=== PATIENT | female | born 1995 | race Caucasian/White ===

== ENCOUNTER → 2016-06-14 | Outpatient (REF) | payer OTHER, MEDICAID ==
[~2016-06-14] MED LIST: ABIL5TAB; ACET50TA PO; ANUS2.5C2 TOP; BUPR15TA PO; COLA100C PO; DIBU1OI TOP; IBUP-1114 PO; MAG-TAB2 PO; METO5TAB2; PRENTAB55 PO; PREV30TA; VALT500T PO; VITA100037 PO
[2016-06-14 18:39] LABS: ALBUMIN/GLOBULIN RATIO 1.18 (1.00-1.93); ALKALINE PHOSPHATASE 116 U/L (45-117); ALT/SGPT 86 U/L (12-78); ANION GAP 7 MEQ/L (8-16); AST/SGOT 46 U/L (15-37); BILIRUBIN,TOTAL 0.3 MG/DL (0.2-1.0); BLOOD UREA NITROGEN 8 MG/DL (7-18); CALCIUM LEVEL 9.1 MG/DL (8.5-10.1); CARBON DIOXIDE LEVEL 31 MEQ/L (21-32); CHLORIDE LEVEL 105 MEQ/L (98-107); CREATININE FOR GFR 0.93 MG/DL (0.55-1.02); GLUCOSE, FASTING 73 MG/DL (70-105); POTASSIUM SERUM 4.2 MEQ/L (3.5-5.1); SODIUM LEVEL 143 MEQ/L (136-145); TOTAL PROTEIN 7.4 GM/DL (6.4-8.2)
[2016-06-14 19:32] LABS: MEAN CORPUSCULAR HEMOGLOBIN 29.6 pg (27.0-33.0); MEAN CORPUSCULAR HGB CONC 33.6 g/dl (32.0-36.5); MEAN CORPUSCULAR VOLUME 88.2 fl (80.0-96.0); PLATELET COUNT, AUTOMATED 243 k/mm3 (150-450); RED CELL DISTRIBUTION WIDTH 12.6 % (11.5-14.5)
[2016-06-14 21:16] LABS: BANDS 1 % (< 11); EOSINOPHILS 2 % (0-5)
== END ==
LOC: M SFHCLERA 14:51
PROVIDERS: ATTEND Family Medicine
DX: T88.7XXD Unspecified adverse effect of drug or medicament, subsequent encounter (principal)

== ENCOUNTER → 2016-11-07 | Outpatient (REF) | payer OTHER, MEDICAID ==
[~2016-11-07] MED LIST changes: -COLA100C PO; +COLA100C3 PO
[2016-11-07 15:22] LABS: BASO # 0.1 K/mm3 (0.0-0.2); BASO % 0.8 % (0.0-1.0); EOS # 0.2 K/mm3 (0.0-0.50); EOS % 2.4 % (0.0-3.0); LARGE UNSTAINED CELL # 0.1 K/mm3 (0.0-0.4); LARGE UNSTAINED CELL % 1.3 % (0.0-4.0); LYMPH # 2.1 K/mm3 (1.5-6.5); LYMPH % 20.3 % (24.0-44.0); MEAN CORPUSCULAR HEMOGLOBIN 30.3 pg (27.0-33.0); MONO # 0.7 K/mm3 (0.0-0.8); MONO % 6.6 % (0.0-5.0); NEUTROPHILS % 68.7 % (36.0-66.0); PLATELET COUNT, AUTOMATED 299 k/mm3 (150-450); WHITE BLOOD COUNT 10.1 K/mm3 (4.0-10.0)
== END ==
LOC: M SFHCLERA 10:31
PROVIDERS: ATTEND Nurse Practitioner Family
DX: J02.9 Acute pharyngitis, unspecified (principal)

== ENCOUNTER → 2016-12-20 | Outpatient (CLI) | payer MEDICAID ==
[~2016-12-20] MED LIST changes: -COLA100C3 PO; +COLA100C5 PO; +DIBU10OI TOP; -DIBU1OI TOP; -VITA100037 PO; +VITA100067 PO
--- NOTE | 2016-12-20 19:58 | REP ---
Left hip, complete: 12/20/2016 Clinical history: Left hip pain. Comparison: CT pelvis 12/11/2007. AP and frog-leg views show no evidence of hip joint space narrowing. There is no fracture, avulsion or subluxation. The acetabulum, pubic rami, symphysis pubis, iliac wing and SI joints intact. Sacral ala and foramina unremarkable. There is an IUD centrally in the pelvis. Impression: 1. Negative left hip series. No fracture or other acute finding. Signed by Khadar Hernandez MD 12/20/2016 10:32 P
== END ==
LOC: M LRY 18:24
PROVIDERS: ATTEND Nurse Practitioner Family
DX: M25.552 Pain in left hip (principal)

== ENCOUNTER → 2017-04-03 | Outpatient (REF) | payer OTHER | LOC: M SFHCLERA 18:55 | PROVIDERS: ATTEND Physician Assistant | DX: N89.8 Other specified noninflammatory disorders of vagina (principal) ==

== ENCOUNTER → 2017-04-03 | Outpatient (CLI) | payer OTHER ==
[2017-04-03 20:58] LABS: BASO % 0.4 % (0.0-1.0); EOS # 0.2 10^3/uL (0.0-0.50); EOS % 2.3 % (0.0-3.0); IMMATURE GRANULOCYTE % 0.2 % (0-0); LYMPH # 3.2 10^3/uL (1.5-6.5); LYMPH % 38.3 % (24.0-44.0); MEAN CORPUSCULAR HEMOGLOBIN 29.1 pg (27.0-33.0); MEAN CORPUSCULAR HGB CONC 33.3 g/dl (32.0-36.5); MEAN CORPUSCULAR VOLUME 87.6 fl (80.0-96.0); MONO # 0.7 10^3/uL (0.0-0.8); MONO % 8.8 % (0.0-5.0); NEUTROPHILS # 4.2 10^3/uL (1.8-7.7); PLATELET COUNT, AUTOMATED 330 10^3/uL (150-450); RED CELL DISTRIBUTION WIDTH 12.5 % (11.5-14.5); WHITE BLOOD COUNT 8.4 10^3/uL (4.0-10.0)
[2017-04-03 21:10] LABS: ALBUMIN 4.1 GM/DL (3.2-5.2); ALBUMIN/GLOBULIN RATIO 1.32 (1.00-1.93); ALKALINE PHOSPHATASE 111 U/L (45-117); ALT/SGPT 21 U/L (12-78); ANION GAP 5 MEQ/L (8-16); AST/SGOT 16 U/L (7-37); BILIRUBIN,TOTAL 0.2 MG/DL (0.2-1.0); BLOOD UREA NITROGEN 13 MG/DL (7-18); CARBON DIOXIDE LEVEL 33 MEQ/L (21-32); CHLORIDE LEVEL 104 MEQ/L (98-107); CHOLESTEROL LEVEL 166 MG/DL (<200); CREATININE FOR GFR 0.74 MG/DL (0.55-1.02); GLUCOSE, FASTING 83 MG/DL (70-105); POTASSIUM SERUM 4.2 MEQ/L (3.5-5.1); SODIUM LEVEL 142 MEQ/L (136-145); TOTAL PROTEIN 7.2 GM/DL (6.4-8.2); TRIGLYCERIDES LEVEL 96 MG/DL (<150)
[2017-04-03 21:39] LABS: VITAMIN B12 LEVEL 836 PG/ML (247-911)
== END ==
LOC: M LRY 17:54
PROVIDERS: ATTEND Registered Nurse Psychiatric/Mental Health
DX: F94.1 Reactive attachment disorder of childhood (principal)

== ENCOUNTER 2017-04-29 13:16 | Emergency (ER) | payer OTHER ==
[~2017-04-29] VITALS: Ht 160 cm; Wt 57.3 kg
[2017-04-29] MEDS ORDERED: LEVOTAB10 PO (13:30)
[2017-04-29] MEDS ORDERED: LAMO100T PO (13:30)
[2017-04-29 15:02] LABS: MEAN CORPUSCULAR HGB CONC 33.6 g/dl (32.0-36.5); MEAN CORPUSCULAR VOLUME 86.3 fl (80.0-96.0); PLATELET COUNT, AUTOMATED 145 10^3/uL (150-450); RED CELL DISTRIBUTION WIDTH 13.2 % (11.5-14.5); WHITE BLOOD COUNT 10.5 10^3/uL (4.0-10.0)
[2017-04-29 15:03] LABS: ADD MANUAL DIFFER YES; DIFF SLIDE NUMBER 258; POSITIVE MORPH POS FLAG
[2017-04-29 15:20] LABS: CONTROL LINE HCG INT CTR LINE PRESENT
[2017-04-29 15:35] LABS: ALBUMIN 4.1 GM/DL (3.2-5.2); ALBUMIN/GLOBULIN RATIO 1.17 (1.00-1.93); ALKALINE PHOSPHATASE 121 U/L (45-117); ALT/SGPT 43 U/L (12-78); ANION GAP 8 MEQ/L (8-16); AST/SGOT 38 U/L (7-37); BILIRUBIN,DIRECT 0.2 MG/DL (0.0-0.2); BILIRUBIN,TOTAL 0.7 MG/DL (0.2-1.0); BLOOD UREA NITROGEN 10 MG/DL (7-18); CALCIUM LEVEL 8.7 MG/DL (8.5-10.1); CARBON DIOXIDE LEVEL 27 MEQ/L (21-32); CHLORIDE LEVEL 103 MEQ/L (98-107); CREATININE FOR GFR 0.73 MG/DL (0.55-1.02); GLUCOSE, FASTING 97 MG/DL (70-105); POTASSIUM SERUM 4.2 MEQ/L (3.5-5.1); SODIUM LEVEL 138 MEQ/L (136-145); TOTAL PROTEIN 7.6 GM/DL (6.4-8.2)
[2017-04-29] MEDS ORDERED: IBUPROFEN 800 MG TAB PO ONE (15:45)
[2017-04-29] MEDS ORDERED: MORPHINE 4 MG/ML 1ML SYRINGE IV PRN (15:45)
[2017-04-29] MEDS ORDERED: NS 1,000 ML IV ONE (15:45)
[2017-04-29] MEDS ORDERED: ONDANSETRON 4MG/2ML VIAL (J2405) IV ONE (15:45)
[2017-04-29] MEDS ORDERED: ISOVUE-370 76% 100ML VIAL (Q9967) As Ordered ONE (15:57)
--- NOTE | 2017-04-29 17:14 | REP ---
CT of the abdomen and pelvis with IV contrast, without bowel contrast for right lower quadrant abdominal pain. Comparison is 12/11 2007. The visualized lung michaels are unremarkable. The hepatic parenchyma, gallbladder, pancreas are unremarkable. The the is spleen is upper normal size measuring 13 cm craniocaudad length. The adrenals and kidneys are unremarkable. There is no hydronephrosis. The abdominal aorta is unremarkable. There is no bowel distension or obstruction. Mesentery is unremarkable. Pelvis: The appendix has a normal appearance. There is no ascites. There is no adenopathy. There is an IUD centrally placed within the uterus. The uterus and adnexa are unremarkable. The bladder is a unremarkable. Impression: Essentially negative CT scan of the abdomen pelvis. The appendix has a normal appearance. There is an IUD centrally placed in the uterus. There is no adenopathy or ascites. There is no bowel distension or obstruction. The gallbladder and adnexa are unremarkable. Signed by Flip Hopson MD 04/29/2017 05:05 P
[2017-04-29 17:20] LABS: CONTROL LINE MONO INT CTR LINE PRESENT
[2017-04-29] MEDS ORDERED: ZOFR4TAB3 PO (17:53)
[2017-04-29 18:19] VITALS: BP 107/65
== END 2017-04-29 18:21 | disposition home or self-care (01) ==
LOC: M ED 13:16
DX: K52.9 Noninfective gastroenteritis and colitis, unspecified (principal); E86.0 Dehydration; Z97.5 Presence of (intrauterine) contraceptive device; J45.909 Unspecified asthma, uncomplicated; F41.9 Anxiety disorder, unspecified; F32.9 Major depressive disorder, single episode, unspecified; Z79.899 Other long term (current) drug therapy
CPT/HCPCS: 74177; 80048; 80076; 81001; 83605; 83690; 84703; 85025; 86308; 96361; 96374; 96375; 99284; J2405; Q9967

== ENCOUNTER → 2017-05-13 | Outpatient (CLI) | payer OTHER ==
[~2017-05-13] MED LIST changes: +LAMO100T PO; +LEVOTAB10 PO; +ZOFR4TAB3 PO
[2017-05-13 12:24] LABS: ALBUMIN 3.4 GM/DL (3.2-5.2); ALKALINE PHOSPHATASE 88 U/L (45-117); ALT/SGPT 42 U/L (12-78); ANION GAP 5 MEQ/L (8-16); AST/SGOT 28 U/L (7-37); BILIRUBIN,TOTAL 0.5 MG/DL (0.2-1.0); BLOOD UREA NITROGEN 9 MG/DL (7-18); CALCIUM LEVEL 8.1 MG/DL (8.5-10.1); CARBON DIOXIDE LEVEL 30 MEQ/L (21-32); CHLORIDE LEVEL 107 MEQ/L (98-107); CREATININE FOR GFR 0.65 MG/DL (0.55-1.02); GLUCOSE, FASTING 85 MG/DL (70-105); POTASSIUM SERUM 4.2 MEQ/L (3.5-5.1); SODIUM LEVEL 142 MEQ/L (136-145); TOTAL PROTEIN 6.8 GM/DL (6.4-8.2)
== END ==
LOC: M LRY 10:20
PROVIDERS: ATTEND Registered Nurse Psychiatric/Mental Health
DX: F31.81 Bipolar II disorder (principal)

== ENCOUNTER → 2017-05-29 | Outpatient (CLI) | payer OTHER ==
[2017-05-29 21:08] LABS: VALPROIC ACID (DEPAKOTE) 18.7 UG/ML (50.0-100.0)
== END ==
LOC: M LRY 10:06
DX: F31.81 Bipolar II disorder (principal)
CPT/HCPCS: 80164

== ENCOUNTER → 2017-07-08 | Outpatient (REF) | payer OTHER ==
[2017-07-08 14:27] LABS: CHLAMYDIA DNA AMPLIFICATION NEGATIVE (NEGATIVE); GC DNA AMPLIFICATION NEGATIVE (NEGATIVE)
[2017-07-09 11:00] LABS: HIV 1&2 SCREEN CENTAUR NEGATIVE (NEGATIVE)
== END ==
LOC: M SFHCLERA 09:32
DX: R30.0 Dysuria (principal); Z72.51 High risk heterosexual behavior

== ENCOUNTER → 2017-12-08 | Outpatient (REF) | payer OTHER ==
[2017-12-08 14:28] LABS: ESTIMATED AVERAGE GLUCOSE 108 MG/DL (60-110); HEMOGLOBIN A1c 5.4 %
== END ==
LOC: M SFHCLERA 09:41
DX: Z79.899 Other long term (current) drug therapy (principal)

== ENCOUNTER → 2018-03-12 | Outpatient (REF) | payer OTHER ==
[2018-03-12 16:14] LABS: CHLAMYDIA DNA AMPLIFICATION POSITIVE (NEGATIVE); GC DNA AMPLIFICATION NEGATIVE (NEGATIVE)
[2018-03-13 11:05] LABS: HIV 1&2 SCREEN CENTAUR NEGATIVE (NEGATIVE)
== END ==
LOC: M SFHCLERA 12:05
DX: Z30.42 Encounter for surveillance of injectable contraceptive (principal)
CPT/HCPCS: 86780

== ENCOUNTER → 2018-05-02 | Outpatient (CLI) | payer OTHER ==
[~2018-05-02] MED LIST changes: -ACET50TA PO; +HYDR-3363; +JUNE1.5T PO; +MAPA500T17 PO; +TRIL150T PO; +VITA500046 PO; +ZOFR4TAB14 PO; -ZOFR4TAB3 PO
[2018-05-02 10:41] LABS: BASO % 0.3 % (0.0-1.0); EOS # 0.1 10^3/uL (0.0-0.50); HEMATOCRIT 44.8 % (36.0-47.0); HEMOGLOBIN 15.4 g/dl (12.0-15.5); LYMPH # 3.2 10^3/uL (1.5-6.5); LYMPH % 45.2 % (24.0-44.0); MEAN CORPUSCULAR HEMOGLOBIN 29.1 pg (27.0-33.0); MEAN CORPUSCULAR HGB CONC 34.4 g/dl (32.0-36.5); MEAN CORPUSCULAR VOLUME 84.5 fl (80.0-96.0); MONO # 0.5 10^3/uL (0.0-0.8); MONO % 6.5 % (0.0-5.0); NEUTROPHILS # 3.3 10^3/uL (1.8-7.7); NEUTROPHILS % 46.9 % (36.0-66.0); PLATELET COUNT, AUTOMATED 216 10^3/uL (150-450); WHITE BLOOD COUNT 7.1 10^3/uL (4.0-10.0)
[2018-05-02 10:58] LABS: HEMOGLOBIN A1c 5.4 %
[2018-05-02 11:07] LABS: ALT/SGPT 20 U/L (12-78); BILIRUBIN,DIRECT 0.1 MG/DL (0.0-0.2); BILIRUBIN,TOTAL 0.5 MG/DL (0.2-1.0); BLOOD UREA NITROGEN 13 MG/DL (7-18); CALCIUM LEVEL 8.6 MG/DL (8.5-10.1); CARBON DIOXIDE LEVEL 25 MEQ/L (21-32); CHLORIDE LEVEL 107 MEQ/L (98-107); CHOLESTEROL LEVEL 130 MG/DL (<200); CHOLESTEROL RISK RATIO 3.714 (<5); CREATININE FOR GFR 0.91 MG/DL (0.55-1.30); GLOMERULAR FILTRATION RATE > 60.0 (>60); GLUCOSE, FASTING 80 MG/DL (70-100); HDL CHOLESTEROL 35 MG/DL (>40); LDL CHOLESTEROL 76 MG/DL (<100); NON-HDL-C 95 MG/DL; POTASSIUM SERUM 4.1 MEQ/L (3.5-5.1); SODIUM LEVEL 141 MEQ/L (136-145); TOTAL PROTEIN 7.2 GM/DL (6.4-8.2); TRIGLYCERIDES LEVEL 97 MG/DL (<150)
[2018-05-02 11:08] LABS: TOTAL 25(OH) VITAMIN D 80.6 NG/ML (30.0-100.0)
--- NOTE | 2018-05-03 22:05 | ECGEPIP ---
Stationary ECG Study [facility] Test Date: 2018-05-02 Pat Name: KARLOS WARE Department: Room: - Gender: F Supervisor Taping: SHEILA : 1995 Requested By: Cyndi DE PAZ Order Number: [id number] Reading MD: Santi Jerez Measurements Intervals [place] Rate: 88 P: 54 PA: 150 QRS: 84 QRSD: 106 T: 46 QT: 344 QTc: 418 Interpretive Statements SINUS RHYTHM INCOMPLETE RIGHT BUNDLE BRANCH BLOCK NO PRIOR TRACING Electronically Signed On 05-03-2018 22:05:50 EST by Santi Jerez
== END ==
LOC: M LAB 10:05
PROVIDERS: ATTEND Registered Nurse
DX: F31.81 Bipolar II disorder (principal); Z51.81 Encounter for therapeutic drug level monitoring; Z13.9 Encounter for screening, unspecified; I45.19 Other right bundle-branch block

== ENCOUNTER → 2018-10-23 | Outpatient (REF) | payer OTHER ==
[~2018-10-23] MED LIST changes: -MAPA500T17 PO; +MAPA500T2 PO
[2018-10-23 21:08] LABS: CHLAMYDIA DNA AMPLIFICATION NEGATIVE (NEGATIVE); GC DNA AMPLIFICATION NEGATIVE (NEGATIVE)
== END ==
LOC: M SFHCWAGY 14:21
PROVIDERS: ATTEND Nurse Practitioner Women's Health
DX: Z12.4 Encounter for screening for malignant neoplasm of cervix (principal)

== ENCOUNTER → 2018-10-27 | Outpatient (REF) | payer OTHER ==
[2018-10-27 20:21] LABS: BASO % 0.3 % (0.0-1.0); EOS # 0.2 10^3/uL (0.0-0.50); EOS % 2.8 % (0.0-3.0); HEMATOCRIT 39.5 % (36.0-47.0); HEMOGLOBIN 12.9 g/dl (12.0-15.5); LYMPH % 38.4 % (24.0-44.0); MEAN CORPUSCULAR HEMOGLOBIN 28.9 pg (27.0-33.0); MEAN CORPUSCULAR HGB CONC 32.7 g/dl (32.0-36.5); MEAN CORPUSCULAR VOLUME 88.6 fl (80.0-96.0); MONO # 0.5 10^3/uL (0.0-0.8); MONO % 6.6 % (0.0-5.0); NEUTROPHILS % 51.6 % (36.0-66.0); PLATELET COUNT, AUTOMATED 228 10^3/uL (150-450); RED BLOOD COUNT 4.46 10^6/uL (4.00-5.40); WHITE BLOOD COUNT 7.8 10^3/uL (4.0-10.0)
== END ==
LOC: M SFHCLERA 07:31
PROVIDERS: ATTEND Family Medicine
DX: T63.441A Toxic effect of venom of bees, accidental (unintentional), initial encounter (principal); Y93.9 Activity, unspecified; Y92.9 Unspecified place or not applicable

== ENCOUNTER → 2018-12-19 | Outpatient (REF) | payer OTHER ==
[2018-12-23 14:22] LABS: Lyme Disease IgG Ab 18 kDa Ban Absent (.); Lyme Disease IgG Ab 23 kDa Ban Absent (.); Lyme Disease IgG Ab 28 kDa Ban Absent (.); Lyme Disease IgG Ab 30 kDa Ban Absent (.); Lyme Disease IgG Ab 39 kDa Ban Absent (.); Lyme Disease IgG Ab 41 kDa Ban Absent (.); Lyme Disease IgG Ab 45 kDa Ban Absent (.); Lyme Disease IgG Ab 58 kDa Ban Absent (.); Lyme Disease IgG Ab 66 kDa Ban Absent (.); Lyme Disease IgG Ab 93 kDa Ban Absent (.); Lyme Disease IgG West Blot Int Negative (.); Lyme Disease IgG/IgM Antibodie <0.91 ISR (0.00-0.90); Lyme Disease IgM Ab 23 kDa Ban Absent (.); Lyme Disease IgM Ab 39 kDa Ban Present (.); Lyme Disease IgM Ab 41 kDa Ban Absent (.); Lyme Disease IgM Ab Quantitati 0.96 index (0.00-0.79); Lyme Disease IgM West Blot Int Negative (.)
== END ==
LOC: M SFHCLUC 09:05
PROVIDERS: ATTEND Physician Assistant
DX: Z11.8 Encounter for screening for other infectious and parasitic diseases (principal)

== ENCOUNTER → 2018-12-29 | Outpatient (REF) | payer OTHER | LOC: M SFHCLERA 12:54 | PROVIDERS: ATTEND Family Medicine | DX: R23.8 Other skin changes (principal); B35.4 Tinea corporis ==

== ENCOUNTER → 2019-02-08 | Outpatient (REF) | payer OTHER ==
[2019-02-08 22:55] LABS: CHLAMYDIA DNA AMPLIFICATION NEGATIVE (NEGATIVE); GC DNA AMPLIFICATION NEGATIVE (NEGATIVE)
== END ==
LOC: M SFHCLERA 16:14
PROVIDERS: ATTEND Physician Assistant Medical
DX: N89.8 Other specified noninflammatory disorders of vagina (principal)

== ENCOUNTER → 2019-03-11 | Outpatient (REF) | payer OTHER ==
[2019-03-11 19:12] LABS: CHLAMYDIA DNA AMPLIFICATION NEGATIVE (NEGATIVE); GC DNA AMPLIFICATION NEGATIVE (NEGATIVE)
== END ==
LOC: M SFHCWAGY 16:58
PROVIDERS: ATTEND Nurse Practitioner Women's Health
DX: Z11.3 Encounter for screening for infections with a predominantly sexual mode of transmission (principal)

== ENCOUNTER → 2019-03-17 | Outpatient (CLI) | payer OTHER ==
--- NOTE | 2019-03-17 13:53 | REP ---
PELVIC ULTRASOUND: Real-time sonographic evaluation of the pelvis performed utilizing transabdominal and endovaginal technique. Bladder measures 13.1 x 8.7 x 10.0 cm. Uterus measures 8.4 x 3.5 x 4.4 cm. Endometrial thickness is 3.0 mm. Ovaries are normal in size and echotexture, right ovary measuring 2.6 x 1.7 x 2.3 cm and left ovary 2.4 x 1.7 x 1.7 cm. There is no adnexal mass or free fluid. IMPRESSION: Negative pelvic ultrasound. Electronically Signed by Flip Gresham MD 03/17/2019 03:27 P
== END ==
LOC: M RAD 12:35
PROVIDERS: ATTEND Nurse Practitioner Women's Health
DX: N92.6 Irregular menstruation, unspecified (principal)

== ENCOUNTER → 2020-05-04 | Outpatient (REF) | payer OTHER ==
[~2020-05-04] MED LIST changes: -LAMO100T PO; +LAMO100T3 PO
[2020-05-04 13:58] LABS: GLUCOSE CHALLENGE TEST 1 HOUR 154 MG/DL (LESS THAN 140)
[2020-05-04 14:11] LABS: HEMATOCRIT 40.1 % (36.0-47.0); MEAN CORPUSCULAR HEMOGLOBIN 29.1 pg (27.0-33.0); MEAN CORPUSCULAR HGB CONC 32.4 g/dl (32.0-36.5); MEAN CORPUSCULAR VOLUME 89.9 fl (80.0-96.0); PLATELET COUNT, AUTOMATED 206 10^3/uL (150-450); RED BLOOD COUNT 4.46 10^6/uL (4.00-5.40); WHITE BLOOD COUNT 12.1 10^3/uL (4.0-10.0)
[2020-05-04 14:55] LABS: HEPATITIS C VIRUS ABY INDEX 0.1 INDEX (<0.8); HIV 1&2 SCREEN CENTAUR NEGATIVE (NEGATIVE)
== END ==
LOC: M PLALAB 10:20
PROVIDERS: ATTEND Advanced Practice Midwife
DX: Z34.82 Encounter for supervision of other normal pregnancy, second trimester (principal); Z3A.00 Weeks of gestation of pregnancy not specified

== ENCOUNTER → 2020-05-10 | Outpatient (CLI) | payer MEDICAID | LOC: M LAB 07:00 | PROVIDERS: ATTEND Advanced Practice Midwife | DX: O99.810 Abnormal glucose complicating pregnancy (principal); Z3A.00 Weeks of gestation of pregnancy not specified ==

== ENCOUNTER → 2020-05-10 | Outpatient (REF) | payer MEDICAID ==
[2020-05-10 17:21] LABS: APPEARANCE, URINE CLEAR (CLEAR); BACTERIA, URINE AUTO NEGATIVE (NEGATIVE); BILIRUBIN, URINE AUTO NEGATIVE (NEGATIVE); BLOOD, URINE BLOOD NEGATIVE (NEGATIVE); COLOR, URINE YELLOW (YELLOW); GLUCOSE, URINE (UA) AUTO 2+ mg/dL (NEGATIVE); KETONE, URINE AUTO TRACE mg/dL (NEGATIVE); LEUKOCYTE ESTERASE, URINE AUTO TRACE (NEGATIVE); NITRITE, URINE AUTO NEGATIVE (NEGATIVE); PROTEIN, URINE AUTO NEGATIVE (NEGATIVE); RBC, URINE AUTO 0 /HPF (0-3); SPECIFIC GRAVITY URINE AUTO 1.021 (1.002-1.035); SQUAMOUS EPITHELIAL CELL UR AU 4 /HPF (0-6); WBC, URINE AUTO 2 /HPF (0-3)
== END ==
LOC: M LAB REF 16:43
PROVIDERS: ATTEND Physician Assistant
DX: N39.0 Urinary tract infection, site not specified (principal)

== ENCOUNTER → 2020-05-26 | Outpatient (CLI) | payer OTHER ==
--- NOTE | 2020-05-26 11:05 | REP ---
INDICATION: ANATOMY COMPARISON: None. TECHNIQUE: Transabdominal obstetrical ultrasound with color Doppler evaluation. FINDINGS: Examination demonstrates a single live intrauterine in cephalic presentation. motion is identified by technologist. Placenta is noted posterior and grade 1 without evidence for placenta previa or abruption. Amniotic fluid volume is normal. Cervix measures 4.3 cm in length and appears closed.. Gestational age by LMP 30 weeks 6 days with JUDITH 07/29/2020. Gestational age by current measurements 30 weeks 6 days with JUDITH 07/29/2020. FHR equals 150 beats per minute. BPD: 7.7 cm 30 weeks 6 days HC: 27.8 cm 30 weeks 3 days AC: 27.1 cm 31 weeks 1 day FL: 5.7 cm 30 weeks 1 day HL: 5.4 cm 31 weeks 4 days HC/AC: 1.03 Estimated weight 1632 grams (33rdpercentile). Anatomical assessment demonstrates normal structures including cranium, cavum, cerebellum/posterior fossa, facial features, lungs, four-chamber heart/ventricular outflow tracts, diaphragm, stomach, cord insertion/three-vessel cord, kidneys/bladder, spine, and extremities. IMPRESSION: Single live intrauterine in cephalic presentation. Anatomical assessment and specifically intracranial evaluation is limited due to advanced age. Remainder of the anatomical assessment appears normal. <Electronically signed by Cole Pineda > 05/26/20 [id number]
== END ==
LOC: M WHC 09:53
PROVIDERS: ATTEND Advanced Practice Midwife
DX: Z34.82 Encounter for supervision of other normal pregnancy, second trimester (principal)

== ENCOUNTER → 2020-06-19 | Outpatient (CLI) | payer OTHER | LOC: M WHC 08:55 | PROVIDERS: ATTEND Obstetrics & Gynecology | DX: O24.419 Gestational diabetes mellitus in pregnancy, unspecified control (principal) ==

== ENCOUNTER → 2020-06-23 | Outpatient (CLI) | payer OTHER ==
--- NOTE | 2020-06-24 04:14 | REP ---
INDICATION: GESTATIONAL DIABETES/GROWTH COMPARISON: 05/26/2020 TECHNIQUE: Transabdominal obstetrical ultrasound with color Doppler evaluation. FINDINGS: Examination demonstrates a single live intrauterine in cephalic presentation. motion is identified by technologist. Placenta is noted posterior and grade 2 without evidence for placenta previa or abruption. Amniotic fluid volume is normal. Cervix measures 3.8 cm in length and appears closed.. Gestational age by LMP 34 weeks 6 days with JUDITH 07/29/2020. Gestational age by current measurements 34 weeks 5 days with JUDITH 07/30/2020. FHR equals 167 beats per minute. RUSTY: 15.2 cm (7.9-24.9) Estimated weight 2581 grams (51stpercentile). IMPRESSION: Single live advanced gestation in cephalic presentation demonstrating appropriate estimated weight and growth. Amniotic fluid volume normal. <Electronically signed by Cole Pineda > 06/24/20 [id number]
== END ==
LOC: M WHC 12:30
PROVIDERS: ATTEND Obstetrics & Gynecology
DX: O24.419 Gestational diabetes mellitus in pregnancy, unspecified control (principal); Z3A.34 34 weeks gestation of pregnancy

== ENCOUNTER → 2020-06-26 | Outpatient (REF) | payer OTHER | LOC: M PLALAB 08:07 | PROVIDERS: ATTEND Obstetrics & Gynecology | DX: O24.419 Gestational diabetes mellitus in pregnancy, unspecified control (principal) ==

== ENCOUNTER 2020-07-06 20:40 | Outpatient (CLI) | payer OTHER ==
[~2020-07-06] VITALS: Ht 160 cm; Wt 79.6 kg
[2020-07-06 20:55] VITALS: BP 131/83
[2020-07-06 21:28] VITALS: BP 133/85
--- NOTE | 2020-07-06 21:54 | IPNPDOC ---
Obstetrical Progress Note Date of Service Jul 06, 2020 Subjective 24 o at 36 3/7 weeks presents with no movement today. She has abdominal cramping whih is mild. Objective Vital Signs Date Time Temp Pulse Resp B/P (MAP) Pulse Ox O2 Delivery O2 Flow Rate FiO2 07/06/20 21:28 84 18 133/85 (101) 07/06/20 21:27 97.4 Assessment Variability: Decreased Accelerations: Positive Decelerations: None Heart Rate Tracing: Category I Tocometer Contractions: Yes Frequency: irregular Strength: palpated as mild Assessment and Plan Status: Reassuring Additional Comments 24 yo at 36+ weeks with reassuring testing, not in labor D/C home rest, fluids fu office next week as scheduled. LILLIE BARTLETT MD Jul 06, 2020 21:54
== END 2020-07-06 22:33 | disposition home or self-care (01) ==
LOC: M LDO 20:40
PROVIDERS: ATTEND Specialist
DX: O36.8130 Decreased fetal movements, third trimester, not applicable or unspecified (principal); Z3A.36 36 weeks gestation of pregnancy

== ENCOUNTER 2020-07-17 13:15 | Inpatient (IN) | payer OTHER ==
[2020-07-17] VITALS (30 sets, daily range): BP systolic 118–164; BP diastolic 69–98
[~2020-07-17] VITALS: Ht 160 cm; Wt 81.6 kg
[2020-07-17] MEDS ORDERED: OMEP10CASR PO (13:49)
[2020-07-17] MEDS ORDERED: METF500T13 PO (13:49)
[2020-07-17] MEDS ORDERED: PNV-TAB2 PO (13:49)
[2020-07-17] MEDS ORDERED: PENICILLIN G POTASSIUM IV 5 MU in D5W MINI-BAG PLUS 100 ML IV STA (14:36)
[2020-07-17] MEDS ORDERED: LACTATED RINGER'S 1000 ML IV STA (14:36)
[2020-07-17] MEDS ORDERED: OXYTOCIN DRIP 30 UNITS in IV 1 EA IV SCH (14:40)
--- NOTE | 2020-07-17 14:40 | HPEPDOC ---
Obstetrical History & Physical General Date of Admission Jul 17, 2020 at 13:15 Primary Care Physician: CLAUDIA DAVIS CNM History of Present Illness Calista is a 25-year-old female who is a at 38.2 weeks gestation with an JUDITH of 07/29/20 based off of her LMP. She initiated care in her second trimester with [facility]. Her has been complicated by A2GDM (controlled with metformin 500 mg BID), a history of a shoulder dystocia, late to care and HSV-II (taking suppressive therapy). She presents to L&D for an IOL related to her A2GDM. She reports active movement and occasional contractions. She denies leaking of fluid or vaginal bleeding. Chief Complaint: Induction of labor Information Provided By: Patient Age: 25 : 2 Term: 1 Pre-term: 0 Abortions: 0 Livin Care Care: Other (late to care at 27 weeks gestation) Dating Final EDC: Jul 29, 2020 Final EDC by: LMP EGA at Admission: 38.2 Antepartum Course Diagnos(e)s A2GDM GBS positive History of shoulder dystocia HSV II late to care Height (inches): 63 Admission Weight (lbs.): 179 Past Medical History Past Obstetrical History : Past Obstetrical History: Primgravida Date of Delivery: Apr 22, 2016 Gestation: 39 Type of Delivery: Spontaneous Vaginal Del. Sex of : Female (8 lbs 6 oz) Complications: Yes (shoulder dystocia) SLATE ROOFER History: Herpes simplex virus(HSV) Past Medical History Medical History allergies Surgical History: Denies/None Family History Significant Family History: Diabetes Social History Marital Status: Single Psychosocial History: Anxiety, Depression, Other (reactive attachment disorder) * Smoker: non-smoker Alcohol: Denies Drugs: denies Allergies Coded Allergies: No Known Allergies (Unverified , 07/17/20) Medications Scheduled Metformin HCl (Metformin HCl) 500 Mg Tablet, 500 MG PO BID Omeprazole (Omeprazole) 10 Mg Capsule.dr, 1 CAP PO DAILY ,Calc.40/Iron/Folate 1 (Pnv-Select Tablet) 1 Each Tablet, 1 TAB PO DAILY Valacyclovir HCl (Valtrex) 500 Mg Tab, 500 MG PO 3XW Physical Examination Physical Examination GENERAL: Alert and oriented times three. ABDOMEN: Gravid and non-tender to touch. FETUS: Is vertex (VTX) by sterile vaginal examination (SVE), fetus is vertex (VTX) by [place]. HEART RATE: Regular rate and rhythm. No murmurs. LUNGS: Clear to auscultation (CTA). EXTREMITIES: No edema. No clonus. Deep tendon reflexes (DTRs) + 2. Vital Signs/I&O Vital Signs Date Time Temp Pulse Resp B/P (MAP) Pulse Ox O2 Delivery O2 Flow Rate FiO2 07/17/20 14:28 98.7 89 18 127/88 (101) Laboratory Data 24H LABS Laboratory Tests 2 07/17/20 13:18: Serology Scanned Report Hepatitis B Testing 07/17/20 14:34: Bedside Glucose (Misc Panel) 71 Urine Culture: No Growth Pertinent Laboratoy Data Blood Type: O+ RBC Antibody Screen: Negative HIV: Negative Hepatitis B: Negative Hepatitis C: Negative Rapid Plasma Reagin: Nonreactive Rubella: Nonreactive Chlamydia/Gonorrhea: Negative Group B Streptococcus: Positive Glucose Tolerance Test: 154 Anatomy Ultrasound Ultrasound Date: Jun 23, 2020 Placenta Location: Posterior Normal Anatomy: Yes (growth 51%) Placenta Previa: No Vaginal Examination Dilation: 2cm Effacement: 50% Station: -3 Cervical Consistency: Soft Cervical Position: Anterior Position: Vertex (occiput) Assessment Heart Rate (FHR): 135 Variability: Moderate Accelerations: Positive Decelerations: None Tocometer Contractions: Yes Frequency: irregular Multi-drug resistant Organism: No history of MDRO Assessment/Plan Assessment IUP at 38.2 weeks gestation A2GDM GBS positive Category I FHR tracing Plan Admit to L&D. OOB ad joanna. Diet: clears. Group B Streptococcus (GBS) positive. PCN G ordered. Labs and intravenous (IV) per unit protocol. Counseled on maloney bulb and IV Pitocin for induction of labor. Maloney bulb placed with 60/40 LR. Patient tolerated well. Start IV Pitocin per order. Anesthesia consult per patient's request. Lactated Ringers (LR): Bolus 800 mL, then at 125 mL/hr. Anticipate cervical ripening and cervical change. . C-S as appropriate. CLAUDIA DAVIS CNM Jul 17, 2020 14:40
[2020-07-17] MEDS: LR 1,000 ML IV SCH ×2 (15:00→20:08)
[2020-07-17 15:13] LABS: HEMATOCRIT 39.9 % (36.0-47.0); HEMOGLOBIN 13.1 g/dl (12.0-15.5); MEAN CORPUSCULAR HEMOGLOBIN 28.7 pg (27.0-33.0); MEAN CORPUSCULAR HGB CONC 32.8 g/dl (32.0-36.5); MEAN CORPUSCULAR VOLUME 87.3 fl (80.0-96.0); PLATELET COUNT, AUTOMATED 217 10^3/uL (150-450); RED BLOOD COUNT 4.57 10^6/uL (4.00-5.40); WHITE BLOOD COUNT 10.9 10^3/uL (4.0-10.0)
[2020-07-17] MEDS: PENICILLIN G POTASSIUM IV 2.5 MU in IV 1 EA IV SCH ×2 (18:23→23:01)
[2020-07-17] MEDS ORDERED: FENTANYL 2MCG/ML ROPIVACAINE 0.2% IN 0.9% NACL 100ML IVBAG As Ordered ONE (18:51)
[2020-07-17] MEDS ORDERED: FENTANYL/ROPIVACAINE/NACL BAG 100 ML EPIDURAL SCH (19:05)
[2020-07-17] MEDS ORDERED: diphenhydrAMINE 50MG/ML VIAL (J1200) IV PRN (19:05)
[2020-07-17] MEDS ORDERED: EPIDURAL/PCA KEYS XX PRN (19:05)
[2020-07-17] MEDS ORDERED: EPIDURAL COMMENT XX SCH (19:05)
[2020-07-17] MEDS ORDERED: NALOXONE INJ 0.4MG/1ML VIAL (J2310 PER 1MG) IV PRN (19:05)
[2020-07-17] MEDS ORDERED: LACTATED RINGER'S 1000 ML IV PRN (19:05)
[2020-07-17] MEDS ORDERED: ePHEDrine SULFATE 25 MG/5 ML(5MG/ML) SYRINGE IV PRN (19:05)
[2020-07-17] MEDS ORDERED: REFRIGERATOR IV KEYS XX PRN (19:05)
[2020-07-17] MEDS ORDERED: ONDANSETRON 4MG/2ML VIAL IV PRN (19:05)
[2020-07-17] MEDS ORDERED: metFORMIN (GLUCOPHAGE) 500MG TAB PO ONE (21:20)
[2020-07-18] VITALS (11 sets, daily range): BP systolic 126–153; BP diastolic 60–94
[2020-07-18] MEDS ORDERED: OXYTOCIN DRIP 30 UNITS in IV 1 EA IV SCH (00:58)
[2020-07-18] MEDS ORDERED: ACETAMINOPHEN TAB 650MG DOSE (2X325MG) PO PRN (01:00)
[2020-07-18] MEDS ORDERED: ANUSOL HC CREAM 30GM TOP PRN (01:00)
[2020-07-18] MEDS ORDERED: IBUPROFEN 800 MG TAB PO PRN (01:00)
[2020-07-18] MEDS ORDERED: DOCUSATE SODIUM 100MG CAPSULE PO PRN (01:00)
[2020-07-18] MEDS ORDERED: MEASLES,MUMPS,RUBELLA VACCINE INJ (MMR-II) (90707) SC SCH (01:00)
[2020-07-18] MEDS ORDERED: METHYLERGONOVINE MALEATE 0.2 MG TAB PO PRN (01:00)
[2020-07-18] MEDS ORDERED: DIBUCAINE 1% OINTMENT 30GM TOP PRN (01:00)
[2020-07-18] MEDS ORDERED: RHOGAM 300 MCG (1500 IU) INJ (J2790) IM SCH (01:00)
--- NOTE | 2020-07-18 01:14 | DNPDOC ---
[facility] Delivery Note Delivery Note DATE OF DELIVERY: 07/18/20 at 0031 PREDELIVERY DIAGNOSIS: 38-3/7 weeks' gestation and induction of labor. POST DELIVERY DIAGNOSIS: Delivered. PROCEDURE: Spontaneous vaginal delivery. CIRCUIT BOARD DRAFTER: Claudia Morales CNM, HUNTER ANESTHESIA: epidural. ESTIMATED BLOOD LOSS: 200 mL. FINDINGS: 6 pounds 14 ounces; 3120 grams; male , Score 8/9, cord around left arm, A2GDM. DELIVERY SUMMARY: Calista is a 87-hapa-itm-female who is now a who presented for induction of labor due to A2GDM. Her was also complicated by HSV-2, which she was taking prophylactic medication for and had no visible lesions present. She received a maloney bulb and IV Pitocin for her induction. Calista requested an epidural for pain management. She progressed to fully dilated at 0028 and pushed to a living male in the ANDREY position with restitution to LOT. The anterior shoulder delivered with ease and the corpus immediately followed at 0031. A cord was noted to be wrapped around the 's left arm. The baby was placed [id number] active and crying with stimulation. The cord was clamped x2 and cut by the grandmother. A 3-vessel cord was noted. The placenta delivered spontaneously and intact at 0036. Uterine hemostasis was achieve via rapid infusion of IV Pitocin and fundal massage. The vagina, perineum, and cervix was inspected and found to have a small first degree laceration that was repaired with a 3.[address]-1. The mom plans to breastfeed her . They plan on naming him Andrews. All counts of instruments and sponges are correct. Both mom and are in stable condition. CLAUDIA MORALES CNM Jul 18, 2020 01:14
[2020-07-18] MEDS: ACETAMINOPHEN 500 MG TAB PO PRN ×2 (03:19→15:07)
[2020-07-18] MEDS: IBUPROFEN 600MG TAB PO PRN ×2 (07:36→19:56)
[2020-07-18] MEDS: PRENATAL VITAMINS CHEWABLE TABLET PO SCH (09:04)
[2020-07-19 06:20] VITALS: BP_SYST 130; BP_SYST 159; BP_DIAS 81; BP_DIAS 91
[2020-07-19] MEDS: PRENATAL VITAMINS CHEWABLE TABLET PO SCH (08:26)
[2020-07-19] MEDS ORDERED: ACET-683 PO (09:39)
[2020-07-19] MEDS ORDERED: IBUP80TA PO (09:39)
--- NOTE | 2020-07-19 09:40 | DS.PDOC ---
Discharge Summary General Date of Admission Jul 17, 2020 at 13:15 Date of Discharge 07/19/20 Primary Care Physician: CLAUDIA DAVIS CNM Discharge Summary PROCEDURES PERFORMED DURING STAY: None. ADMITTING DIAGNOSES: 1. IUP at 38.3 weeks gestation. 2. A2GDM DISCHARGE DIAGNOSES: 1. Vaginal delivery. COMPLICATIONS/CHIEF COMPLAINT: Induction. HISTORY OF PRESENT ILLNESS: Calista is a 25-year-old female who presented to L&D for an induction of labor related to A2GDM. She received a maloney bulb and IV Pitocin for induction of labor. Requested epidural for pain management. She had a male via weighting 6 lbs 14 oz. She reports her pain is controlled. States her bleeding is minimal. Breast and formula feeding without difficulty. Ambulating and voiding without difficulty. DISCHARGE MEDICATIONS: Please see below. ALLERGIES: Please see below. PHYSICAL EXAMINATION ON DISCHARGE: VITAL SIGNS: Please see below. GENERAL: No apparent distress. Sitting up in chair feeding . RESPIRATORY EXAMINATION: regular rate with no use of accessory muscles ABDOMINAL EXAMINATION: Uterus at 1 below umbilicus and firm. EXTREMITIES: Generalized edema bilateral feet and legs. SKIN: warm, dry, intact, with no rashes or lesions. NEUROLOGICAL EXAMINATION: A+Ox3 PSYCHIATRIC EXAMINATION: Mood is cheerful and affect is normal. LABORATORY DATA: Please see below. ACTIVITY: As tolerated. DIET: regular DISCHARGE INSTRUCTIONS: 1. DISCHARGE CONDITION: Stable. Vital Signs/I&Os Vital Signs Date Time Temp Pulse Resp B/P (MAP) Pulse Ox O2 Delivery O2 Flow Rate FiO2 07/19/20 06:20 97.8 82 17 130/81 (97) Discharge Medications Scheduled ,Calc.40/Iron/Folate 1 (Pnv-Select Tablet) 1 Each Tablet, 1 TAB PO DAILY, (Reported) Scheduled PRN Acetaminophen (Acetaminophen) 500 Mg Tablet, 1,000 MG PO Q6HP PRN for PAIN Ibuprofen (Ibuprofen) 800 Mg Tablet, 800 MG PO Q8HP PRN for PAIN Allergies Coded Allergies: No Known Allergies (Unverified , 07/17/20) CLAUDIA DAVIS CNM Jul 19, 2020 09:40
[2020-07-19] MEDS ORDERED: medroxyPROGESTERone ACET IM SUSP 150 MG/ML VIAL (J1050) IM ONE (10:00)
== END 2020-07-19 10:55 | disposition home or self-care (01) | DRG 560 ==
LOC: M LDI 13:15 → M OBS 07-18 02:47
PROVIDERS: ADMIT Advanced Practice Midwife; ATTEND Advanced Practice Midwife
PROC: 3E033VJ Introduction of Other Hormone into Peripheral Vein, Percutaneous Approach (ICD-10-PCS; 2020-07-17)
PROC: 10E0XZZ Delivery of Products of Conception, External Approach (ICD-10-PCS; principal; 2020-07-18)
PROC: 0HQ9XZZ Repair Perineum Skin, External Approach (ICD-10-PCS; 2020-07-18)
DX: O24.420 Gestational diabetes mellitus in childbirth, diet controlled (principal); O99.824 Streptococcus B carrier state complicating childbirth; Z3A.38 38 weeks gestation of pregnancy; O69.82X0 Labor and delivery complicated by other cord entanglement, without compression, not applicable or unspecified; O70.0 First degree perineal laceration during delivery; Z37.0 Single live birth; O98.32 Other infections with a predominantly sexual mode of transmission complicating childbirth; A60.09 Herpesviral infection of other urogenital tract

== ENCOUNTER 2020-07-30 13:41 | Emergency (ER) | payer OTHER ==
[~2020-07-30] VITALS: Ht 160 cm; Wt 74.3 kg
[~2020-07-30 13:41] MED LIST changes: +ACET-683 PO; +IBUP80TA PO; +METF500T13 PO; +OMEP10CASR PO; +PNV-TAB2 PO
--- NOTE | 2020-07-30 15:01 | REP ---
INDICATION: ? retained products COMPARISON: None. TECHNIQUE: Transabdominal pelvic ultrasound with color Doppler evaluation of the ovaries. FINDINGS: Bladder is unremarkable and measures 5.9 x 4.2 x 9.0 cm. Heterogeneous anteverted uterus measures 11.4 x 5.9 x 8.3 cm. The endometrial complex is avascular and measures 4.2 mm thickness excluding small amount of complex hemorrhagic endometrial fluid. There is no definite evidence for retained products of conception. Right ovary is normal and measures 2.3 x 2.0 x 2.3 cm (RI 0.37). The left ovary is not visualized. IMPRESSION: Enlarged uterus with hemorrhagic debris in the endocervical canal. <Electronically signed by Cole Pineda > 07/30/20 [id number]
[2020-07-30 15:22] LABS: BASO % 0.3 % (0.0-1.0); EOS # 0.1 10^3/uL (0.0-0.5); EOS % 0.9 % (0.0-3.0); HEMATOCRIT 47.2 % (36.0-47.0); HEMOGLOBIN 15.2 g/dl (12.0-15.5); LYMPH # 2.8 10^3/uL (1.5-5.0); LYMPH % 20.6 % (24.0-44.0); MEAN CORPUSCULAR HEMOGLOBIN 28.6 pg (27.0-33.0); MEAN CORPUSCULAR HGB CONC 32.2 g/dl (32.0-36.5); MEAN CORPUSCULAR VOLUME 88.7 fl (80.0-96.0); MONO # 0.6 10^3/uL (0.0-0.8); MONO % 4.1 % (2.0-8.0); NEUTROPHILS # 10.2 10^3/uL (1.5-8.5); NEUTROPHILS % 73.7 % (36.0-66.0); PLATELET COUNT, AUTOMATED 289 10^3/uL (150-450); RED BLOOD COUNT 5.32 10^6/uL (4.00-5.40); WHITE BLOOD COUNT 13.8 10^3/uL (4.0-10.0)
[2020-07-30 15:48] LABS: BLOOD UREA NITROGEN 12 MG/DL (7-18); CALCIUM LEVEL 8.9 MG/DL (8.5-10.1); CARBON DIOXIDE LEVEL 27 MEQ/L (21-32); CHLORIDE LEVEL 108 MEQ/L (98-107); CREATININE FOR GFR 0.66 MG/DL (0.55-1.30); GLOMERULAR FILTRATION RATE > 60.0 (>60); GLUCOSE, FASTING 85 MG/DL (70-100); HCG, SERUM QUANTITATIVE 4 MIU/ML; POTASSIUM SERUM 4.4 MEQ/L (3.5-5.1); SODIUM LEVEL 141 MEQ/L (136-145)
--- NOTE | 2020-07-30 16:19 | REP ---
INDICATION: abdominal pain/ no gas COMPARISON: None. TECHNIQUE: Supine view of the abdomen and pelvis. FINDINGS: Bowel gas pattern is nonspecific and without obstruction or perforation. No organomegaly. No abnormal calcifications. Skeletal structures intact. IMPRESSION: Normal abdominal radiograph. <Electronically signed by Cole Pineda > 07/30/20 [id number]
[2020-07-30] MEDS ORDERED: KETOROLAC TROMETHAMINE 10 MG TAB PO ONE (16:40)
[2020-07-30] MEDS ORDERED: METH0.2T53 PO (17:00)
[2020-07-30 17:13] VITALS: BP 147/77
--- NOTE | 2020-07-31 12:43 | ED PDOC ---
Post-Departure Follow-Up dr victor faxed formal report of pelvic us for fu Rosalba Syed MD Jul 31, 2020 12:43
== END 2020-07-30 17:15 | disposition home or self-care (01) ==
LOC: M ED 13:41
DX: N93.9 Abnormal uterine and vaginal bleeding, unspecified (principal)

== ENCOUNTER → 2020-08-25 | Outpatient (REF) | payer OTHER ==
[~2020-08-25] MED LIST changes: +METH0.2T53 PO
[2020-08-25 18:16] LABS: BASO % 0.5 % (0.0-1.0); EOS # 0.1 10^3/uL (0.0-0.5); EOS % 1.9 % (0.0-3.0); HEMATOCRIT 44.6 % (36.0-47.0); HEMOGLOBIN 14.4 g/dl (12.0-15.5); LYMPH # 2.2 10^3/uL (1.5-5.0); LYMPH % 36.6 % (24.0-44.0); MEAN CORPUSCULAR HEMOGLOBIN 28.9 pg (27.0-33.0); MEAN CORPUSCULAR HGB CONC 32.3 g/dl (32.0-36.5); MEAN CORPUSCULAR VOLUME 89.4 fl (80.0-96.0); MONO # 0.4 10^3/uL (0.0-0.8); MONO % 7.1 % (2.0-8.0); NEUTROPHILS # 3.2 10^3/uL (1.5-8.5); NEUTROPHILS % 53.7 % (36.0-66.0); PLATELET COUNT, AUTOMATED 219 10^3/uL (150-450); RED BLOOD COUNT 4.99 10^6/uL (4.00-5.40); WHITE BLOOD COUNT 5.9 10^3/uL (4.0-10.0)
[2020-08-25 18:57] LABS: ALT/SGPT 63 U/L (12-78); BILIRUBIN,TOTAL 0.4 MG/DL (0.2-1.0); BLOOD UREA NITROGEN 12 MG/DL (7-18); CALCIUM LEVEL 9.2 MG/DL (8.5-10.1); CARBON DIOXIDE LEVEL 30 MEQ/L (21-32); CHLORIDE LEVEL 107 MEQ/L (98-107); CHOLESTEROL LEVEL 141 MG/DL (<200); CHOLESTEROL RISK RATIO 4.548 (<5); CREATININE FOR GFR 0.71 MG/DL (0.55-1.30); GLOMERULAR FILTRATION RATE > 60.0 (>60); GLUCOSE, FASTING 90 MG/DL (70-100); HDL CHOLESTEROL 31 MG/DL (>40); LDL CHOLESTEROL 82 MG/DL (<100); NON-HDL-C 110 MG/DL; POTASSIUM SERUM 5.1 MEQ/L (3.5-5.1); SODIUM LEVEL 139 MEQ/L (136-145); TOTAL 25(OH) VITAMIN D 28.6 NG/ML (30.0-100.0); TOTAL PROTEIN 7.1 GM/DL (6.4-8.2); TRIGLYCERIDES LEVEL 138 MG/DL (<150)
[2020-08-25 19:28] LABS: HEMOGLOBIN A1c 5.4 %
[2020-08-25 19:35] LABS: HEPATITIS C VIRUS ABY INDEX < 0.0 INDEX (<0.8); HIV 1&2 SCREEN CENTAUR NEGATIVE (NEGATIVE)
[2020-08-25 19:35] LABS: CHLAMYDIA DNA AMPLIFICATION NEGATIVE (NEGATIVE); GC DNA AMPLIFICATION NEGATIVE (NEGATIVE)
== END ==
LOC: M LAB REF 17:18
PROVIDERS: ATTEND Pediatrics
DX: Z11.3 Encounter for screening for infections with a predominantly sexual mode of transmission (principal)

== ENCOUNTER 2020-10-01 19:48 | Emergency (ER) | payer OTHER ==
[~2020-10-01] VITALS: Ht 160 cm; Wt 74.7 kg
[2020-10-01 19:48] VITALS: BP 136/84
[~2020-10-01 19:48] MED LIST changes: -DIBU10OI TOP; +DIBU28OI2 TOP
== END 2020-10-01 20:45 | disposition left against medical advice (07) ==
LOC: M ED 19:48
DX: Z53.21 Procedure and treatment not carried out due to patient leaving prior to being seen by health care provider (principal)

== ENCOUNTER → 2020-10-13 | Outpatient (REF) | payer OTHER | LOC: M SFHCWAGY 17:05 | PROVIDERS: ATTEND Advanced Practice Midwife | DX: Z12.4 Encounter for screening for malignant neoplasm of cervix (principal); Z77.9 Other contact with and (suspected) exposures hazardous to health ==

== ENCOUNTER → 2020-12-29 | Outpatient (REF) | payer OTHER ==
[2020-12-29 19:34] LABS: GC DNA AMPLIFICATION NEGATIVE (NEGATIVE)
== END ==
LOC: M SFHCWAGY 17:06
PROVIDERS: ATTEND Advanced Practice Midwife
DX: Z20.2 Contact with and (suspected) exposure to infections with a predominantly sexual mode of transmission (principal)

== ENCOUNTER → 2020-12-29 | Outpatient (CLI) | payer OTHER ==
[2020-12-29 18:45] LABS: HEPATITIS C VIRUS ABY INDEX 0.1 INDEX (<0.8); HIV 1&2 SCREEN CENTAUR NEGATIVE (NEGATIVE)
== END ==
LOC: M PLALAB 15:39
PROVIDERS: ATTEND Advanced Practice Midwife
DX: Z20.2 Contact with and (suspected) exposure to infections with a predominantly sexual mode of transmission (principal)

== ENCOUNTER → 2021-03-07 | Outpatient (CLI) | payer OTHER ==
[~2021-03-07] MED LIST changes: +CETI-24 PO; +FERR325T81 PO; +FLUTISP NARES; +L-LY500T6 PO; +OMEP-218 PO; +VITA200016 PO; +ZOLO100T PO
--- NOTE | 2021-03-07 09:53 | REP ---
INDICATION: EPIGASTRIC PAIN COMPARISON: None. TECHNIQUE: Real time moss scale ultrasound examination using curved array transducer. FINDINGS: Liver is normal in contour, size, and echogenicity without focal hepatic lesions identified. Very subtle hepatosteatosis cannot be excluded. Pancreas is incompletely evaluated due to interposed bowel gas. The gallbladder is normal and without gallstones, wall thickening, or pericholecystic fluid. No biliary ductal dilatation is appreciated and the common bile duct measures 4.2 mm diameter. Right kidney is normal in reniform shape without hydronephrosis and measures 10.8 x 4.7 x 3.5 cm. No ascites in the visualized right upper quadrant. IMPRESSION: Cannot exclude very subtle hepatosteatosis. Otherwise normal right upper quadrant ultrasound. <Electronically signed by Cole Pineda > 03/07/21 0964
== END ==
LOC: M RAD 09:09
PROVIDERS: ATTEND Pediatrics
DX: R10.13 Epigastric pain (principal)

== ENCOUNTER → 2021-03-08 | Outpatient (CLI) | payer OTHER | LOC: M LABSMTC 10:44 | PROVIDERS: ATTEND Anesthesiology | DX: Z01.818 Encounter for other preprocedural examination (principal); Z11.52 Encounter for screening for COVID-19 ==

== ENCOUNTER 2021-03-13 08:19 | Day surgery (SDC) | payer OTHER ==
[~2021-03-13] VITALS: Ht 160 cm; Wt 78.9 kg
[~2021-03-13 08:19] MED LIST changes: +LIDOCAINE 1% MDV 20ML VIAL SQ PRN; +LIDOCAINE 2% 100MG/5ML SDV (FOR ANES.) As Ordered ONE; +LR 1,000 ML IV ONE; +MIDAZOLAM INJ 2MG/2ML VIAL (J2250 PER 1MG) As Ordered ONE; +ONDANSETRON 4MG/2ML VIAL As Ordered ONE; +ROCURONIUM BROMIDE 50 MG/5 ML VIAL As Ordered ONE; +SUGAMMADEX SODIUM 500 MG/5 ML VIAL (BRIDION) As Ordered ONE; +dexameTHASONE 4 MG/ML 1ML VIAL (J1100 PER 1MG) As Ordered ONE; +fentaNYL 100 MCG/2 ML INJECTION (J3010) As Ordered ONE; +propofoL 200 MG/20 ML VIAL As Ordered ONE
--- OUTSIDE RECORDS SUMMARY | 2021-03-13 08:24 | CCD | Continuity of Care Document ---
Author Calista Paz Organization Unknown Address [address] [place] [address] Phone [phone] Care Team Providers Care Meat Boner And Slicer Name Role Phone Elly Hernandez M.D. AUTM [phone] Problems Active Problems Provider Date Numbness of hand Vangie Molina M.D. Onset: 01/08/2021 Carpal tunnel syndrome Vangie Molina M.D. Onset: 01/08/2021 Ulnar neuropathy Vangie Molina M.D. Onset: 01/08/2021 Cervical radiculopathy Vangie Molina M.D. Onset: 01/08/2021 Social History Type Date Description Comments Sex Unknown Tobacco Use Start: Unknown Light tobacco smoker (10 or fewe r cigarettes/day) Allergies and adverse reactions Description No Known Drug Allergies Medications Description No Information Available Immunizations Description No Information Available Vital Signs Date Vital Result Comment 01/08/2021 8:23am BP Systolic 120 mmHg BP Diastolic 80 mmHg Heart Rate 72 /min Height 63 inches 5'3" Weight 160.00 lb BMI (Body Mass Index) 28.3 kg/m2 [place] Body Weight 115 lb Results Description No Information Available Procedures Date Code Description Status 03/08/2021 77651 MRI Brain W/O Contrast Completed 02/05/2021 27416 EEG Recording Awake & Asleep Com pleted 02/05/2021 50652 EEG Recording Awake & Asleep Com pleted 01/08/2021 78565 Nerve Conduction 9-10 Studies Co mpleted 01/08/2021 60587 Needle Electromyogra phy Non Extremity Done With Nerve Conduction Completed 01/08/2021 29425 Needle Electromyography Complete , Five Or More Muscles Studied Completed 01/01/2021 18697 Office/Outpatient New Moderate M DM 45-59 Minutes Completed Medical Devices Description No Information Available Encounters Type Date Location Provider Dx Diagnosis Office Visit 01/01/2021 2:00p Main office - [place] Heather Molina M.D. G47.51 Confusional arousals S15.8xxA Injury of oth blood vessels at neck level, init encntr G47.00 Insomnia, unspecified R41.3 Other amnesia R20.2 Paresthesia of skin Assessments Date Code Description Provider 03/08/2021 R55 Syncope and collapse MRI 02/05/2021 R55 Syncope and collapse Heather white M.D. 02/05/2021 R55 Syncope and collapse EEG 01/08/2021 G56.01 Carpal tunnel syndrome, right up per limb Vangie Tracy, YoniDUriel 01/08/2021 G56.00 Carpal tunnel syndrome, unspecif ied upper limb Vangie Tracy, M.DUriel 01/08/2021 M54.12 Radiculopathy, cervical region A bdhadley Molina M.D. 01/08/2021 M25.549 Pain in joints of unspecified [place] Vangie Tracy, M.DUriel 01/08/2021 R20.2 Paresthesia of skin Vangie Tracy, Lucy 01/01/2021 G47.51 Confusional arousals Heather white M.D. 01/01/2021 S15.8xxA Injury of other spec ified blood vessels at neck level, initial encounter Heather Molina M.D. 01/01/2021 G47.00 Insomnia, unspecified Heather Cielo valdes M.D. 01/01/2021 R41.3 Other amnesia Yoni Ni 01/01/2021 R20.2 Paresthesia of skin Heather Molina M.D. Plan of Treatment Future Appointment(s):* 03/20/2021 10:15 am - Heather Molina M.D. at Main office - [place] Functional Status Description No Information Available Mental Status Description No Information Available Referrals Refer to Dr Reason for Referral Status Appt Date Volodymyr Esteban M.D. CARPAL TUNNEL SYNDROME - FAXING TO PCP FOR [facility] AUTH Created [facility] [id number] [address] [phone]
--- OUTSIDE RECORDS SUMMARY | 2021-03-13 08:24 | CCD | Continuity of Care Document ---
Author Calista Galindo M.D. Organization Unknown Address [address] [place] [id number] Phone [phone] Care Team Providers Care Tree Inspector Name Role Phone Elly Hernandez M.D. AUTM [phone] Problems Active Problems Provider Date Numbness of hand Vangie Molina M.D. Onset: 01/08/2021 Carpal tunnel syndrome Vangie Molina M.D. Onset: 01/08/2021 Ulnar neuropathy Vangie Molina M.D. Onset: 01/08/2021 Cervical radiculopathy Vangie Molina M.D. Onset: 01/08/2021 Social History Type Date Description Comments Sex Unknown Tobacco Use Start: Unknown Light tobacco smoker (10 or fewe r cigarettes/day) Allergies, Adverse Reactions, Alerts Description No Known Drug Allergies Medications Description No Information Available Immunizations Description No Information Available Vital Signs Date Vital Result Comment 01/08/2021 8:23am BP Systolic 120 mmHg BP Diastolic 80 mmHg Heart Rate 72 /min Height 63 inches 5'3" Weight 160.00 lb BMI (Body Mass Index) 28.3 kg/m2 [place] Body Weight 115 lb Results Description No Information Available Procedures Date Code Description Status 01/08/2021 92812 Nerve Conduction 9-10 Studies Co mpleted 01/08/2021 37254 Needle Electromyogra phy Non Extremity Done With Nerve Conduction Completed 01/08/2021 50694 Needle Electromyography Complete , Five Or More Muscles Studied Completed 01/01/2021 08185 Office/Outpatient New Moderate M DM 45-59 Minutes Completed Medical Devices Description No Information Available Encounters Type Date Location Provider Dx Diagnosis Office Visit 01/01/2021 2:00p Main office - [place] Molina M.D. G47.51 Confusional arousals S15.8xxA Injury of oth blood vessels at neck level, init encntr G47.00 Insomnia, unspecified R41.3 Other amnesia R20.2 Paresthesia of skin Assessments Date Code Description Provider 01/08/2021 G56.01 Carpal tunnel syndrome, right up per limb Vangie Tracy, M.DUriel 01/08/2021 G56.00 Carpal tunnel syndrome, unspecif ied upper limb Vangie Tracy, M.DUriel 01/08/2021 M54.12 Radiculopathy, cervical region A bdul Tracy, M.DUriel 01/08/2021 M25.549 Pain in joints of unspecified [place] Vangie Tracy, M.DUriel 01/08/2021 R20.2 Paresthesia of skin Vangie Tracy, M.DUriel 01/01/2021 G47.51 Confusional arousals Heather white M.D. 01/01/2021 S15.8xxA Injury of other spec ified blood vessels at neck level, initial encounter Heather Molina M.D. 01/01/2021 G47.00 Insomnia, unspecified Heather Lat Yoni valdesDUriel 01/01/2021 R41.3 Other amnesia Yoni Ni 01/01/2021 R20.2 Paresthesia of skin Heather Molina M.D. Plan of Treatment Future Appointment(s):* 03/20/2021 10:15 am - Heather Molina M.D. at [facility] * 02/05/2021 1:00 pm - EEG at [facility] Functional Status Description No Information Available Mental Status Description No Information Available Referrals Description No Information Available
--- OUTSIDE RECORDS SUMMARY | 2021-03-13 08:24 | CCD ---
Author Author [facility] Organization [facility] Address Unknown Phone Unavailable Care Team Providers Care Vtc Technician Name Role Phone Tonya Morales Unavailable PROBLEMS Type Condition ICD9-CM Code NIB60-UT Code Onset Dates Condition S tatus W/U Status Risk SNOMED Code Notes Problem Depressive disorder, not elsewhere classified 311 Active confirmed 05205042 Problem Allergic rhinitis, cause unspecified 477.9 Act kiersten confirmed 11145528 Problem Rib pain on left side 786.50 Active confirmed 396604135 Problem Costochondritis 733.6 Active confirmed 6410 9004 Problem Anxiety and depression F41.9 Active confirmed 943936503 Problem Major depressive disorder, single episode, unspecified F32.9 Active confirmed 86263120 Problem 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 Active confirmed 517928455 Problem Genital herpes A60.00 Active confirmed 47393 006 Problem Dyspareunia in female N94.10 Active confirmed 35482616 Problem Hx of herpes simplex type 2 infection Z86.19 Ac tive confirmed 142299813 Problem History of chlamydia Z86.19 Active confirmed 787579472 Problem GERD (gastroesophageal reflux disease) K21.9 A ctive confirmed 675662939 Problem Primary insomnia F51.01 Active confirmed 397 2004 Problem History of gestational diabetes Z86.32 Active confi rmed 641498680 Problem Urinary dribbling N39.43 Active confirmed 58 192581 Problem Exercise-induced asthma J45.990 Active confirmed 38803625 Problem Labial pain N94.89 Active confirmed 1069596 Problem Irregular menses N92.6 Active confirmed 801 73560 Problem Supervision of other normal Z34.80 Ac tive confirm 121904454 ALLERGIES Allergen (clinical drug ingredient) Drug/Non Drug Allergy do cumented on EMR Reaction Allergy Type Onset Date Status Seasonal nasal congestion Non Drug Allergy Ac tive ragweed, dust mites, mold nasal congestion Non Drug Allerg y Active ENCOUNTERS from 1996 to 2021-01-09 Encounter Location Date Provider Diagnosis [facility] [address] [facility] [phone] [place] [address] Nov, Tonya Morales Exposure to sexually transmitted disease (STD) Z20.2 IMMUNIZATIONS Vaccine Route Administration Date Status Hepatitis B Ped & Adol 0.5mL Engerix-B Unknown Jan 20, 1997 Administered TDAP 0.5mL (Boostrix) Unknown August 05, 2007 Administer ed TDAP 0.5mL (Boostrix) Unknown Apr 11, 2017 Administer ed Influenza 6mo & up Fluzone Unknown Feb 16, 2016 Admin istered Imm: IPV 0.5mL Polio Unknown October 18, 1997 Administere d Imm: IPV 0.5mL Polio Unknown Apr 20, 2001 Administere d Hepatitis B Ped & Adol 0.5mL Engerix-B Unknown September 21 997 Administered Hepatitis B Ped & Adol 0.5mL Engerix-B Unknown 1996 Administered DTAP 0.5mL Infanrix Unknown 1996 Administered Gardasil Unknown August 05, 2007 Administered Gardasil Unknown September 30, 2007 Administered HIB 0.5mL Unknown October 18, 1997 Administered HIB 0.5mL Unknown Jan 20, 1997 Administered HIB 0.5mL Unknown 1996 Administered HIB 0.5mL Unknown 1996 Administered DTAP 0.5mL Infanrix Unknown Apr 20, 2001 Administered DTAP 0.5mL Infanrix Unknown October 18, 1997 Administered DTAP 0.5mL Infanrix Unknown Jan 20, 1997 Administered DTAP 0.5mL Infanrix Unknown 1996 Administered Gardasil Unknown Feb 08, 2008 Administered MMR 0.5mL Unknown August 02, 1997 Administered Varicella 0.5mL VariVax Unknown August 05, 2007 Administ ered MMR 0.5mL Unknown Apr 20, 2001 Administered Depo-Provera 150mg/1mL Medroxy-Progestrone Acetate IM Intram uscular December 08, 2017 Administered Meningococcal Unknown August 05, 2007 Administered Influenza 18 yrs & older Flublok IM Intramuscular Mar 10, 2019 Administered Hepatitis A Ped & Adol 0.5mL Havrix Unknown August 04 08 Administered Depo-Provera 150mg/1mL Medroxy-Progestrone Acetate IM Intram uscular October 13, 2020 Administered Influenza 6mo & up Fluzone IM Intramuscular Mar 05, 2017 Admi nistered Influenza 6mo & up Fluzone IM Intramuscular Mar 01, 2014 Admi nistered Influenza 6mo & up Fluzone IM Intramuscular Feb 25, 2018 Admi nistered Influenza 6mo & up Fluzone IM Intramuscular Mar 10, 2015 Admi nistered TDAP 0.5mL (Boostrix) IM Intramuscular May 22, 2020 Administe red Influenza 6mo & up Fluzone Unknown Feb 25, 2018 Admin istered Varicella 0.5mL VariVax Unknown August 02, 1997 Administ ered Hepatitis A Ped & Adol 0.5mL Havrix Unknown Feb 07 8 Administered Depo-Provera 150mg/1mL Medroxy-Progestrone Acetate IM Intram uscular Dec 29, 2020 Administered Imm: IPV 0.5mL Polio Unknown 1996 Administere d Imm: IPV 0.5mL Polio Unknown 1996 Administere d SOCIAL HISTORY Tobacco Use: Social History Observation Description Date Details (start date - stop date) Current Smoker Sex Assigned At : Social History Observation Description Sex Assigned At Unknown Language: Question Answer Notes Languages spoken: Turkmen Tobacco Use: Question Answer Notes Are you a: current smoker REASON FOR REFERRAL No Information VITAL SIGNS No information MEDICATIONS Medication SIG (Take, Route, Frequency, Duration) Notes Start Da te End Date Status Potassium 99 MG 1 tablet Orally Once a day Active Abilify 15 MG 1 tablet Orally Once a day Not-Taking Clotrimazole 1 % 1 application to affected ar ea of hand and arm Externally Twice a day Dec, Not-Taking Valtrex 1 GM at first sign lesion, start 1 tab once a day for 5 days Orally as directed for 5 day(s) discontinue the 500mg dose Dec, Not-Taking Fluconazole 150 MG 1 tablet Orally weekly Dec, Not-Taking Iron 18 MG 1 tablet Orally Once a day for 30 day(s) Not-Taking 1 _ 1 capsule Orally Daily Active Vitamin D 5000 1 capsule Orally daily Not-Taking Diflucan 150 MG 1 tablet Orally take now; re peat in 72 hours if your symptoms persist for 4 days Jan, Not-Taking Omeprazole 20 MG 1 capsule 30 minutes before morning meal Orally Once a day for 60 day(s) May, Active Wellbutrin XL 300 MG 1 tablet in the morning Orally Once a day Not-Taking Alcohol Wipes 70 % as directed O24.419 topically four times alan y for 30 Days Apr, Not-Taking valACYclovir HCl 1 GM 1 tablet Orally tid for 7 day(s) For 1 0 days then back to 500 MG on 01/07/19 Dec, Not-Taking Lancets - as directed 4 times daily for [address] ease give patient whatever lancets her insurance will cover. thank you. May, Not-Taking Ketoconazole 2 % apply thin layer to lesion o n left forearm Externally Once a day for 14 days Nov, Not-Taking Levocetirizine Dihydrochloride 5 MG 1 tablet in the ev ening Orally Once a day for allergies for 30 Not-Taking Bacitracin 500 UNIT/GM 1 application to affected ar ea of hand Externally bid for 30 days NEVER PICKED UP Dec, Not-Taking ZyrTEC Allergy 10 MG 1 tablet Orally Once a day Active Hydrocortisone 2.5 % 1 application to affected area Rectal As needed Not-Taking ProAir HFA 108 (90 Base) MCG/ACT 2 puffs as needed Inh alation every 6 hrs for 30 days Jan, Not-Taking Zoloft 50 MG 1 tablet Orally Once a day Active Bactroban 2 % 1 application to affected ar ea Externally Three times a day to affected areas for 10 day(s) Dec, Not -Taking Valtrex 500 MG 1 tablet Orally Twice a day for 30 day(s) 2 3 Jun, 2020 Active metFORMIN HCl 500 MG 1 tablet with dinner Orally BID for 60 day( s) May, Not-Taking Test Strips - as directed O24.419 four times daily for 30 Days Apr, Not-Taking Glucose Monitor - as directed O24.419 four times daily for 30 Da ys Apr, Not-Taking Lancets - as directed O24.419 four times daily for 30 Days Whatever type of lancets insurance covers Apr, Not-Taking Valtrex 500 MG 1 tablet Orally Twice a day for 30 day(s) 2 5 May, 2020 Not-Taking PROCEDURES No Information RESULTS Component Value Reference Range HEPATITIS C ANTIBODY INDEX Reviewed date:01/04/2021 13:14:43 Interpretation: Performing Lab:[facility] [address] [facility] [address] , ,[place] [address] HEPATITIS C VIRUS JULITA INDEX 0.1 <0.8 HIV 1&2 ANTIBODY SCREEN Reviewed date:01/04/2021 13:14:38 Interpretation: Performing Lab:[facility] [address] [facility] [address] , ,[place] [address] SYPHILIS ANTIBODY (RPR SCREEN) Reviewed date:01/04/2021 13:14:29 Interpretation: Performing Lab:[facility] [address] [facility] [facility] [address] , ,[place] [address] SYPHILIS NONREACTIVE NONREACTIVE CHLAMYDIA, GC & TRICH AMP Reviewed date:01/04/2021 13:15:18 Interpretation: Performing Lab:[facility] [address] [facility] [facility] [address] , ,[place] [address] Trichomonas vaginalis (AMP) NOT DETECTED NEGATIVE REASON FOR VISIT STD exposure and wants tubal MEDICAL (GENERAL) HISTORY Type Description Date Medical History Seasonal allergies Medical History Depression; 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[facility]) Medical History Anxiety Medical History Mood disorders Medical History gestational diabetes Surgical History No Surgical history information Hospitalization History Vomiting/diarrhea 2009 Hospitalization History [facility] - child 04/2016 Goals Section No Information Health Concerns No Information MEDICAL EQUIPMENT No Information MENTAL STATUS No Information FUNCTIONAL STATUS No Information ASSESSMENTS Encounter Date Diagnosis Assessment Notes Treatment Notes Treatm ent Clinical Notes Nov, Exposure to sexually transmitted disease (STD) ( ICD-10 - Z20.2) PLAN OF TREATMENT Next Appt Details Provider Name:Eliseo Mejnivar, 02:00:00 PM, [address] [facility], , [place], [address], Insurance Providers Payer Name Payer Address Payer Phone Insured Name Patient Relati onship to Insured Coverage Start Date Coverage End Date [facility] [address] [facility] [address] [phone] KARLOS RAHMAN self
--- OUTSIDE RECORDS SUMMARY | 2021-03-13 08:24 | CCD ---
Author Organization Unknown Address [address] [place] [address] Phone [phone] Care Team Providers Care Instructor Decorating Name Role Phone [facility] 110 [phone] [facility] 129 [phone] Allergies Code Code System Name Reaction Severity Status Onset NKDA Notes: SEASONAL Medications Name Status Start Date Stop Date amoxicillin 875 mg-potassium clavulanate 125 mg tablet TAKE 1 TABLET BY MOUTH TWICE DAILY FOR 10 DAYS Completed 01/01/2021 BD Alcohol Swabs USE DIRECTED 4 TIMES DAILY Completed cetirizine 10 mg tablet TAKE 1 TABLET BY MOUTH ONCE DAILY Active Not a vailable cholecalciferol (vitamin D3) 50 mcg (2,0 00 unit) capsule TAKE 1 CAPSULE BY MOUTH ONCE DAILY Active Not available cholecalciferol (vitamin D3) 50 mcg (2,0 00 unit) tablet Take 1 tablet every day by oral route. Active Not available d3 50 mcg (1999 ut) caps Active Not av ailable Depo-Provera 150 mg/mL intramuscular yakelin pension Inject 1 mL every 3 months by intramuscular route. Active Not available fluticasone propionate 50 mcg/actuation nasal spray,suspension USE 2 SPRAY(S) IN EACH NOSTRIL ONCE DAILY Active Not available Fluzone Quad (PF) 60 mcg (15 m cg x 4)/0.5 mL IM syringe INJECT DIRECTED Completed 01/01/2021 FreeStyle Lancets 28 gauge USE DIRECTED 4 TIMES DAILY Completed FreeStyle Lite Meter kit USE DIRECTED 4 TIMES DAILY Completed immunization admin fee USE DIRECTED Active Not available lysine 500 mg tablet Take 1 tablet every day by oral route. Active Not available metformin 500 mg tablet Completed 08/26/19 methylergonovine 0.2 mg tablet TAKE 1 TABLET BY MOUTH EVERY 6 HOURS Completed omeprazole 20 mg capsule,delayed release TAKE 1 CAPSULE BY MOUTH ONCE DAILY 30 MINUTES BEFORE MORNING MEAL Active Not available OneTouch Delica Plus Lancet 33 gauge Completed 08/25/2020 OneTouch Verio test strips Completed 08/25 potassium Completed 11/24/2020 Active Not available sertraline 25 mg tablet TAKE 1 TABLET BY MOUTH ONCE DAILY Completed 10/05 sertraline 50 mg tablet TAKE 1 TABLET BY MOUTH ONCE DAILY Active Not a vailable valacyclovir 500 mg tablet TAKE 1 CAPLET BY MOUTH TWICE DAILY Completed 01/2021 Problems Name Status Onset Date Source Depressive Disorder Active 03/16/[address] Concept Unknown 03/16/[address] Concept Unknown 08/31/2012 History Education Unknown 08/31/2012 History Allergic Rhinitis Active 01/11/2013 Influenza Vaccine Needed Unknown 03/01/2013 History Contusion of Head Unknown 03/15/2013 History Genital Herpes Simplex Active 06/30/2020 Gestational Diabetes Mellitus Active 06/30/2020 Dissociative Disorder Active 08/25/2020 History of Asthma Active 08/25/2020 Anxiety Disorder Active 09/07/2020 Vitamin D Deficiency Active 11/22/2020 Group B Streptococcus Carrier Active 11/22/2020 Nicotine Dependence with Current Use Active 11/22/2020 Procedures Date Name Performed by Extraction of Raymond Tooth Notes: 4 Information not available Results Lab Results Date Name Specimen Result Interpretation Description Value Range Status Address 08/25/2020 CBC W/ Auto Diff Blood venous Normal White Blood C ount 5.9 10 4.0-10.0 10 [facility]: 83 0 [facility] Blood venous Normal Red Blood Count 4.99 10 4.00- 5.40 10 [facility]: [address] [facility] Blood venous Normal Hemoglobin 14.4 g/dL 12.0-15. 5 g/dL Final [facility]: [address] [facility] Blood venous Normal Hematocrit 44.6 % 36.0-47.0 % Final [facility]: [address] [facility] Blood venous Normal Mean Corpuscular Volume 89.4 fL 80.0-96.0 fL [facility]: [address] [facility] Blood venous Normal Mean Corpuscular Hemoglob in 28.9 pg 27.0-33.0 pg [facility]: [address] [place] [address] Blood venous Normal Mean Corpuscular HGB Conc 32.3 g/dL 32.0-36.5 g/dL [facility]: [address] [place] [address] Blood venous Normal Red Cell Distribution Wid th 12.8 % 11.5-14.5 % [facility]: [address] [place] [address] Blood venous Normal Platelet Count, Automated 219 10 150-450 10 [facility]: [address] [place] [address] Blood venous Normal Neutrophils % 53.7 % 36.0-66. 0 % [facility]: [address] [place] [address] Blood venous Normal Lymph % 36.6 % 24.0-44.0 % [facility]: [address] [place] [address] Blood venous Normal Kane % 7.1 % 2.0-8.0 % [facility]: [address] [place] [address] Blood venous Normal Eos % 1.9 % 0.0-3.0 % [facility]: [address] [place] [address] Blood venous Normal Baso % 0.5 % 0.0-1.0 % [facility]: [address] [place] [address] Blood venous Normal Immature Granulocyte % 0.2 % 0-3.0 % [facility]: [address] [place] [address] Blood venous Normal Nucleated Red Blood Cell % 0. 0 % 0-0 % [facility]: [address] [place] [address] Blood venous Normal Neutrophils # 3.2 10 1.5-8.5 10 [facility]: [address] [place] [address] Blood venous Normal Lymph # 2.2 10 1.5-5.0 10 [facility] tahir [facility]: [address] [place] [address] Blood venous Normal Kane # 0.4 10 0.0-0.8 10 Cassandra muhammad [facility]: [address] [place] [address] Blood venous Normal Eos # 0.1 10 0.0-0.5 10 [facility]: [address] [place] [address] Blood venous Normal Baso # 0.0 10 0.0-0.[address] [facility]: [address] [place] [address] 08/25/2020 HbA1C (Hemoglobin a1C), Blood Blood venous Normal Hemoglobin a1C 5.4 % [facility]: [address] [place] [address] Blood venous Normal Estimated Average Glucose 108 mg/dL 60-110 mg/dL [facility]: [address] [place] [address] 08/25/2020 CMP, Serum or Plasma Blood venous Normal Glu cose, Fasting 90 mg/dL 70-100 mg/dL [facility] nter: [address] [place] [address] Blood venous Normal Blood Urea Nitrogen 12 mg/dL 7-18 mg/dL [facility]: [address] [place] [address] Blood venous Normal Creatinine for GFR 0.71 mg/dL 0.55-1.30 mg/dL [facility]: [address] [place] [address] Blood venous Normal Glomerular Filtration Rate > 60.0 >60 [facility]: [address] [place] [address] Blood venous Normal Sodium Level 139 mEq/L 136-14 5 mEq/L [facility]: [address] [place] [address] Blood venous Normal Potassium Serum 5.1 mEq/L 3.5 -5.1 mEq/L [facility]: [address] [place] [address] Blood venous Normal Chloride Level 107 mEq/L 98-1 07 mEq/L [facility]: [address] [place] [address] Blood venous Normal Carbon Dioxide Level 30 mEq/L 21-32 mEq/L [facility]: [address] [place] [address] Blood venous Low Anion Gap 2 mEq/L 8-16 mEq/L [facility]: [address] [place] [address] Blood venous Normal Calcium Level 9.2 mg/dL 8.5-1 0.1 mg/dL [facility]: [address] [place] [address] Blood venous Normal AST/SGOT 27 U/L 7-37 U/L [facility]: [address] [place] [address] Blood venous Normal ALT/SGPT 63 U/L 12-78 U/L [facility]: [address] [facility] Blood venous Normal Alkaline Phosphatase 101 U/L 45-117 U/L [facility]: [address] [facility] Blood venous Normal Bilirubin,total 0.4 mg/dL 0.2 -1.0 mg/dL [facility]: [address] [facility] Blood venous Normal Total Protein 7.1 gm/dL 6.4-8 .2 gm/dL [facility]: [address] [facility] Blood venous Normal Albumin 4.0 gm/dL 3.2-5.2 gm/ dL [facility]: [address] [place] [address] Blood venous Normal Albumin/globulin Ratio 1.3 1.2-2.2 [facility]: 0 [facility] 08/25/2020 Hepatitis C Ab, Serum Normal Hepati tis C Virus Jacklyn Index < 0.0 index <0.8 index [facility] nter: [address] [facility] 08/25/2020 Lipid Panel, Blood Normal Triglycerides Lev el 138 mg/dL <150 mg/dL [facility]: [address] 0 [facility] Normal Cholesterol Level 141 mg/dL <200 mg/ dL [facility]: 0 [facility] Low HDL Cholesterol 31 mg/dL >40 mg/dL [facility]: [address] [facility] Normal LDL Cholesterol 82 mg/dL <100 mg/dL [facility]: [address] [facility] Normal Non-hdl-c 110 mg/dL [facility]: [address] [facility] Normal Cholesterol Risk Ratio 4.548 <5 [facility]: 0 [facility] 08/25/2020 TSH, Serum or Plasma Blood capillary Normal Thyroid Stimulating Hormone 1.520 uIU/mL 0.358-3.740 uIU/mL [facility]: [address] [facility] 08/25/2020 Vitamin D, 25-Hydroxy, Total, Serum Blood venous Low Total 25(Oh) Vitamin D 28.6 NG/mL 30.0-100.0 NG/mL Final [facility]: [address] [facility] 08/25/2020 Syphilis Normal Syphilis nonreactive nonreacti ve Final [facility]: 0 [facility] 08/25/2020 HIV 1+2 AB + HIV 1 P24 Ag, Qualitative Immunoassay, Serum Normal HIV 1&2 Screen Centaur negative negative Final [facility]: [address] [facility] 08/25/2020 CT + NG DNA, Qual, PCR, Unspecified Specimen No rmal Chlamydia DNA Amplification negative negative Final [facility] ical Center: [address] [facility] Normal GC DNA Amplification negative negati ve Final [facility]: [address] [place] [address] 07/30/2020 Wet [place] CERVICAL No observation recorded. [facility]: [address] [facility] Past Encounters 01/25/2021 Depressive Disorder; Anxiety Disorder Jovanna Mendiola LCSW-R: [address] [facility] [address] [address], Ph. 01/11/2021 Depressive Disorder; Anxiety Disorder Jovanna Mendiola LCSW-R: [address] [facility] [address] [address], Ph. 01/01/2021 Paresthesia of Upper Limb; HIV Screening Elly Hernandez MD: [address] [place] [address], Ph. 12/20/2020 Depressive Disorder; Anxiety Disorder Jovanna Mendiola LCSW-R: [address] [facility] [address] [address], Ph. 11/24/2020 Vitamin D Deficiency; Nicotine Dependence with Current Use; Anxiety Disorder; Aphthous Ulcer of Mouth; Daytime Somnolence; Memory Impairment Elly Hernandez MD: [address] [place] [address], Ph. 11/22/2020 Depressive Disorder; Anxiety Disorder Jovanna Mendiola LCSW-R: [address] [facility], [facility] [address], [place] [address], Ph. 10/26/2020 Depressive Disorder; Anxiety Disorder NILSON WoodsW-R: [address] [facility], [facility] [address], [place] [address], Ph. 10/05/2020 Depressive Disorder; Anxiety Disorder NILSON WoodsW-R: [address] [facility], [facility] [address], [place] [address], Ph. 09/21/2020 Depressive Disorder; Anxiety Disorder NILSON WoodsW-R: [address] [facility], [facility] [address], [place] [address], Ph. 09/07/2020 Depressive Disorder; Anxiety Disorder NILSON WoodsW-R: [address] [facility], [facility] [address], [place] [address], Ph. 08/25/2020 Body Mass Index 25-29 - Overweight; Nicotine Dependence; Adult Health Examination; Gestational Diabetes Mellitus; Dissociative Disorder; Venereal Disease Screening Elly Hernandez MD: [address] [place] [address], Ph. 08/17/2020 Anxiety Disorder; Depressive Disorder NILSON WoodsW-R: [address] [facility], [facility] [address], [place] [address], Ph. 06/30/2020 Generalized Anxiety Disorder Neda Carpenter [facility]: [address] [place] [address], Ph. 06/30/2020 Depressive Disorder; Gestational Diabetes Mellitus Elly Hernandez MD: [address] [place] [address], Ph. Social History Tobacco Smoking Status Never Smoker Vaccine List Vaccine Type COVID-19, mRNA, LNP-S, PF, 100 mcg/0.5 m L dose 09/14/2020 10/12/2020 influenza, seasonal, injectable, preserv ative free 03/01/2013 Plan of Care Reminders Provider Appointments None recorded. Lab None recorded. Referral None recorded. Procedures None recorded. Surgeries None recorded. Imaging None recorded. Vitals 01/01/2021 09:20AM ESTABLISHED [id number] Height Weight BMI Blood Pressure 63 in 160 lbs 28.3 kg/m2 126/78 mm[Hg] 11/24/2020 10:00AM ESTABLISHED [id number] Height Weight BMI Blood Pressure 63 in 160 lbs 9.6 oz 28.4 kg/m2 132/92 mm[Hg ] 08/25/2020 09:40AM NEW PATIENT (12yrs - OLDER) Height Weight BMI Blood Pressure 63 in 159 lbs 3.2 oz 28.2 kg/m2 120/88 mm[Hg ] 06/30/2020 02:20PM NEW ACUTE 20 Height Weight BMI Blood Pressure 63 in 174 lbs 9.6 oz 30.9 kg/m2 123/84 mm[Hg ]
--- OUTSIDE RECORDS SUMMARY | 2021-03-13 08:24 | CCD ---
Author Organization Unknown Address [address] [place] [address] Phone [phone] Care Team Providers Care Infrastructure Director Name Role Phone [facility] 110 [phone] [facility] 129 [phone] ESA HANSEN MD 3 [phone] Allergies Code Code System Name Reaction Severity [...] TAKE 1 CAPSULE BY MOUTH ONCE DAILY Completed 12/2020 cholecalciferol (vitamin D3) 50 mcg (2,0 00 unit) tablet Take 1 tablet every day by oral route. Active Not available d3 50 mcg (1999 ut) caps Completed 2020 Depo-Provera 150 mg/mL intramuscular yakelin pension Inject [...] DAILY Completed immunization admin fee USE DIRECTED Completed 02/23/2021 lysine 500 mg tablet Take 1 tablet every day by oral route. Active Not available metformin 500 mg tablet Completed 08/26/19 methylergonovine 0.2 mg tablet TAKE 1 TABLET BY MOUTH EVERY 6 HOURS Completed omeprazole 20 mg capsule,delayed release Active Not available OneTouch Delica Plus Lancet 33 gauge Completed 08/25/2020 OneTouch Verio test strips Completed 08/25 potassium Completed 11/24/2020 Completed 02/23/2021 sertraline 100 mg tablet Active Not jeffery ilable sertraline 25 mg tablet TAKE 1 TABLET BY MOUTH ONCE DAILY Completed 10/05 sertraline 50 mg tablet Completed 02/24/20 valacyclovir 500 mg tablet TAKE 1 CAPLET BY MOUTH TWICE DAILY Completed 01/2021 Problems Name Status Onset Date Source Depressive Disorder Active 03/16/[address] Concept Unknown 03/16/[address] Concept Unknown 08/31/2012 History Education Unknown 08/31/2012 History Allergic Rhinitis Active 01/11/2013 Influenza Vaccine Needed Unknown 03/01/2013 History Contusion of Head Unknown 03/15/2013 History Genital Herpes Simplex Active 06/30/2020 Gestational Diabetes Mellitus Unknown 06/30/2020 Dissociative Disorder Active 08/25/2020 History of Asthma Active 08/25/2020 Anxiety Disorder Active 09/07/2020 Vitamin D Deficiency Active 11/22/2020 Group B Streptococcus Carrier Active 11/22/2020 Nicotine Dependence with Current Use Active 11/22/2020 Cognitive Disorder Active 02/21/2021 Procedures Date Name Performed by Extraction of Anita Tooth Notes: 4 Information not available 02/23/2021 US, Abdominal Wall [facility] nter Radiology [address] [place], [place] [id number] (Work Place) Results Lab Results Date Name Specimen Result Interpretation Description Value Range Status Address 08/25/2020 CBC W/ Auto Diff Blood venous Normal White Blood C ount 5.9 10 4.0-10.0 10 Final [facility]: 83 0 [facility] Blood venous Normal Red Blood Count 4.99 10 4.00- 5.40 10 Final [facility]: 830 [facility] Blood venous Normal Hemoglobin 14.4 g/dL 12.0-15. 5 g/dL Final [facility]: 830 [facility] Blood venous Normal Hematocrit 44.6 % 36.0-47.0 % Final [facility]: [address] [place] [address] Blood venous Normal Mean Corpuscular Volume 89.4 fL 80.0-96.0 fL [facility]: [address] [place] [address] Blood venous Normal Mean Corpuscular Hemoglob in 28.9 pg 27.0-33.0 pg [facility]: [address] [place] [address] Blood venous Normal Mean Corpuscular HGB Conc 32.3 g/dL 32.0-36.5 g/dL [facility]: [address] [place] [address] Blood venous Normal Red Cell Distribution Wid th 12.8 % 11.5-14.5 % [facility]: [address] [place] [address] Blood venous Normal Platelet Count, Automated 219 10 150-450 10 [facility]: [address] [place] [address] venous Normal Neutrophils % 53.7 % 36.0-66. 0 % [facility]: [address] [place] [address] Blood venous Normal Lymph % 36.6 % 24.0-44.0 % [facility]: [address] [place] [address] Blood venous Normal Bureau % 7.1 % 2.0-8.0 % [facility]: [address] [place] [address] Blood venous Normal Eos % 1.9 % 0.0-3.0 % [facility]: [address] [place] [address] venous Normal Baso % 0.5 % 0.0-1.0 % [facility]: [address] [place] [address] Blood venous Normal Immature Granulocyte % 0.2 % 0-3.0 % [facility]: [address] [place] [address] Blood venous Normal Nucleated Red Blood Cell % 0. 0 % 0-0 % [facility]: [address] [place] [address] Blood venous Normal Neutrophils # 3.2 10 1.5-8.5 10 [facility]: [address] [place] [address] Blood venous Normal Lymph # 2.2 10 1.5-5.[address] [facility]: [address] [place] [address] Blood venous Normal Bureau # 0.4 10 0.0-0.8 10 [facility]: [address] [place] [address] Blood venous Normal Eos # 0.1 10 0.0-0.5 10 [facility]: [address] [place] [address] Blood venous Normal Baso # 0.0 10 0.0-0.2 10 [facility]: [address] [place] [address] 08/25/2020 HbA1C (Hemoglobin a1C), Blood Blood venous Normal Hemoglobin a1C 5.4 % [facility]: [address] [place] [address] Blood venous Normal Estimated Average Glucose 108 mg/dL 60-110 mg/dL [facility]: [address] [place] [address] 08/25/2020 CMP, Serum or Plasma Blood venous Normal Glu cose, Fasting 90 mg/dL 70-100 mg/dL [facility] nter: [address] [place] [address] Blood venous Normal Blood Urea Nitrogen 12 mg/dL 7-18 mg/dL [facility]: [address] [place] [address] Blood venous Normal Creatinine for GFR 0.71 mg/dL 0.55-1.30 mg/dL [facility]: [address] [place] [address] Blood venous Normal Glomerular Filtration Rate > 60.0 >60 [facility]: [address] [place] [address] Blood venous Normal Sodium Level 139 mEq/L 136-14 5 mEq/L [facility]: [address] [place] [address] Blood venous Normal Potassium Serum 5.1 mEq/L 3.5 -5.1 mEq/L [facility]: [address] [place] [address] Blood venous Normal Chloride Level 107 mEq/L 98-1 07 mEq/L [facility]: [address] [place] [address] Blood venous Normal Carbon Dioxide Level 30 mEq/L 21-32 mEq/L [facility]: [address] [place] [address] Blood venous Low Anion Gap 2 mEq/L 8-16 mEq/L [facility]: [address] [place] [address] Blood venous Normal Calcium Level 9.2 mg/dL 8.5-1 0.1 mg/dL [facility]: [address]30 [facility] Blood venous Normal AST/SGOT 27 U/L 7-37 U/L Cassandra l [facility]: 830 [facility] Blood venous Normal ALT/SGPT 63 U/L 12-78 U/L [facility]: [address] [facility] Blood venous Normal Alkaline Phosphatase 101 U/L 45-117 U/L [facility]: [address] [facility] Blood venous Normal Bilirubin,total 0.4 mg/dL 0.2 -1.0 mg/dL [facility]: 830 [facility] Blood venous Normal Total Protein 7.1 gm/dL 6.4-8 .2 gm/dL [facility]: [address] [facility] Blood venous Normal Albumin 4.0 gm/dL 3.2-5.2 gm/ dL [facility]: [address] [facility] Blood venous Normal Albumin/globulin Ratio 1.3 1.2-2.2 [facility]: [address] [facility] 08/25/2020 Hepatitis C Ab, Serum Normal Hepati tis C Virus Jacklyn Index < 0.0 index <0.8 index [facility] nter: [address] [facility] 08/25/2020 Lipid Panel, Blood Normal Triglycerides Lev el 138 mg/dL <150 mg/dL [facility]: 83 0 [facility] Normal Cholesterol Level 141 mg/dL <200 mg/ dL [facility]: [address] [facility] Low HDL Cholesterol 31 mg/dL >40 mg/dL F inal [facility]: [address] [facility] Normal LDL Cholesterol 82 mg/dL <100 mg/dL [facility]: [address] [facility] Normal Non-hdl-c 110 mg/dL [facility]: [address] [facility] Normal Cholesterol Risk Ratio 4.548 <5 [facility]: [address] [facility] 08/25/2020 TSH, Serum or Plasma Blood capillary Normal Thyroid Stimulating Hormone 1.520 uIU/mL 0.358-3.740 uIU/mL Final [facility]: 0 [facility] 08/25/2020 Vitamin D, 25-Hydroxy, Total, Serum Blood venous Low Total 25(Oh) Vitamin D 28.6 NG/mL 30.0-100.0 NG/mL [facility]: 0 [facility] 08/25/2020 Syphilis Normal Syphilis nonreactive nonreacti ve Final [facility]: 0 [facility] 08/25/2020 HIV 1+2 AB + HIV 1 P24 Ag, Qualitative Immunoassay, Serum Normal HIV 1&2 Screen Centaur negative negative Final [facility]: 0 [facility] 08/25/2020 CT + NG DNA, Qual, PCR, Unspecified Specimen No rmal Chlamydia DNA Amplification negative negative Final [facility]: [address] [facility] Normal GC DNA Amplification negative negati ve [facility]: [address] [facility] 07/30/2020 [place] CERVICAL No observation recorded. [facility]: 0 [facility] TSH + Free T4, Serum Normal Tsh 2.93 mIU/L Final [facility]: [address] [facility] Normal T4, Free 0.9 NG/dL 0.8-1.8 NG/dL [facility]: [address] [facility] CMP, Serum or Plasma Normal Glucose 82 mg/dL 65-99 mg/dL Final [facility]: [address] [facility] Normal Urea Nitrogen (BUN) 12 mg/dL 7-25 mg /dL [facility]: [address] [facility] Normal Creatinine 0.72 mg/dL 0.50-1.10 mg/d L [facility]: [address] [facility] Normal eGFR Non-afr. Ugandan 117 mL/ min/1.73m2 > or = 60 mL/min/1.73m2 [facility]: [address] [facility] Normal eGFR 136 mL/m in/1.73m2 > or = 60 mL/min/1.73m2 Final [facility]: [address] [facility] BUN/creatinine Ratio not applicable (calc) 6-22 (calc) [facility]: [address] [facility] Normal Sodium 138 mmol/L 135-146 mmol/L Fin [facility]: [address] [facility] Normal Potassium 4.2 mmol/L 3.5-5.3 mmol/L [facility]: [address] [facility] Normal Chloride 103 mmol/L 98-110 mmol/L Fi nal [facility]: [address] [facility] Normal Carbon Dioxide 26 mmol/L 20-32 mmol/ L [facility]: [address] [facility] Normal Calcium 9.5 mg/dL 8.6-10.2 mg/dL Fin [facility]: [address] [facility] Normal Protein, Total 7.0 g/dL 6.1-8.1 g/dL [facility]: [address] [facility] Normal Albumin 4.4 g/dL 3.6-5.1 g/dL [facility]: [address] [facility] Normal Globulin 2.6 g/dL (calc) 1.9-3.7 g/d L (calc) [facility]: [address] [facility] Normal Albumin/globulin Ratio 1.7 (calc) 1. 0-2.5 (calc) [facility]: [address] [facility] Normal Bilirubin, Total 0.4 mg/dL 0.2-1.2 m g/dL [facility]: [address] [facility] Normal Alkaline Phosphatase 72 U/L 31-125 U /L [facility]: [address] [facility] Normal Ast 15 U/L 10-30 U/L Final [facility] [address] [facility] Normal Alt 16 U/L 6-29 U/L Final [facility] [address] [facility] C-peptide, Serum Normal C-peptide 2.73 NG/mL 0.80- 3.85 NG/mL [facility]: [address] [facility] HbA1C (Hemoglobin a1C), Blood Blood venous Normal Hemoglobin a1C 5.1 % of total HGB <5.7 % of total HGB Final [facility] [address] [facility] Past Encounters 03/01/2021 Depressive Disorder; Anxiety Disorder Jovanna KAREY Mendiola-R: [address] [facility] [address], [place] [address], Ph. 02/28/2021 Esa Hansen MD: [address] [place] [address], Ph. 02/23/2021 Depressive Disorder; Nicotine Dependence with Current Use; Vitamin D Deficiency; Body Mass Index 30+ - Obesity; History of Gestational Diabetes Mellitus; Epigastric Pain Esa Hansen MD: [address] [place] [address], Ph. 02/08/2021 Depressive Disorder; Anxiety Disorder Jovanna Mendiola LCSW-R: [address] [facility], [facility] [address], [place] [address], Ph. 01/25/2021 Depressive Disorder; Anxiety Disorder Jovanna Mendiola LCSW-R: [address] [facility], [facility] [address], [place] [address], Ph. 01/11/2021 Depressive Disorder; Anxiety Disorder Jovanna Mendiola LCSW-R: [address] [facility], [facility] [address], [place] [address], Ph. 01/01/2021 Paresthesia of Upper Limb; HIV Screening Esa Hansen MD: [address] [place] [address], Ph. 12/20/2020 Depressive Disorder; Anxiety Disorder Jovanna Mendiola LCSW-R: [address] [facility], [facility] [address], [place] [address], Ph. 11/24/2020 Vitamin D Deficiency; Nicotine Dependence with Current Use; Anxiety Disorder; Aphthous Ulcer of Mouth; Daytime Somnolence; Memory Impairment Esa Hansen MD: [address] [place] [address], Ph. 11/22/2020 Depressive Disorder; Anxiety Disorder NILSON WoodsW-R: [address], [facility] [address], [place] [address], Ph. 10/26/2020 Depressive Disorder; Anxiety Disorder Jovanna Mendiola SPANISH MOSS PICKER-R: [address], [facility] [address], [place] [address], Ph. 10/05/2020 Depressive Disorder; Anxiety Disorder NILSON WoodsW-R: [address], [facility] [address], [place] [address], Ph. 09/21/2020 Depressive Disorder; Anxiety Disorder Jovanna Mendiola SPANISH MOSS PICKER-R: [address] [facility], [facility] [address], [place] [address], Ph. 09/07/2020 Depressive Disorder; Anxiety Disorder Jovanna Mendiola SPANISH MOSS PICKER-R: [address], [facility] [address], [place] [address], Ph. 08/25/2020 Body Mass Index 25-29 - Overweight; Nicotine Dependence; Adult Health Examination; Gestational Diabetes Mellitus; Dissociative Disorder; Venereal Disease Screening Esa Hansen MD: [address] [place] [address], Ph. 08/17/2020 Anxiety Disorder; Depressive Disorder Jovanna MendiolaNILSONW-R: [address], [facility] [address], [place] [address], Ph. 06/30/2020 Generalized Anxiety Disorder Neda Carpenter [facility]: [address] [place] [address], Ph. 06/30/2020 Depressive Disorder; Gestational Diabetes Mellitus Esa Hansen MD: [address] [place] [address], Ph. Social History Tobacco Smoking Status Never Smoker Vaccine List Vaccine Type COVID-19, mRNA, LNP-S, PF, 100 mcg/0.5 m L dose 09/14/2020 10/12/2020 influenza, injectable, quadrivalent 02/17/2021 influenza, seasonal, injectable, preserv ative free 03/01/2013 Tdap 05/22/2020 Plan of Care Reminders Provider Appointments None recorded. Lab None recorded. Referral None recorded. Procedures None recorded. Surgeries None recorded. Imaging None recorded. Vitals 02/28/2021 01:00PM NURSE LAB COLLECTION Height 63 in 02/23/2021 01:00PM PROVIDER DIRECTED FOLLOW-UP 40 Height Weight BMI Blood Pressure 63 in 175 lbs 4 oz 31 kg/m2 123/82 mm[Hg] 01/01/2021 09:20AM ESTABLISHED [id number] Height Weight BMI Blood Pressure 63 in 160 lbs 28.3 kg/m2 126/78 mm[Hg] 11/24/2020 10:00AM ESTABLISHED [id number] Height Weight BMI Blood Pressure 63 in [...]
--- OUTSIDE RECORDS SUMMARY | 2021-03-13 08:24 | CCD | Continuity of Care Document ---
Author Author Calista DAVILA Organization Unknown Address [address] [address] Phone [phone] Care Team Providers Care Investment Trader Name Role Phone Elly Hernandez M.D. AUTM [phone] Problems Active Problems Provider Date Numbness of [...] lb BMI (Body Mass Index) 28.3 kg/m2 [place] Body Weight 115 lb Results Description No Information Available Procedures Date Code Description Status 03/08/2021 25317 MRI Brain W/O Contrast Completed 03/08/2021 14744 MRI Brain W/O Contrast Completed 02/05/2021 40348 EEG Recording Awake & Asleep Com pleted 02/05/2021 07123 EEG Recording Awake & Asleep Com pleted 01/08/2021 20137 Nerve Conduction 9-10 Studies Co mpleted 01/08/2021 90703 Needle Electromyogra phy Non Extremity Done With Nerve Conduction Completed 01/08/2021 38772 Needle Electromyography Complete , Five Or More Muscles Studied Completed 01/01/2021 02834 Office/Outpatient New Moderate M DM 45-59 Minutes Completed Medical Devices Description No Information Available Encounters Type Date Location Provider Dx Diagnosis Office Visit 01/01/2021 2:00p Main office - [place] Heather Molina M.D. G47.51 Confusional arousals S15.8xxA Injury of oth blood vessels at neck level, init encntr G47.00 Insomnia, unspecified R41.3 Other amnesia R20.2 Paresthesia of skin Assessments Date Code Description Provider 03/08/2021 R55 Syncope and collapse Vangie Molina M.D. 03/08/2021 R55 Syncope and collapse MRI 02/05/2021 R55 Syncope and collapse Heather white M.D. 02/05/2021 R55 Syncope and collapse EEG 01/08/2021 G56.01 Carpal tunnel syndrome, right up per limb Vangiehadley Molina M.D. 01/08/2021 G56.00 Carpal tunnel syndrome, unspecif ied upper limb Vangie Tracy, Lucy 01/08/2021 M54.12 Radiculopathy, cervical region A bdhadley Molina M.D. 01/08/2021 M25.549 Pain in joints of unspecified [place] Vangie Tracy, Lucy 01/08/2021 R20.2 Paresthesia of skin Vangie TracyLucy valdes 01/01/2021 G47.51 Confusional arousals Heather white M.D. 01/01/2021 S15.8xxA Injury of other spec ified blood vessels at neck level, initial encounter Heather Molina M.D. 01/01/2021 G47.00 Insomnia, unspecified Heather valdes M.D. 01/01/2021 R41.3 Other amnesia Yoni Ni 01/01/2021 R20.2 Paresthesia of skin Heather Molina M.D. Plan of Treatment Future Appointment(s):* 03/20/2021 10:15 am - Heather Molina M.D. at Main office - [place] Functional Status Description No Information Available Mental Status Description No Information Available Referrals Refer to Reason for Referral Status Appt Date Volodymyr Esteban M.D. CARPAL TUNNEL SYNDROME - FAXING TO PCP FOR [facility] AUTH Created [facility] [address] [place] [address] [phone] Created
--- OUTSIDE RECORDS SUMMARY | 2021-03-13 08:24 | CCD | Continuity of Care Document ---
Author Author Calista MOLINA M.D. Organization Unknown Address [address] [place] [address] Phone [phone] Care Team Providers Care Electronics Maintenance Technician Name Role Phone Elly Hernandez M.D. AUTM [phone] Problems Description No Information Available Social History Type Date Description Comments Sex Unknown Allergies, Adverse Reactions, Alerts Description No Information Available Medications Description No Information Available Immunizations Description No Information Available Vital Signs Description No Information Available Results Description No Information Available Procedures Date Code Description Status 01/01/2021 79039 Office/Outpatient New Moderate M DM 45-59 Minutes Completed Medical Devices Description No Information Available Encounters Type Date Location Provider Dx Diagnosis Office Visit 01/01/2021 2:00p Main office - [place] Heather Molina M.D. G47.51 Confusional arousals S15.8xxA Injury of oth blood vessels at neck level, init encntr G47.00 Insomnia, unspecified R41.3 Other amnesia R20.2 Paresthesia of skin Assessments Date Code Description Provider 01/01/2021 G47.51 Confusional arousals Heather white M.D. 01/01/2021 S15.8xxA Injury of other spec ified blood vessels at neck level, initial encounter Heather Molina M.D. 01/01/2021 G47.00 Insomnia, unspecified Heather valdes M.D. 01/01/2021 R41.3 Other amnesia Yoni Ni 01/01/2021 R20.2 Paresthesia of skin Heather Molina M.D. Plan of Treatment Future Appointment(s):* 03/20/2021 8:00 am - Heather Molina M.D. at [facility] * 02/05/2021 1:00 pm - EEG at [facility] * 01/08/2021 8:30 am - Vangie Molina M.D. at [facility] Functional Status Description No Information Available Mental Status Description No Information Available Referrals Description No Information Available
--- OUTSIDE RECORDS SUMMARY | 2021-03-13 08:24 | CCD | Continuity of Care Document ---
Author Calista Paz Organization Unknown Address [address] [place] [address] Phone [phone] Care Team Providers Care Checker/Stocker Name Role Phone Elly Hernandez M.D. AUTM [phone] Problems Active Problems Provider Date Numbness of [...] lb BMI (Body Mass Index) 28.3 kg/m2 [place] Body Weight 115 lb Results Description No Information Available Procedures Date Code Description Status 03/08/2021 70507 MRI Brain W/O Contrast Completed 02/05/2021 98396 EEG Recording Awake & Asleep Com pleted 02/05/2021 47653 EEG Recording Awake & Asleep Com pleted 01/08/2021 41947 Nerve Conduction 9-10 Studies Co mpleted 01/08/2021 78236 Needle Electromyogra phy Non Extremity Done With Nerve Conduction Completed 01/08/2021 11220 Needle Electromyography Complete , Five Or More Muscles Studied Completed 01/01/2021 05876 Office/Outpatient New Moderate M DM 45-59 Minutes Completed Medical Devices Description No Information Available Encounters Type Date Location Provider Dx Diagnosis Office Visit 01/01/2021 2:00p Main office - [place] Heather Molina M.D. G47.51 Confusional arousals S15.8xxA [...] Heather Molina M.D. at Main office - [place] Functional Status Description No Information Available Mental Status Description No Information Available Referrals Refer to Dr Reason for Referral Status Appt Date Volodymyr Esteban M.D. CARPAL TUNNEL SYNDROME - FAXING TO PCP FOR [facility] AUTH Created [facility] [address] [address] [phone]
--- OUTSIDE RECORDS SUMMARY | 2021-03-13 08:24 | CCD | Continuity of Care Document ---
Author Author Calista DANIELS M.D. Organization Unknown Address [address] [place] [address] Phone [phone] Care Team Providers Care Protection Mgr Name Role Phone Elly Hernandez M.D. [facility] [phone] Problems Description No Information Available Social History Type Date Description Comments Sex Unknown Allergies, Adverse Reactions, Alerts Description No Information Available Medications Description No Information Available Immunizations Description No Information Available Vital Signs Description No Information Available Results Description No Information Available Procedures Description No Information Available Medical Devices Description No Information Available Encounters Description No Information Available Assessments Description No Information Available Plan of Treatment No Information Available Functional Status Description No Information Available Mental Status Description No Information Available Referrals Description No Information Available
--- OUTSIDE RECORDS SUMMARY | 2021-03-13 08:24 | CCD ---
Author Organization Unknown Address [address] [place] [address] Phone [phone] Care Team Providers Care Surgical Pathologist Name Role Phone [facility] 110 [phone] [facility] 129 [phone] Allergies Code Code System Name Reaction Severity [...] DAILY Completed 10/05 sertraline 50 mg tablet Active Not avai lable valacyclovir 500 mg tablet TAKE 1 CAPLET [...] Procedures Date Name Performed by Extraction of [place] To[facility] Notes: 4 Information not available Results Lab Results Date Name Specimen Result Interpretation Description Value Range Status Address 08/25/2020 CBC W/ Auto Diff Blood venous Normal White Blood C ount 5.9 10 4.0-10.0 10 [facility]: 83 0 [facility] Blood venous Normal Red Blood Count 4.99 10 4.00- 5.40 10 [facility]: 830 [facility] Blood venous Normal Hemoglobin 14.4 g/dL 12.0-15. 5 g/dL [facility]: 830 [facility] Blood venous Normal Hematocrit 44.6 % 36.0-47.0 % [facility]: 830 [facility] Blood venous Normal Mean Corpuscular Volume 89.4 fL 80.0-96.0 fL [facility]: 830 [facility] Blood venous Normal Mean Corpuscular Hemoglob in 28.9 pg 27.0-33.0 pg [facility]: [address] [place] [address] Blood venous Normal Mean Corpuscular HGB Conc 32.3 g/dL 32.0-36.5 g/dL [facility]: [address] [place] [address] Blood venous Normal Red Cell Distribution Wid th 12.8 % 11.5-14.5 % [facility]: [address] [place] [address] Blood venous Normal Platelet Count, Automated 219 10 150-450 10 [facility]: [address] [place] [address] Blood venous Normal Neutrophils % 53.7 % 36.0-66. 0 % [facility]: [address] [place] [address] Blood venous Normal Lymph % 36.6 % 24.0-44.0 % [facility]: [address] [place] [address] Blood venous Normal [place] % 7.1 % 2.0-8.0 % [facility]: [address] [place] [address] Blood venous Normal Eos % 1.9 % 0.0-3.0 % [facility]: [address] [place] [address] Blood venous Normal Baso % 0.5 % 0.0-1.0 % [facility]: [address] [place] [address] Blood venous Normal Immature Granulocyte % 0.2 % 0-3.0 % [facility]: [address] [place] [address] Blood venous Normal Nucleated Red Blood Cell % 0. 0 % 0-0 % [facility]: [address] [place] [address] Blood venous Normal Neutrophils # 3.2 10 1.5-8.5 10 [facility]: [address] [place] [address] Blood venous Normal Lymph # 2.2 10 1.5-5.0 10 [facility] tahir [facility]: [address] [place] [address] Blood venous Normal [place] # 0.4 10 0.0-0.8 10 Cassandra l [facility]: [address] [place] [address] Blood venous Normal Eos # 0.1 10 0.0-0.5 10 [facility]: [address] [place] [address] Blood venous Normal Baso # 0.0 10 0.0-0.2 10 [facility]: [address] [place] [address] 08/25/2020 HbA1C (Hemoglobin a1C), Blood Blood venous Normal Hemoglobin a1C 5.4 % [facility]: [address] [place] [address] Blood venous Normal Estimated Average Glucose 108 mg/dL 60-110 mg/dL [facility]: [address] [place] [address] 08/25/2020 CMP, Serum or Plasma Blood venous Normal Glu cose, Fasting 90 mg/dL 70-100 mg/dL [facility]ter: [address] [place] [address] Blood venous Normal Blood Urea Nitrogen 12 mg/dL 7-18 mg/dL [facility]: [address] [place] [address] Blood venous Normal Creatinine for GFR 0.71 mg/dL 0.55-1.30 mg/dL [facility]: [address] [place] [address] Blood venous Normal Glomerular Filtration Rate > 60.0 >60 [facility]: [address] [place] [address] Blood venous Normal Sodium Level 139 mEq/L 136-14 5 mEq/L [facility]: [address] [place] [address] Blood venous Normal Potassium Serum 5.1 mEq/L 3.5 -5.1 mEq/L [facility]: [address] [place] [address] Blood venous Normal Chloride Level 107 mEq/L 98-1 07 mEq/L [facility]: [address] [place] [address] Blood venous Normal Carbon Dioxide Level 30 mEq/L 21-32 mEq/L [facility]: [address] [place] [address] Blood venous Low Anion Gap 2 mEq/L 8-16 mEq/L [facility]: [address] [place] [address] Blood venous Normal Calcium Level 9.2 mg/dL 8.5-1 0.1 mg/dL [facility]: [address] [place] [address] Blood venous Normal AST/SGOT 27 U/L 7-37 U/L [facility]: [address] [place] [address] Blood venous Normal ALT/SGPT 63 U/L 12-78 U/L [facility]: 830 [facility] Blood venous Normal Alkaline Phosphatase 101 U/L 45-117 U/L [facility]: 830 [facility] Blood venous Normal Bilirubin,total 0.4 mg/dL 0.2 -1.0 mg/dL [facility]: 830 [facility] Blood venous Normal Total Protein 7.1 gm/dL 6.4-8 .2 gm/dL [facility]: 830 [facility] Blood venous Normal Albumin 4.0 gm/dL 3.2-5.2 gm/ dL [facility]: [address] [facility] Blood venous Normal Albumin/globulin Ratio 1.3 1.2-2.2 [facility]: 830 [facility] 08/25/2020 Hepatitis C Ab, Serum Normal Hepati tis C Virus Jacklyn Index < 0.0 index <0.8 index [facility]ter: 830 [facility] 08/25/2020 Lipid Panel, Blood Normal Triglycerides Lev el 138 mg/dL <150 mg/dL [facility]: 83 0 [facility] Normal Cholesterol Level 141 mg/dL <200 mg/ dL [facility]: [address] [facility] Low HDL Cholesterol 31 mg/dL >40 mg/dL [facility]: [address] [facility] Normal LDL Cholesterol 82 mg/dL <100 mg/dL [facility]: [address] [facility] Normal Non-hdl-c 110 mg/dL [facility]: [address] [facility] Normal Cholesterol Risk Ratio 4.548 <5 [facility]: [address] [facility] 08/25/2020 TSH, Serum or Plasma Blood capillary Normal Thyroid Stimulating Hormone 1.520 uIU/mL 0.358-3.740 uIU/mL [facility]: [address] [facility] 08/25/2020 Vitamin D, 25-Hydroxy, Total, Serum Blood venous Low Total 25(Oh) Vitamin D 28.6 NG/mL 30.0-100.0 NG/mL Final [facility] Center: [address] [facility] 08/25/2020 Syphilis Normal Syphilis nonreactive nonreacti ve Final [facility]: [address] [facility] 08/25/2020 HIV 1+2 AB + HIV 1 P24 Ag, Qualitative Immunoassay, Serum Normal HIV 1&2 Screen Centaur negative negative Final [facility]: [address] [facility] 08/25/2020 CT + NG DNA, Qual, PCR, Unspecified Specimen No rmal Chlamydia DNA Amplification negative negative Final [facility] ical Center: [address] [facility] Normal GC DNA Amplification negative negati ve Final [facility]: 0 [facility] 07/30/2020 [place] CERVICAL No observation recorded. [facility]: [address] [facility] Past Encounters 02/08/2021 Depressive Disorder; Anxiety Disorder Jovanna NILSON MendiolaW-R: [address] [facility] [address] [address], Ph. 01/25/2021 Depressive Disorder; Anxiety Disorder Jovanna EllisonNILSON championW-R: [address] [facility] [address], [place] [address], Ph. 01/11/2021 Depressive Disorder; Anxiety Disorder Jovanna EllisonNILSON championW-R: [address] [facility] [address], [place] [address], Ph. 01/01/2021 Paresthesia of Upper Limb; HIV Screening Elly Hernandez MD: [address] [place] [address], Ph. 12/20/2020 Depressive Disorder; Anxiety Disorder Jovanna KAREY Mendiola-R: [address] [facility] [address], [place] [address], Ph. 11/24/2020 Vitamin D Deficiency; Nicotine Dependence with Current Use; Anxiety Disorder; Aphthous Ulcer of Mouth; Daytime Somnolence; Memory Impairment Elly Hernandez MD: [address] [place] [address], Ph. 11/22/2020 Depressive Disorder; Anxiety Disorder NILSON WoodsW-R: [address] [facility] [address], [place] [address], Ph. 10/26/2020 Depressive Disorder; Anxiety Disorder NILSON WoodsW-R: [address], [place] [address], Ph. 10/05/2020 Depressive Disorder; Anxiety Disorder NILSON WoodsW-R: [address] [facility] [address], [place] [address], Ph. 09/21/2020 Depressive Disorder; Anxiety Disorder NILSON WoodsW-R: [address] [facility] [address], [place] [address], Ph. 09/07/2020 Depressive Disorder; Anxiety Disorder NILSON WoodsW-R: [address] [facility] [address], [place] [address], Ph. 08/25/2020 Body Mass Index 25-29 - Overweight; Nicotine Dependence; Adult Health Examination; Gestational Diabetes Mellitus; Dissociative Disorder; Venereal Disease Screening Elly Hernandez MD: [address] [place] [address], Ph. 08/17/2020 Anxiety Disorder; Depressive Disorder Jovanna MendiolaNILSONW-R: [address] [facility] [address], [place] [address], Ph. 06/30/2020 Generalized Anxiety Disorder Neda Carpenter [facility]: [address] [place] [address], Ph. 06/30/2020 Depressive Disorder; Gestational Diabetes Mellitus Elly Hernandez MD: [address] [place] [address], Ph. Social History Tobacco Smoking Status Never Smoker Vaccine List Vaccine Type COVID-19, mRNA, LNP-S, PF, 100 mcg/0.5 m L dose 09/14/2020 10/12/2020 influenza, seasonal, injectable, preserv ative free 03/01/2013 Plan of Care Reminders Provider Appointments None recorded. Lab None recorded. Referral None recorded. Procedures None recorded. Surgeries None recorded. Imaging None recorded. Vitals 01/01/2021 09:20AM ESTABLISHED [id number] Height Weight BMI Blood Pressure 63 in 160 lbs 28.3 kg/m2 126/78 mm[Hg] 11/24/2020 10:00AM ESTABLISHED [id number] Height Weight BMI Blood Pressure 63 in [...]
--- OUTSIDE RECORDS SUMMARY | 2021-03-13 08:24 | CCD ---
Author Author [facility] Organization [facility] Address Unknown Phone Unavailable Care Team Providers Care Correspondence Analyst Name Role Phone Eliseo Menjivar Unavailable PROBLEMS Type Condition ICD9-CM Code [id number] Code Onset Dates Condition S tatus W/U Status Risk SNOMED Code Notes Problem Depressive disorder, not elsewhere classified 311 Active confirmed 75088451 Problem Allergic rhinitis, cause unspecified 477.9 Act kiersten confirmed 83938541 Problem Rib pain on left side 786.50 Active confirmed 158933410 Problem Costochondritis 733.6 Active confirmed 6410 9004 Problem Anxiety and depression F41.9 Active confirmed 088331877 Problem Major depressive disorder, single episode, unspecified F32.9 Active confirmed 56694803 Problem 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 Active confirmed 819893481 Problem Genital herpes A60.00 Active confirmed 06100 006 Problem Dyspareunia in female N94.10 Active confirmed 69565500 Problem Hx of herpes simplex type 2 infection Z86.19 Ac tive confirmed 062396941 Problem History of chlamydia Z86.19 Active confirmed 366930440 Problem GERD (gastroesophageal reflux disease) K21.9 A ctive confirmed 512963613 Problem Primary insomnia F51.01 Active confirmed 397 2004 Problem History of gestational diabetes Z86.32 Active confi rmed 144343678 Problem Urinary dribbling N39.43 Active confirmed 58 494695 Problem Exercise-induced asthma J45.990 Active confirmed 62421651 Problem Labial pain N94.89 Active confirmed 8454229 Problem Irregular menses N92.6 Active confirmed 801 23164 Problem Supervision of other normal Z34.80 Ac tive confirm 255477473 ALLERGIES Allergen (clinical drug ingredient) Drug/Non Drug Allergy do cumented on EMR Reaction Allergy Type Onset Date Status Seasonal nasal congestion Non Drug Allergy Ac tive ragweed, dust mites, mold nasal congestion Non Drug Allerg y Active ENCOUNTERS from 1996 to 2021-02-27 Encounter Location Date Provider Diagnosis [facility] [address] [facility] [phone] [place] [address] Feb, Eliseo Menjivar IMMUNIZATIONS Vaccine Route Administration Date Status Hepatitis [...] Unknown Language: Question Answer Notes Languages spoken: Guamanian Tobacco Use: Question Answer Notes Are you a: current smoker REASON FOR REFERRAL No Information VITAL SIGNS No information MEDICATIONS Medication SIG (Take, Route, Frequency, Duration) Notes Start Da te End Date Status Bacitracin 500 UNIT/GM 1 application to affected ar ea of hand Externally bid for 30 days NEVER PICKED UP Dec, Not-Taking metFORMIN HCl 500 MG 1 tablet with dinner Orally BID for 60 day( s) May, Not-Taking Abilify 15 MG 1 tablet Orally Once a day Not-Taking Lancets - as directed O24.419 four times daily for 30 Days Whatever type of lancets insurance covers Apr, Not-Taking Bactroban 2 % 1 application to affected ar ea Externally Three times a day to affected areas for 10 day(s) Dec, Not -Taking Diflucan 150 MG 1 tablet Orally take now; re peat in 72 hours if your symptoms persist for 4 days Jan, Not-Taking ZyrTEC Allergy 10 MG 1 tablet Orally Once a day Active Vitamin D 5000 1 capsule Orally daily Not-Taking Lancets - as directed 4 times daily for [address] ease give patient whatever lancets her insurance will cover. thank you. May, Not-Taking Valtrex 500 MG 1 tablet Orally As needed for 30 day(s) Jun, Active Test Strips - as directed O24.419 four times daily for 30 Days Apr, Not-Taking Zoloft 50 MG 1 tablet Orally Once a day Active valACYclovir HCl 1 GM 1 tablet Orally tid for 7 day(s) For 1 0 days then back to 500 MG on 01/07/19 Dec, Not-Taking ProAir HFA 108 (90 Base) MCG/ACT 2 puffs as needed Inh alation every 6 hrs for 30 days Jan, Not-Taking Depo-Provera 150 MG/ML 1 ml Intramuscular Active Potassium 99 MG 1 tablet Orally Once a day Not-Taking Valtrex 1 GM at first sign lesion, start 1 tab once a day for 5 days Orally as directed for 5 day(s) discontinue the 500mg dose Dec, Not-Taking Alcohol Wipes 70 % as directed O24.419 topically four times alan y for 30 Days Apr, Not-Taking 1 _ 1 capsule Orally Daily Not-Taking Vitamin D 50 MCG (2000 UT) 1 tablet Orally Once a day Active Glucose Monitor - as directed O24.419 four times daily for 30 Da ys Apr, Not-Taking Valtrex 500 MG 1 tablet Orally Twice a day for 30 day(s) 2 5 May, 2020 Not-Taking Omeprazole 20 MG 1 capsule 30 minutes before morning meal Orally Once a day for 60 day(s) May, Active Clotrimazole 1 % 1 application to affected ar ea of hand and arm Externally Twice a day Dec, Not-Taking Ketoconazole 2 % apply thin layer to lesion o n left forearm Externally Once a day for 14 days Nov, Not-Taking Fluconazole 150 MG 1 tablet Orally weekly Dec, Not-Taking Wellbutrin XL 300 MG 1 tablet in the morning Orally Once a day Not-Taking Levocetirizine Dihydrochloride 5 MG 1 tablet in the ev ening Orally Once a day for allergies for 30 Not-Taking Iron 18 MG 1 tablet Orally Once a day for 30 day(s) Not-Taking Hydrocortisone 2.5 % 1 application to affected area Rectal As needed Not-Taking Multi Vitamin - 1 tablet Orally Once a day Active PROCEDURES No Information RESULTS No Results REASON FOR VISIT 03/13/21 SURG AUTH MEDICAL (GENERAL) HISTORY Type Description Date Medical History Seasonal allergies Medical History Depression; 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[facility]) Medical History Anxiety Medical History Mood disorders Medical History gestational diabetes Surgical History No know Surgical history Hospitalization History Vomiting/diarrhea 2009 Hospitalization History [facility] - child 04/2016 Goals Section No Information Health Concerns No Information MEDICAL EQUIPMENT No Information MENTAL STATUS No Information FUNCTIONAL STATUS No Information ASSESSMENTS No Information PLAN OF TREATMENT Next Appt Details Provider Name:Eliseo Menjivar, 10:00:00 AM, [address] [place] [phone], [place], [address], Provider Name:Eliseo Menjivra, 10:00:00 AM, [address] [place] [address]-785-4155, [place], [address], Insurance Providers Payer Name Payer Address Payer Phone Insured Name Patient Relati onship to Insured Coverage Start Date Coverage End Date [facility] [employer] [facility] [address] [facility] [address] [phone] KARLOS RAHMAN
--- OUTSIDE RECORDS SUMMARY | 2021-03-13 08:24 | CCD | Continuity of Care Document ---
Author Calista Galindo M.D. Organization Unknown Address [address] [place] [address] Phone [phone] Care Team Providers Care Section Crews Activities Clerk Name Role Phone Elly Hernandez M.D. AUTM [phone] Problems Active Problems Provider Date Numbness of [...] lb BMI (Body Mass Index) 28.3 kg/m2 [place] Body Weight 115 lb Results Description No Information Available Procedures Date Code Description Status 01/01/2021 50064 Office/Outpatient New Moderate M DM 45-59 Minutes Completed Medical Devices Description No Information Available Encounters Type Date Location Provider Dx Diagnosis Office Visit 01/01/2021 2:00p Main office - Sandyjackie Molina M.D. G47.51 Confusional arousals S15.8xxA Injury [...] 8:00 am - Heather Molina M.D. at [facility] * 02/05/2021 1:00 pm - EEG at [facility] Functional Status Description No Information Available Mental Status Description No Information Available Referrals Description No Information Available
--- OUTSIDE RECORDS SUMMARY | 2021-03-13 08:24 | CCD ---
Author Organization Unknown Address [address] [place] [address] Phone [phone] Care Team Providers Care Director Of Assessment Name Role Phone [facility] 110 [phone] [facility] 129 [phone] ESA HANSEN MD 3 [phone] Allergies Code Code System Name Reaction Severity [...] 11/24/2020 Completed 02/23/2021 sertraline 100 mg tablet Take 1 tablet every day by oral route. Active Not available sertraline 25 mg tablet [...] Procedures Date Name Performed by Extraction of [place] Tooth Notes: 4 Information not available 02/23/2021 US, Abdominal Wall Information not avai lable Results Lab Results Date Name Specimen Result Interpretation Description Value Range Status Address 08/25/2020 CBC W/ Auto Diff Blood venous Normal White Blood C ount 5.9 10 4.0-10.[address] [facility]: 83 0 [facility] Blood venous Normal Red Blood Count 4.99 10 4.00- 5.[address] [facility]: 830 [facility] Blood venous Normal Hemoglobin 14.4 g/dL 12.0-15. 5 g/dL [facility]: 830 [facility] Blood venous Normal Hematocrit 44.6 % 36.0-47.0 % [facility]: [address] [place] [address] Blood venous Normal Mean Corpuscular Volume 89.4 fL 80.0-96.[address] [facility]: [address] [place] [address] Blood venous Normal Mean Corpuscular Hemoglob in 28.9 pg 27.0-33.[address] [facility]: [address] [place] [address] Blood venous Normal Mean Corpuscular HGB Conc 32.3 g/dL 32.0-36.5 g/dL [facility]: [address] [place] [address] Blood venous Normal Red Cell Distribution Wid th 12.8 % 11.5-14.5 % [facility]: [address] [place] [address] Blood venous Normal Platelet Count, Automated 219 10 150-[address] [facility]: [address] [place] [address] Blood venous Normal Neutrophils % 53.7 % 36.0-66. 0 % [facility]: [address] [place] [address] Blood venous Normal Lymph % 36.6 % 24.0-44.0 % [facility]: [address] [place] [address] Blood venous Normal [place] % 7.1 % 2.0-8.0 % [facility]: [address] [place] [address] Blood venous Normal Eos % 1.9 % 0.0-3.0 % [facility]: [address] [place] [address] venous Normal Baso % 0.5 % 0.0-1.0 % [facility]: [address] [place] [address] Blood venous Normal Immature Granulocyte % 0.2 % 0-3.0 % [facility]: [address] [place] [address] Blood venous Normal Nucleated Red Blood Cell % 0. 0 % 0-0 % [facility]: [address] [place] [address] Blood venous Normal Neutrophils # 3.2 10 1.5-8.[address] [facility]: [address] [place] [address] Blood venous Normal Lymph # 2.2 10 1.5-5.0 10 Fin [facility]: [address] [place] [address] Blood venous Normal [place] # 0.4 10 0.0-0.8 10 [facility]: [address] [place] [address] Blood venous Normal Eos # 0.1 10 0.0-0.[address] [facility]: [address] [place] [address] Blood venous Normal Baso # 0.0 10 0.0-0.2 10 [facility]: [address] [place] [address] 08/25/2020 HbA1C (Hemoglobin a1C), Blood Blood venous Normal Hemoglobin a1C 5.4 % [facility]: [address] [place] [address] Blood venous Normal Estimated Average Glucose 108 mg/dL 60-110 mg/dL [facility]: [address] [place] [address] 08/25/2020 CMP, Serum or Plasma Blood venous Normal Glu cose, Fasting 90 mg/dL 70-100 mg/dL [facility] nter: [address] [place] [address] Blood venous Normal Blood Urea Nitrogen 12 mg/dL 7-18 mg/dL [facility]: [address] [place] [address] Blood venous Normal Creatinine for GFR 0.71 mg/dL 0.55-1.30 mg/dL [facility]: [address] [place] [address] Blood venous Normal Glomerular Filtration Rate > 60.[address] >60 [facility]: [address] [place] [address] Blood venous Normal Sodium Level 139 mEq/L 136-14 5 mEq/L [facility]: [address] [place] [address] Blood venous Normal Potassium Serum 5.1 mEq/L 3.5 -5.1 mEq/L [facility]: [address] [place] [address] Blood venous Normal Chloride Level 107 mEq/L 98-1 07 mEq/L [facility]: [address] [place] [address] Blood venous Normal Carbon Dioxide Level 30 mEq/L 21-32 mEq/L [facility]: [address] [place] [address] Blood venous Low Anion Gap 2 mEq/L 8-16 mEq/L [facility]: [address] [place] [address] Blood venous Normal Calcium Level 9.2 mg/dL 8.5-1 0.1 mg/dL [facility]: 830 [facility] Blood venous Normal AST/SGOT 27 U/L 7-37 U/L Cassandra l [facility]: 830 [facility] Blood venous Normal ALT/SGPT 63 U/L 12-78 U/L [facility]: 830 [facility] Blood venous Normal Alkaline Phosphatase 101 U/L 45-117 U/L [facility]: 830 [facility] Blood venous Normal Bilirubin,total 0.4 mg/dL 0.2 -1.0 mg/dL [facility]: 830 [facility] Blood venous Normal Total Protein 7.1 gm/dL 6.4-8 .2 gm/dL [facility]: 830 [facility] Blood venous Normal Albumin 4.0 gm/dL 3.2-5.2 gm/ dL [facility]: 830 [facility] Blood venous Normal Albumin/globulin Ratio 1.3 1.2-2.2 [facility]: 830 [facility] 08/25/2020 Hepatitis C Ab, Serum Normal Hepati tis C Virus Jacklyn Index < 0.0 index <0.8 index [facility] nter: 830 [facility] 08/25/2020 Lipid Panel, Blood Normal Triglycerides Lev el 138 mg/dL <150 mg/dL [facility]: 83 0 [facility] Normal Cholesterol Level 141 mg/dL <200 mg/ dL [facility]: 0 [facility] Low HDL Cholesterol 31 mg/dL >40 mg/dL F wyndmerel [facility]: 830 [facility] Normal LDL Cholesterol 82 mg/dL <100 mg/dL [facility]: 830 [facility] Normal Non-hdl-c 110 mg/dL [facility]: 830 [facility] Normal Cholesterol Risk Ratio 4.548 <5 [facility]: 830 [facility] 08/25/2020 TSH, Serum or Plasma Blood capillary Normal Thyroid Stimulating Hormone 1.520 uIU/mL 0.358-3.740 uIU/mL Final [facility]: [address] [place] [address] 08/25/2020 Vitamin D, 25-Hydroxy, Total, Serum Blood venous Low Total 25(Oh) Vitamin D 28.6 NG/mL 30.0-100.0 NG/mL [facility]: [address] [place] [address] 08/25/2020 Syphilis Normal Syphilis nonreactive nonreacti ve Final [facility]: [address] [place] [address] 08/25/2020 HIV 1+2 AB + HIV 1 P24 Ag, Qualitative Immunoassay, Serum Normal HIV 1&2 Screen Centaur negative negative Final [facility]: [address] [place] [address] 08/25/2020 CT + NG DNA, Qual, PCR, Unspecified Specimen No rmal Chlamydia DNA Amplification negative negative [facility]: [address] [place] [address] Normal GC DNA Amplification negative negati ve [facility]: [address] [place] [address] 07/30/2020 [place] CERVICAL No observation recorded. [facility]: [address] [place] [address] Past Encounters 02/23/2021 Depressive Disorder; Nicotine Dependence with Current Use; Vitamin D Deficiency; Body Mass Index 30+ - Obesity; History of Gestational Diabetes Mellitus; Epigastric Pain Esa Hansen MD: [address] [place] [address], Ph. 02/08/2021 Depressive Disorder; Anxiety Disorder Jovanna Mendiola LCSW-R: [address] [facility] [address] [address], Ph. 01/25/2021 Depressive Disorder; Anxiety Disorder Jovanna Mendiola LCSW-R: [address] [facility] [address] [address], Ph. 01/11/2021 Depressive Disorder; Anxiety Disorder Jovanna Mendiola LCSW-R: [address] [facility] [address] [address], Ph. 01/01/2021 Paresthesia of Upper Limb; HIV Screening Esa Hansen MD: [address] [place] [address], Ph. 12/20/2020 Depressive Disorder; Anxiety Disorder Jovanna MendiolaNILSONW-R: [address] [facility], [facility] [address], [place] [address], Ph. 11/24/2020 Vitamin D Deficiency; Nicotine Dependence with Current Use; Anxiety Disorder; Aphthous Ulcer of Mouth; Daytime Somnolence; Memory Impairment Esa Hansen MD: [address] [place] [address], Ph. 11/22/2020 Depressive Disorder; Anxiety Disorder Jovanna MendiolaNILSONW-R: [address] [facility], [facility] [address], [place] [address], Ph. 10/26/2020 Depressive Disorder; Anxiety Disorder Jovanna MendiolaNILSONW-R: [address], [facility] [address], [place] [address], Ph. 10/05/2020 Depressive Disorder; Anxiety Disorder Jovanna MendiolaNILSONW-R: [address] [facility], [facility] [address], [place] [address], Ph. 09/21/2020 Depressive Disorder; Anxiety Disorder Jovanna EllisonNILSON championW-R: [address] [facility], [facility] [address], [place] [address], Ph. 09/07/2020 Depressive Disorder; Anxiety Disorder Jovanna EllisonNILSON championW-R: [address], [facility] [address], [place] [address], Ph. 08/25/2020 Body Mass Index 25-29 - Overweight; Nicotine Dependence; Adult Health Examination; Gestational Diabetes Mellitus; Dissociative Disorder; Venereal Disease Screening Eas Hansen MD: [address] [place] [address], Ph. 08/17/2020 Anxiety Disorder; Depressive Disorder Jovanna Mendiola, PATROL SUPERVISOR-R: [address] [facility], [address], [place] [address], Ph. 06/30/2020 Generalized Anxiety Disorder Neda Carpenter, [facility]: [address] [place] [address], Ph. 06/30/2020 Depressive Disorder; Gestational Diabetes Mellitus Esa Hansen MD: [address] [place] [address], Ph. Social History Tobacco Smoking Status Never Smoker Vaccine List Vaccine Type COVID-19, mRNA, LNP-S, PF, 100 mcg/0.5 m L dose 09/14/2020 10/12/2020 influenza, injectable, quadrivalent 02/17/2021 influenza, seasonal, injectable, preserv ative free 03/01/2013 Tdap 05/22/2020 Plan of Care Reminders Provider Appointments None recorded. Lab None recorded. Referral None recorded. Procedures None recorded. Surgeries None recorded. Imaging None recorded. Vitals 02/23/2021 01:00PM PROVIDER DIRECTED FOLLOW-UP 40 Height Weight BMI Blood Pressure 63 in 175 lbs 4 oz 31 kg/m2 123/82 mm[Hg] 01/01/2021 09:20AM ESTABLISHED [id number] Height Weight BMI Blood Pressure 63 in 160 lbs 28.3 kg/m2 126/78 mm[Hg] 11/24/2020 10:00AM ESTABLISHED [id number] Height Weight BMI Blood Pressure 63 in [...]
--- OUTSIDE RECORDS SUMMARY | 2021-03-13 08:24 | CCD | Continuity of Care Document ---
Author Author Calista GORDON Organization Unknown Address [address] [place] [address] Phone [phone] Care Team Providers Care Production Grader Name Role Phone Elly Hernandez M.D. AUTM [phone] Problems Active Problems Provider Date Numbness of [...] lb BMI (Body Mass Index) 28.3 kg/m2 [place] Body Weight 115 lb Results Description No Information Available Procedures Date Code Description Status 01/08/2021 14653 Nerve Conduction 9-10 Studies Co mpleted 01/08/2021 08745 Needle Electromyogra phy Non Extremity Done With Nerve Conduction Completed 01/08/2021 70753 Needle Electromyography Complete , Five Or More Muscles Studied Completed 01/01/2021 46619 Office/Outpatient New Moderate M DM 45-59 Minutes Completed Medical Devices Description No Information Available Encounters Type Date Location Provider Dx Diagnosis Office Visit 01/01/2021 2:00p [place] M.[place]. G47.51 Confusional arousals S15.8xxA Injury [...] M.D. 01/01/2021 G47.00 Insomnia, unspecified Heather Lat lucio, Sagar.DUriel 01/01/2021 R41.3 Other amnesia Yoni Ni 01/01/2021 R20.2 Paresthesia of skin Heather Molina M.D. Plan of Treatment Future Appointment(s):* 03/20/2021 10:15 am - Heather Molina M.D. at Main office - [place] Functional Status Description No Information Available Mental Status Description No Information Available Referrals Description No Information Available
--- OUTSIDE RECORDS SUMMARY | 2021-03-13 08:24 | CCD | Continuity of Care Document ---
Author Calista Paz Organization Unknown Address [address] [place] [address] Phone [phone] Care Team Providers Care Metal Finisher Name Role Phone Elly Hernandez M.D. AUTM [phone] Problems Active Problems Provider Date Numbness of [...] lb BMI (Body Mass Index) 28.3 kg/m2 [place] Body Weight 115 lb Results Description No Information Available Procedures Date Code Description Status 03/08/2021 24299 MRI Brain W/O Contrast Completed 02/05/2021 24303 EEG Recording Awake & Asleep Com pleted 02/05/2021 10141 EEG Recording Awake & Asleep Com pleted 01/08/2021 70585 Nerve Conduction 9-10 Studies Co mpleted 01/08/2021 75481 Needle Electromyogra phy Non Extremity Done With Nerve Conduction Completed 01/08/2021 22501 Needle Electromyography Complete , Five Or More Muscles Studied Completed 01/01/2021 48281 Office/Outpatient New Moderate M DM 45-59 Minutes Completed Medical Devices Description No Information Available Encounters Type Date Location Provider Dx Diagnosis Office Visit 01/01/2021 2:00p Main office - [place] Heather Molina M.D. G47.51 Confusional arousals S15.8xxA [...] Heather Molina M.D. at Main office - [place] Functional Status Description No Information Available Mental Status Description No Information Available Referrals Refer to Dr Reason for Referral Status Appt Date Volodymyr Esteban M.D. CARPAL TUNNEL SYNDROME - FAXING TO PCP FOR [facility] AUTH Created [facility] Orthopedic Surgery [address] [address] [phone]
--- OUTSIDE RECORDS SUMMARY | 2021-03-13 08:24 | CCD ---
Author Author [facility] Organization [facility] Address Unknown Phone Unavailable Care Team Providers Care Repair Cameraman Name Role Phone Eliseo Menjivar Unavailable PROBLEMS Type Condition ICD9-CM Code [id number] Code Onset Dates Condition S tatus W/U Status Risk SNOMED Code Notes Problem Depressive disorder, not elsewhere classified 311 Active confirmed 89084266 Problem Allergic rhinitis, cause unspecified 477.9 Act kiersten confirmed 49031534 Problem Rib pain on left side 786.50 Active confirmed 749044819 Problem Costochondritis 733.6 Active confirmed 6410 9004 Problem Anxiety and depression F41.9 Active confirmed 156562892 Problem Major depressive disorder, single episode, unspecified F32.9 Active confirmed 88872726 Problem 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 Active confirmed 719184992 Problem Genital herpes A60.00 Active confirmed 66937 006 Problem Dyspareunia in female N94.10 Active confirmed 16726557 Problem Hx of herpes simplex type 2 infection Z86.19 Ac tive confirmed 235714774 Problem History of chlamydia Z86.19 Active confirmed 910732769 Problem GERD (gastroesophageal reflux disease) K21.9 A ctive confirmed 277187410 Problem Primary insomnia F51.01 Active confirmed 397 2004 Problem History of gestational diabetes Z86.32 Active confi rmed 341695145 Problem Urinary dribbling N39.43 Active confirmed 58 863373 Problem Exercise-induced asthma J45.990 Active confirmed 97686138 Problem Labial pain N94.89 Active confirmed 0149442 Problem Irregular menses N92.6 Active confirmed 801 67503 Problem Supervision of other normal Z34.80 Ac tive confirm 327700726 ALLERGIES Allergen (clinical drug ingredient) Drug/Non Drug Allergy do cumented on EMR Reaction Allergy Type Onset Date Status Seasonal nasal congestion Non Drug Allergy Ac tive ragweed, dust mites, mold nasal congestion Non Drug Allerg y Active ENCOUNTERS from 1996 to 2021-02-15 Encounter Location Date Provider Diagnosis [facility] [address] [facility] [phone] [place] [address] Jan, Eliseo Menjivar Consultation for fem bobby sterilization Z30.09 IMMUNIZATIONS Vaccine Route Administration Date Status Hepatitis B Ped & Adol 0.5mL Engerix-B Unknown 1996 Administered Hepatitis B Ped & Adol 0.5mL Engerix-B Unknown Jan 20, 1997 Administered TDAP 0.5mL (Boostrix) Unknown August 05, 2007 Administer ed Influenza 6mo & up Fluzone IM Intramuscular Mar 05, 2017 Admi nistered Imm: IPV 0.5mL Polio Unknown 1996 Administere d Imm: IPV 0.5mL Polio Unknown October 18, 1997 Administere d Imm: IPV 0.5mL Polio Unknown Apr 20, 2001 Administere d Hepatitis B Ped & Adol 0.5mL Engerix-B Unknown September 21 99 Administered DTAP 0.5mL Infanrix Unknown 1996 Administered Influenza 6mo & up Fluzone IM Intramuscular Feb 25, 2018 Admi nistered Gardasil Unknown August 05, 2007 Administered HIB 0.5mL Unknown October 18, 1997 Administered HIB 0.5mL Unknown Jan 20, 1997 Administered HIB 0.5mL Unknown 1996 Administered HIB 0.5mL Unknown 1996 Administered DTAP 0.5mL Infanrix Unknown Apr 20, 2001 Administered DTAP 0.5mL Infanrix Unknown October 18, 1997 Administered DTAP 0.5mL Infanrix Unknown Jan 20, 1997 Administered DTAP 0.5mL Infanrix Unknown 1996 Administered Gardasil Unknown September 30, 2007 Administered Influenza 6mo & up Fluzone Unknown Feb 25, 2018 Admin istered Depo-Provera 150mg/1mL Medroxy-Progestrone Acetate IM Intram uscular December 08, 2017 Administered MMR 0.5mL Unknown August 02, 1997 Administered Influenza 18 yrs & older Flublok IM Intramuscular Mar 10, 2019 Administered MMR 0.5mL Unknown Apr 20, 2001 Administered TDAP 0.5mL (Boostrix) IM Intramuscular May 22, 2020 Administe red Meningococcal Unknown August 05, 2007 Administered Depo-Provera 150mg/1mL Medroxy-Progestrone Acetate IM Intram uscular October 13, 2020 Administered Gardasil Unknown Feb 08, 2008 Administered Influenza 6mo & up Fluzone Unknown Feb 16, 2016 Admin istered Varicella 0.5mL VariVax Unknown August 02, 1997 Administ ered Influenza 6mo & up Fluzone IM Intramuscular Mar 01, 2014 Admi nistered Varicella 0.5mL VariVax Unknown August 05, 2007 Administ ered Influenza 6mo & up Fluzone IM Intramuscular Mar 10, 2015 Admi nistered TDAP 0.5mL (Boostrix) Unknown Apr 11, 2017 Administer ed Hepatitis A Ped & Adol 0.5mL Havrix Unknown August 04 08 Administered Depo-Provera 150mg/1mL Medroxy-Progestrone Acetate IM Intram uscular Dec 29, 2020 Administered Hepatitis A Ped & Adol 0.5mL Havrix Unknown Feb 07 8 Administered Imm: IPV 0.5mL Polio Unknown 1996 Administere d SOCIAL HISTORY Tobacco Use: Social History Observation Description Date Details (start date - stop date) Current Smoker Sex Assigned At : Social History Observation Description Sex Assigned At Unknown Language: Question Answer Notes Languages spoken: Irish Tobacco Use: Question Answer Notes Are you a: current smoker REASON FOR REFERRAL No Information VITAL SIGNS Weight 172 lbs Jan, Weight-kg 78.02 kg Jan, Height 63 in Jan, BMI 30.47 kg/m2 Jan, Blood pressure systolic 108 mm Hg Jan, Blood pressure diastolic 70 mm Hg Jan, MEDICATIONS Medication SIG (Take, Route, Frequency, Duration) [...] Information RESULTS No Results REASON FOR VISIT surgical discussion MEDICAL (GENERAL) HISTORY Type Description Date Medical History Seasonal allergies Medical History Depression; 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[facility]) Medical History Anxiety Medical History Mood disorders Medical History gestational diabetes Surgical History No know Surgical history Hospitalization History Vomiting/diarrhea 2009 Hospitalization History [facility] - child 04/2016 Goals Section No Information Health Concerns No Information MEDICAL EQUIPMENT No Information MENTAL STATUS No Information FUNCTIONAL STATUS No Information ASSESSMENTS Encounter Date Diagnosis Assessment Notes Treatment Notes Treatm ent Clinical Notes Jan, Consultation for female sterilization (ICD-10 - Z30.09) She was counseled on the risks, benefits, alternatives, and indications of permanent sterilization via laparoscopic bilateral salpingectomy. She understands the risk of regret and remains insistent on proceeding with permanent sterilization. She was offered long acting reversible contraceptives and has declined. She understands the risk of permanent sterilization failure (less than 1%) and her elevated risk of ectopic should she become after this procedure. The patient understands the surgical risks to include: damage to surrounding organs (necessitating additional surgical pr ocedures), hemorrhage (possibly requiring a blood transfusion), infection (necessitating antibiotics and possible additional hospitalization), and poor surgical wound healing and need for additional surgical procedures. She also understands that surgery and anesthesia carry the risk of heart attack, stroke, and/or . PLAN OF TREATMENT Treatment Notes Assessment Notes Clinical Notes Consultation for female sterilization Alphonse gabriel was counseled on the risks, benefits, alternatives, and indications of permanent sterilization via laparoscopic bilateral salpingectomy. She understands the risk of regret and remains insistent on proceeding with permanent sterilization. She was offered long acting reversible contraceptives and has declined. She understands the risk of permanent sterilization failure (less than 1%) and her elevated risk of ectopic should she become after this procedure. The patient understands the surgical risks to include: damage to surrounding organs (necessitating additional surgical procedures), hemorrhage (possibly requiring a blood transfusion), infection (necessitating antibiotics and possible additional hospitalization), and poor surgical wound healing and need for additional juan manuel gical procedures. She also understands that surgery and anesthesia carry the risk of heart attack, stroke, and/or . Next Appt Details TBD Reason: Insurance Providers Payer Name Payer Address Payer Phone Insured Name Patient Relati onship to Insured Coverage Start Date Coverage End Date [facility] [address] [facility] [phone] KARLOS RAHMAN self
--- OUTSIDE RECORDS SUMMARY | 2021-03-13 08:24 | CCD | Continuity of Care Document ---
Author Calista Meza Organization Unknown Address [address] [place] [address] Phone [phone] Care Team Providers Care Trip Follower Name Role Phone Elly Hernandez M.D. AUTM [phone] Problems Active Problems Provider Date Numbness of [...] lb BMI (Body Mass Index) 28.3 kg/m2 [place] Body Weight 115 lb Results Description No Information Available Procedures Date Code Description Status 02/05/2021 12320 EEG Recording Awake & Asleep Com pleted 02/05/2021 27470 EEG Recording Awake & Asleep Com pleted 01/08/2021 85328 Nerve Conduction 9-10 Studies Co mpleted 01/08/2021 20805 Needle Electromyogra phy Non Extremity Done With Nerve Conduction Completed 01/08/2021 10437 Needle Electromyography Complete , Five Or More Muscles Studied Completed 01/01/2021 96667 Office/Outpatient New Moderate M DM 45-59 Minutes Completed Medical Devices Description No Information Available Encounters Type Date Location Provider Dx Diagnosis Office Visit 01/01/2021 2:00p Main office - [place] Heather Molina M.D. G47.51 Confusional arousals S15.8xxA Injury of oth blood vessels at neck level, init encntr G47.00 Insomnia, unspecified R41.3 Other amnesia R20.2 Paresthesia of skin Assessments Date Code Description Provider 02/05/2021 R55 Syncope and collapse Heather white M.D. 02/05/2021 R55 Syncope and collapse EEG 01/08/2021 G56.01 Carpal tunnel syndrome, right up per limb Vangie Tracy, M.DUriel 01/08/2021 G56.00 Carpal tunnel syndrome, unspecif ied upper limb Vangie Tracy, MUrielDUriel 01/08/2021 M54.12 Radiculopathy, cervical region A bdSagar Moore.DUriel 01/08/2021 M25.549 Pain in joints of unspecified [place] Vangie Tracy, M.Chapincito 01/08/2021 R20.2 Paresthesia of skin Vangie Tracy, YoniDUriel 01/01/2021 G47.51 Confusional arousals Heather white M.D. 01/01/2021 S15.8xxA Injury of other spec ified blood vessels at neck level, initial encounter Heather Molina M.D. 01/01/2021 G47.00 Insomnia, unspecified Heather valdes M.D. 01/01/2021 R41.3 Other amnesia Yoni Ni 01/01/2021 R20.2 Paresthesia of skin Heather Molina M.D. Plan of Treatment Future Appointment(s):* 03/20/2021 10:15 am - Heather Molina M.D. at Main office - [place] Functional Status Description No Information Available Mental Status Description No Information Available Referrals Description No Information Available
--- OUTSIDE RECORDS SUMMARY | 2021-03-13 08:24 | CCD ---
Author Organization Unknown Address [address] [place] [address] Phone [phone] Care Team Providers Care Marketing Project Specialist Name Role Phone [facility] 110 [phone] [facility] 129 [phone] ESA HANSEN MD 3 [phone] Allergies Code Code System Name Reaction Severity [...] 02/23/2021 sertraline 100 mg tablet Active Not jeffrey ilable sertraline 25 mg tablet TAKE 1 [...] Procedures Date Name Performed by Extraction of Moore Tooth Notes: 4 Information not available 02/23/2021 US, Abdominal Wall [facility] nter Radiology [address] [place], [place] [id number] (Work Place) Results Lab Results Date Name Specimen Result Interpretation Description Value Range Status Address 08/25/2020 CBC W/ Auto Diff Blood venous Normal White Blood C ount 5.9 10 4.0-10.0 10 Final [facility]: 83 0 [facility] Blood venous Normal Red Blood Count 4.99 10 4.00- 5.40 10 Final [facility]: [address] [facility] Blood venous Normal Hemoglobin 14.4 g/dL 12.0-15. 5 g/dL Final [facility]: [address] [facility] Blood venous Normal Hematocrit 44.6 % 36.0-47.0 % Final [facility]: [address] [place] [address] Blood venous Normal Mean Corpuscular Volume 89.4 fL 80.0-96.0 fL [facility]: [address] [place] [address] Blood venous Normal Mean Corpuscular Hemoglob in 28.9 pg 27.0-33.0 pg [facility]: [address] [place] [address] Blood venous Normal Mean Corpuscular HGB Conc 32.3 g/dL 32.0-36.5 g/dL [facility]: [address] [place] [address] Blood venous Normal Red Cell Distribution Wid th 12.8 % 11.5-14.5 % [facility]: [address] [place] [address] Blood venous Normal Platelet Count, Automated 219 10 150-450 10 [facility]: [address] [place] [address] venous Normal Neutrophils % 53.7 % 36.0-66. 0 % [facility]: [address] [place] [address] Blood venous Normal Lymph % 36.6 % 24.0-44.0 % [facility]: [address] [place] [address] Blood venous Normal Monona % 7.1 % 2.0-8.0 % [facility]: [address] [place] [address] Blood venous Normal Eos % 1.9 % 0.0-3.0 % [facility]: [address] [place] [address] venous Normal Baso % 0.5 % 0.0-1.0 % [facility]: [address] [place] [address] Blood venous Normal Immature Granulocyte % 0.2 % 0-3.0 % [facility]: [address] [place] [address] Blood venous Normal Nucleated Red Blood Cell % 0. 0 % 0-0 % [facility]: [address] [place] [address] Blood venous Normal Neutrophils # 3.2 10 1.5-8.5 10 [facility]: [address] [place] [address] Blood venous Normal Lymph # 2.2 10 1.5-5.0 10 [facility]: [address] [place] [address] Blood venous Normal Monona # 0.4 10 0.0-0.8 10 [facility]: [address] [place] [address] Blood venous Normal Eos # 0.1 10 0.0-0.5 10 [facility]: [address] [place] [address] Blood venous Normal Baso # 0.0 10 0.0-0.2 10 [facility]: [address] [place] [address] 08/25/2020 HbA1C (Hemoglobin a1C), Blood Blood venous Normal Hemoglobin a1C 5.4 % [facility]: [address] [place] [address] Blood venous Normal Estimated Average Glucose 108 mg/dL 60-110 mg/dL [facility]: [address] [place] [address] 08/25/2020 CMP, Serum or Plasma Blood venous Normal Glu cose, Fasting 90 mg/dL 70-100 mg/dL [facility] nter: [address] [place] [address] Blood venous Normal Blood Urea Nitrogen 12 mg/dL 7-18 mg/dL [facility]: [address] [place] [address] Blood venous Normal Creatinine for GFR 0.71 mg/dL 0.55-1.30 mg/dL [facility]: [address] [place] [address] Blood venous Normal Glomerular Filtration Rate > 60.0 >60 [facility]: [address] [place] [address] Blood venous Normal Sodium Level 139 mEq/L 136-14 5 mEq/L [facility]: [address] [place] [address] Blood venous Normal Potassium Serum 5.1 mEq/L 3.5 -5.1 mEq/L [facility]: [address] [place] [address] Blood venous Normal Chloride Level 107 mEq/L 98-1 07 mEq/L [facility]: [address] [place] [address] Blood venous Normal Carbon Dioxide Level 30 mEq/L 21-32 mEq/L [facility]: [address] [place] [address] Blood venous Low Anion Gap 2 mEq/L 8-16 mEq/L [facility]: [address] [place] [address] Blood venous Normal Calcium Level 9.2 mg/dL 8.5-1 0.1 mg/dL [facility]: [address] [facility] Blood venous Normal AST/SGOT 27 U/L 7-37 U/L Cassandra l [facility]: [address] [facility] Blood venous Normal ALT/SGPT 63 U/L 12-78 U/L [facility]: [address] [facility] Blood venous Normal Alkaline Phosphatase 101 U/L 45-117 U/L [facility]: [address] [facility] Blood venous Normal Bilirubin,total 0.4 mg/dL 0.2 -1.0 mg/dL [facility]: [address] [facility] Blood venous Normal Total Protein 7.1 gm/dL 6.4-8 .2 gm/dL [facility]: [address] [facility] Blood venous Normal Albumin 4.0 gm/dL 3.2-5.2 gm/ dL [facility]: [address] [facility] Blood venous Normal Albumin/globulin Ratio 1.3 1.2-2.2 [facility]: [address] [facility] 08/25/2020 Hepatitis C Ab, Serum Normal Hepati tis C Virus Jacklyn Index < 0.0 index <0.8 index [facility] nter: [address] [facility] 08/25/2020 Lipid Panel, Blood Normal Triglycerides Lev el 138 mg/dL <150 mg/dL [facility]: 83 0 [facility] Normal Cholesterol Level 141 mg/dL <200 mg/ dL [facility]: [address] [facility] Low HDL Cholesterol 31 mg/dL >40 mg/dL F inal [facility]: [address] [facility] Normal LDL Cholesterol 82 mg/dL <100 mg/dL [facility]: [address] [facility] Normal Non-hdl-c 110 mg/dL [facility]: [address] [facility] Normal Cholesterol Risk Ratio 4.548 <5 [facility]: [address] [facility] 08/25/2020 TSH, Serum or Plasma Blood capillary Normal Thyroid Stimulating Hormone 1.520 uIU/mL 0.358-3.740 uIU/mL Final [facility] Center: [address] [place] [address] 08/25/2020 Vitamin D, 25-Hydroxy, Total, Serum Blood venous Low Total 25(Oh) Vitamin D 28.6 NG/mL 30.0-100.0 NG/mL Final [facility] Center: [address] [place] [address] 08/25/2020 Syphilis Normal Syphilis nonreactive nonreacti ve Final [facility]: [address] [place] [address] 08/25/2020 HIV 1+2 AB + HIV 1 P24 Ag, Qualitative Immunoassay, Serum Normal HIV 1&2 Screen Centaur negative negative Final [facility]: [address] [place] [address] 08/25/2020 CT + NG DNA, Qual, PCR, Unspecified Specimen No rmal Chlamydia DNA Amplification negative negative Final [facility] Center: [address] [place] [address] Normal GC DNA Amplification negative negati ve [facility]: [address] [place] [address] 07/30/2020 [place] CERVICAL No observation recorded. [facility]: [address] [place] [address] Past Encounters 03/01/2021 Depressive Disorder; Anxiety Disorder Jovanna Mendiola [facility]: [address] [place] [address] [address], [place] [address], Ph. 02/28/2021 Esa Hansen MD: [address] [place] [address], Ph. 02/23/2021 Depressive Disorder; Nicotine Dependence with Current Use; Vitamin D Deficiency; Body Mass Index 30+ - Obesity; History of Gestational Diabetes Mellitus; Epigastric Pain Esa Hansen MD: [address] [place] [address], Ph. 02/08/2021 Depressive Disorder; Anxiety Disorder [facility]: [address] [facility] [address], [place] [address], Ph. 01/25/2021 Depressive Disorder; Anxiety Disorder Jovanna Mendiola [facility]: [address], [facility] [address], [place] [address], Ph. 01/11/2021 Depressive Disorder; Anxiety Disorder Jovanna MendiolaNILSONW-R: [address] [facility] [address], [place] [address], Ph. 01/01/2021 Paresthesia of Upper Limb; HIV Screening Esa Hansen MD: [address] [place] [address], Ph. 12/20/2020 Depressive Disorder; Anxiety Disorder Jovanna MendiolaNILSONW-R: [address] [facility], [facility] [address], [place] [address], Ph. 11/24/2020 Vitamin D Deficiency; Nicotine Dependence with Current Use; Anxiety Disorder; Aphthous Ulcer of Mouth; Daytime Somnolence; Memory Impairment Esa Hansen MD: [address] [place] [address], Ph. 11/22/2020 Depressive Disorder; Anxiety Disorder Jovanna MendiolaNILSONW-R: [address] , [facility] [address], [place] [address], Ph. 10/26/2020 Depressive Disorder; Anxiety Disorder Jovanna MendiolaNILSONW-R: [address] , [facility] [address], [place] [address], Ph. 10/05/2020 Depressive Disorder; Anxiety Disorder Jovanna MendiolaNILSONW-R: [address] , [facility] [address], [place] [address], Ph. 09/21/2020 Depressive Disorder; Anxiety Disorder Jovanna MendiolaNILSONW-R: [address] , [facility] [address], [place] [address], Ph. 09/07/2020 Depressive Disorder; Anxiety Disorder Jovanna EllisonNILSON championW-R: [address] [facility], [facility] [address], [place] [address], Ph. 08/25/2020 Body Mass Index 25-29 - Overweight; Nicotine Dependence; Adult Health Examination; Gestational Diabetes Mellitus; Dissociative Disorder; Venereal Disease Screening Esa Hansen MD: [address] [place] [address], Ph. 08/17/2020 Anxiety Disorder; Depressive Disorder Jovanna EllisonNILSON championW-R: [address] [facility], [facility] [address], [place] [address], Ph. 06/30/2020 Generalized Anxiety Disorder Neda Carpenter, [facility]: [address] [place] [address], Ph. 06/30/2020 Depressive Disorder; Gestational Diabetes Mellitus Esa Hansen MD: [address] [place] [address], Ph. Social History Tobacco Smoking Status Never [...] 31 kg/m2 123/82 mm[Hg] 01/01/2021 09:20AM ESTABLISHED [id number] Height Weight BMI Blood Pressure 63 in 160 lbs 28.3 kg/m2 126/78 mm[Hg] 11/24/2020 10:00AM ESTABLISHED [id number] Height Weight BMI Blood Pressure 63 in [...]
--- OUTSIDE RECORDS SUMMARY | 2021-03-13 08:25 | CCD ---
Author Author [facility] Organization [facility] Address Unknown Phone Unavailable Care Team Providers Care Oil Spot Washer Name Role Phone Yovana Mckeon Unavailable PROBLEMS Type Condition ICD9-CM Code [id number] Code Onset Dates Condition S tatus W/U Status Risk SNOMED Code Notes Problem Depressive disorder, not elsewhere classified 311 Active confirmed 49695342 Problem Allergic rhinitis, cause unspecified 477.9 Act kiersten confirmed 06393838 Problem Rib pain on left side 786.50 Active confirmed 405982063 Problem Costochondritis 733.6 Active confirmed 6410 9004 Problem Anxiety and depression F41.9 Active confirmed 740463399 Problem Major depressive disorder, single episode, unspecified F32.9 Active confirmed 46320891 Problem 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 Active confirmed 286876219 Problem Genital herpes A60.00 Active confirmed 78426 006 Problem Dyspareunia in female N94.10 Active confirmed 13312461 Problem Hx of herpes simplex type 2 infection Z86.19 Ac tive confirmed 709056998 Problem History of chlamydia Z86.19 Active confirmed 324489753 Problem GERD (gastroesophageal reflux disease) K21.9 A ctive confirmed 374851718 Problem Primary insomnia F51.01 Active confirmed 397 2004 Problem History of gestational diabetes Z86.32 Active confi rmed 897938420 Problem Urinary dribbling N39.43 Active confirmed 58 391488 Problem Exercise-induced asthma J45.990 Active confirmed 50457994 Problem Labial pain N94.89 Active confirmed 8314330 Problem Irregular menses N92.6 Active confirmed 801 25379 Problem Supervision of other normal Z34.80 Ac tive confirm 839870666 ALLERGIES Allergen (clinical drug ingredient) Drug/Non Drug Allergy do cumented on EMR Reaction Allergy Type Onset Date Status Seasonal nasal congestion Non Drug Allergy Ac tive ragweed, dust mites, mold nasal congestion Non Drug Allerg y Active ENCOUNTERS from 1996 to 2020-12-29 Encounter Location Date Provider Diagnosis [facility] [address] [facility] [phone] [place] [address] Dec, [facility] Encounter for Dep o-Provera contraception Z30.42 IMMUNIZATIONS Vaccine Route Administration Date Status Imm: IPV 0.5mL Polio Unknown Apr 20, 2001 Administere d Hepatitis B Ped & Adol 0.5mL Engerix-B Unknown September 21 997 Administered Hepatitis B Ped & Adol 0.5mL Engerix-B Unknown 1996 Administered Hepatitis B Ped & Adol 0.5mL Engerix-B Unknown Jan 20, 1997 Administered Hepatitis A Ped & Adol 0.5mL Havrix Unknown Feb 07 8 Administered Imm: IPV 0.5mL Polio Unknown 1996 Administere d Imm: IPV 0.5mL Polio Unknown 1996 Administere d Imm: IPV 0.5mL Polio Unknown October 18, 1997 Administere d DTAP 0.5mL Infanrix Unknown 1996 Administered TDAP 0.5mL (Boostrix) Unknown August 05, 2007 Administer ed TDAP 0.5mL (Boostrix) Unknown Apr 11, 2017 Administer ed HIB 0.5mL Unknown October 18, 1997 Administered HIB 0.5mL Unknown Jan 20, 1997 Administered HIB 0.5mL Unknown 1996 Administered HIB 0.5mL Unknown 1996 Administered DTAP 0.5mL Infanrix Unknown Apr 20, 2001 Administered DTAP 0.5mL Infanrix Unknown October 18, 1997 Administered DTAP 0.5mL Infanrix Unknown Jan 20, 1997 Administered DTAP 0.5mL Infanrix Unknown 1996 Administered Gardasil Unknown August 05, 2007 Administered Meningococcal Unknown August 05, 2007 Administered Depo-Provera 150mg/1mL Medroxy-Progestrone Acetate IM Intram uscular December 08, 2017 Administered Influenza 6mo & up Fluzone Unknown Feb 16, 2016 Admin istered Influenza 18 yrs & older Flublok IM Intramuscular Mar 10, 2019 Administered Influenza 6mo & up Fluzone IM Intramuscular Mar 01, 2014 Admi nistered TDAP 0.5mL (Boostrix) IM Intramuscular May 22, 2020 Administe red Influenza 6mo & up Fluzone IM Intramuscular Mar 10, 2015 Admi nistered Depo-Provera 150mg/1mL Medroxy-Progestrone Acetate IM Intram uscular October 13, 2020 Administered Gardasil Unknown September 30, 2007 Administered Influenza 6mo & up Fluzone Unknown Feb 25, 2018 Admin istered Gardasil Unknown Feb 08, 2008 Administered MMR 0.5mL Unknown August 02, 1997 Administered Varicella 0.5mL VariVax Unknown August 02, 1997 Administ ered MMR 0.5mL Unknown Apr 20, 2001 Administered Varicella 0.5mL VariVax Unknown August 05, 2007 Administ ered Influenza 6mo & up Fluzone IM Intramuscular Mar 05, 2017 Admi nistered Depo-Provera 150mg/1mL Medroxy-Progestrone Acetate IM Intram uscular Dec 29, 2020 Administered Influenza 6mo & up Fluzone IM Intramuscular Feb 25, 2018 Admi nistered Hepatitis A Ped & Adol 0.5mL Havrix Unknown August 04 08 Administered SOCIAL HISTORY Tobacco Use: Social History Observation Description Date Details (start date - stop date) Current Smoker Sex Assigned At : Social History Observation Description Sex Assigned At Unknown Language: Question Answer Notes Languages spoken: [place] Tobacco Use: Question Answer Notes Are you [...] day(s) 2 5 May, 2020 Not-Taking PROCEDURES from 1996 to 2020-12-29 Procedure Date Ordered Result Body Site Medication: Depo-Provera 150mg/1mL IM (Medroxyprogesterone A cetate) 2020-12-29 N/A RESULTS No Results REASON FOR VISIT depo MEDICAL (GENERAL) HISTORY Type Description Date Medical History Seasonal allergies Medical History Depression; 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[facility]) Medical History Anxiety Medical History Mood disorders Medical History gestational diabetes Surgical History No Surgical history information Hospitalization History Vomiting/diarrhea 2009 Hospitalization History [facility] - child 04/2016 Goals Section No Information Health Concerns No Information MEDICAL EQUIPMENT No Information MENTAL STATUS No Information FUNCTIONAL STATUS No Information ASSESSMENTS Encounter Date Diagnosis Assessment Notes Treatment Notes Treatm ent Clinical Notes Dec, Encounter for Depo-Provera contraception (ICD-10 - Z30.42) PLAN OF TREATMENT Next Appt Details Provider Name:Eliseo Menjivar, 02:00:00 PM, [address] [facility], , [place], [address], Insurance Providers Payer Name Payer Address Payer Phone Insured Name Patient Relati onship to Insured Coverage Start Date Coverage End Date [facility] [employer] [address] [facility] [id number] KARLOS RAHMAN
--- OUTSIDE RECORDS SUMMARY | 2021-03-13 08:25 | CCD ---
Author Organization Unknown Address [address] [place] [address] Phone [phone] Care Team Providers Care Laundromat Worker Name Role Phone [facility] 110 [phone] Allergies Code Code System Name Reaction Severity Status Onset NKDA Notes: SEASONAL Medications Name Status Start Date Stop Date amoxicillin 875 mg-potassium clavulanate 125 mg tablet TAKE 1 TABLET BY MOUTH TWICE DAILY FOR 10 DAYS Completed 01/01/2021 BD Alcohol Swabs USE DIRECTED 4 TIMES DAILY Completed cetirizine 10 mg tablet Active Not avai lable cholecalciferol (vitamin D3) 50 mcg (2,0 00 unit) capsule TAKE 1 CAPSULE BY MOUTH ONCE DAILY Active Not available cholecalciferol (vitamin D3) 50 mcg (2,0 00 unit) tablet Take 1 tablet every day by oral route. Active Not available d3 50 mcg (2000 ut) caps Active Not av ailable Depo-Provera [...] Onset Date Source Depressive Disorder Active 03/16/[address] Concept Unknown 03/16/[address] Concept Unknown 08/31/2012 History Education Unknown 08/31/2012 History Allergic Rhinitis Active 01/11/2013 History Influenza Vaccine Needed Unknown 03/01/2013 History Contusion of Head Unknown 03/15/2013 History Genital Herpes Simplex Active 06/30/2020 Gestational Diabetes Mellitus Active 06/30/2020 Dissociative Disorder Active 08/25/2020 History of Asthma Active 08/25/2020 Anxiety Disorder Active 09/07/2020 Vitamin D Deficiency Active 11/22/2020 Group B Streptococcus Carrier Active 11/22/2020 Nicotine Dependence with Current Use Active 11/22/2020 Procedures Date Name Performed by Extraction of [place] Tooth Notes: 4 Information not available Results Lab Results Date Name Specimen Result Interpretation Description Value Range Status Address 08/25/2020 CBC W/ Auto Diff Blood venous Normal White Blood C ount 5.9 10 4.0-10.0 10 [facility]: [address] [facility] Blood venous Normal Red Blood Count 4.99 10 4.00- 5.40 10 [facility]: 830 [facility] Blood venous Normal Hemoglobin 14.4 g/dL 12.0-15. 5 g/dL [facility]: [address] [facility] Blood venous Normal Hematocrit 44.6 % 36.0-47.0 % [facility]: [address] [facility] Blood venous Normal Mean Corpuscular Volume 89.4 fL 80.0-96.0 fL [facility]: [address] [facility] Blood venous Normal Mean Corpuscular Hemoglob in 28.9 pg 27.0-33.0 pg [facility]: [address] [facility] Blood venous Normal Mean Corpuscular HGB Conc 32.3 g/dL 32.0-36.5 g/dL [facility]: [address] [place] [address] Blood venous Normal Red Cell Distribution Wid th 12.8 % 11.5-14.5 % [facility]: [address] [place] [address] Blood venous Normal Platelet Count, Automated 219 10 150-450 10 [facility]: [address] [place] [address] Blood venous Normal Neutrophils % 53.7 % 36.0-66. 0 % [facility]: [address] [place] [address] Blood venous Normal Lymph % 36.6 % 24.0-44.0 % [facility]: [address] [place] [address] Blood venous Normal Tensas % 7.1 % 2.0-8.0 % [facility]: [address] [place] [address] venous Normal Eos % 1.9 % 0.0-3.0 % [facility]: [address] [place] [address] venous Normal Baso % 0.5 % 0.0-1.0 % [facility]: [address] [place] [address] Blood venous Normal Immature Granulocyte % 0.2 % 0-3.0 % [facility]: [address] [place] [address] Blood venous Normal Nucleated Red Blood Cell % 0. 0 % 0-0 % [facility]: [address] [place] [address] Blood venous Normal Neutrophils # 3.2 10 1.5-8.5 10 [facility]: [address] [place] [address] Blood venous Normal Lymph # 2.2 10 1.5-5.0 10 [facility]: [address] [place] [address] Blood venous Normal Tensas # 0.4 10 0.0-0.8 10 [facility]: [address] [place] [address] Blood venous Normal Eos # 0.1 10 0.0-0.5 10 [facility]: [address] [place] [address] Blood venous Normal Baso # 0.0 10 0.0-0.2 10 [facility]: [address] [place] [address] 08/25/2020 HbA1C (Hemoglobin a1C), Blood Blood venous Normal Hemoglobin a1C 5.4 % [facility]: [address] [place] [address] Blood venous Normal Estimated Average Glucose 108 mg/dL 60-110 mg/dL [facility]: [address] [place] [address] 08/25/2020 CMP, Serum or Plasma Blood venous Normal Glu cose, Fasting 90 mg/dL 70-100 mg/dL [facility] nter: [address] [place] [address] Blood venous Normal Blood Urea Nitrogen 12 mg/dL 7-18 mg/dL [facility]: [address] [place] [address] Blood venous Normal Creatinine for GFR 0.71 mg/dL 0.55-1.30 mg/dL [facility]: [address] [place] [address] Blood venous Normal Glomerular Filtration Rate > 60.0 >60 [facility]: [address] [place] [address] Blood venous Normal Sodium Level 139 mEq/L 136-14 5 mEq/L [facility]: [address] [place] [address] Blood venous Normal Potassium Serum 5.1 mEq/L 3.5 -5.1 mEq/L [facility]: [address] [place] [address] Blood venous Normal Chloride Level 107 mEq/L 98-1 07 mEq/L [facility]: [address] [place] [address] Blood venous Normal Carbon Dioxide Level 30 mEq/L 21-32 mEq/L [facility]: [address] [place] [address] Blood venous Low Anion Gap 2 mEq/L 8-16 mEq/L [facility]: [address] [place] [address] Blood venous Normal Calcium Level 9.2 mg/dL 8.5-1 0.1 mg/dL [facility]: [address] [place] [address] Blood venous Normal AST/SGOT 27 U/L 7-37 U/L [facility]: [address] [place] [address] Blood venous Normal ALT/SGPT 63 U/L 12-78 U/L [facility]: [address] [place] [address] Blood venous Normal Alkaline Phosphatase 101 U/L 45-117 U/L Final [facility]: [address] [facility] Blood venous Normal Bilirubin,total 0.4 mg/dL 0.2 -1.0 mg/dL Final [facility]: [address] [facility] Blood venous Normal Total Protein 7.1 gm/dL 6.4-8 .2 gm/dL [facility]: [address] [facility] Blood venous Normal Albumin 4.0 gm/dL 3.2-5.2 gm/ dL Final [facility]: [address] [facility] Blood venous Normal Albumin/globulin Ratio 1.3 1.2-2.2 [facility]: [address] [facility] 08/25/2020 Hepatitis C Ab, Serum Normal Hepati tis C Virus Jacklyn Index < 0.0 index <0.8 index [facility] nter: [address] [facility] 08/25/2020 Lipid Panel, Blood Normal Triglycerides Lev el 138 mg/dL <150 mg/dL [facility]: [address] [facility] Normal Cholesterol Level 141 mg/dL <200 mg/ dL [facility]: [address] [facility] Low HDL Cholesterol 31 mg/dL >40 mg/dL F [facility]: [address] [facility] Normal LDL Cholesterol 82 mg/dL <100 mg/dL [facility]: [address] [facility] Normal Non-hdl-c 110 mg/dL Final [facility]: [address] [facility] Normal Cholesterol Risk Ratio 4.548 <5 [facility]: [address] [facility] 08/25/2020 TSH, Serum or Plasma Blood capillary Normal Thyroid Stimulating Hormone 1.520 uIU/mL 0.358-3.740 uIU/mL [facility]: [address] [facility] 08/25/2020 Vitamin D, 25-Hydroxy, Total, Serum Blood venous Low Total 25(Oh) Vitamin D 28.6 NG/mL 30.0-100.0 NG/mL [facility]: [address] [facility] 08/25/2020 Syphilis Normal Syphilis nonreactive nonreacti ve Final [facility]: 0 [facility] 08/25/2020 HIV 1+2 AB + HIV 1 P24 Ag, Qualitative Immunoassay, Serum Normal HIV 1&2 Screen Centaur negative negative Final [facility]: [address] [facility] 08/25/2020 CT + NG DNA, Qual, PCR, Unspecified Specimen No rmal Chlamydia DNA Amplification negative negative Final [facility] ical Center: [address] [facility] Normal GC DNA Amplification negative negati ve Final [facility]: [address] [place] [address] 07/30/2020 [place] CERVICAL No observation recorded. [facility]: 0 [facility] Past Encounters 01/01/2021 Paresthesia of Upper Limb; HIV Screening Elly Hernandez MD: [address] [place] [address], Ph. 12/20/2020 Depressive Disorder; Anxiety Disorder Jovanna Mendiola LCSW-R: [address] [facility] [address] [address], Ph. 11/24/2020 Vitamin D Deficiency; Nicotine Dependence with Current Use; Anxiety Disorder; Aphthous Ulcer of Mouth; Daytime Somnolence; Memory Impairment Elly Hernandez MD: [address] [place] [address], Ph. 11/22/2020 Depressive Disorder; Anxiety Disorder Jovanna Mendiola LCSW-R: [address] [facility], [facility] [address], [place] [address], Ph. 10/26/2020 Depressive Disorder; Anxiety Disorder Jovanna Mendiola LCSW-R: [address] [facility], [facility] [address], [place] [address], Ph. 10/05/2020 Depressive Disorder; Anxiety Disorder Jovanna Mendiola LCSW-R: [address] [facility] [address], [place] [address], Ph. 09/21/2020 Depressive Disorder; Anxiety Disorder Jovanna MendiolaNILSONW-R: [address] [facility] [address], [place] [address], Ph. 09/07/2020 Depressive Disorder; Anxiety Disorder Jovanna MendiolaNILSONW-R: [address] [facility] [address], [place] [address], Ph. 08/25/2020 Body Mass Index 25-29 - Overweight; Nicotine Dependence; Adult Health Examination; Gestational Diabetes Mellitus; Dissociative Disorder; Venereal Disease Screening Elly Hernandez MD: [address] [place] [address], Ph. 08/17/2020 Anxiety Disorder; Depressive Disorder Jovanna MendiolaNILSONW-R: [address] [facility] [address], [place] [address], Ph. 06/30/2020 Generalized Anxiety Disorder Neda Carpenter, [facility]: [address] [place] [address], Ph. 06/30/2020 Depressive Disorder; Gestational Diabetes Mellitus Elly Hernandez MD: [address] [place] [address], Ph. Social History Tobacco Smoking Status Never Smoker Vaccine List Vaccine Type COVID-19, mRNA, LNP-S, PF, 100 mcg/0.5 m L dose 09/14/2020 10/12/2020 influenza, seasonal, injectable, preserv ative free 03/01/2013 Plan of Care Reminders Provider Appointments None recorded. Lab None recorded. Referral None recorded. Procedures None recorded. Surgeries None recorded. Imaging None recorded. Vitals 01/01/2021 09:20AM ESTABLISHED [id number] Height Weight BMI Blood Pressure 63 in 160 lbs 28.3 kg/m2 126/78 mm[Hg] 11/24/2020 10:00AM ESTABLISHED [id number] Height Weight BMI Blood Pressure 63 in 160 lbs 9.6 oz 28.4 kg/m2 132/92 mm[Hg ] 08/25/2020 09:40AM NEW PATIENT (13yrs - OLDER) Height Weight BMI Blood Pressure 63 in 159 lbs 3.2 oz 28.2 kg/m2 120/88 mm[Hg ] 06/30/2020 02:20PM NEW ACUTE 20 Height Weight BMI Blood Pressure 63 in 174 lbs 9.6 oz 30.9 kg/m2 123/84 mm[Hg ]
--- OUTSIDE RECORDS SUMMARY | 2021-03-13 08:25 | CCD ---
Author Organization Unknown Address [address] [place] [address] Phone [phone] Care Team Providers Care Lime Boiler Name Role Phone [facility] 110 [phone] Allergies Code Code System Name Reaction Severity Status Onset NKDA Notes: SEASONAL Medications Name Status Start Date Stop Date amoxicillin 875 mg-potassium clavulanate 125 mg tablet TAKE 1 TABLET BY MOUTH TWICE DAILY FOR 10 DAYS Active Not available BD Alcohol Swabs USE DIRECTED 4 TIMES [...] x 4)/0.5 mL IM syringe INJECT DIRECTED Active Not available FreeStyle Lancets 28 gauge USE DIRECTED 4 TIMES DAILY Completed FreeStyle Lite Meter kit USE DIRECTED 4 TIMES DAILY Completed immunization admin fee USE DIRECTED Active Not available lysine 500 mg tablet Take 1 tablet every day by oral route. Active Not available metformin 500 mg tablet Completed 08/26/19 21 methylergonovine 0.2 mg tablet TAKE 1 TABLET [...] Procedures Date Name Performed by Extraction of [place] Tooth Notes: 4 Information not available Results Lab Results Date Name Specimen Result Interpretation Description Value Range Status Address 08/25/2020 CBC W/ Auto Diff Blood venous Normal White Blood C ount 5.9 10 4.0-10.0 10 [facility]: 83 0 [facility] Blood venous Normal Red Blood Count 4.99 10 4.00- 5.40 10 [facility]: [address] [facility] Blood venous Normal Hemoglobin 14.4 g/dL 12.0-15. 5 g/dL [facility]: [address] [facility] Blood venous Normal Hematocrit 44.6 % 36.0-47.0 % [facility]: [address] [facility] Blood venous Normal Mean Corpuscular Volume 89.4 fL 80.0-96.0 fL [facility]: [address] [facility] Blood venous Normal Mean Corpuscular Hemoglob in 28.9 pg 27.0-33.0 pg [facility]: [address] [facility] Blood venous Normal Mean Corpuscular HGB Conc 32.3 g/dL 32.0-36.5 g/dL [facility]: [address] [place] [address] Blood venous Normal Red Cell Distribution Wid th 12.8 % 11.5-14.5 % [facility]: [address] [place] [address] Blood venous Normal Platelet Count, Automated 219 10 150-450 10 [facility]: [address] [place] [address] Blood venous Normal Neutrophils % 53.7 % 36.0-66. 0 % [facility]: [address] [place] [address] Blood venous Normal Lymph % 36.6 % 24.0-44.0 % [facility]: [address] [place] [address] Blood venous Normal Divide % 7.1 % 2.0-8.0 % [facility]: [address] [place] [address] venous Normal Eos % 1.9 % 0.0-3.0 % [facility]: [address] [place] [address] Blood venous Normal Baso % 0.5 % 0.0-1.0 % [facility]: [address] [place] [address] Blood venous Normal Immature Granulocyte % 0.2 % 0-3.0 % [facility]: [address] [place] [address] Blood venous Normal Nucleated Red Blood Cell % 0. 0 % 0-0 % [facility]: [address] [place] [address] Blood venous Normal Neutrophils # 3.2 10 1.5-8.5 10 [facility]: [address] [place] [address] Blood venous Normal Lymph # 2.2 10 1.5-5.0 10 [facility]: [address] [place] [address] Blood venous Normal Divide # 0.4 10 0.0-0.[address] [place] [address]: [address] [place] [address] Blood venous Normal Eos # 0.1 10 0.0-0.5 10 [facility]: [address] [place] [address] Blood venous Normal Baso # 0.0 10 0.0-0.[address] [facility]: [address] [place] [address] 08/25/2020 HbA1C (Hemoglobin a1C), Blood Blood venous Normal Hemoglobin a1C 5.4 % [facility] Center: [address] [place] [address] Blood venous Normal Estimated Average Glucose 108 mg/dL 60-110 mg/dL [facility]: [address] [place] [address] 08/25/2020 CMP, Serum or Plasma Blood venous Normal Glu cose, Fasting 90 mg/dL 70-100 mg/dL [facility] nter: [address] [place] [address] Blood venous Normal Blood Urea Nitrogen 12 mg/dL 7-18 mg/dL [facility]: [address] [place] [address] Blood venous Normal Creatinine for GFR 0.71 mg/dL 0.55-1.30 mg/dL [facility]: [address] [place] [address] Blood venous Normal Glomerular Filtration Rate > 60.0 >60 [facility]: [address] [place] [address] Blood venous Normal Sodium Level 139 mEq/L 136-14 5 mEq/L [facility]: [address] [place] [address] Blood venous Normal Potassium Serum 5.1 mEq/L 3.5 -5.1 mEq/L [facility]: [address] [place] [address] Blood venous Normal Chloride Level 107 mEq/L 98-1 07 mEq/L [facility]: [address] [place] [address] Blood venous Normal Carbon Dioxide Level 30 mEq/L 21-32 mEq/L [facility]: [address] [place] [address] Blood venous Low Anion Gap 2 mEq/L 8-16 mEq/L [facility]: [address] [place] [address] Blood venous Normal Calcium Level 9.2 mg/dL 8.5-1 0.1 mg/dL [facility]: [address] [place] [address] Blood venous Normal AST/SGOT 27 U/L 7-37 U/L [facility]: [address] [place] [address] Blood venous Normal ALT/SGPT 63 U/L 12-78 U/L [facility]: [address] [place] [address] Blood venous Normal Alkaline Phosphatase 101 U/L 45-117 U/L [facility]: [address] [facility] Blood venous Normal Bilirubin,total 0.4 mg/dL 0.2 -1.0 mg/dL [facility]: [address] [facility] Blood venous Normal Total Protein 7.1 gm/dL 6.4-8 .2 gm/dL [facility]: [address] [facility] Blood venous Normal Albumin 4.0 gm/dL 3.2-5.2 gm/ dL [facility]: [address] [facility] Blood venous Normal Albumin/globulin Ratio 1.3 1.2-2.2 [facility]: [address] [place] [address] 08/25/2020 Hepatitis C Ab, Serum Normal Hepati tis C Virus Jacklyn Index < 0.0 index <0.8 index [facility] nter: [address] [facility] 08/25/2020 Lipid Panel, Blood Normal Triglycerides Lev el 138 mg/dL <150 mg/dL [facility]: 83 0 [facility] Normal Cholesterol Level 141 mg/dL <200 mg/ dL [facility]: 0 [facility] Low HDL Cholesterol 31 mg/dL >40 mg/dL [facility]: [address] [facility] Normal LDL Cholesterol 82 mg/dL <100 mg/dL [facility]: 0 [facility] Normal Non-hdl-c 110 mg/dL [facility]: [address] [facility] Normal Cholesterol Risk Ratio 4.548 <5 [facility]: [address] [facility] 08/25/2020 TSH, Serum or Plasma Blood capillary Normal Thyroid Stimulating Hormone 1.520 uIU/mL 0.358-3.740 uIU/mL [facility]: 0 [facility] 08/25/2020 Vitamin D, 25-Hydroxy, Total, Serum Blood venous Low Total 25(Oh) Vitamin D 28.6 NG/mL 30.0-100.0 NG/mL [facility] Center: [address] [place], [place] [address] 08/25/2020 Syphilis Normal Syphilis nonreactive nonreacti ve Final [facility]: [address] [facility] 08/25/2020 HIV 1+2 AB + HIV 1 P24 Ag, Qualitative Immunoassay, Serum Normal HIV 1&2 Screen Centaur negative negative Final [facility]: [address] [facility] 08/25/2020 CT + NG DNA, Qual, PCR, Unspecified Specimen No rmal Chlamydia DNA Amplification negative negative Final [facility] ical Center: [address] [facility] Normal GC DNA Amplification negative negati ve Final [facility]: [address] [facility] 07/30/2020 [place] CERVICAL No observation recorded. [facility]: [address] [facility] Past Encounters 12/20/2020 Depressive Disorder; Anxiety Disorder Jovanna Mendiola [facility]: [address] [facility] [address] [address], Ph. 11/24/2020 Vitamin D Deficiency; Nicotine Dependence with Current Use; Anxiety Disorder; Aphthous Ulcer of Mouth; Daytime Somnolence; Memory Impairment Elly Hernandez MD: [address] [place] [address], Ph. 11/22/2020 Depressive Disorder; Anxiety Disorder Jovanna Mendiola [facility]: [address] [facility] [address], [place] [address], Ph. 10/26/2020 Depressive Disorder; Anxiety Disorder NILSON WoodsW[facility]R: [address] [facility], [facility] [address], [place] [address], Ph. 10/05/2020 Depressive Disorder; Anxiety Disorder N[facility]: [address] [facility], [facility] [address], [place] [address], Ph. 09/21/2020 Depressive Disorder; Anxiety Disorder [facility]: [address] [facility] [address], [place] [address], Ph. 09/07/2020 Depressive Disorder; Anxiety Disorder Jovanna Mendiola LCSW-R: [address] [facility] [address], [place] [address], Ph. 08/25/2020 Body Mass Index 25-29 - Overweight; Nicotine Dependence; Adult Health Examination; Gestational Diabetes Mellitus; Dissociative Disorder; Venereal Disease Screening Elly Hernandez MD: [address] [place] [address], Ph. 08/17/2020 Anxiety Disorder; Depressive Disorder Jovanna Mendiola LCSW-R: [address] [facility] [address], [place] [address], Ph. 06/30/2020 Generalized Anxiety Disorder Neda Carpenter, [facility]: [address] [place] [address], Ph. 06/30/2020 Depressive Disorder; Gestational Diabetes Mellitus Elly Hernandez MD: [address] [place] [address], Ph. Social History Tobacco Smoking Status Never Smoker Vaccine List Vaccine Type COVID-19, mRNA, LNP-S, PF, 100 mcg/0.5 m L dose 09/14/2020 10/12/2020 influenza, seasonal, injectable, preserv ative free 03/01/2013 Plan of Care Reminders Provider Appointments None recorded. Lab None recorded. Referral None recorded. Procedures None recorded. Surgeries None recorded. Imaging None recorded. Vitals 11/24/2020 10:00AM ESTABLISHED [id number] Height Weight BMI Blood Pressure 63 in [...]
--- OUTSIDE RECORDS SUMMARY | 2021-03-13 08:27 | CCD ---
Author Author [facility] Organization [facility] Address Unknown Phone Unavailable Care Team Providers Care Entry Rep Name Role Phone Mallory GARAY MD Unavailable Unavailable Mallory GARAY MD Unavailable Unavailable aMllory GARAY MD Unavailable Unavailable Mallory GARAY MD Unavailable Unavailable Mallory GARAY MD Unavailable Unavailable Mallory GARAY MD Unavailable Unavailable Mallory GARAY MD Unavailable Unavailable Mallory GARAY MD Unavailable Unavailable Mallory GARAY MD Unavailable Unavailable Mallory GARAY MD Unavailable Unavailable Mallory GARAY MD Unavailable Unavailable Mallory GARAY MD Unavailable Unavailable Mallory GARAY MD Unavailable Unavailable Mallory GARAY MD Unavailable Unavailable Mallory GARAY MD Unavailable Unavailable Mallory GARAY MD Unavailable Unavailable Mallory GARAY MD Unavailable Unavailable Mallory GARAY MD Unavailable Unavailable Mallory GARAY MD Unavailable Unavailable Mallory GARAY MD Unavailable Unavailable Mallory GARAY MD Unavailable Unavailable Mallory GARAY MD Unavailable Unavailable Mallory GARAY MD Unavailable Unavailable Mallory GARAY MD Unavailable Unavailable Neda Carpenter Unavailable Neda Carpenter Unavailable Mary, Teresa Unavailable Unavailable Mary, Teresa Unavailable Unavailable Mary, Teresa Unavailable Unavailable Mary, Teresa Unavailable Unavailable Mary, Teresa Unavailable Unavailable Mary, Teresa Unavailable Unavailable Mary, Teresa Unavailable Unavailable Mary, Teresa Unavailable Unavailable Mary, Teresa Unavailable Unavailable Mary, Teresa Unavailable Unavailable Mary, Teresa Unavailable Unavailable Mary, Teresa Unavailable Unavailable Mary, Teresa Unavailable Unavailable Mary, Teresa Unavailable Unavailable Mary, Teresa Unavailable Unavailable Mary, Teresa Unavailable Unavailable Mary, Teresa Unavailable Unavailable Mary, Teresa Unavailable Unavailable Mary, Teresa Unavailable Unavailable Mary, Teresa Unavailable Unavailable Mary, Teresa Unavailable Unavailable Mary, Teresa Unavailable Unavailable Mary, Teresa Unavailable Unavailable Mary, Teresa Unavailable Unavailable Mary, Teresa Unavailable Unavailable Mary, Teresa Unavailable Unavailable Feola, T Jovanna PA Unavailable Unavailable Feola, T Jovanna PA Unavailable Unavailable Feola, T Jovanna PA Unavailable Unavailable Feola, T Jovanna PA Unavailable Unavailable Feola, T Jovanna PA Unavailable Unavailable Feola, T Jovanna PA Unavailable Unavailable Feola, T Jovanna PA Unavailable Unavailable Feola, T Jovanna PA Unavailable Unavailable Feola, T Jovanna PA Unavailable Unavailable Feola, T Jovanna PA Unavailable Unavailable Feola, T Jovanna PA Unavailable Unavailable Feola, T Jovanna PA Unavailable Unavailable Feola, T Jovanna PA Unavailable Unavailable Feola, T Jovanna PA Unavailable Unavailable Feola, T Jovanna PA Unavailable Unavailable Feola, T Jovanna PA Unavailable Unavailable Feola, T Jovanna PA Unavailable Unavailable Feola, T Jovanna PA Unavailable Unavailable Feola, T Jovanna PA Unavailable Unavailable Feola, T Jovanna PA Unavailable Unavailable Feola, T Jovanna PA Unavailable Unavailable Feola, T Jovanna PA Unavailable Unavailable Feola, T Jovanna PA Unavailable Unavailable Feola, T Jovanna PA Unavailable Unavailable Feola, T Jovanna PA Unavailable Unavailable Feola, T Jovanna PA Unavailable Unavailable Feola, T Jovanna PA Unavailable Unavailable Feola, T Jovanna PA Unavailable Unavailable Feola, T Jovanna PA Unavailable Unavailable Feola, T Jovanna PA Unavailable Unavailable Feola, T Jovanna PA Unavailable Unavailable Feola, T Jovanna PA Unavailable Unavailable Feola, T Jovanna PA Unavailable Unavailable Feola, T Jovanna PA Unavailable Unavailable Feola, T Jovanna PA Unavailable Unavailable Feola, T Jovanna PA Unavailable Unavailable Feola, T Jovanna PA Unavailable Unavailable Feola, T Jovanna PA Unavailable Unavailable Feola, T Jovanna PA Unavailable Unavailable Feola, T Jovanna PA Unavailable Unavailable Feola, T Jovanna PA Unavailable Unavailable FRANCES, JASEN MD Unavailable Unavailable FRANCES, JASEN MD Unavailable Unavailable FRANCES, JASEN MD Unavailable Unavailable FRANCES, JASEN MD Unavailable Unavailable FRANCES, JASEN MD Unavailable Unavailable FRANCES, JASEN MD Unavailable Unavailable FRANCES, JASEN MD Unavailable Unavailable FRANCES, JASEN MD Unavailable Unavailable FRANCES, JASEN MD Unavailable Unavailable FRANCES, JASEN MD Unavailable Unavailable FRANCES, JASEN MD Unavailable Unavailable FRANCES, JASEN MD Unavailable Unavailable FRANCES, JASEN MD Unavailable Unavailable FRANCES, JASEN MD Unavailable Unavailable FRANCES, JASEN MD Unavailable Unavailable FRANCES, JASEN MD Unavailable Unavailable FRANCES, JASEN MD Unavailable Unavailable FRANCES, JASEN MD Unavailable Unavailable FRANCES, JASEN MD Unavailable Unavailable FRANCES, JSAEN MD Unavailable Unavailable FRANCES, JASEN MD Unavailable Unavailable FRANCES, JASEN MD Unavailable Unavailable FRANCES, JASEN MD Unavailable Unavailable FRANCES, JASEN MD Unavailable Unavailable FRANCES, JASEN MD Unavailable Unavailable FRANCES, JASEN MD Unavailable Unavailable FRANCES, JASEN MD Unavailable Unavailable FRANCES, JASEN MD Unavailable Unavailable FRANCES, JASEN MD Unavailable Unavailable FRANCES, JASEN MD Unavailable Unavailable FRANCES, JASEN MD Unavailable Unavailable FRANCES, JASEN MD Unavailable Unavailable FRANCES, JASEN Unavailable Unavailable FRANCES, JASEN MD Unavailable Unavailable FRANCES, JASEN Unavailable Unavailable FRANCES, JASEN MD Unavailable Unavailable FRANCES, JASEN MD Unavailable Unavailable FRANCES, JASEN MD Unavailable Unavailable FRANCES, JASEN MD Unavailable Unavailable FRANCES, JASEN MD Unavailable Unavailable FRANCES, JASEN MD Unavailable Unavailable FRANCES, JASEN MD Unavailable Unavailable FRANCES, JASEN MD Unavailable Unavailable Fostveit, Jovanna Unavailable Unavailable Fostveit, Jovanna Unavailable Unavailable RING, K DAVID PA Unavailable Unavailable RING, K DAVID PA Unavailable Unavailable RING, K DAVID PA Unavailable Unavailable RING, K DAVID PA Unavailable Unavailable RING, K DAVID PA Unavailable Unavailable RING, K DAVID PA Unavailable Unavailable RING, K DAVID PA Unavailable Unavailable RING, K DAVID PA Unavailable Unavailable RING, K DAVID PA Unavailable Unavailable RING, K DAVID PA Unavailable Unavailable RING, K DAVID PA Unavailable Unavailable RING, K DAVID PA Unavailable Unavailable RING, K DAVID PA Unavailable Unavailable RING, K DAVID PA Unavailable Unavailable RING, K DAVID PA Unavailable Unavailable RING, K DAVID PA Unavailable Unavailable RING, K DAVID PA Unavailable Unavailable RING, K DAVID PA Unavailable Unavailable RING, K DAVID PA Unavailable Unavailable RING, K DAVID PA Unavailable Unavailable RING, K DAVID PA Unavailable Unavailable Mazariegos, M Christopher PA-C Unavailable Unavailable Mazariegos, M Christopher PA-C Unavailable Unavailable Mazariegos, M Christopher PA-C Unavailable Unavailable Mazariegos, M Christopher PA-C Unavailable Unavailable Mazairegos, M Christopher PA-C Unavailable Unavailable Mazariegos, M Christopher PA-C Unavailable Unavailable Mazariegos, M Christopher PA-C Unavailable Unavailable Mazariegos, M Christopher PA-C Unavailable Unavailable Mazariegos, M Christopher PA-C Unavailable Unavailable Mazariegos, M Christopher PA-C Unavailable Unavailable Mazariegos, M Christopher PA-C Unavailable Unavailable Mazariegos, M Christopher PA-C Unavailable Unavailable Mazariegos, M Christopher PA-C Unavailable Unavailable Mazariegos, M Christopher PA-C Unavailable Unavailable Mazariegos, M Christopher PA-C Unavailable Unavailable Mazariegos, M Christopher PA-C Unavailable Unavailable Mazariegos, M Christopher PA-C Unavailable Unavailable Mazariegos, M Christopher PA-C Unavailable Unavailable Mazariegos, M Christopher PA-C Unavailable Unavailable Mazariegos, M Christopher PA-C Unavailable Unavailable Mazariegos, M Christopher PA-C Unavailable Unavailable Mazariegos, M Christopher PA-C Unavailable Unavailable Mazariegos, M Christopher PA-C Unavailable Unavailable Mazariegos, M Christopher PA-C Unavailable Unavailable Mazariegos, M Christopher PA-C Unavailable Unavailable Mazariegos, M Christopher PA-C Unavailable Unavailable Re-disclosure Warning The records that you are about to access may contain information from federally-assisted alcohol or drug abuse programs. If such information is present, then the following federally mandated warning applies: This information has been disclosed to you from records protected by federal confidentiality rules (42 CFR part 2). The federal rules prohibit you from making any further disclosure of this information unless further disclosure is expressly permitted by the written consent of the person to whom it pertains or as otherwise permitted by 42 CFR part 2. A general authorization for the release of medical or other information is NOT sufficient for this purpose. The Federal rules restrict any use of the information to criminally investigate or prosecute any alcohol or drug abuse patient.The records that you are about to access may contain highly sensitive health information, the redisclosure of which is protected by Article 27-F of the [facility] Public Health law. If you continue you may have access to information: Regarding HIV / AIDS; Provided by facilities licensed or operated by the [facility] Office of Mental Health; or Provided by the [facility] Office for People With Developmental Disabilities. If such information is present, then the following [facility] mandated warning applies: This information has been disclosed to you from confidential records which are protected by state law. State law prohibits you from making any further disclosure of this information without the specific written consent of the person to whom it pertains, or as otherwise permitted by law. Any unauthorized further disclosure in violation of state law may result in a fine or alf sentence or both. A general authorization for the release of medical or other information is NOT sufficient authorization for further disc losure. Allergies and Adverse Reactions Type Description Substance Reaction Status Data Source(s ) Allergy to substance Allergy to substance Allergy to substance [facility] ([facility]) Allergy to substance Allergy to substance Allergy to substance [facility] ([facility]) Family History Family Member Name Family Member Gender Family Member Status Date o f Status Description Data Source(s) Unknown Unknown Problem [facility] ([facility]) Unknown Unknown Problem MEDENT ([facility]) Encounters Encounter Providers Location Date Indications Data Source(s ) Jovanna EllisonNILSON championW-R: [address], [place] [address], Ph. Attender: Jovanna Pitt [facility] Medical 03/01/2021 12:00:00 AM EDT [place] ([facility]) Jovanna NILSON MendiolaW-R: [address], [address], [place] [address], Ph. Attender: Jovanna Pitt [facility] 03/01/2021 12:00:00 AM EDT [place] ([facility]) Elly Hernandez MD: [address], [place] [address], Ph. Attender: Elly Hernandez [facility] 02/28/2021 12:00:00 AM EDT [place] ([facility]) Elly Hernandez MD: [address], [place] [address], Ph. Attender: Elly Hernandez [facility] Medical 02/28/2021 12:00:00 AM EDT [place] ([facility]) Unknown [address] [facility] [address] 02/27/2021 12:00:00 AM EDT eCW1 ([facility]) Elly Hernandez MD: [address], [place] [address], Ph. Attender: Elly Hernandez [facility] Medical 02/23/2021 12:00:00 AM EDT [place] ([facility]) Elly Hernandez MD: [address] [facility] [place] [address], Ph. Attender: Elly Hernandez [facility] Medical 02/23/2021 12:00:00 AM EDT [place] ([facility]) Elly Hernandez MD: [address], [facility] [place] [address], Ph. Attender: Elly Hernandez [facility] Medical 02/23/2021 12:00:00 AM EDT [place] ([facility]) Outpatient [address] [facility], [facility] [address] 02/13/2021 12:00:00 AM EDT eC1 ([facility]) NILSON WoodsW-R: [address], [place] [address], Ph. Attender: Jovanna Pitt [facility] Medical 02/08/2021 12:00:00 AM EDT [place] ([facility]) Jovanna Mendiola LCSW-R: [address], [place] [address], Ph. Attender: Jovanna Pitt [facility] Medical 02/08/2021 12:00:00 AM EDT [place] ([facility]) NILSON WoodsW-R: [address], [place] [address], Ph. Attender: Jovanna Pitt [facility] Medical 02/08/2021 12:00:00 AM EDT [place] ([facility]) Jovanna Mendiola LCSW-R: [address], [address], [place] [address], Ph. Attender: Jovanna Pitt [facility] Medical 02/08/2021 12:00:00 AM EDT [place] ([facility]) JovannaNILSON LarsonW-R: [address], [address], [place] [address], Ph. Attender: Jovanna Pitt [facility] Medical 01/25/2021 12:00:00 AM EDT [place] ([facility]) NILSON WoodsW-R: [address], [address], [place] [address], Ph. Attender: Jovanna Pitt [facility] Medical 01/25/2021 12:00:00 AM EDT [facility] NILSON WoodsW-R: [address], [place] [address], Ph. Attender: Jovanna Pitt [facility] Medical 01/25/2021 12:00:00 AM EDT [place] ([facility]) NILSON WoodsW-R: [address], [place] [address], Ph. Attender: Jovanna Pitt [facility] Medical 01/25/2021 12:00:00 AM EDT [place] ([facility]) NILSON WoodsW-R: [address], [place] [address], Ph. Attender: Jovanna Pitt [facility] Medical 01/25/2021 12:00:00 AM EDT [place] ([facility]) Outpatient 01/20/2021 07:48:58 PM EDT - 021 08:10:31 PM EDT Docu[facility]ap ([facility]) Outpatient 01/20/2021 07:32:50 PM EDT DocuTap ([facility]) Jovanna EllisonNILSON championW-R: [address], [address], [place] [address], Ph. Attender: Jovanna Clemensclaramooncolby [facility] Medical 01/11/2021 12:00:00 AM EDT [place] ([facility]) NILSON WoodsW-R: [address], [place] [address], Ph. Attender: Jovannagonzalez Vossmooncolby [facility] Medical 01/11/2021 12:00:00 AM EDT [place] ([facility]) NILSON WoodsW-R: [address], [address], [place] [address], Ph. Attender: Jovanna Jayleenclaramooncolby [facility] Medical 01/11/2021 12:00:00 AM EDT [place] ([facility]) NILSON WoodsW-R: [address], [address], [place] [address], Ph. Attender: Jovannagonzalez Pitt [facility] Medical 01/11/2021 12:00:00 AM EDT [place] ([facility]) NILSON WoodsW-R: [address], [place] [address], Ph. Attender: Jovanna Jayleennikolay [facility] Medical 01/11/2021 12:00:00 AM EDT [place] ([facility]) Outpatient Attender: JASEN DANIELS MD [facility] 01/01/2021 02:00:00 PM EDT MEDENT ([facility]) Elly Hernandez MD: [address], [place] [address], Ph. Attender: Elly Hernandez [facility] Medical 01/01/2021 12:00:00 AM EDT [place] ([facility]) Elly Hernandez MD: [address], [place] [address], Ph. Attender: Elly Hernandez [facility] Medical 01/01/2021 12:00:00 AM EDT [place] ([facility]) Elly Hernandez MD: [address], [place] [address], Ph. Attender: Elly Hernandez [facility] Medical 01/01/2021 12:00:00 AM EDT [place] ([facility]) Elly Hernandez MD: [address], [place] [address], Ph. Attender: Elly Hernandez [facility] Medical 01/01/2021 12:00:00 AM EDT [place] ([facility]) Elly Hernandez MD: [address], [place] [address], Ph. Attender: Elly Hernandez [facility] Medical 01/01/2021 12:00:00 AM EDT [place] ([facility]) Elly Hernandez MD: [address], [place] [address], Ph. Attender: Elly Hernandez [facility] Medical 01/01/2021 12:00:00 AM EDT [place] ([facility]) ( [place]) [facility] [address] [place] [address] 12/29/2020 12:00:00 AM EDT eCW1 ([facility]) Outpatient Attender: JESICA GARAY MD 12/22 09:10:40 AM EDT - 12/22/2020 09:29:22 AM EDT DocuTap ([facility] ) NILSON WoodsW-R: [address], [address], [place] [address], Ph. Attender: Jovanna Pitt [facility] Medical 12/20/2020 12:00:00 AM EDT [place] ([facility]) NILSON WoodsW-R: [address], [address], [place] [address], Ph. Attender: Jovanna Pitt [facility] Medical 12/20/2020 12:00:00 AM EDT [place] ([facility]) NILSON WoodsW-R: [address], [address], [place] [address], Ph. Attender: Jovanna Pitt [facility] Medical 12/20/2020 12:00:00 AM EDT [facility] NILSON WoodsW-R: [address], [address], [place] [address], Ph. Attender: Jovanna Pitt [facility] Medical 12/20/2020 12:00:00 AM EDT [place] ([facility]) NILSON WoodsW-R: [address], [address], [place] [address], Ph. Attender: Jovanna Pitt [facility] Medical 12/20/2020 12:00:00 AM EDT [place] ([facility]) Jovanna MendiolaNILSONW-R: [address], [address], [place] [address], Ph. Attender: Jovanna Pitt [facility] Medical 12/20/2020 12:00:00 AM EDT [place] ([facility]) Jovanna MendiolaNILSONW-R: [address], [address], [place] [address], Ph. Attender: Jovanna Pitt [facility] Medical 12/20/2020 12:00:00 AM EDT [place] ([facility]) Unknown [address] [facility] [address] 12/08/2020 12:00:00 AM EDT eCW1 ([facility]) Elly Hernandez MD: [address], [place] [address], Ph. Attender: Elly Hernandez [facility] Medical 11/24/2020 12:00:00 AM EDT [place] ([facility]) Elly Hernandez MD: [address], [place] [address], Ph. Attender: Elly Hernandez [facility] Medical 11/24/2020 12:00:00 AM EDT [place] ([facility]) Elly Hernandez MD: [address], [place] [address], Ph. Attender: Elly Hernandez [facility] Medical 11/24/2020 12:00:00 AM EDT [place] ([facility]) Elly Hernandez MD: [address], [place] [address], Ph. Attender: Elly Hernandez [facility] Medical 11/24/2020 12:00:00 AM EDT [place] ([facility]) Elly Hernandez MD: [address], [place] [address], Ph. Attender: Elly Hernandez [facility] Medical 11/24/2020 12:00:00 AM EDT [place] ([facility]) Elly Hernandez MD: [address], [place] [address], Ph. Attender: Elly Hernandez [facility] Medical 11/24/2020 12:00:00 AM EDT [place] ([facility]) Elly Hernandez MD: [address], [place] [address], Ph. Attender: Elly Hernandez [facility] Medical 11/24/2020 12:00:00 AM EDT [place] ([facility]) Elly Hernandez MD: [address], [place] [address], Ph. Attender: Elly Hernandez [facility] Medical 11/24/2020 12:00:00 AM EDT [place] ([facility]) Jovanna Mendiola LCSW-R: [address], [address], [place] [address], Ph. Attender: Jovanna Pitt [facility] Medical 11/22/2020 12:00:00 AM EDT [place] ([facility]) Jovanna Mendiola LCSW-R: [address], [address], [place] [address], Ph. Attender: Jovanna Pitt [facility] Medical 11/22/2020 12:00:00 AM EDT [facility]) NILSON WoodsW-R: [address], [address], [place] [address], Ph. Attender: Jovanna Pitt [facility] Medical 11/22/2020 12:00:00 AM EDT [facility]) NILSON WoodsW-R: [address], [address], [place] [address], Ph. Attender: Jovanna Jayleenclaramooncolby [facility] Medical 11/22/2020 12:00:00 AM EDT [facility]) NILSON WoodsW-R: [address], [address], [place] [address], Ph. Attender: Jovanna Shaileshcolby [facility] Medical 11/22/2020 12:00:00 AM EDT [facility]) NILSON WoodsW-R: [address], [address], [place] [address], Ph. Attender: Jovanna Jayleennikolay [facility] Medical 11/22/2020 12:00:00 AM EDT [place] ([facility]) NILSON WoodsW-R: [address], [address], [place] [address], Ph. Attender: Jovanna Pitt [facility] Medical 11/22/2020 12:00:00 AM EDT [place] ([facility]) NILSON WoodsW-R: [address], [address], [place] [address], Ph. Attender: Jovanna Pitt [facility] Medical 11/22/2020 12:00:00 AM EDT [place] ([facility]) NILSON WoodsW-R: [address], [address], [place] [address], Ph. Attender: Jovanna Pitt [facility] Medical 11/22/2020 12:00:00 AM EDT [place] ([facility]) Outpatient Attender: Berny Mazariegos PA-C 11/13/2020 12:49:30 PM EDT - 11/13/2020 02:32:51 PM EDT [facility] ([facility]) NILSON WoodsW-R: [address], [address], [place] [address], Ph. Attender: Jovanna Jayleenclaramooncolby [facility] Medical 10/26/2020 12:00:00 AM EDT [place] ([facility]) NILSON WoodsW-R: [address], [address], [place] [address], Ph. Attender: Jovanna Jayleenclaramooncolby [facility] Medical 10/26/2020 12:00:00 AM EDT [place] ([facility]) NILSON WoodsW-R: [address], [address], [place] [address], Ph. Attender: Jovannagonzalez [place] [facility] Medical 10/26/2020 12:00:00 AM EDT [place] ([facility]) NILSON WoodsW-R: [address], [place] [address], Ph. Attender: Jovanna Pitt [facility] Medical 10/26/2020 12:00:00 AM EDT [place] ([facility]) NILSON WoodsW-R: [address], [place] [address], Ph. Attender: Jovanna Pitt [facility] Medical 10/26/2020 12:00:00 AM EDT [place] ([facility]) NILSON WoodsW-R: [address], [place] [address], Ph. Attender: Jovanna Pitt [facility] Medical 10/26/2020 12:00:00 AM EDT [facility]) NILSON WoodsW-R: [address], [address], [place] [address], Ph. Attender: Jovanna Pitt [facility] Medical 10/26/2020 12:00:00 AM EDT [place] ([facility]) NILSON WoodsW-R: [address], [address], [place] [address], Ph. Attender: Jovanna Pitt [facility] Medical 10/26/2020 12:00:00 AM EDT [place] ([facility]) NILSON WoodsW-R: [address], [place] [address], Ph. Attender: Jovanna Jayleenclaramooncolby [facility] Medical 10/26/2020 12:00:00 AM EDT [place] ([facility]) NILSON WoodsW-R: [address], [place] [address], Ph. Attender: Jovanna Pitt [facility] Medical 10/26/2020 12:00:00 AM EDT [place] ([facility]) Outpatient [address] [facility] [address] 10/13/2020 12:00:00 AM EDT eCW1 ([facility]) Jovanna Mendiola, TECHNICIAN [employer]MENT-R: [address], [place] [address], Ph. Attender: Jovanna Pitt [facility] Medical 10/05/2020 12:00:00 AM EDT [place] ([facility]) NILSON WoodsW-R: [address], [place] [address], Ph. Attender: Jovanna Pitt [facility] Medical 10/05/2020 12:00:00 AM EDT [place] ([facility]) NILSON WoodsW-R: [address], [place] [address], Ph. Attender: Jovanna Pitt [facility] Medical 10/05/2020 12:00:00 AM EDT [place] ([facility]) NILSON WoodsW-R: [address], [place] [address], Ph. Attender: Jovanna Pitt [facility] Medical 10/05/2020 12:00:00 AM EDT [place] ([facility]) NILSON WoodsW-R: [address], [place] [address], Ph. Attender: Jovanna Pitt [facility] Medical 10/05/2020 12:00:00 AM EDT [place] ([facility]) JovannaNILSON LarsonW-R: [address], [place] [address], Ph. Attender: Jovanna Pitt [facility] Medical 10/05/2020 12:00:00 AM EDT [place] ([facility]) NILSON WoodsW-R: [address], [place] [address], Ph. Attender: Jovanna Pitt [facility] Medical 10/05/2020 12:00:00 AM EDT [place] ([facility]) NILSON WoodsW-R: [address], [place] [address], Ph. Attender: Jovanna Pitt [facility] Medical 10/05/2020 12:00:00 AM EDT [place] ([facility]) NILSON WoodsW-R: [address], [place] [address], Ph. Attender: Jovanna Pitt [facility] Medical 10/05/2020 12:00:00 AM EDT [place] ([facility]) NILSON WoodsW-R: [address], [place] [address], Ph. Attender: Jovanna Shaileshcolby [facility] Medical 10/05/2020 12:00:00 AM EDT [place] ([facility]) NILSON WoodsW-R: [address], [place] [address], Ph. Attender: Jovanna Pitt [facility] Medical 10/05/2020 12:00:00 AM EDT [place] ([facility]) Outpatient Attender: Jovanna LARSEN 021 06:30:46 PM EDT - 10/01/2020 06:40:53 PM EDT DocuTap ([facility] ) NILSON WoodsW-R: [address], [address], [place] [address], Ph. Attender: Jovanna Pitt [facility] Medical 09/21/2020 12:00:00 AM EDT [place] ([facility]) NILSON WoodsW-R: [address], [place] [address], Ph. Attender: Jovanna Pitt [facility] Medical 09/21/2020 12:00:00 AM EDT [place] ([facility]) NILSON WoodsW-R: [address], [address], [place] [address], Ph. Attender: Jovanna Pitt [facility] Medical 09/21/2020 12:00:00 AM EDT [place] ([facility]) NILSON WoodsW-R: [address], [address], [place] [address], Ph. Attender: Jovanna Pitt [facility] Medical 09/21/2020 12:00:00 AM EDT [place] ([facility]) NILSON WoodsW-R: [address], [place] [address], Ph. Attender: Jovanna Pitt [facility] Medical 09/21/2020 12:00:00 AM EDT [place] ([facility]) JovannaNILSON LarsonW-R: [address], [address], [place] [address], Ph. Attender: Jovanna Pitt [facility] Medical 09/21/2020 12:00:00 AM EDT [place] ([facility]) NILSON WoodsW-R: [address], [address], [place] [address], Ph. Attender: Jovanna Pitt [facility] Medical 09/21/2020 12:00:00 AM EDT [place] ([facility]) NILSON WoodsW-R: [address], [place] [address], Ph. Attender: Jovanna Clemensclaramooncolby [facility] Medical 09/21/2020 12:00:00 AM EDT [place] ([facility]) NILSON WoodsW-R: [address], [place] [address], Ph. Attender: Jovanna Jayleenclaramooncolby [facility] Medical 09/21/2020 12:00:00 AM EDT [place] ([facility]) NILSON WoodsW-R: [address], [address], [place] [address], Ph. Attender: Jovanna Jayleenclaramooncolby [facility] Medical 09/21/2020 12:00:00 AM EDT [place] ([facility]) NILSON WoodsW-R: [address], [address], [place] [address], Ph. Attender: Jovanna Pitt [facility] Medical 09/21/2020 12:00:00 AM EDT [place] ([facility]) NILSON WoodsW-R: [address], [address], [place] [address], Ph. Attender: Jovanna Pitt [facility] Medical 09/21/2020 12:00:00 AM EDT [place] ([facility]) NILSON WoodsW-R: [address], [address], [place] [address], Ph. Attender: Jovanna Pitt [facility] Medical 09/07/2020 12:00:00 AM EDT [place] ([facility]) NILSON WoodsW-R: [address], [address], [place] [address], Ph. Attender: Jovanna Pitt [facility] Medical 09/07/2020 12:00:00 AM EDT [place] ([facility]) NILSON WoodsW-R: [address], [address], [place] [address], Ph. Attender: Jovanna Pitt [facility] Medical 09/07/2020 12:00:00 AM EDT [place] ([facility]) NILSON WoodsW-R: [address], [address], [place] [address], Ph. Attender: Jovannagonzalez [place] [facility] Medical 09/07/2020 12:00:00 AM EDT [place] ([facility]) NILSON WoodsW-R: [address], [address], [place] [address], Ph. Attender: Jovanna Pitt [facility] Medical 09/07/2020 12:00:00 AM EDT [place] ([facility]) Jovanna EllisonNILSON championW-R: [address], [address], [place] [address], Ph. Attender: Jovanna Pitt [facility] Medical 09/07/2020 12:00:00 AM EDT [place] ([facility]) JovannaNILSON LarsonW-R: [address], [address], [place] [address], Ph. Attender: Jovanna Pitt [facility] Medical 09/07/2020 12:00:00 AM EDT [place] ([facility]) NILSON WoodsW-R: [address], [place] [address], Ph. Attender: Jovanna Pitt [facility] Medical 09/07/2020 12:00:00 AM EDT [place] ([facility]) NILSON WoodsW-R: [address], [address], [place] [address], Ph. Attender: Jovanna Pitt [facility] Medical 09/07/2020 12:00:00 AM EDT [place] ([facility]) NILSON WoodsW-R: [address], [address], [place] [address], Ph. Attender: Jovanna Clemensclaramooncolby [facility] Medical 09/07/2020 12:00:00 AM EDT [place] ([facility]) Jovanna MendiolaNILSONW-R: [address], [address], [place] [address], Ph. Attender: Jovanna Pitt [facility] Medical 09/07/2020 12:00:00 AM EDT [place] ([facility]) Jovanna MendiolaNILSONW-R: [address], [address], [place] [address], Ph. Attender: Jovanna Pitt [facility] Medical 09/07/2020 12:00:00 AM EDT [place] ([facility]) Jovanna MendiolaNILSONW-R: [address], [address], [place] [address], Ph. Attender: Jovanna Pitt [facility] Medical 09/07/2020 12:00:00 AM EDT [place] ([facility]) Jovanna MendiolaNILSONW-R: [address], [address], [place] [address], Ph. Attender: Jovanna Pitt [facility] Medical 09/07/2020 12:00:00 AM EDT [place] ([facility]) (WC ESTOB) WCenter Est OB [address] [place] [address] 08/30/2020 12:00:00 AM EDT eCW1 ([facility]) Elly Hernandez MD: [address], [place] [address], Ph. Attender: [facility] Medical 08/25/2020 12:00:00 AM EDT [place] ([facility]) Elly Hernandez MD: [address], [place] [address], Ph. Attender: Elly Hernandez [facility] Medical 08/25/2020 12:00:00 AM EDT [place] ([facility]) Elly Hernandez MD: [address], [place] [address], Ph. Attender: Elly Hernandez [facility] Medical 08/25/2020 12:00:00 AM EDT [place] ([facility]) Elly Hernandez MD: [address], [place] [address], Ph. Attender: Elly Hernandez [facility] Medical 08/25/2020 12:00:00 AM EDT [place] ([facility]) Elly Hernandez MD: [address], [place] [address], Ph. Attender: Elly Hernandez [facility] Medical 08/25/2020 12:00:00 AM EDT [place] ([facility]) Elly Hernandez MD: [address], [place] [address], Ph. Attender: Elly Hernandez [facility] Medical 08/25/2020 12:00:00 AM EDT [place] ([facility]) Elly Hernandez MD: [address], [place] [address], Ph. Attender: Elly Hernandez [facility] Medical 08/25/2020 12:00:00 AM EDT [place] ([facility]) Elly Hernandez MD: [address], [place] [address], Ph. Attender: Elly Hernandez [facility] Medical 08/25/2020 12:00:00 AM EDT [place] ([facility]) Elly Hernandez MD: [address], [place] [address], Ph. Attender: Elly Hernandez [facility] Medical 08/25/2020 12:00:00 AM EDT [place] ([facility]) Elly Hernandez MD: [address], [place] [address], Ph. Attender: Elly Hernandez [facility] Medical 08/25/2020 12:00:00 AM EDT [place] ([facility]) Elly Hernandez MD: [address], [place] [address], Ph. Attender: Elly Hernandez [facility] Medical 08/25/2020 12:00:00 AM EDT [place] ([facility]) Elly Hernandez MD: [address], [place] [address], Ph. Attender: Elly Hernandez [facility] Medical 08/25/2020 12:00:00 AM EDT [place] ([facility]) Elly Hernandez MD: [address], [place] [address], Ph. Attender: Elly Hernandez [facility] Medical 08/25/2020 12:00:00 AM EDT [place] ([facility]) Elly Hernandez MD: [address], [place] [address], Ph. Attender: Elly Hernandez [facility] Medical 08/25/2020 12:00:00 AM EDT [place] ([facility]) Elly Hernandez MD: [address] [place] [address], Ph. Attender: Elly Hernandez [facility] Medical 08/25/2020 12:00:00 AM EDT [place] ([facility]) NILSON WoodsW-R: [address], [place] [address], Ph. Attender: Jovanna Pitt [facility] Medical 08/17/2020 12:00:00 AM EDT [place] ([facility]) NILSON WoodsW-R: [address], [place] [address], Ph. Attender: Jovanna Pitt [facility] Medical 08/17/2020 12:00:00 AM EDT [place] ([facility]) NILSON WoodsW-R: [address], [place] [address], Ph. Attender: Jovanna Pitt [facility] Medical 08/17/2020 12:00:00 AM EDT [place] ([facility]) NILSON WoodsW-R: [address], [place] [address], Ph. Attender: Jovanna Pitt [facility] Medical 08/17/2020 12:00:00 AM EDT [place] ([facility]) NILSON WoodsW-R: [address], [place] [address], Ph. Attender: Jovanna Pitt [facility] Medical 08/17/2020 12:00:00 AM EDT [place] ([facility]) JovannaNILSON LarsonW-R: [address], [place] [address], Ph. Attender: Jovanna Jayleenclaramooncolby [facility] Medical 08/17/2020 12:00:00 AM EDT [place] ([facility]) NILSON WoodsW-R: [address], [place] [address], Ph. Attender: Jovanna Shaileshcolby [facility] Medical 08/17/2020 12:00:00 AM EDT [place] ([facility]) NILSON WoodsW-R: [address], [place] [address], Ph. Attender: Jovanna Vossmooncolby [facility] Medical 08/17/2020 12:00:00 AM EDT [place] ([facility]) NILSON WoodsW-R: [address], [place] [address], Ph. Attender: Jovanna Pitt [facility] Medical 08/17/2020 12:00:00 AM EDT [place] ([facility]) NILSON WoodsW-R: [address], [place] [address], Ph. Attender: Jovanna Pitt [facility] Medical 08/17/2020 12:00:00 AM EDT [place] ([facility]) NILSON WoodsW-R: [address], [place] [address], Ph. Attender: Jovanna Pitt [facility] Medical 08/17/2020 12:00:00 AM EDT [place] ([facility]) Jovanna MendiolaNILSONW-R: [address], [place] [address], Ph. Attender: Jovanna Pitt [facility] Medical 08/17/2020 12:00:00 AM EDT [place] ([facility]) Jovanna MendiolaNILSONW-R: [address], [place] [address], Ph. Attender: Jovanna Pitt [facility] Medical 08/17/2020 12:00:00 AM EDT [place] ([facility]) Jovanna EllisonNILSON championW-R: [address], [place] [address], Ph. Attender: Jovanna Pitt [facility] Medical 08/17/2020 12:00:00 AM EDT [place] ([facility]) Jovanna MendiolaNILSONW-R: [address], [place] [address], Ph. Attender: Jovanna Pitt [facility] Medical 08/17/2020 12:00:00 AM EDT [place] ([facility]) Outpatient Attender: DAVID Sánchez Primary 07/30/2020 01:45:00 PM EDT MEDENT ([facility]) (WC ESTOB) enter Est OB [address] [place] [address] 07/11/2020 12:00:00 AM EST eCW1 ([facility]) (WC ESTOB) WCenter Est OB [address] [place] [address] 07/03/2020 12:00:00 AM EST eCW1 ([facility]) Elly Hernandez MD: [address], [place] [address], Ph. Attender: Elly Hernandez [facility] Medical 06/30/2020 12:00:00 AM EST [place] ([facility]) Neda Carpenter [facility]: [address], [place] [address], Ph. Attender: Neda Carpenter [facility] Medical 06/30/2020 12:00:00 AM EST [place] ([facility]) Elly Hernandez MD: [address], [place] [address], Ph. Attender: Elly Hernandez [facility] Medical 06/30/2020 12:00:00 AM EST [place] ([facility]) Neda Carpenter [facility]: [address] [place] [address], Ph. Attender: Neda Carpenter [facility] Medical 06/30/2020 12:00:00 AM EST [place] ([facility]) Elly Hernandez MD: [address] [place] [address], Ph. Attender: Elly Hernandez [facility] Medical 06/30/2020 12:00:00 AM EST [place] ([facility]) Neda Carpenter LMSW: [address] [place] [address], Ph. Attender: Neda Carpenter [facility] Medical 06/30/2020 12:00:00 AM EST [place] ([facility]) Elly Hernandez MD: [address], [place] [address], Ph. Attender: Elly Hernandez [facility] Medical 06/30/2020 12:00:00 AM EST [place] ([facility]) Neda Carpenter [facility]: [address], [place] [address], Ph. Attender: Neda Carpenter [facility] Medical 06/30/2020 12:00:00 AM EST [place] ([facility]) Elly Hernandez MD: [address], [place] [address], Ph. Attender: Elly Hernandez [facility] Medical 06/30/2020 12:00:00 AM EST [place] ([facility]) Neda Carpenter [facility]: [address], [place] [address], Ph. Attender: Neda Carpenter [facility] Medical 06/30/2020 12:00:00 AM EST [place] ([facility]) Elly Hernandez MD: [address], [facility] [place] [address], Ph. Attender: Elly Hernandez [facility] Medical 06/30/2020 12:00:00 AM EST [place] ([facility]) Neda Carpenter [facility]: [address], [place] [address], Ph. Attender: Neda Carpenter [facility] Medical 06/30/2020 12:00:00 AM EST [place] ([facility]) Elly Hernandez MD: [address], [place] [address], Ph. Attender: Teresa Mary [facility] Medical 06/30/2020 12:00:00 AM EST [place] ([facility]) Neda Carpenter [facility]: [address] [place] [address], Ph. Attender: Ndea Carpenter [facility] Medical 06/30/2020 12:00:00 AM EST [place] ([facility]) Elly Hernandez MD: [address], [place] [address], Ph. Attender: Elly Hernandez [facility] Medical 06/30/2020 12:00:00 AM EST [place] ([facility]) Neda Carpenter [facility]: [address] [place] [address], Ph. Attender: Neda Carpenter [facility] Medical 06/30/2020 12:00:00 AM EST [place] ([facility]) Elly Hernandez MD: [address], [place] [address], Ph. Attender: Elly Hernandez [facility] Medical 06/30/2020 12:00:00 AM EST [place] ([facility]) Neda Carpenter [facility]: [address] [place] [address], Ph. Attender: Neda Carpenter [facility] Medical 06/30/2020 12:00:00 AM EST [place] ([facility]) Elly Hernandez MD: [address], [place] [address], Ph. Attender: Elly Hernandez [facility] Medical 06/30/2020 12:00:00 AM EST [place] ([facility]) Neda Carpenter [facility]: [address] [place] [address], Ph. Attender: Neda Carpenter [facility] Medical 06/30/2020 12:00:00 AM EST [place] ([facility]) Elly Hernandez MD: [address], [place] [address], Ph. Attender: Elly Hernandez [facility] Medical 06/30/2020 12:00:00 AM EST [place] ([facility]) Neda Carpenter LMSW: [address], [place] [address], Ph. Attender: Neda Carpenter [facility] Medical 06/30/2020 12:00:00 AM EST [place] ([facility]) Elly Hernandez MD: [address], [place] [address], Ph. Attender: Elly Hernandez [facility] Medical 06/30/2020 12:00:00 AM EST [place] ([facility]) Neda Carpenter LMSW: [address] [place] [address], Ph. Attender: Neda Carpenter [facility] Medical 06/30/2020 12:00:00 AM EST [place] ([facility]) Elly Hernandez MD: [address], [place] [address], Ph. Attender: Elly Hernandez [facility] Medical 06/30/2020 12:00:00 AM EST [place] ([facility]) Neda Carpenter LMSW: [address] [place] [address], Ph. Attender: Neda Carpenter [facility] Medical 06/30/2020 12:00:00 AM EST [place] ([facility]) Elly Hernandez MD: [address], [facility] [place] [address], Ph. Attender: Elly Hernandez [facility] Medical 06/30/2020 12:00:00 AM EST [place] ([facility]) Neda Carpenter [facility]: [address] [place] [address], Ph. Attender: Neda Carpenter [facility] Medical 06/30/2020 12:00:00 AM EST [place] [facility] Elly Hernandez MD: [address], [facility] [place] [address], Ph. Attender: Elly Hernandez [facility] Medical 06/30/2020 12:00:00 AM EST [place] ([facility]) Neda Carpenter [facility]: [address] [place] [address], Ph. Attender: Neda Carpenter [facility] Medical 06/30/2020 12:00:00 AM EST [place] ([facility]) Elly Hernandez MD: [address] [place] [address], Ph. Attender: Elly Hernandez [facility] Medical 06/30/2020 12:00:00 AM EST [place] ([facility]) Neda Carpenter LMSW: [address] [place] [address], Ph. Attender: Neda Carpenter [facility] Medical 06/30/2020 12:00:00 AM EST [place] ([facility]) Elly Hernandez MD: [address] [place] [address], Ph. Attender: Elly Hernandez [place] - [facility] Medical 06/30/2020 12:00:00 AM EST [place] ([facility]) Neda Carpenter [facility]: [address] [place] [address], Ph. Attender: Neda Carpenter [place] - [facility] Medical 06/30/2020 12:00:00 AM EST [place] ([facility]) (WC ESTOB) WCenter Est OB [address] [place] [address] 06/26/2020 12:00:00 AM EST eCW1 ([facility]) (WC ESTOB) [facility] Est [facility] [address] [place] [address] 06/21/2020 12:00:00 AM EST eCW1 ([facility]) (WC ESTOB) [facility] [address] [place] [address] 06/19/2020 12:00:00 AM EST eCW1 ([facility]) (WC ESTOB) [facility] Est OB [address] [place] [address] 06/12/2020 12:00:00 AM EST eCW1 ([facility]) Unknown [address] [facility] [address] 06/06/2020 12:00:00 AM EST eCW1 ([facility]) (WC ESTOB) [facility] Est OB [address] [place] [address] 06/05/2020 12:00:00 AM EST eCW1 ([facility]) (WC ESTOB) [facility] Est OB [address] [place] [address] 05/30/2020 12:00:00 AM EST eCW1 ([facility]) ( ESTOB) [facility] Est OB [address] [place] [address] 05/22/2020 12:00:00 AM EST eCW1 ([facility]) Unknown [address] [facility] [address] 05/17/2020 12:00:00 AM EST eCW1 ([facility]) Unknown [address] [facility] [address] 05/10/2020 12:00:00 AM EST eCW1 ([facility]) Unknown [address] [facility] [address] 05/08/2020 12:00:00 AM EST eCW1 ([facility]) ( NEWOB) [facility] New OB Visit [address] [place] [address] 05/02/2020 12:00:00 AM EST eCW1 ([facility]) Immunizations Vaccine Date Status Description Data Source(s) New in 2012. IIV4 02/17/2021 12:00:00 AM EDT completed 02/18/20 [place] ([facility]) New in 2012. IIV4 02/17/2021 12:00:00 AM EDT completed 02/18/20 [place] ([facility]) New in 2012. IIV4 02/17/2021 12:00:00 AM EDT completed 02/18/20 [place] ([facility]) 12/29/2020 03:28:00 PM EDT completed e CW1 ([facility]) 12/29/2020 03:28:00 PM EDT completed e CW1 ([facility]) 12/29/2020 03:28:00 PM EDT completed e CW1 ([facility]) 12/29/2020 03:28:00 PM EDT completed e CW1 ([facility]) 10/13/2020 11:50:00 AM EDT completed e CW1 ([facility]) 10/13/2020 11:50:00 AM EDT completed e CW1 ([facility]) 10/13/2020 11:50:00 AM EDT completed e CW1 ([facility]) 10/13/2020 11:50:00 AM EDT completed e CW1 ([facility]) 10/13/2020 11:50:00 AM EDT completed e CW1 ([facility]) COVID-19, mRNA, LNP-S, PF, 100 mcg/0.5 mL dose 10/12/2020 12 :00:00 AM EDT completed 10/12/2020 [place] ([facility]) COVID-19, mRNA, LNP-S, PF, 100 mcg/0.5 mL dose 10/12/2020 12 :00:00 AM EDT completed 10/12/2020 [place] ([facility]) COVID-19, mRNA, LNP-S, PF, 100 mcg/0.5 mL dose 10/12/2020 12 :00:00 AM EDT completed 10/12/2020 [place] ([facility]) COVID-19, mRNA, LNP-S, PF, 100 mcg/0.5 mL dose 10/12/2020 12 :00:00 AM EDT completed 10/12/2020 [place] ([facility]) COVID-19, mRNA, LNP-S, PF, 100 mcg/0.5 mL dose 10/12/2020 12 :00:00 AM EDT completed 10/12/2020 [place] ([facility]) COVID-19, mRNA, LNP-S, PF, 100 mcg/0.5 mL dose 10/12/2020 12 :00:00 AM EDT completed 10/12/2020 [place] ([facility]) COVID-19, mRNA, LNP-S, PF, 100 mcg/0.5 mL dose 10/12/2020 12 :00:00 AM EDT completed 10/12/2020 [place] ([facility]) COVID-19 VACCINE Moderna 10/12/2020 12:00:00 AM EDT completed [facility] Vaccine Series Complete: YESThis Data wa s Submitted to [facility] Via [employer]. COVID-19, mRNA, LNP-S, PF, 100 mcg/0.5 mL dose 10/12/2020 12 :00:00 AM EDT completed 10/12/2020 [place] ([facility]) COVID-19, mRNA, LNP-S, PF, 100 mcg/0.5 mL dose 09/14/2020 12 :00:00 AM EDT completed 09/14/2020 [place] ([facility]) COVID-19, mRNA, LNP-S, PF, 100 mcg/0.5 mL dose 09/14/2020 12 :00:00 AM EDT completed 09/14/2020 [place] ([facility]) COVID-19, mRNA, LNP-S, PF, 100 mcg/0.5 mL dose 09/14/2020 12 :00:00 AM EDT completed 09/14/2020 [facility]) COVID-19, mRNA, LNP-S, PF, 100 mcg/0.5 mL dose 09/14/2020 12 :00:00 AM EDT completed 09/14/2020 [place] ([facility]) COVID-19, mRNA, LNP-S, PF, 100 mcg/0.5 mL dose 09/14/2020 12 :00:00 AM EDT completed 09/14/2020 [place] ([facility]) COVID-19, mRNA, LNP-S, PF, 100 mcg/0.5 mL dose 09/14/2020 12 :00:00 AM EDT completed 09/14/2020 [place] ([facility]) COVID-19, mRNA, LNP-S, PF, 100 mcg/0.5 mL dose 09/14/2020 12 :00:00 AM EDT completed 09/14/2020 [place] ([facility]) COVID-19 VACCINE Moderna 09/14/2020 12:00:00 AM EDT completed [facility] Vaccine Series Complete: NOThis Data was Submitted to [facility] Via [employer]. COVID-19, mRNA, LNP-S, PF, 100 mcg/0.5 mL dose 09/14/2020 12 :00:00 AM EDT completed 09/14/2020 [place] ([facility]) Tdap 05/22/2020 10:47:00 AM EST completed e CW1 ([facility]) Tdap 05/22/2020 10:47:00 AM EST completed e CW1 ([facility]) Tdap 05/22/2020 10:47:00 AM EST completed e CW1 ([facility]) Tdap 05/22/2020 10:47:00 AM EST completed e CW1 ([facility]) Tdap 05/22/2020 10:47:00 AM EST completed e CW1 ([facility]) Tdap 05/22/2020 10:47:00 AM EST completed e CW1 ([facility]) Tdap 05/22/2020 10:47:00 AM EST completed e CW1 ([facility]) Tdap 05/22/2020 10:47:00 AM EST completed e CW1 ([facility]) Tdap 05/22/2020 10:47:00 AM EST completed e CW1 ([facility]) Tdap 05/22/2020 10:47:00 AM EST completed e CW1 ([facility]) Tdap 05/22/2020 10:47:00 AM EST completed e CW1 ([facility]) Tdap 05/22/2020 10:47:00 AM EST completed e CW1 ([facility]) Tdap 05/22/2020 10:47:00 AM EST completed e CW1 ([facility]) Tdap 05/22/2020 10:47:00 AM EST completed e CW1 ([facility]) Tdap 05/22/2020 10:47:00 AM EST completed e CW1 ([facility]) Tdap 05/22/2020 10:47:00 AM EST completed e CW1 ([facility]) Tdap 05/22/2020 12:00:00 AM EST completed 05/22/2020 A [place] ([facility]) Tdap 05/22/2020 12:00:00 AM EST completed 05/22/2020 A [place] ([facility]) Tdap 05/22/2020 12:00:00 AM EST completed 05/22/2020 [place] ([facility]) INFLUENZA VIRUS VACCINE QUADRIVAL [id number](6 MOS AND UP)/PF 04/21/2020 12:00:00 AM EST completed [facility] Medications Medication Brand Name Start Date Product Form Dose Route Admi nistrative Instructions Pharmacy Instructions Status Indications Reaction Description Data Source(s) valacyclovir 500 MG Oral Tablet [Valtrex] Valtrex 500 MG Tiara trex 500 MG 07/11/2020 12:00:00 AM EST 1.0 {tablet} active Valtrex 500 MG eCW1 ([facility]) valacyclovir 500 MG Oral Tablet [Valtrex] Valtrex 500 MG Tiara trex 500 MG 07/11/2020 12:00:00 AM EST 1.0 {tablet} active Valtrex 500 MG eCW1 ([facility]) valacyclovir 500 MG Oral Tablet [Valtrex] Valtrex 500 MG Tiara trex 500 MG 07/11/2020 12:00:00 AM EST 1.0 {tablet} active Valtrex 500 MG eCW1 ([facility]) valacyclovir 500 MG Oral Tablet [Valtrex] Valtrex 500 MG Tiara trex 500 MG 07/11/2020 12:00:00 AM EST 1.0 {tablet} active Valtrex 500 MG eCW1 ([facility]) valacyclovir 500 MG Oral Tablet [Valtrex] Valtrex 500 MG Tiara trex 500 MG 07/11/2020 12:00:00 AM EST 1.0 {tablet} active Valtrex 500 MG eCW1 ([facility]) valacyclovir 500 MG Oral Tablet [Valtrex] Valtrex 500 MG Tiara trex 500 MG 07/11/2020 12:00:00 AM EST 1.0 {tablet} active Valtrex 500 MG eCW1 ([facility]) valacyclovir 500 MG Oral Tablet [Valtrex] Valtrex 500 MG Tiara trex 500 MG 07/11/2020 12:00:00 AM EST 1.0 {tablet} active Valtrex 500 MG eCW1 ([facility]) valacyclovir 500 MG Oral Tablet [Valtrex] Valtrex 500 MG Tiara trex 500 MG 06/12/2020 12:00:00 AM EST 1.0 {tablet} active Valtrex 500 MG eCW1 ([facility]) Metformin hydrochloride 500 MG Oral Tablet metFORMIN H Cl 500 MG metFORMIN HCl 500 MG 06/12/2020 12:00:00 AM EST suspended metFORMIN HCl 500 MG eCW1 ([facility]) Metformin hydrochloride 500 MG Oral Tablet Metformin H Cl 500 MG Metformin HCl 500 MG 06/12/2020 12:00:00 AM EST active Metformin HCl 500 MG eCW1 ([facility]) Metformin hydrochloride 500 MG Oral Tablet Metformin H Cl 500 MG Metformin HCl 500 MG 06/12/2020 12:00:00 AM EST active Metformin HCl 500 MG eCW1 ([facility]) valacyclovir 500 MG Oral Tablet [Valtrex] Valtrex 500 MG Tiara trex 500 MG 06/12/2020 12:00:00 AM EST 1.0 {tablet} suspended Valtrex 500 MG eCW1 ([facility]) Metformin hydrochloride 500 MG Oral Tablet metFORMIN H Cl 500 MG metFORMIN HCl 500 MG 06/12/2020 12:00:00 AM EST suspended metFORMIN HCl 500 MG eCW1 ([facility]) valacyclovir 500 MG Oral Tablet [Valtrex] Valtrex 500 MG Tiara trex 500 MG 06/12/2020 12:00:00 AM EST 1.0 {tablet} active Valtrex 500 MG eCW1 ([facility]) Metformin hydrochloride 500 MG Oral Tablet metFORMIN H Cl 500 MG metFORMIN HCl 500 MG 06/12/2020 12:00:00 AM EST suspended metFORMIN HCl 500 MG eCW1 ([facility]) Metformin hydrochloride 500 MG Oral Tablet Metformin H Cl 500 MG Metformin HCl 500 MG 06/12/2020 12:00:00 AM EST active Metformin HCl 500 MG eCW1 ([facility]) Metformin hydrochloride 500 MG Oral Tablet metFORMIN H Cl 500 MG metFORMIN HCl 500 MG 06/12/2020 12:00:00 AM EST suspended metFORMIN HCl 500 MG eCW1 ([facility]) valacyclovir 500 MG Oral Tablet [Valtrex] Valtrex 500 MG Tiara trex 500 MG 06/12/2020 12:00:00 AM EST 1.0 {tablet} active Valtrex 500 MG eCW1 ([facility]) Metformin hydrochloride 500 MG Oral Tablet metFORMIN H Cl 500 MG metFORMIN HCl 500 MG 06/12/2020 12:00:00 AM EST suspended metFORMIN HCl 500 MG eCW1 ([facility]) valacyclovir 500 MG Oral Tablet [Valtrex] Valtrex 500 MG Tiara trex 500 MG 06/12/2020 12:00:00 AM EST 1.0 {tablet} suspended Valtrex 500 MG eCW1 ([facility]) Metformin hydrochloride 500 MG Oral Tablet Metformin H Cl 500 MG Metformin HCl 500 MG 06/12/2020 12:00:00 AM EST active Metformin HCl 500 MG eCW1 ([facility]) valacyclovir 500 MG Oral Tablet [Valtrex] Valtrex 500 MG Tiara trex 500 MG 06/12/2020 12:00:00 AM EST 1.0 {tablet} active Valtrex 500 MG eCW1 ([facility]) Metformin hydrochloride 500 MG Oral Tablet Metformin H Cl 500 MG Metformin HCl 500 MG 06/12/2020 12:00:00 AM EST suspended Metformin HCl 500 MG eCW1 ([facility]) valacyclovir 500 MG Oral Tablet [Valtrex] Valtrex 500 MG Tiara trex 500 MG 06/12/2020 12:00:00 AM EST 1.0 {tablet} active Valtrex 500 MG eCW1 ([facility]) valacyclovir 500 MG Oral Tablet [Valtrex] Valtrex 500 MG Tiara trex 500 MG 06/12/2020 12:00:00 AM EST 1.0 {tablet} active Valtrex 500 MG eCW1 ([facility]) valacyclovir 500 MG Oral Tablet [Valtrex] Valtrex 500 MG Tiara trex 500 MG 06/12/2020 12:00:00 AM EST 1.0 {tablet} suspended Valtrex 500 MG eCW1 ([facility]) Metformin hydrochloride 500 MG Oral Tablet Metformin H Cl 500 MG Metformin HCl 500 MG 06/12/2020 12:00:00 AM EST active Metformin HCl 500 MG eCW1 ([facility]) valacyclovir 500 MG Oral Tablet [Valtrex] Valtrex 500 MG Tiara trex 500 MG 06/12/2020 12:00:00 AM EST 1.0 {tablet} suspended Valtrex 500 MG eCW1 ([facility]) valacyclovir 500 MG Oral Tablet [Valtrex] Valtrex 500 MG Tiara trex 500 MG 06/12/2020 12:00:00 AM EST 1.0 {tablet} suspended Valtrex 500 MG eCW1 ([facility]) valacyclovir 500 MG Oral Tablet [Valtrex] Valtrex 500 MG Tiara trex 500 MG 06/12/2020 12:00:00 AM EST 1.0 {tablet} suspended Valtrex 500 MG eCW1 ([facility]) Metformin hydrochloride 500 MG Oral Tablet Metformin H Cl 500 MG Metformin HCl 500 MG 06/12/2020 12:00:00 AM EST active Metformin HCl 500 MG eCW1 ([facility]) Omeprazole 20 MG Delayed Release Oral Capsule Omeprazole 20 MG 06/05/2020 12:00:00 AM EST active Omeprazo le 20 MG eCW1 ([facility]) Omeprazole 20 MG Delayed Release Oral Capsule Omeprazole 20 MG 06/05/2020 12:00:00 AM EST active Omeprazo le 20 MG eCW1 ([facility]) Omeprazole 20 MG Delayed Release Oral Capsule Omeprazole 20 MG 06/05/2020 12:00:00 AM EST active Omeprazo le 20 MG eCW1 ([facility]) Omeprazole 20 MG Delayed Release Oral Capsule Omeprazole 20 MG 06/05/2020 12:00:00 AM EST active Omeprazo le 20 MG eCW1 ([facility]) Omeprazole 20 MG Delayed Release Oral Capsule Omeprazole 20 MG 06/05/2020 12:00:00 AM EST active Omeprazo le 20 MG eCW1 ([facility]) Omeprazole 20 MG Delayed Release Oral Capsule Omeprazole 20 MG 06/05/2020 12:00:00 AM EST active Omeprazo le 20 MG eCW1 ([facility]) Omeprazole 20 MG Delayed Release Oral Capsule Omeprazole 20 MG 06/05/2020 12:00:00 AM EST active Omeprazo le 20 MG eCW1 ([facility]) Omeprazole 20 MG Delayed Release Oral Capsule Omeprazole 20 MG 06/05/2020 12:00:00 AM EST active Omeprazo le 20 MG eCW1 ([facility]) Omeprazole 20 MG Delayed Release Oral Capsule Omeprazole 20 MG 06/05/2020 12:00:00 AM EST active Omeprazo le 20 MG eCW1 ([facility]) Omeprazole 20 MG Delayed Release Oral Capsule Omeprazole 20 MG 06/05/2020 12:00:00 AM EST active Omeprazo le 20 MG eCW1 ([facility]) Omeprazole 20 MG Delayed Release Oral Capsule Omeprazole 20 MG 06/05/2020 12:00:00 AM EST active Omeprazo le 20 MG eCW1 ([facility]) Omeprazole 20 MG Delayed Release Oral Capsule Omeprazole 20 MG 06/05/2020 12:00:00 AM EST active Omeprazo le 20 MG eCW1 ([facility]) Omeprazole 20 MG Delayed Release Oral Capsule Omeprazole 20 MG 06/05/2020 12:00:00 AM EST active Omeprazo le 20 MG eCW1 ([facility]) Omeprazole 20 MG Delayed Release Oral Capsule Omeprazole 20 MG 06/05/2020 12:00:00 AM EST active Omeprazo le 20 MG eCW1 ([facility]) Omeprazole 20 MG Delayed Release Oral Capsule Omeprazole 20 MG 06/05/2020 12:00:00 AM EST active Omeprazo le 20 MG eCW1 ([facility]) Lancets - Lancets - 05/22/2020 12:00:00 AM EST act kiersten Lancets - eCW1 ([facility]) Lancets - Lancets - 05/22/2020 12:00:00 AM EST suspended Lancets - eCW1 ([facility]) Lancets - Lancets - 05/22/2020 12:00:00 AM EST suspended Lancets - eCW1 ([facility]) Lancets - Lancets - 05/22/2020 12:00:00 AM EST act kiersten Lancets - eCW1 ([facility]) Lancets - Lancets - 05/22/2020 12:00:00 AM EST act kiersten Lancets - eCW1 ([facility]) Lancets - Lancets - 05/22/2020 12:00:00 AM EST act kiersten Lancets - eCW1 ([facility]) Lancets - Lancets - 05/22/2020 12:00:00 AM EST suspended Lancets - eCW1 ([facility]) Lancets - Lancets - 05/22/2020 12:00:00 AM EST act kiersten Lancets - eCW1 ([facility]) Lancets - Lancets - 05/22/2020 12:00:00 AM EST act kiersten Lancets - eCW1 ([facility]) Lancets - Lancets - 05/22/2020 12:00:00 AM EST suspended Lancets - eCW1 ([facility]) Lancets - Lancets - 05/22/2020 12:00:00 AM EST suspended Lancets - eCW1 ([facility]) Lancets - Lancets - 05/22/2020 12:00:00 AM EST act kiersten Lancets - eCW1 ([facility]) Lancets - Lancets - 05/22/2020 12:00:00 AM EST act kiersten Lancets - eCW1 ([facility]) Lancets - Lancets - 05/22/2020 12:00:00 AM EST act kiersten Lancets - eCW1 ([facility]) Lancets - Lancets - 05/22/2020 12:00:00 AM EST act kiersten Lancets - eCW1 ([facility]) Lancets - Lancets - 05/22/2020 12:00:00 AM EST suspended Lancets - eCW1 ([facility]) Lancets - Lancets - 05/17/2020 12:00:00 AM EST act kiersten Lancets - eCW1 ([facility]) Alcohol Wipes 70 % Alcohol Wipes 70 % 05/17/2020 12:00:00 AM EST active Alcohol Wipes 70 % eCW1 ([facility]) Glucose Monitor - UNK 05/17/2020 12:00:00 AM EST active Glucose Monitor - eCW1 ([facility]) Glucose Monitor - UNK 05/17/2020 12:00:00 AM EST active Glucose Monitor - eCW1 ([facility]) Glucose Monitor - UNK 05/17/2020 12:00:00 AM EST suspended Glucose Monitor - eCW1 ([facility]) Glucose Monitor - UNK 05/17/2020 12:00:00 AM EST suspended Glucose Monitor - eCW1 ([facility]) Alcohol Wipes 70 % Alcohol Wipes 70 % 05/17/2020 12:00:00 AM EST active Alcohol Wipes 70 % eCW1 ([facility]) Lancets - Lancets - 05/17/2020 12:00:00 AM EST suspended Lancets - eCW1 ([facility]) Glucose Monitor - UNK 05/17/2020 12:00:00 AM EST active Glucose Monitor - eCW1 ([facility]) Glucose Monitor - UNK 05/17/2020 12:00:00 AM EST active Glucose Monitor - eCW1 ([facility]) Lancets - Lancets - 05/17/2020 12:00:00 AM EST suspended Lancets - eCW1 ([facility]) Lancets - Lancets - 05/17/2020 12:00:00 AM EST act kiersten Lancets - eCW1 ([facility]) Test Strips - UNK 05/17/2020 12:00:00 AM EST suspended Test Strips - eCW1 ([facility]) Test Strips - UNK 05/17/2020 12:00:00 AM EST suspended Test Strips - eCW1 ([facility]) Alcohol Wipes 70 % UNK 05/17/2020 12:00:00 AM EST suspended Alcohol Wipes 70 % eCW1 ([facility]) Alcohol Wipes 70 % Alcohol Wipes 70 % 05/17/2020 12:00:00 AM EST active Alcohol Wipes 70 % eCW1 ([facility]) Lancets - Lancets - 05/17/2020 12:00:00 AM EST suspended Lancets - eCW1 ([facility]) Glucose Monitor - UNK 05/17/2020 12:00:00 AM EST active Glucose Monitor - eCW1 ([facility]) Glucose Monitor - UNK 05/17/2020 12:00:00 AM EST active Glucose Monitor - eCW1 ([facility]) Test Strips - UNK 05/17/2020 12:00:00 AM EST suspended Test Strips - eCW1 ([facility]) Alcohol Wipes 70 % Alcohol Wipes 70 % 05/17/2020 12:00:00 AM EST active Alcohol Wipes 70 % eCW1 ([facility]) Glucose Monitor - UNK 05/17/2020 12:00:00 AM EST suspended Glucose Monitor - eCW1 ([facility]) Alcohol Wipes 70 % Alcohol Wipes 70 % 05/17/2020 12:00:00 AM EST active Alcohol Wipes 70 % eCW1 ([facility]) Alcohol Wipes 70 % Alcohol Wipes 70 % 05/17/2020 12:00:00 AM EST active Alcohol Wipes 70 % eCW1 ([facility]) Lancets - Lancets - 05/17/2020 12:00:00 AM EST suspended Lancets - eCW1 ([facility]) Lancets - Lancets - 05/17/2020 12:00:00 AM EST act kiersten Lancets - eCW1 ([facility]) Glucose Monitor - UNK 05/17/2020 12:00:00 AM EST active Glucose Monitor - eCW1 ([facility]) Glucose Monitor - UNK 05/17/2020 12:00:00 AM EST active Glucose Monitor - eCW1 ([facility]) Test Strips - UNK 05/17/2020 12:00:00 AM EST acti ve Test Strips - eCW1 ([facility]) Test Strips - UNK 05/17/2020 12:00:00 AM EST acti ve Test Strips - eCW1 ([facility]) Lancets - Lancets - 05/17/2020 12:00:00 AM EST act kiersten Lancets - eCW1 ([facility]) Lancets - Lancets - 05/17/2020 12:00:00 AM EST act kiersten Lancets - eCW1 ([facility]) Lancets - Lancets - 05/17/2020 12:00:00 AM EST suspended Lancets - eCW1 ([facility]) Test Strips - UNK 05/17/2020 12:00:00 AM EST acti ve Test Strips - eCW1 ([facility]) Test Strips - UNK 05/17/2020 12:00:00 AM EST suspended Test Strips - eCW1 ([facility]) Test Strips - UNK 05/17/2020 12:00:00 AM EST acti ve Test Strips - eCW1 ([facility]) Alcohol Wipes 70 % Alcohol Wipes 70 % 05/17/2020 12:00:00 AM EST active Alcohol Wipes 70 % eCW1 ([facility]) Test Strips - UNK 05/17/2020 12:00:00 AM EST acti ve Test Strips - eCW1 ([facility]) Lancets - Lancets - 05/17/2020 12:00:00 AM EST act kiersten Lancets - eCW1 ([facility]) Test Strips - UNK 05/17/2020 12:00:00 AM EST acti ve Test Strips - eCW1 ([facility]) Alcohol Wipes 70 % UNK 05/17/2020 12:00:00 AM EST suspended Alcohol Wipes 70 % eCW1 ([facility]) Lancets - Lancets - 05/17/2020 12:00:00 AM EST act kiersten Lancets - eCW1 ([facility]) Alcohol Wipes 70 % Alcohol Wipes 70 % 05/17/2020 12:00:00 AM EST active Alcohol Wipes 70 % eCW1 ([facility]) Test Strips - UNK 05/17/2020 12:00:00 AM EST acti ve Test Strips - eCW1 ([facility]) Alcohol Wipes 70 % Alcohol Wipes 70 % 05/17/2020 12:00:00 AM EST active Alcohol Wipes 70 % eCW1 ([facility]) Glucose Monitor - UNK 05/17/2020 12:00:00 AM EST active Glucose Monitor - eCW1 ([facility]) Lancets - Lancets - 05/17/2020 12:00:00 AM EST act kiersten Lancets - eCW1 ([facility]) Alcohol Wipes 70 % Alcohol Wipes 70 % 05/17/2020 12:00:00 AM EST suspended Alcohol Wipes 70 % eCW1 ([facility]) Test Strips - UNK 05/17/2020 12:00:00 AM EST suspended Test Strips - eCW1 ([facility]) Lancets - Lancets - 05/17/2020 12:00:00 AM EST act kiersten Lancets - eCW1 ([facility]) Alcohol Wipes 70 % Alcohol Wipes 70 % 05/17/2020 12:00:00 AM EST active Alcohol Wipes 70 % eCW1 ([facility]) Glucose Monitor - UNK 05/17/2020 12:00:00 AM EST suspended Glucose Monitor - eCW1 ([facility]) Glucose Monitor - UNK 05/17/2020 12:00:00 AM EST suspended Glucose Monitor - eCW1 ([facility]) Lancets - Lancets - 05/17/2020 12:00:00 AM EST act kiersten Lancets - eCW1 ([facility]) Test Strips - UNK 05/17/2020 12:00:00 AM EST acti ve Test Strips - eCW1 ([facility]) Test Strips - UNK 05/17/2020 12:00:00 AM EST acti ve Test Strips - eCW1 ([facility]) Glucose Monitor - UNK 05/17/2020 12:00:00 AM EST suspended Glucose Monitor - eCW1 ([facility]) Alcohol Wipes 70 % Alcohol Wipes 70 % 05/17/2020 12:00:00 AM EST suspended Alcohol Wipes 70 % eCW1 ([facility]) Test Strips - UNK 05/17/2020 12:00:00 AM EST acti ve Test Strips - eCW1 ([facility]) Alcohol Wipes 70 % UNK 05/17/2020 12:00:00 AM EST suspended Alcohol Wipes 70 % eCW1 ([facility]) Test Strips - UNK 05/17/2020 12:00:00 AM EST acti ve Test Strips - eCW1 ([facility]) Glucose Monitor - UNK 05/17/2020 12:00:00 AM EST active Glucose Monitor - eCW1 ([facility]) Lancets - Lancets - 05/17/2020 12:00:00 AM EST suspended Lancets - eCW1 ([facility]) Alcohol Wipes 70 % UNK 05/17/2020 12:00:00 AM EST suspended Alcohol Wipes 70 % eCW1 ([facility]) Glucose Monitor - UNK 05/17/2020 12:00:00 AM EST active Glucose Monitor - eCW1 ([facility]) Lancets - Lancets - 05/17/2020 12:00:00 AM EST act kiersten Lancets - eCW1 ([facility]) Alcohol Wipes 70 % Alcohol Wipes 70 % 05/17/2020 12:00:00 AM EST active Alcohol Wipes 70 % eCW1 ([facility]) Test Strips - UNK 05/17/2020 12:00:00 AM EST suspended Test Strips - eCW1 ([facility]) . UNIT 04/21/2020 12:00:00 AM EST Injectable 1 US E DIRECTED USE DIRECTED SOLD: 04/21/2020 [facility] Metformin hydrochloride 500 MG Oral Tablet metformin 5 00 mg tablet metformin 500 mg tablet completed metformin h ydrochloride 500 MG Oral Tablet CHELSEA ([facility]) Sertraline 25 MG Oral Tablet sertraline 25 mg tablet TAKE 1 TABLET BY MOUTH ONCE DAILY sertraline 25 mg tablet TAKE 1 TABLET BY MOUTH ONCE DAILY completed sertraline 25 MG Oral Tablet ATH [facility] Clin[facility]) FreeStyle Lite Meter kit USE DIRECTED 4 TIMES DAILY [id number] completed FreeStyle Lite Meter kit [place] ([facility]) Metformin hydrochloride 500 MG Oral Tablet metformin 5 00 mg tablet metformin 500 mg tablet completed metformin h ydrochloride 500 MG Oral Tablet [facility] ([facility]) Isopropyl Alcohol 0.7 ML/ML Medicated Pa d BD Alcohol Swabs USE DIRECTED 4 TIMES DAILY BD Alcohol Swabs USE DIRECTED 4 TIMES DAILY completed isopropyl alcohol 0.7 ML/ML Medi cated Pad [place] ([facility]) FreeStyle Lite Meter kit USE DIRECTED 4 TIMES DAILY [id number] completed FreeStyle Lite Meter kit [place] ([facility]) Sertraline 25 MG Oral Tablet sertraline 25 mg tablet TAKE 1 TABLET BY MOUTH ONCE DAILY sertraline 25 mg tablet TAKE 1 TABLET BY MOUTH ONCE DAILY completed sertraline 25 MG Oral Tablet ATH [facility] ([facility]) valacyclovir 500 MG Oral Tablet valacycl ovir 500 mg tablet TAKE 1 CAPLET BY MOUTH TWICE DAILY valacyclovir 500 mg tablet TAKE 1 CAPLET BY MOUTH TWIC E DAILY completed valacyclovir 5 00 MG Oral Tablet [place] ([facility]) FreeStyle Lite Meter kit USE DIRECTED 4 TIMES DAILY [id number] completed FreeStyle Lite Meter kit [place] ([facility]) FreeStyle Lite Meter kit USE DIRECTED 4 TIMES DAILY [id number] completed FreeStyle Lite Meter kit [place] ([facility]) FreeStyle Lancets 28 gauge USE DIRECTED 4 TIMES DAILY [id number] completed FreeStyle Lancets [address] [facility] A ([facility]) Metformin hydrochloride 500 MG Oral Tablet metformin 5 00 mg tablet metformin 500 mg tablet completed metformin h ydrochloride 500 MG Oral Tablet [place] ([facility]) Methylergonovine Maleate 0.2 MG Oral Tab let methylergonovine 0.2 mg tablet TAKE 1 TABLET BY MOUTH EVERY 6 HOURS methylergonovine 0.2 mg tablet TAKE 1 TA BLET BY MOUTH EVERY 6 HOURS completed methylergonovine maleate 0.2 MG Oral Tablet [place] ([facility]) Fluzone Quad (PF) 60 mcg (15 m cg x 4)/0.5 mL IM syringe INJECT DIRECTED [id number] completed 0.5 ML influenza A virus A/[facility]/[id number] (H1N1) antigen 0.03 MG/ML / influenza A virus A/[facility]/ (H3N2) antigen 0.03 MG/ML / influenza B virus B/[facility] antigen 0.03 MG/ML / influenza B virus B/ antigen 0.03 MG/ML Prefilled Syringe [Fluzone Quadrivalent ] [place] ([facility]) FreeStyle Lancets 28 gauge USE DIRECTED 4 TIMES DAILY [id number] completed FreeStyle Lancets 28 gauge ATH A ([facility]) FreeStyle Lite Meter kit USE DIRECTED 4 TIMES DAILY [id number] completed FreeStyle Lite Meter kit [place] ([facility]) OneTouch Delica Plus Lancet 33 gauge [id number] completed OneTouch Delica Plus Lancet 33 gauge [place] ([facility]) Sertraline 25 MG Oral Tablet sertraline 25 mg tablet TAKE 1 TABLET BY MOUTH ONCE DAILY sertraline 25 mg tablet TAKE 1 TABLET BY MOUTH ONCE DAILY completed sertraline 25 MG Oral Tablet ATH [facility] ([facility]) Sertraline 25 MG Oral Tablet sertraline 25 mg tablet TAKE 1 TABLET BY MOUTH ONCE DAILY sertraline 25 mg tablet TAKE 1 TABLET BY MOUTH ONCE DAILY completed sertraline 25 MG Oral Tablet ATH [facility] ([facility]) OneTouch Verio test strips [id number] comp leted OneTouch Verio test strips [place] ([facility]) Metformin hydrochloride 500 MG Oral Tablet metformin 5 00 mg tablet metformin 500 mg tablet completed metformin hy drochloride 500 MG Oral Tablet [place] ([facility]) d3 50 mcg (2000 ut) caps completed d3 50 mcg (2000 ut) caps [place] ([facility]) FreeStyle Lite Meter kit USE DIRECTED 4 TIMES DAILY [id number] completed FreeStyle Lite Meter kit [place] ([facility]) Cholecalciferol 2000 UNT Oral Capsule ch olecalciferol (vitamin D3) 50 mcg (2,000 unit) capsule TAKE 1 CAPSULE BY MOUTH ONCE DAILY cholecalciferol (vitamin D3) 50 mcg (2,000 unit) capsule TAKE 1 CAPSULE BY MOUTH ONCE DAILY completed cholecalciferol 0.05 MG Oral Cap elaine [place] ([facility]) OneTouch Delica Plus Lancet 33 gauge [id number] completed OneTouch Delica Plus Lancet 33 gauge [place] ([facility]) valacyclovir 500 MG Oral Tablet valacycl ovir 500 mg tablet TAKE 1 CAPLET BY MOUTH TWICE DAILY valacyclovir 500 mg tablet TAKE 1 CAPLET BY MOUTH TWIC E DAILY completed valacyclovir 5 00 MG Oral Tablet [place] ([facility]) Methylergonovine Maleate 0.2 MG Oral Tab let methylergonovine 0.2 mg tablet TAKE 1 TABLET BY MOUTH EVERY 6 HOURS methylergonovine 0.2 mg tablet TAKE 1 TA BLET BY MOUTH EVERY 6 HOURS completed methylergonovine maleate 0.2 MG Oral Tablet [place] ([facility]) Metformin hydrochloride 500 MG Oral Tablet metformin 5 00 mg tablet metformin 500 mg tablet completed metformin hy drochloride 500 MG Oral Tablet [place] ([facility]) Sertraline 25 MG Oral Tablet sertraline 25 mg tablet TAKE 1 TABLET BY MOUTH ONCE DAILY sertraline 25 mg tablet TAKE 1 TABLET BY MOUTH ONCE DAILY completed sertraline 25 MG Oral Tablet ATH [facility] ([facility]) OneTouch Verio test strips [id number] comp leted OneTouch Verio test strips [place] ([facility]) valacyclovir 500 MG Oral Tablet valacycl ovir 500 mg tablet TAKE 1 CAPLET BY MOUTH TWICE DAILY valacyclovir 500 mg tablet TAKE 1 CAPLET BY MOUTH TWIC E DAILY completed valacyclovir 5 00 MG Oral Tablet [place] ([facility]) OneTouch Delica Plus Lancet 33 gauge [id number] completed OneTouch Delica Plus Lancet 33 gauge [place] ([facility]) FreeStyle Lite Meter kit USE DIRECTED 4 TIMES DAILY [id number] completed FreeStyle Lite Meter kit [place] ([facility]) potassium completed potassium [place] ([facility]) valacyclovir 500 MG Oral Tablet valacycl ovir 500 mg tablet TAKE 1 CAPLET BY MOUTH TWICE DAILY valacyclovir 500 mg tablet TAKE 1 CAPLET BY MOUTH TWIC E DAILY completed valacyclovir 5 00 MG Oral Tablet [place] ([facility]) Isopropyl Alcohol 0.7 ML/ML Medicated Pa d BD Alcohol Swabs USE DIRECTED 4 TIMES DAILY BD Alcohol Swabs USE DIRECTED 4 TIMES DAILY completed isopropyl alcohol 0.7 ML/ML Medi cated Pad [place] ([facility]) Amoxicillin 875 MG / Clavulanate 125 MG Oral Tablet amoxicillin 875 mg-potassium clavulanate 125 mg tablet TAKE 1 TABLET BY MOUTH TWICE DAILY FOR 10 DAYS amoxicillin 875 mg-potassium clavulanate 125 mg tablet TAKE 1 TABLET BY MOUTH TWICE DAILY FOR 10 DAYS completed amoxicillin 875 MG / clavulanate 125 MG Oral Tablet [place] ([facility]) Methylergonovine Maleate 0.2 MG Oral Tab let methylergonovine 0.2 mg tablet TAKE 1 TABLET BY MOUTH EVERY 6 HOURS methylergonovine 0.2 mg tablet TAKE 1 TA BLET BY MOUTH EVERY 6 HOURS completed methylergonovine maleate 0.2 MG Oral Tablet [place] ([facility]) OneTouch Verio test strips [id number] comp leted OneTouch Verio test strips [place] ([facility]) Sertraline 25 MG Oral Tablet sertraline 25 mg tablet TAKE 1 TABLET BY MOUTH ONCE DAILY sertraline 25 mg tablet TAKE 1 TABLET BY MOUTH ONCE DAILY completed sertraline 25 MG Oral Tablet ATH [facility] ([facility]) Metformin hydrochloride 500 MG Oral Tablet metformin 5 00 mg tablet metformin 500 mg tablet completed metformin hy drochloride 500 MG Oral Tablet [place] ([facility]) Isopropyl Alcohol 0.7 ML/ML Medicated Pa d BD Alcohol Swabs USE DIRECTED 4 TIMES DAILY BD Alcohol Swabs USE DIRECTED 4 TIMES DAILY completed isopropyl alcohol 0.7 ML/ML Medi cated Pad [place] ([facility]) OneTouch Verio test strips [id number] comp leted OneTouch Verio test strips [place] ([facility]) FreeStyle Lite Meter kit USE DIRECTED 4 TIMES DAILY [id number] completed FreeStyle Lite Meter kit [place] ([facility]) Amoxicillin 875 MG / Clavulanate 125 MG Oral Tablet amoxicillin 875 mg-potassium clavulanate 125 mg tablet TAKE 1 TABLET BY MOUTH TWICE DAILY FOR 10 DAYS amoxicillin 875 mg-potassium clavulanate 125 mg tablet TAKE 1 TABLET BY MOUTH TWICE DAILY FOR 10 DAYS completed amoxicillin 875 MG / clavulanate 125 MG Oral Tablet [place] ([facility]) OneTouch Verio test strips [id number] comp leted OneTouch Verio test strips [place] ([facility]) Fluzone Quad [id number] (PF) 60 mcg (15 m cg x 4)/0.5 mL IM syringe INJECT DIRECTED [id number] completed 0.5 ML influenza A virus A/[facility]/[id number] (H1N1) antigen 0.03 MG/ML / influenza A virus A/[facility] (H3N2) antigen 0.03 MG/ML / influenza B virus B/[facility] antigen 0.03 MG/ML / influenza B virus B/ antigen 0.03 MG/ML Prefilled Syringe [Fluzone Quadrivalent ] [place] ([facility]) FreeStyle Lite Meter kit USE DIRECTED 4 TIMES DAILY [id number] completed FreeStyle Lite Meter kit [facility]) Sertraline 50 MG Oral Tablet sertraline 50 mg tablet sertraline 50 mg tablet completed sertraline 50 MG Oral Tablet [place] ([facility]) potassium completed potassium [place] ([facility]) Methylergonovine Maleate 0.2 MG Oral Tab let methylergonovine 0.2 mg tablet TAKE 1 TABLET BY MOUTH EVERY 6 HOURS methylergonovine 0.2 mg tablet TAKE 1 TA BLET BY MOUTH EVERY 6 HOURS completed methylergonovine maleate 0.2 MG Oral Tablet [place] ([facility]) Cholecalciferol 2000 UNT Oral Capsule ch olecalciferol (vitamin D3) 50 mcg (2,000 unit) capsule TAKE 1 CAPSULE BY MOUTH ONCE DAILY cholecalciferol (vitamin D3) 50 mcg (2,000 unit) capsule TAKE 1 CAPSULE BY MOUTH ONCE DAILY completed cholecalciferol 0.05 MG Oral Cap elaine [place] ([facility]) Isopropyl Alcohol 0.7 ML/ML Medicated Pa d BD Alcohol Swabs USE DIRECTED 4 TIMES DAILY BD Alcohol Swabs USE DIRECTED 4 TIMES DAILY completed isopropyl alcohol 0.7 ML/ML Medi cated Pad [place] ([facility]) Isopropyl Alcohol 0.7 ML/ML Medicated Pa d BD Alcohol Swabs USE DIRECTED 4 TIMES DAILY BD Alcohol Swabs USE DIRECTED 4 TIMES DAILY completed isopropyl alcohol 0.7 ML/ML Medi cated Pad [place] ([facility]) Isopropyl Alcohol 0.7 ML/ML Medicated Pa d BD Alcohol Swabs USE DIRECTED 4 TIMES DAILY BD Alcohol Swabs USE DIRECTED 4 TIMES DAILY completed isopropyl alcohol 0.7 ML/ML Medi cated Pad [place] ([facility]) Metformin hydrochloride 500 MG Oral Tablet metformin 5 00 mg tablet metformin 500 mg tablet completed metformin hy drochloride 500 MG Oral Tablet [place] ([facility]) Fluzone Quad (PF) 60 mcg (15 m cg x 4)/0.5 mL IM syringe INJECT DIRECTED [id number] completed 0.5 ML influenza A virus A/[facility]/[id number] (H1N1) antigen 0.03 MG/ML / influenza A virus A/[facility] (H3N2) antigen 0.03 MG/ML / influenza B virus B/[facility]30707/2012 antigen 0.03 MG/ML / influenza B virus B/ antigen 0.03 MG/ML Prefilled Syringe [Fluzone Quadrivalent ] [place] ([facility]) Metformin hydrochloride 500 MG Oral Tablet metformin 5 00 mg tablet metformin 500 mg tablet completed metformin hy drochloride 500 MG Oral Tablet [place] ([facility]) OneTouch Delica Plus Lancet 33 gauge [id number] completed OneTouch Delica Plus Lancet 33 gauge [place] ([facility]) Methylergonovine Maleate 0.2 MG Oral Tab let methylergonovine 0.2 mg tablet TAKE 1 TABLET BY MOUTH EVERY 6 HOURS methylergonovine 0.2 mg tablet TAKE 1 TA BLET BY MOUTH EVERY 6 HOURS completed methylergonovine maleate 0.2 MG Oral Tablet [place] ([facility]) valacyclovir 500 MG Oral Tablet valacycl ovir 500 mg tablet TAKE 1 CAPLET BY MOUTH TWICE DAILY valacyclovir 500 mg tablet TAKE 1 CAPLET BY MOUTH TWIC E DAILY completed valacyclovir 5 00 MG Oral Tablet [place] ([facility]) Isopropyl Alcohol 0.7 ML/ML Medicated Pa d BD Alcohol Swabs USE DIRECTED 4 TIMES DAILY BD Alcohol Swabs USE DIRECTED 4 TIMES DAILY completed isopropyl alcohol 0.7 ML/ML Medi cated Pad [place] ([facility]) OneTouch Delica Plus Lancet 33 gauge [id number] completed OneTouch Delica Plus Lancet 33 gauge [place] ([facility]) potassium completed potassium [place] ([facility]) OneTouch Verio test strips [id number] comp leted OneTouch Verio test strips [place] ([facility]) valacyclovir 500 MG Oral Tablet valacycl ovir 500 mg tablet TAKE 1 CAPLET BY MOUTH TWICE DAILY valacyclovir 500 mg tablet TAKE 1 CAPLET BY MOUTH TWIC E DAILY completed valacyclovir 5 00 MG Oral Tablet [place] ([facility]) Methylergonovine Maleate 0.2 MG Oral Tab let methylergonovine 0.2 mg tablet TAKE 1 TABLET BY MOUTH EVERY 6 HOURS methylergonovine 0.2 mg tablet TAKE 1 TA BLET BY MOUTH EVERY 6 HOURS completed methylergonovine maleate 0.2 MG Oral Tablet [place] ([facility]) Metformin hydrochloride 500 MG Oral Tablet metformin 5 00 mg tablet metformin 500 mg tablet completed metformin hy drochloride 500 MG Oral Tablet [place] ([facility]) Methylergonovine Maleate 0.2 MG Oral Tab let methylergonovine 0.2 mg tablet TAKE 1 TABLET BY MOUTH EVERY 6 HOURS methylergonovine 0.2 mg tablet TAKE 1 TA BLET BY MOUTH EVERY 6 HOURS completed methylergonovine maleate 0.2 MG Oral Tablet [place] ([facility]) OneTouch Verio test strips [id number] comp leted OneTouch Verio test strips [place] ([facility]) valacyclovir 500 MG Oral Tablet valacycl ovir 500 mg tablet TAKE 1 CAPLET BY MOUTH TWICE DAILY valacyclovir 500 mg tablet TAKE 1 CAPLET BY MOUTH TWIC E DAILY completed valacyclovir 5 00 MG Oral Tablet [place] ([facility]) valacyclovir 500 MG Oral Tablet valacycl ovir 500 mg tablet TAKE 1 CAPLET BY MOUTH TWICE DAILY valacyclovir 500 mg tablet TAKE 1 CAPLET BY MOUTH TWIC E DAILY completed valacyclovir 5 00 MG Oral Tablet [place] ([facility]) OneTouch Delica Plus Lancet 33 gauge [id number] completed OneTouch Delica Plus Lancet 33 gauge [place] ([facility]) FreeStyle Lancets 28 gauge USE DIRECTED 4 TIMES DAILY [id number] completed FreeStyle Lancets 28 gauge ATH A ([facility]) completed AT [facility] ([facility]) Isopropyl Alcohol 0.7 ML/ML Medicated Pa d BD Alcohol Swabs USE DIRECTED 4 TIMES DAILY BD Alcohol Swabs USE DIRECTED 4 TIMES DAILY completed isopropyl alcohol 0.7 ML/ML Medi cated Pad [place] ([facility]) Sertraline 25 MG Oral Tablet sertraline 25 mg tablet TAKE 1 TABLET BY MOUTH ONCE DAILY sertraline 25 mg tablet TAKE 1 TABLET BY MOUTH ONCE DAILY completed sertraline 25 MG Oral Tablet ATH [facility] ([facility]) OneTouch Delica Plus Lancet 33 gauge [id number] completed OneTouch Delica Plus Lancet 33 gauge [place] ([facility]) OneTouch Verio test strips [id number] comp leted OneTouch Verio test strips [place] ([facility]) d3 50 mcg (2000 ut) caps completed d3 50 mcg (1999 ut) caps [place] ([facility]) valacyclovir 500 MG Oral Tablet valacycl ovir 500 mg tablet TAKE 1 CAPLET BY MOUTH TWICE DAILY valacyclovir 500 mg tablet TAKE 1 CAPLET BY MOUTH TWIC E DAILY completed valacyclovir 5 00 MG Oral Tablet [place] ([facility]) Isopropyl Alcohol 0.7 ML/ML Medicated Pa d BD Alcohol Swabs USE DIRECTED 4 TIMES DAILY BD Alcohol Swabs USE DIRECTED 4 TIMES DAILY completed isopropyl alcohol 0.7 ML/ML Medi cated Pad [place] ([facility]) OneTouch Delica Plus Lancet 33 gauge [id number] completed OneTouch Delica Plus Lancet 33 gauge [place] ([facility]) valacyclovir 500 MG Oral Tablet valacycl ovir 500 mg tablet TAKE 1 CAPLET BY MOUTH TWICE DAILY valacyclovir 500 mg tablet TAKE 1 CAPLET BY MOUTH TWIC E DAILY completed valacyclovir 5 00 MG Oral Tablet [place] ([facility]) Metformin hydrochloride 500 MG Oral Tablet metformin 5 00 mg tablet metformin 500 mg tablet completed metformin hy drochloride 500 MG Oral Tablet [place] ([facility]) valacyclovir 500 MG Oral Tablet valacycl ovir 500 mg tablet TAKE 1 CAPLET BY MOUTH TWICE DAILY valacyclovir 500 mg tablet TAKE 1 CAPLET BY MOUTH TWIC E DAILY completed valacyclovir 5 00 MG Oral Tablet [place] ([facility]) OneTouch Verio test strips [id number] comp leted OneTouch Verio test strips [place] ([facility]) Sertraline 25 MG Oral Tablet sertraline 25 mg tablet TAKE 1 TABLET BY MOUTH ONCE DAILY sertraline 25 mg tablet TAKE 1 TABLET BY MOUTH ONCE DAILY completed sertraline 25 MG Oral Tablet ATH [facility] ([facility]) FreeStyle Lancets 28 gauge USE DIRECTED 4 TIMES DAILY [id number] completed FreeStyle Lancets 28 gauge [facility] A ([facility]) Metformin hydrochloride 500 MG Oral Tablet metformin 5 00 mg tablet metformin 500 mg tablet completed metformin hy drochloride 500 MG Oral Tablet [place] ([facility]) FreeStyle Lancets 28 gauge USE DIRECTED 4 TIMES DAILY [id number] completed FreeStyle Lancets 28 gauge [facility] A ([facility]) FreeStyle Lancets 28 gauge USE DIRECTED 4 TIMES DAILY 614505 completed FreeStyle Lancets 28 gauge ATH [facility] ([facility]) FreeStyle Lite Meter kit USE DIRECTED 4 TIMES DAILY 964946 completed FreeStyle Lite Meter kit [place] ([facility]) FreeStyle Lite Meter kit USE DIRECTED 4 TIMES DAILY 616927 completed FreeStyle Lite Meter kit [place] ([facility]) OneTouch Verio test strips [id number] comp leted OneTouch Verio test strips [place] ([facility]) Methylergonovine Maleate 0.2 MG Oral Tab let methylergonovine 0.2 mg tablet TAKE 1 TABLET BY MOUTH EVERY 6 HOURS methylergonovine 0.2 mg tablet TAKE 1 TA BLET BY MOUTH EVERY 6 HOURS completed methylergonovine maleate 0.2 MG Oral Tablet [place] ([facility]) potassium completed potassium [place] ([facility]) Amoxicillin 875 MG / Clavulanate 125 MG Oral Tablet amoxicillin 875 mg-potassium clavulanate 125 mg tablet TAKE 1 TABLET BY MOUTH TWICE DAILY FOR 10 DAYS amoxicillin 875 mg-potassium clavulanate 125 mg tablet TAKE 1 TABLET BY MOUTH TWICE DAILY FOR 10 DAYS completed amoxicillin 875 MG / clavulanate 125 MG Oral Tablet [place] ([facility]) OneTouch Verio test strips [id number] comp leted OneTouch Verio test strips [place] ([facility]) Isopropyl Alcohol 0.7 ML/ML Medicated Pa d BD Alcohol Swabs USE DIRECTED 4 TIMES DAILY BD Alcohol Swabs USE DIRECTED 4 TIMES DAILY completed isopropyl alcohol 0.7 ML/ML Medi cated Pad [place] ([facility]) OneTouch Delica Plus Lancet 33 gauge [id number] completed OneTouch Delica Plus Lancet 33 gauge [place] ([facility]) immunization admin fee USE DIRECTED completed immunization admin fee [place] ([facility]) FreeStyle Lite Meter kit USE DIRECTED 4 TIMES DAILY 055817 completed FreeStyle Lite Meter kit [place] ([facility]) valacyclovir 500 MG Oral Tablet valacycl ovir 500 mg tablet TAKE 1 CAPLET BY MOUTH TWICE DAILY valacyclovir 500 mg tablet TAKE 1 CAPLET BY MOUTH TWIC E DAILY completed valacyclovir 5 00 MG Oral Tablet [place] ([facility]) Isopropyl Alcohol 0.7 ML/ML Medicated Pa d BD Alcohol Swabs USE DIRECTED 4 TIMES DAILY BD Alcohol Swabs USE DIRECTED 4 TIMES DAILY completed isopropyl alcohol 0.7 ML/ML Medi cated Pad [place] ([facility]) Amoxicillin 875 MG / Clavulanate 125 MG Oral Tablet amoxicillin 875 mg-potassium clavulanate 125 mg tablet TAKE 1 TABLET BY MOUTH TWICE DAILY FOR 10 DAYS amoxicillin 875 mg-potassium clavulanate 125 mg tablet TAKE 1 TABLET BY MOUTH TWICE DAILY FOR 10 DAYS completed amoxicillin 875 MG / clavulanate 125 MG Oral Tablet [place] ([facility]) Isopropyl Alcohol 0.7 ML/ML Medicated Pa d BD Alcohol Swabs USE DIRECTED 4 TIMES DAILY BD Alcohol Swabs USE DIRECTED 4 TIMES DAILY completed isopropyl alcohol 0.7 ML/ML Medi cated Pad [place] ([facility]) completed AT [facility] ([facility]) OneTouch Delica Plus Lancet 33 gauge [id number] completed OneTouch Delica Plus Lancet 33 gauge [place] ([facility]) immunization admin fee USE DIRECTED completed immunization admin fee [place] ([facility]) completed AT [facility]) Methylergonovine Maleate 0.2 MG Oral Tab let methylergonovine 0.2 mg tablet TAKE 1 TABLET BY MOUTH EVERY 6 HOURS methylergonovine 0.2 mg tablet TAKE 1 TA BLET BY MOUTH EVERY 6 HOURS completed methylergonovine maleate 0.2 MG Oral Tablet [place] ([facility]) Cholecalciferol 2000 UNT Oral Capsule ch olecalciferol (vitamin D3) 50 mcg (2,000 unit) capsule TAKE 1 CAPSULE BY MOUTH ONCE DAILY cholecalciferol (vitamin D3) 50 mcg (2,000 unit) capsule TAKE 1 CAPSULE BY MOUTH ONCE DAILY completed cholecalciferol 0.05 MG Oral Cap elaine [place] ([facility]) Methylergonovine Maleate 0.2 MG Oral Tab let methylergonovine 0.2 mg tablet TAKE 1 TABLET BY MOUTH EVERY 6 HOURS methylergonovine 0.2 mg tablet TAKE 1 TA BLET BY MOUTH EVERY 6 HOURS completed methylergonovine maleate 0.2 MG Oral Tablet [place] ([facility]) Amoxicillin 875 MG / Clavulanate 125 MG Oral Tablet amoxicillin 875 mg-potassium clavulanate 125 mg tablet TAKE 1 TABLET BY MOUTH TWICE DAILY FOR 10 DAYS amoxicillin 875 mg-potassium clavulanate 125 mg tablet TAKE 1 TABLET BY MOUTH TWICE DAILY FOR 10 DAYS completed amoxicillin 875 MG / clavulanate 125 MG Oral Tablet [place] ([facility]) Methylergonovine Maleate 0.2 MG Oral Tab let methylergonovine 0.2 mg tablet TAKE 1 TABLET BY MOUTH EVERY 6 HOURS methylergonovine 0.2 mg tablet TAKE 1 TA BLET BY MOUTH EVERY 6 HOURS completed methylergonovine maleate 0.2 MG Oral Tablet [place] ([facility]) OneTouch Verio test strips [id number] comp leted OneTouch Verio test strips [place] ([facility]) d3 50 mcg (1999 ut) caps completed d3 50 mcg (1999 ut) caps [place] ([facility]) OneTouch Delica Plus Lancet 33 gauge [id number] completed OneTouch Delica Plus Lancet 33 gauge [place] ([facility]) valacyclovir 500 MG Oral Tablet valacycl ovir 500 mg tablet TAKE 1 CAPLET BY MOUTH TWICE DAILY valacyclovir 500 mg tablet TAKE 1 CAPLET BY MOUTH TWIC E DAILY completed valacyclovir 5 00 MG Oral Tablet [place] ([facility]) immunization admin fee USE DIRECTED completed immunization admin fee [place] ([facility]) OneTouch Verio test strips [id number] comp leted OneTouch Verio test strips [place] ([facility]) Methylergonovine Maleate 0.2 MG Oral Tab let methylergonovine 0.2 mg tablet TAKE 1 TABLET BY MOUTH EVERY 6 HOURS methylergonovine 0.2 mg tablet TAKE 1 TA BLET BY MOUTH EVERY 6 HOURS completed methylergonovine maleate 0.2 MG Oral Tablet [place] ([facility]) OneTouch Delica Plus Lancet 33 gauge [id number] completed OneTouch Delica Plus Lancet 33 gauge [place] ([facility]) Amoxicillin 875 MG / Clavulanate 125 MG Oral Tablet amoxicillin 875 mg-potassium clavulanate 125 mg tablet TAKE 1 TABLET BY MOUTH TWICE DAILY FOR 10 DAYS amoxicillin 875 mg-potassium clavulanate 125 mg tablet TAKE 1 TABLET BY MOUTH TWICE DAILY FOR 10 DAYS completed amoxicillin 875 MG / clavulanate 125 MG Oral Tablet [place] ([facility]) Sertraline 25 MG Oral Tablet sertraline 25 mg tablet TAKE 1 TABLET BY MOUTH ONCE DAILY sertraline 25 mg tablet TAKE 1 TABLET BY MOUTH ONCE DAILY completed sertraline 25 MG Oral Tablet ATH SEMAJ ([facility]) Methylergonovine Maleate 0.2 MG Oral Tab let methylergonovine 0.2 mg tablet TAKE 1 TABLET BY MOUTH EVERY 6 HOURS methylergonovine 0.2 mg tablet TAKE 1 TA BLET BY MOUTH EVERY 6 HOURS completed methylergonovine maleate 0.2 MG Oral Tablet [place] ([facility]) potassium completed potassium [place] ([facility]) potassium completed potassium [place] ([facility]) valacyclovir 500 MG Oral Tablet valacycl ovir 500 mg tablet TAKE 1 CAPLET BY MOUTH TWICE DAILY valacyclovir 500 mg tablet TAKE 1 CAPLET BY MOUTH TWIC E DAILY completed valacyclovir 5 00 MG Oral Tablet [place] ([facility]) Metformin hydrochloride 500 MG Oral Tablet metformin 5 00 mg tablet metformin 500 mg tablet completed metformin hy drochloride 500 MG Oral Tablet [place] ([facility]) FreeStyle Lancets 28 gauge USE DIRECTED 4 TIMES DAILY [id number] completed FreeStyle Lancets 28 gauge ATHEN A ([facility]) FreeStyle Lancets 28 gauge USE DIRECTED 4 TIMES DAILY [id number] completed FreeStyle Lancets 28 gauge ATH A ([facility]) OneTouch Verio test strips [id number] comp leted OneTouch Verio test strips [place] ([facility]) Fluzone Quad [id number] (PF) 60 mcg (15 m cg x 4)/0.5 mL IM syringe INJECT DIRECTED [id number] completed 0.5 ML influenza A virus A/[facility]/[id number] (H1N1) antigen 0.03 MG/ML / influenza A virus A/ (H3N2) antigen 0.03 MG/ML / influenza B virus B/[facility] antigen 0.03 MG/ML / influenza B virus B/ antigen 0.03 MG/ML Prefilled Syringe [Fluzone Quadrivalent ] [place] ([facility]) Sertraline 25 MG Oral Tablet sertraline 25 mg tablet TAKE 1 TABLET BY MOUTH ONCE DAILY sertraline 25 mg tablet TAKE 1 TABLET BY MOUTH ONCE DAILY completed sertraline 25 MG Oral Tablet ATH SEMAJ ([facility]) OneTouch Verio test strips [id number] comp leted OneTouch Verio test strips [place] ([facility]) FreeStyle Lite Meter kit USE DIRECTED 4 TIMES DAILY 797903 completed FreeStyle Lite Meter kit [place] ([facility]) Metformin hydrochloride 500 MG Oral Tablet metformin 5 00 mg tablet metformin 500 mg tablet completed metformin hy drochloride 500 MG Oral Tablet [place] ([facility]) Isopropyl Alcohol 0.7 ML/ML Medicated Pa d BD Alcohol Swabs USE DIRECTED 4 TIMES DAILY BD Alcohol Swabs USE DIRECTED 4 TIMES DAILY completed isopropyl alcohol 0.7 ML/ML Medi cated Pad [place] ([facility]) FreeStyle Lancets 28 gauge USE DIRECTED 4 TIMES DAILY 682784 completed FreeStyle Lancets [address] [facility] A ([facility]) FreeStyle Lancets 28 gauge USE DIRECTED 4 TIMES DAILY 274031 completed FreeStyle Lancets 28 gauge [facility] ([facility]) potassium completed potassium [place] ([facility]) FreeStyle Lite Meter kit USE DIRECTED 4 TIMES DAILY 322867 completed FreeStyle Lite Meter kit [place] ([facility]) Fluzone Quad (PF) 60 mcg (15 m cg x 4)/0.5 mL IM syringe INJECT DIRECTED [id number] completed 0.5 ML influenza A virus A/[facility]/[id number] (H1N1) antigen 0.03 MG/ML / influenza A virus A/ (H3N2) antigen 0.03 MG/ML / influenza B virus B/[facility] antigen 0.03 MG/ML / influenza B virus B/[facility] antigen 0.03 MG/ML Prefilled Syringe [Fluzone Quadrivalent ] [place] ([facility]) Metformin hydrochloride 500 MG Oral Tablet metformin 5 00 mg tablet metformin 500 mg tablet completed metformin hy drochloride 500 MG Oral Tablet [place] ([facility]) FreeStyle Lancets 28 gauge USE DIRECTED 4 TIMES DAILY 551572 completed FreeStyle Lancets 28 gauge ATHEN A ([facility]) potassium completed potassium [place] ([facility]) Isopropyl Alcohol 0.7 ML/ML Medicated Pa d BD Alcohol Swabs USE DIRECTED 4 TIMES DAILY BD Alcohol Swabs USE DIRECTED 4 TIMES DAILY completed isopropyl alcohol 0.7 ML/ML Medi cated Pad [place] ([facility]) FreeStyle Lancets 28 gauge USE DIRECTED 4 TIMES DAILY 254634 completed FreeStyle Lancets 28 gauge ATHEN A ([facility]) FreeStyle Lancets 28 gauge USE DIRECTED 4 TIMES DAILY 152335 completed FreeStyle Lancets 28 gauge ATHEN A ([facility]) valacyclovir 500 MG Oral Tablet valacycl ovir 500 mg tablet TAKE 1 CAPLET BY MOUTH TWICE DAILY valacyclovir 500 mg tablet TAKE 1 CAPLET BY MOUTH TWIC E DAILY completed valacyclovir 5 00 MG Oral Tablet [place] ([facility]) Sertraline 25 MG Oral Tablet sertraline 25 mg tablet TAKE 1 TABLET BY MOUTH ONCE DAILY sertraline 25 mg tablet TAKE 1 TABLET BY MOUTH ONCE DAILY completed sertraline 25 MG Oral Tablet ATH SEMAJ ([facility]) Sertraline 50 MG Oral Tablet sertraline 50 mg tablet sertraline 50 mg tablet completed sertraline 50 MG Oral Tablet [place] ([facility]) Isopropyl Alcohol 0.7 ML/ML Medicated Pa d BD Alcohol Swabs USE DIRECTED 4 TIMES DAILY BD Alcohol Swabs USE DIRECTED 4 TIMES DAILY completed isopropyl alcohol 0.7 ML/ML Medi cated Pad [place] ([facility]) Metformin hydrochloride 500 MG Oral Tablet metformin 5 00 mg tablet metformin 500 mg tablet completed metformin hy drochloride 500 MG Oral Tablet [place] ([facility]) FreeStyle Lancets 28 gauge USE DIRECTED 4 TIMES DAILY 192425 completed FreeStyle Lancets 28 gauge ATHEN A ([facility]) Fluzone Quad [id number] (PF) 60 mcg (15 m cg x 4)/0.5 mL IM syringe INJECT DIRECTED [id number] completed 0.5 ML influenza A virus A/[facility][id number] (H1N1) antigen 0.03 MG/ML / influenza A virus A/[facility] (H3N2) antigen 0.03 MG/ML / influenza B virus B/[facility] antigen 0.03 MG/ML / influenza B virus B/ antigen 0.03 MG/ML Prefilled Syringe [Fluzone Quadrivalent ] [place] ([facility]) Sertraline 50 MG Oral Tablet sertraline 50 mg tablet sertraline 50 mg tablet completed sertraline 50 MG Oral Tablet [place] ([facility]) Methylergonovine Maleate 0.2 MG Oral Tab let methylergonovine 0.2 mg tablet TAKE 1 TABLET BY MOUTH EVERY 6 HOURS methylergonovine 0.2 mg tablet TAKE 1 TA BLET BY MOUTH EVERY 6 HOURS completed methylergonovine maleate 0.2 MG Oral Tablet [place] ([facility]) OneTouch Delica Plus Lancet 33 gauge 753498 completed OneTouch Delica Plus Lancet 33 gauge [place] ([facility]) FreeStyle Lite Meter kit USE DIRECTED 4 TIMES DAILY 831138 completed FreeStyle Lite Meter kit [place] ([facility]) OneTouch Delica Plus Lancet 33 gauge 262668 completed OneTouch Delica Plus Lancet 33 gauge [place] ([facility]) FreeStyle Lancets 28 gauge USE DIRECTED 4 TIMES DAILY 407836 completed FreeStyle Lancets 28 gauge ATHEN A ([facility]) Methylergonovine Maleate 0.2 MG Oral Tab let methylergonovine 0.2 mg tablet TAKE 1 TABLET BY MOUTH EVERY 6 HOURS methylergonovine 0.2 mg tablet TAKE 1 TA BLET BY MOUTH EVERY 6 HOURS completed methylergonovine maleate 0.2 MG Oral Tablet [place] ([facility]) OneTouch Delica Plus Lancet 33 gauge 042642 completed OneTouch Delica Plus Lancet 33 gauge [place] ([facility]) Insurance Providers Payer name Policy type / Coverage type Policy ID Covered democrat ID Covered democrat's relationship to rodriguez Policy Rodriguez Plan Information [facility] Health Maintenance Organization (HMO) [id number] Self [id number] [employer] [place] [employer] [id number] Self [id number] [employer] [id number] Self [id number] [employer] [id number] Self [id number] [employer] [employer] [id number] Self [id number] formerly [facility] / [id number] Self [id number] EMEDNY [id number] SP [id number] ANSI-Medicaid [id number] ANSI-Medicaid [id number] ANSI-Medicaid [id number] ANSI-Medicaid [id number] ANSI-Medicaid [id number] ANSI-Medicaid [id number] ANSI-Medicaid [id number] ANSI-Medicaid [id number] ANSI-Medicaid [id number] ANSI-Medicaid [id number] ANSI-Medicaid [id number] ANSI-Medicaid [id number] ANSI-Medicaid [id number] ANSI-Medicaid [id number] ANSI-Medicaid [id number] ANSI-Medicaid [id number] ANSI-Medicaid [id number] ANSI-Medicaid [id number] ANSI-Medicaid [id number] ANSI-Medicaid [id number] ANSI-Medicaid [id number] ANSI-Medicaid [id number] ANSI-Medicaid [id number] ANSI-Medicaid [id number] ANSI-Medicaid [id number] ANSI-Medicaid [id number] ANSI-Medicaid [id number] ANSI-Medicaid [id number] ANSI-Medicaid [id number] ANSI-Medicaid [id number] ANSI-Medicaid [id number] ANSI-Medicaid [id number] ANSI-Medicaid [id number] ANSI-Medicaid [id number] MEDICAID M [id number] S [id number] MEDICAID [id number] SP [id number] [facility] [id number] [facility] [id number] [facility] [id number] Self [id number] Health Net Fed Standard Health Maintenance Organization (HMO) [id number] Family Dependent [id number] [place] Med[place] [id number] Self Health Net Fed Standard Health Maintenance Organization (HMO) [id number] Family Dependent [facility] O [id number] P [id number] [facility] O [id number] S [id number] D Managed Care [facility] O [id number] S [id number] Managed Care BCBS P [id number] S [id number] Medicaid Dental O [id number] S [id number] Medicaid S [id number] S [id number] D Excellus BCBS Dental O [id number] O [id number] Excellus BCYO O [id number] O [place] [id number] BLUE CROSS AGEE PLAN [id number] SP [id number] UNHC COMMUNITY PLAN MCDO [id number] SP [id number] HMO BLUE [id number] SP [id number] UNHC COMMUNITY PLAN MCDHMO [id number] SP [id number] [place] MEDICA[place] [id number] SP [id number] N UNHC COMMUNITY PLAN MCDHMO [id number] SP [id number] EMEDNY [id number] SP [id number] UNHC COMMUNITY PLAN MCDO [id number] SP [id number] Problems, Conditions, and Diagnoses Code Display Name Description Problem Type Effective Dates Data Source(s) 976100671 Cognitive disorder Cognitive Disorder Problem 10/2020 12:00:00 AM EDT [facility] ([facility]) 264392575 Cognitive disorder Cognitive Disorder Problem 10/2020 12:00:00 AM EDT [place] ([facility]) 279124153 Cognitive disorder Cognitive Disorder Problem 10/2020 12:00:00 AM EDT [place] ([facility]) 62510002 Cervical radiculopathy Cervical radiculopathy Problem 01/08/2021 12:00:00 AM EDT MEDENT ([facility]) 159480336 Ulnar neuropathy Ulnar neuropathy Problem 01/08/2021 12 :00:00 AM EDT MEDENT ([facility]) 66388332 Carpal tunnel syndrome Carpal tunnel syndrome Problem 01/08/2021 12:00:00 AM EDT MEDNABILA ([facility]) 474811663 Numbness of hand Numbness of hand Problem 01/08/2021 12 :00:00 AM EDT MEDNABILA ([facility]) 402909152 Nicotine dependence with current use Sanjeev otine Dependence with Current Use Problem 11/22/2020 12:00:00 AM EDT [place] ([facility]) [id number] 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 Problem 11/22/2020 12:00:00 AM EDT [place] ([facility]) 33141764 Vitamin D deficiency Vitamin D Deficiency Problem 11/22/2020 12:00:00 AM EDT [place] ([facility]) 686100833 Nicotine dependence with current use Sanjeev otine Dependence with Current Use Problem 11/22/2020 12:00:00 AM EDT [place] ([facility]) [id number] 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 Problem 11/22/2020 12:00:00 AM EDT [place] ([facility]) 64381216 Vitamin D deficiency Vitamin D Deficiency Problem 11/22/2020 12:00:00 AM EDT [place] ([facility]) [id number] 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 Problem 11/22/2020 12:00:00 AM EDT [place] ([facility]) 57508068 Vitamin D deficiency Vitamin D Deficiency Problem 11/22/2020 12:00:00 AM EDT [place] ([facility]) 426028758 Nicotine dependence with current use Sanjeev otine Dependence with Current Use Problem 11/22/2020 12:00:00 AM EDT [place] ([facility]) [id number] 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 Problem 11/22/2020 12:00:00 AM EDT [place] ([facility]) 27984226 Vitamin D deficiency Vitamin D Deficiency Problem 11/22/2020 12:00:00 AM EDT [place] ([facility]) 084635048 Nicotine dependence with current use Sanjeev otine Dependence with Current Use Problem 11/22/2020 12:00:00 AM EDT [place] ([facility]) [id number] 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 Problem 11/22/2020 12:00:00 AM EDT [place] ([facility]) 53530610 Vitamin D deficiency Vitamin D Deficiency Problem 11/22/2020 12:00:00 AM EDT [place] ([facility]) 152374952 Nicotine dependence with current use Sanjeev otine Dependence with Current Use Problem 11/22/2020 12:00:00 AM EDT [place] ([facility]) [id number] 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 Problem 11/22/2020 12:00:00 AM EDT [place] ([facility]) 36710370 Vitamin D deficiency Vitamin D Deficiency Problem 11/22/2020 12:00:00 AM EDT [place] ([facility]) 885856531 Nicotine dependence with current use Sanjeev otine Dependence with Current Use Problem 11/22/2020 12:00:00 AM EDT [place] ([facility]) [id number] 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 Problem 11/22/2020 12:00:00 AM EDT [place] ([facility]) 08500170 Vitamin D deficiency Vitamin D Deficiency Problem 11/22/2020 12:00:00 AM EDT [place] ([facility]) 215536422 Nicotine dependence with current use Sanjeev otine Dependence with Current Use Problem 11/22/2020 12:00:00 AM EDT [place] ([facility]) 169956429 Nicotine dependence with current use Sanjeev otine Dependence with Current Use Problem 11/22/2020 12:00:00 AM EDT [place] ([facility]) [id number] 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 Problem 11/22/2020 12:00:00 AM EDT [place] ([facility]) 91602527 Vitamin D deficiency Vitamin D Deficiency Problem 11/22/2020 12:00:00 AM EDT [place] ([facility]) 578899174 Nicotine dependence with current use Sanjeev otine Dependence with Current Use Problem 11/22/2020 12:00:00 AM EDT [place] ([facility]) [id number] 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 Problem 11/22/2020 12:00:00 AM EDT [place] ([facility]) 33426465 Vitamin D deficiency Vitamin D Deficiency Problem 11/22/2020 12:00:00 AM EDT [place] ([facility]) 204894230 Anxiety disorder Anxiety Disorder Problem 09/07/2020 12 :00:00 AM EDT [place] ([facility]) 877457799 Anxiety disorder Anxiety Disorder Problem 09/07/2020 12 :00:00 AM EDT [place] ([facility]) 137676187 Anxiety disorder Anxiety Disorder Problem 09/07/2020 12 :00:00 AM EDT [place] ([facility]) 360450256 Anxiety disorder Anxiety Disorder Problem 09/07/2020 12 :00:00 AM EDT [place] ([facility]) 991832462 Anxiety disorder Anxiety Disorder Problem 09/07/2020 12 :00:00 AM EDT [place] ([facility]) 541559150 Anxiety disorder Anxiety Disorder Problem 09/07/2020 12 :00:00 AM EDT [place] ([facility]) 799002099 Anxiety disorder Anxiety Disorder Problem 09/07/2020 12 :00:00 AM EDT [place] ([facility]) 315503223 Anxiety disorder Anxiety Disorder Problem 09/07/2020 12 :00:00 AM EDT [place] ([facility]) 376735076 Anxiety disorder Anxiety Disorder Problem 09/07/2020 12 :00:00 AM EDT [place] ([facility]) 946103062 Anxiety disorder Anxiety Disorder Problem 09/07/2020 12 :00:00 AM EDT [place] ([facility]) 931835948 Anxiety disorder Anxiety Disorder Problem 09/07/2020 12 :00:00 AM EDT [place] ([facility]) 746005036 Anxiety disorder Anxiety Disorder Problem 09/07/2020 12 :00:00 AM EDT [place] ([facility]) 405493587 Anxiety disorder Anxiety Disorder Problem 09/07/2020 12 :00:00 AM EDT [place] ([facility]) 454769143 Anxiety disorder Anxiety Disorder Problem 09/07/2020 12 :00:00 AM EDT [place] ([facility]) Z86.32 [id number] History of gestational diabetes Problem 08/29/2020 12:00:00 AM EDT eCW1 ([facility]) 890039346 History of asthma History of Asthma Problem 08/25 12:00:00 AM EDT [place] ([facility]) 34490479 Dissociative disorder Dissociative Disorder Problem 08/25/2020 12:00:00 AM EDT [place] ([facility]) 382695384 History of asthma History of Asthma Problem 08/25 12:00:00 AM EDT [place] ([facility]) 25225793 Dissociative disorder Dissociative Disorder Problem 08/25/2020 12:00:00 AM EDT [place] ([facility]) 012834781 History of asthma History of Asthma Problem 08/25 12:00:00 AM EDT [place] ([facility]) 59315089 Dissociative disorder Dissociative Disorder Problem 08/25/2020 12:00:00 AM EDT [place] ([facility]) 658794025 History of asthma History of Asthma Problem 08/25 12:00:00 AM EDT [place] ([facility]) 10591534 Dissociative disorder Dissociative Disorder Problem 08/25/2020 12:00:00 AM EDT [place] ([facility]) 375549329 History of asthma History of Asthma Problem 08/25 12:00:00 AM EDT [place] ([facility]) 48388703 Dissociative disorder Dissociative Disorder Problem 08/25/2020 12:00:00 AM EDT [place] ([facility]) 046127930 History of asthma History of Asthma Problem 08/25 12:00:00 AM EDT [place] ([facility]) 61322489 Dissociative disorder Dissociative Disorder Problem 08/25/2020 12:00:00 AM EDT [place] ([facility]) 266046163 History of asthma History of Asthma Problem 08/25 12:00:00 AM EDT [facility] ([facility]) 70321325 Dissociative disorder Dissociative Disorder Problem 08/25/2020 12:00:00 AM EDT [place] ([facility]) 058084940 History of asthma History of Asthma Problem 08/25 12:00:00 AM EDT [place] ([facility]) 06020369 Dissociative disorder Dissociative Disorder Problem 08/25/2020 12:00:00 AM EDT [place] ([facility]) 040592453 History of asthma History of Asthma Problem 08/25 12:00:00 AM EDT [place] ([facility]) 18124277 Dissociative disorder Dissociative Disorder Problem 08/25/2020 12:00:00 AM EDT [place] ([facility]) 080469144 History of asthma History of Asthma Problem 08/25 12:00:00 AM EDT [place] ([facility]) 98413791 Dissociative disorder Dissociative Disorder Problem 08/25/2020 12:00:00 AM EDT [place] ([facility]) 346121989 History of asthma History of Asthma Problem 08/25 12:00:00 AM EDT [place] ([facility]) 76861896 Dissociative disorder Dissociative Disorder Problem 08/25/2020 12:00:00 AM EDT [place] ([facility]) 555714857 History of asthma History of Asthma Problem 08/25 12:00:00 AM EDT [place] ([facility]) 07424034 Dissociative disorder Dissociative Disorder Problem 08/25/2020 12:00:00 AM EDT [place] ([facility]) 894120259 History of asthma History of Asthma Problem 08/25 12:00:00 AM EDT [place] ([facility]) 11599209 Dissociative disorder Dissociative Disorder Problem 08/25/2020 12:00:00 AM EDT [place] ([facility]) 445825781 History of asthma History of Asthma Problem 08/25 12:00:00 AM EDT [place] ([facility]) [id number] Dissociative disorder Dissociative Disorder Problem 08/25/2020 12:00:00 AM EDT [place] ([facility]) [id number] History of asthma History of Asthma Problem 08/25 12:00:00 AM EDT [place] ([facility]) [id number] Dissociative disorder Dissociative Disorder Problem 08/25/2020 12:00:00 AM EDT [place] ([facility]) [id number] Gestational diabetes mellitus Gestational Diabetes Pam litus Problem 06/30/2020 12:00:00 AM EST - 02/23/2021 12:00:00 AM EDT [place] ([facility]) [id number] Genital herpes simplex Genital Herpes Simplex Problem 06/30/2020 12:00:00 AM EST [place] ([facility]) [id number] Gestational diabetes mellitus Gestational Diabetes Pam litus Problem 06/30/2020 12:00:00 AM EST - 02/23/2021 12:00:00 AM EDT [place] ([facility]) [id number] Genital herpes simplex Genital Herpes Simplex Problem 06/30/2020 12:00:00 AM EST [place] ([facility]) [id number] Gestational diabetes mellitus Gestational Diabetes Pam litus Problem 06/30/2020 12:00:00 AM EST [place] ([facility]) [id number] Genital herpes simplex Genital Herpes Simplex Problem 06/30/2020 12:00:00 AM EST [place] ([facility]) [id number] Gestational diabetes mellitus Gestational Diabetes Pam litus Problem 06/30/2020 12:00:00 AM EST [place] ([facility]) [id number] Genital herpes simplex Genital Herpes Simplex Problem 06/30/2020 12:00:00 AM EST [place] ([facility]) [id number] Gestational diabetes mellitus Gestational Diabetes Pam litus Problem 06/30/2020 12:00:00 AM EST [place] ([facility]) [id number] Genital herpes simplex Genital Herpes Simplex Problem 06/30/2020 12:00:00 AM EST [place] ([facility]) [id number] Gestational diabetes mellitus Gestational Diabetes Pam litus Problem 06/30/2020 12:00:00 AM EST [place] ([facility]) [id number] Genital herpes simplex Genital Herpes Simplex Problem 06/30/2020 12:00:00 AM EST [place] ([facility]) [id number] Gestational diabetes mellitus Gestational Diabetes Pam litus Problem 06/30/2020 12:00:00 AM EST [place] ([facility]) [id number] Genital herpes simplex Genital Herpes Simplex Problem 06/30/2020 12:00:00 AM EST [place] ([facility]) [id number] Gestational diabetes mellitus Gestational Diabetes Pam litus Problem 06/30/2020 12:00:00 AM EST - 02/23/2021 12:00:00 AM EDT [place] ([facility]) [id number] Genital herpes simplex Genital Herpes Simplex Problem 06/30/2020 12:00:00 AM EST [place] ([facility]) [id number] Gestational diabetes mellitus Gestational Diabetes Pam litus Problem 06/30/2020 12:00:00 AM EST [place] ([facility]) [id number] Genital herpes simplex Genital Herpes Simplex Problem 06/30/2020 12:00:00 AM EST [place] ([facility]) [id number] Gestational diabetes mellitus Gestational Diabetes Pam litus Problem 06/30/2020 12:00:00 AM EST [place] ([facility]) [id number] Genital herpes simplex Genital Herpes Simplex Problem 06/30/2020 12:00:00 AM EST [place] ([facility]) [id number] Gestational diabetes mellitus Gestational Diabetes Pam litus Problem 06/30/2020 12:00:00 AM EST [place] ([facility]) [id number] Genital herpes simplex Genital Herpes Simplex Problem 06/30/2020 12:00:00 AM EST [place] ([facility]) [id number] Gestational diabetes mellitus Gestational Diabetes Pam litus Problem 06/30/2020 12:00:00 AM EST [place] ([facility]) [id number] Genital herpes simplex Genital Herpes Simplex Problem 06/30/2020 12:00:00 AM EST [place] ([facility]) [id number] Gestational diabetes mellitus Gestational Diabetes Pam litus Problem 06/30/2020 12:00:00 AM EST [place] ([facility]) [id number] Genital herpes simplex Genital Herpes Simplex Problem 06/30/2020 12:00:00 AM EST [place] ([facility]) [id number] Gestational diabetes mellitus Gestational Diabetes Pam litus Problem 06/30/2020 12:00:00 AM EST [place] ([facility]) [id number] Genital herpes simplex Genital Herpes Simplex Problem 06/30/2020 12:00:00 AM EST [place] ([facility]) [id number] Gestational diabetes mellitus Gestational Diabetes Pam litus Problem 06/30/2020 12:00:00 AM EST [place] ([facility]) [id number] Genital herpes simplex Genital Herpes Simplex Problem 06/30/2020 12:00:00 AM EST [place] ([facility]) [id number] Gestational diabetes mellitus Gestational Diabetes Pam litus Problem 06/30/2020 12:00:00 AM EST [place] ([facility]) [id number] Genital herpes simplex Genital Herpes Simplex Problem 06/30/2020 12:00:00 AM EST [place] ([facility]) [id number] Gestational diabetes mellitus Gestational Diabetes Pam litus Problem 06/30/2020 12:00:00 AM EST [place] ([facility]) [id number] Genital herpes simplex Genital Herpes Simplex Problem 06/30/2020 12:00:00 AM EST [place] ([facility]) K21.9 Gastroesophageal reflux disease GERD (gastroesop hageal reflux disease) Problem 06/05/2020 12:00:00 AM EST [facility] ([facility]) Z34.80 care Supervision of other normal P roblem 05/02/2020 12:00:00 AM EST W1 ([facility]) [id number] Contusion of head Contusion of Head Problem 03/15 12:00:00 AM EDT - 06/30/2020 12:00:00 AM EST [place] ([facility]) [id number] Contusion of head Contusion of Head Problem 03/15 12:00:00 AM EDT - 06/30/2020 12:00:00 AM EST [place] ([facility]) [id number] Contusion of head Contusion of Head Problem 03/15 12:00:00 AM EDT - 06/30/2020 12:00:00 AM EST [place] ([facility]) [id number] Contusion of head Contusion of Head Problem 03/15 12:00:00 AM EDT - 06/30/2020 12:00:00 AM EST [place] ([facility]) [id number] Contusion of head Contusion of Head Problem 03/15 12:00:00 AM EDT - 06/30/2020 12:00:00 AM EST [place] ([facility]) [id number] Contusion of head Contusion of Head Problem 03/15 12:00:00 AM EDT - 06/30/2020 12:00:00 AM EST [place] ([facility]) [id number] Contusion of head Contusion of Head Problem 03/15 12:00:00 AM EDT - 06/30/2020 12:00:00 AM EST [place] ([facility]) [id number] Contusion of head Contusion of Head Problem 03/15 12:00:00 AM EDT - 06/30/2020 12:00:00 AM EST [place] ([facility]) [id number] Contusion of head Contusion of Head Problem 03/15 12:00:00 AM EDT - 06/30/2020 12:00:00 AM EST [place] ([facility]) [id number] Contusion of head Contusion of Head Problem 03/15 12:00:00 AM EDT - 06/30/2020 12:00:00 AM EST [place] ([facility]) [id number] Contusion of head Contusion of Head Problem 03/15 12:00:00 AM EDT - 06/30/2020 12:00:00 AM EST [place] ([facility]) [id number] Contusion of head Contusion of Head Problem 03/15 12:00:00 AM EDT - 06/30/2020 12:00:00 AM EST [place] ([facility]) [id number] Contusion of head Contusion of Head Problem 03/15 12:00:00 AM EDT - 06/30/2020 12:00:00 AM EST [place] ([facility]) [id number] Contusion of head Contusion of Head Problem 03/15 12:00:00 AM EDT - 06/30/2020 12:00:00 AM EST [place] ([facility]) [id number] Contusion of head Contusion of Head Problem 03/15 12:00:00 AM EDT - 06/30/2020 12:00:00 AM EST [place] ([facility]) [id number] Contusion of head Contusion of Head Problem 03/15 12:00:00 AM EDT - 06/30/2020 12:00:00 AM EST [place] ([facility]) [id number] Contusion of head Contusion of Head Problem 03/15 12:00:00 AM EDT - 06/30/2020 12:00:00 AM EST [place] ([facility]) [id number] Influenza vaccine needed Influenza Vaccine Needed Pro blem 03/01/2013 12:00:00 AM EDT - 06/30/2020 12:00:00 AM EST [place] ([facility]) [id number] Influenza vaccine needed Influenza Vaccine Needed Pro blem 03/01/2013 12:00:00 AM EDT - 06/30/2020 12:00:00 AM EST [place] ([facility]) [id number] Influenza vaccine needed Influenza Vaccine Needed Pro blem 03/01/2013 12:00:00 AM EDT - 06/30/2020 12:00:00 AM EST [place] ([facility]) [id number] Influenza vaccine needed Influenza Vaccine Needed Pro blem 03/01/2013 12:00:00 AM EDT - 06/30/2020 12:00:00 AM EST [place] ([facility]) [id number] Influenza vaccine needed Influenza Vaccine Needed Pro blem 03/01/2013 12:00:00 AM EDT - 06/30/2020 12:00:00 AM EST [place] ([facility]) [id number] Influenza vaccine needed Influenza Vaccine Needed Pro blem 03/01/2013 12:00:00 AM EDT - 06/30/2020 12:00:00 AM EST [place] ([facility]) [id number] Influenza vaccine needed Influenza Vaccine Needed Pro blem 03/01/2013 12:00:00 AM EDT - 06/30/2020 12:00:00 AM EST [place] ([facility]) [id number] Influenza vaccine needed Influenza Vaccine Needed Pro blem 03/01/2013 12:00:00 AM EDT - 06/30/2020 12:00:00 AM EST [place] ([facility]) [id number] Influenza vaccine needed Influenza Vaccine Needed Pro blem 03/01/2013 12:00:00 AM EDT - 06/30/2020 12:00:00 AM EST [place] ([facility]) [id number] Influenza vaccine needed Influenza Vaccine Needed Pro blem 03/01/2013 12:00:00 AM EDT - 06/30/2020 12:00:00 AM EST [place] ([facility]) [id number] Influenza vaccine needed Influenza Vaccine Needed Pro blem 03/01/2013 12:00:00 AM EDT - 06/30/2020 12:00:00 AM EST [place] ([facility]) [id number] Influenza vaccine needed Influenza Vaccine Needed Pro blem 03/01/2013 12:00:00 AM EDT - 06/30/2020 12:00:00 AM EST [place] ([facility]) [id number] Influenza vaccine needed Influenza Vaccine Needed Pro blem 03/01/2013 12:00:00 AM EDT - 06/30/2020 12:00:00 AM EST [place] ([facility]) [id number] Influenza vaccine needed Influenza Vaccine Needed Pro blem 03/01/2013 12:00:00 AM EDT - 06/30/2020 12:00:00 AM EST [place] ([facility]) [id number] Influenza vaccine needed Influenza Vaccine Needed Pro blem 03/01/2013 12:00:00 AM EDT - 06/30/2020 12:00:00 AM EST [place] ([facility]) [id number] Influenza vaccine needed Influenza Vaccine Needed Pro blem 03/01/2013 12:00:00 AM EDT - 06/30/2020 12:00:00 AM EST [place] ([facility]) [id number] Influenza vaccine needed Influenza Vaccine Needed Pro blem 03/01/2013 12:00:00 AM EDT - 06/30/2020 12:00:00 AM EST [place] ([facility]) [id number] Education Education Problem 08/31/2012 12:0 0:00 AM EDT - 06/30/2020 12:00:00 AM EST [place] ([facility]) [id number] SNOMED CT Concept SNOMED CT Concept Problem 08/31 12:00:00 AM EDT - 06/30/2020 12:00:00 AM EST [place] ([facility]) [id number] Education Education Problem 08/31/2012 12:0 0:00 AM EDT - 06/30/2020 12:00:00 AM EST [place] ([facility]) [id number] SNOMED CT Concept SNOMED CT Concept Problem 08/31 12:00:00 AM EDT - 06/30/2020 12:00:00 AM EST [place] ([facility]) [id number] Education Education Problem 08/31/2012 12:0 0:00 AM EDT - 06/30/2020 12:00:00 AM EST [place] ([facility]) [id number] SNOMED CT Concept SNOMED CT Concept Problem 08/31 12:00:00 AM EDT - 06/30/2020 12:00:00 AM EST [place] ([facility]) [id number] Education Education Problem 08/31/2012 12:0 0:00 AM EDT - 06/30/2020 12:00:00 AM EST [place] ([facility]) [id number] SNOMED CT Concept SNOMED CT Concept Problem 08/31 12:00:00 AM EDT - 06/30/2020 12:00:00 AM EST [place] ([facility]) [id number] Education Education Problem 08/31/2012 12:0 0:00 AM EDT - 06/30/2020 12:00:00 AM EST [place] ([facility]) [id number] SNOMED CT Concept SNOMED CT Concept Problem 08/31 12:00:00 AM EDT - 06/30/2020 12:00:00 AM EST [place] ([facility]) [id number] Education Education Problem 08/31/2012 12:0 0:00 AM EDT - 06/30/2020 12:00:00 AM EST [place] ([facility]) [id number] SNOMED CT Concept SNOMED CT Concept Problem 08/31 12:00:00 AM EDT - 06/30/2020 12:00:00 AM EST [place] ([facility]) [id number] Education Education Problem 08/31/2012 12:0 0:00 AM EDT - 06/30/2020 12:00:00 AM EST [place] ([facility]) [id number] SNOMED CT Concept SNOMED CT Concept Problem 08/31 12:00:00 AM EDT - 06/30/2020 12:00:00 AM EST [place] ([facility]) [id number] Education Education Problem 08/31/2012 12:0 0:00 AM EDT - 06/30/2020 12:00:00 AM EST [place] ([facility]) [id number] SNOMED CT Concept SNOMED CT Concept Problem 08/31 12:00:00 AM EDT - 06/30/2020 12:00:00 AM EST [place] ([facility]) [id number] Education Education Problem 08/31/2012 12:0 0:00 AM EDT - 06/30/2020 12:00:00 AM EST [place] ([facility]) [id number] SNOMED CT Concept SNOMED CT Concept Problem 08/31 12:00:00 AM EDT - 06/30/2020 12:00:00 AM EST [place] ([facility]) [id number] Education Education Problem 08/31/2012 12:0 0:00 AM EDT - 06/30/2020 12:00:00 AM EST [place] ([facility]) [id number] SNOMED CT Concept SNOMED CT Concept Problem 08/31 12:00:00 AM EDT - 06/30/2020 12:00:00 AM EST [place] ([facility]) [id number] Education Education Problem 08/31/2012 12:0 0:00 AM EDT - 06/30/2020 12:00:00 AM EST [place] ([facility]) [id number] SNOMED CT Concept SNOMED CT Concept Problem 08/31 12:00:00 AM EDT - 06/30/2020 12:00:00 AM EST [place] ([facility]) [id number] Education Education Problem 08/31/2012 12:0 0:00 AM EDT - 06/30/2020 12:00:00 AM EST [place] ([facility]) [id number] SNOMED CT Concept SNOMED CT Concept Problem 08/31 12:00:00 AM EDT - 06/30/2020 12:00:00 AM EST [place] ([facility]) [id number] Education Education Problem 08/31/2012 12:0 0:00 AM EDT - 06/30/2020 12:00:00 AM EST [place] ([facility]) [id number] SNOMED CT Concept SNOMED CT Concept Problem 08/31 12:00:00 AM EDT - 06/30/2020 12:00:00 AM EST [place] ([facility]) [id number] Education Education Problem 08/31/2012 12:0 0:00 AM EDT - 06/30/2020 12:00:00 AM EST [place] ([facility]) [id number] SNOMED CT Concept SNOMED CT Concept Problem 08/31 12:00:00 AM EDT - 06/30/2020 12:00:00 AM EST [place] ([facility]) [id number] Education Education Problem 08/31/2012 12:0 0:00 AM EDT - 06/30/2020 12:00:00 AM EST [place] ([facility]) [id number] SNOMED CT Concept SNOMED CT Concept Problem 08/31 12:00:00 AM EDT - 06/30/2020 12:00:00 AM EST [place] ([facility]) [id number] Education Education Problem 08/31/2012 12:0 0:00 AM EDT - 06/30/2020 12:00:00 AM EST [place] ([facility]) [id number] SNOMED CT Concept SNOMED CT Concept Problem 08/31 12:00:00 AM EDT - 06/30/2020 12:00:00 AM EST [place] ([facility]) [id number] Education Education Problem 08/31/2012 12:0 0:00 AM EDT - 06/30/2020 12:00:00 AM EST [place] ([facility]) [id number] SNOMED CT Concept SNOMED CT Concept Problem 08/31 12:00:00 AM EDT - 06/30/2020 12:00:00 AM EST [place] ([facility]) [id number] SNOMED CT Concept SNOMED CT Concept Problem 03/16 12:00:00 AM EDT - 06/30/2020 12:00:00 AM EST [place] ([facility]) [id number] SNOMED CT Concept SNOMED CT Concept Problem 03/16 12:00:00 AM EDT - 06/30/2020 12:00:00 AM EST [place] ([facility]) [id number] SNOMED CT Concept SNOMED CT Concept Problem 03/16 12:00:00 AM EDT - 06/30/2020 12:00:00 AM EST [place] ([facility]) [id number] SNOMED CT Concept SNOMED CT Concept Problem 03/16 12:00:00 AM EDT - 06/30/2020 12:00:00 AM EST [place] ([facility]) [id number] SNOMED CT Concept SNOMED CT Concept Problem 03/16 12:00:00 AM EDT - 06/30/2020 12:00:00 AM EST [place] ([facility]) [id number] SNOMED CT Concept SNOMED CT Concept Problem 03/16 12:00:00 AM EDT - 06/30/2020 12:00:00 AM EST [place] ([facility]) [id number] SNOMED CT Concept SNOMED CT Concept Problem 03/16 12:00:00 AM EDT - 06/30/2020 12:00:00 AM EST [place] ([facility]) [id number] SNOMED CT Concept SNOMED CT Concept Problem 03/16 12:00:00 AM EDT - 06/30/2020 12:00:00 AM EST [place] ([facility]) [id number] SNOMED CT Concept SNOMED CT Concept Problem 03/16 12:00:00 AM EDT - 06/30/2020 12:00:00 AM EST [place] ([facility]) [id number] SNOMED CT Concept SNOMED CT Concept Problem 03/16 12:00:00 AM EDT - 06/30/2020 12:00:00 AM EST [place] ([facility]) [id number] SNOMED CT Concept SNOMED CT Concept Problem 03/16 12:00:00 AM EDT - 06/30/2020 12:00:00 AM EST [place] ([facility]) [id number] SNOMED CT Concept SNOMED CT Concept Problem 03/16 12:00:00 AM EDT - 06/30/2020 12:00:00 AM EST [place] ([facility]) [id number] SNOMED CT Concept SNOMED CT Concept Problem 03/16 12:00:00 AM EDT - 06/30/2020 12:00:00 AM EST [place] ([facility]) [id number] SNOMED CT Concept SNOMED CT Concept Problem 03/16 12:00:00 AM EDT - 06/30/2020 12:00:00 AM EST [place] ([facility]) [id number] SNOMED CT Concept SNOMED CT Concept Problem 03/16 12:00:00 AM EDT - 06/30/2020 12:00:00 AM EST [place] ([facility]) [id number] SNOMED CT Concept SNOMED CT Concept Problem 03/16 12:00:00 AM EDT - 06/30/2020 12:00:00 AM EST [place] ([facility]) [id number] SNOMED CT Concept SNOMED CT Concept Problem 03/16 12:00:00 AM EDT - 06/30/2020 12:00:00 AM EST [place] ([facility]) Surgeries/Procedures Procedure Description Date Indications Data Source(s) MRI BRAIN BRAIN STEM W/O CONTRAST MATERIAL 03/08/2021 12:00:00 AM EDT [facility] ([facility], ) MRI BRAIN BRAIN STEM W/O CONTRAST MATERIAL 03/08/2021 12:00:00 AM EDT [facility] ([facility], ) US, abdominal wall 02/23/2021 12:00:00 AM EDT [place] ([facility]) ELECTROENCEPHALOGRAM W/REC AWAKE&ASLEEP 02/05/2021 12: 00:00 AM EDT [facility] ([facility], ) ELECTROENCEPHALOGRAM W/REC AWAKE&ASLEEP 02/05/2021 12: 00:00 AM EDT [facility] ([facility], ) Needle electromyography, each extremity, with related paraspinal areas, when performed, done with nerve conduction, amplitude and latency/velocity study; complete, five or more muscles studied, innervated by three or more nerves or four or more spinal levels (list separately in addition to the code for primary procedure). 01/08/2021 12:00:00 AM EDT MEDEN T ([facility], ) Needle Electromyography Non Extremity Done With Nerve Conduc tion 01/08/2021 12:00:00 AM EDT [facility] ([facility] ) Nerve Conduction 9-10 Studies 01/08/2021 12:00:00 AM E DT MEDNABILA ([facility], ) OFFICE OUTPATIENT NEW 45 MINUTES 01/01/2021 12:00:00 A M EDT MEDENT ([facility], ) Injection, medroxyprogesterone acetate for contraceptive use , 150 mg 12/29/2020 12:00:00 AM EDT eCW1 ([facility]) Injection, medroxyprogesterone acetate for contraceptive use , 150 mg 10/13/2020 12:00:00 AM EDT eCW1 ([facility]) NONSTRESS TEST 06/19/2020 12:00:00 AM EST eCW1 ([facility]) Immunization: Boostrix 0.5mL IM (TDAP) 05/22/2020 12:0 0:00 AM EST eCW1 ([facility]) Results ID Date Data Source [id number] 03/02/2021 12:00:00 AM EDT [place] ([facility]) Name Value Range Interpretation Code Description Data Eliana rce(s) Supporting Document(s) Hemoglobin A1c/Hemoglobin.total in Blood 5.1 %_of_total_HGB <5.7 Hemoglobin a1C [facility]) ID Date Data Source [id number] 03/02/2021 12:00:00 AM EDT [facility]) Name Value Range Interpretation Code Description Data Eliana rce(s) Supporting Document(s) C peptide [Mass/volume] in Serum or Plasma 2.73 NG/mL 0.80-3.85 C-peptide [facility]) ID Date Data Source [id number] 03/02/2021 12:00:00 AM EDT [facility]) Name Value Range Interpretation Code Description Data Eliana rce(s) Supporting Document(s) Glucose [Mass/volume] in Serum or Plasma 82 mg/dL 65-99 Glucose [place] ([facility]) Glomerular filtration rate/1.73 sq M.pre dicted among non-blacks [Volume Rate/Area] in Serum, Plasma or Blood by Creatinine-based formula (CKD-EPI) 117 mL/min/1.73m2 > or = 60 eGFR Non-afr. [place] ([facility]) Creatinine [Mass/volume] in Serum or Plasma 0.72 mg/dL 0.50-1.10 Creatinine [facility]) Urea nitrogen [Mass/volume] in Serum or Plasma 12 mg/dL 7-25 Urea Nitrogen (BUN) [facility] Glomerular filtration rate/1.73 sq M.pre dicted among blacks [Volume Rate/Area] in Serum, Plasma or Blood by Creatinine-based formula (CKD-EPI) 136 mL/min/1.73m2 > or = 60 eGFR [place] ([facility]) Carbon dioxide, total [Moles/volume] in Serum or Plasma 26 mmol/L 20-32 Carbon Dioxide [place] ([facility]) Sodium [Moles/volume] in Serum or Plasma 138 mmol/L 135-146 Sodium [place] ([facility]) Urea nitrogen/Creatinine [Mass Ratio] in Serum or Plasma not applic able 6-22 BUN/creatinine Ratio [place] ([facility]) Potassium [Moles/volume] in Serum or Plasma 4.2 mmol/L 3.5-5.3 Potassium [place] ([facility]) Chloride [Moles/volume] in Serum or Plasma 103 mmol/L 98-110 Chloride [place] ([facility]) Protein [Mass/volume] in Serum or Plasma 7.0 g/dL 6.1-8.1 Protein, Total [place] ([facility]) Albumin [Mass/volume] in Serum or Plasma 4.4 g/dL 3.6-5.1 Albumin [place] ([facility]) Calcium [Mass/volume] in Serum or Plasma 9.5 mg/dL 8.6-10.2 Calcium [place] ([facility]) Globulin [Mass/volume] in Serum by calculation 2.6 g/dL_(calc) 1.9- 3.7 Globulin [place] ([facility]) Albumin/Globulin [Mass Ratio] in Serum or Plasma 1.7 (calc) 1.0-2 .5 Albumin/globulin Ratio [place] ([facility]) Bilirubin.total [Mass/volume] in Serum or Plasma 0.4 mg/dL 0.2-1 .2 Bilirubin, Total [place] ([facility]) Alanine aminotransferase [Enzymatic activity/volume] in Seru m or Plasma 16 U/L 6-29 Alt [place] ([facility] [facility] Aspartate aminotransferase [Enzymatic activity/volume] in Serum or Plasma 15 U/L 10-30 Ast [place] ([facility]) Alkaline phosphatase [Enzymatic activity/volume] in Serum or Plasma 72 U/L 31-125 Alkaline Phosphatase [facility]) ID Date Data Source [id number] 03/02/2021 12:00:00 AM EDT [facility]) Name Value Range Interpretation Code Description Data Eliana rce(s) Supporting Document(s) Thyrotropin [Units/volume] in Serum or Plasma 2.93 mIU/L Tsh [place] ([facility]) Thyroxine (T4) free [Mass/volume] in Serum or Plasma 0.9 NG/dL 0 .8-1.8 T4, Free [facility]) ID Date Data Source [id number] 01/31/2021 12:00:00 AM EDT [facility] Name Value Range Interpretation Code Description Data Eliana rce(s) Supporting Document(s) SARS-CoV2 Rapid Antigen Negative [facility] This lab was ordered by [facility] and reported by [facility]. ID Date Data Source [id number], GC & TRICH AMP 12/29/2020 12:00:00 AM EDT eCW1 ([facility]) Name Value Range Interpretation Code Description Data Eliana rce(s) Supporting Document(s) NOT DETECTED NEGATIVE Trichomonas vaginalis ( AMP) eCW1 ([facility]) ID Date Data Source SYPHILIS ANTIBODY (RPR SCREEN) 12/29/2020 12:00:00 AM EDT eC W1 ([facility]) Name Value Range Interpretation Code Description Data Eliana rce(s) Supporting Document(s) NONREACTIVE NONREACTIVE SYPHILIS eCW1 ([facility]) ID Date Data Source [id number] 12/29/2020 12:00:00 AM EDT eCW1 ([facility]) Name Value Range Interpretation Code Description Data Eliana rce(s) Supporting Document(s) Laboratory studies (set) HIV 1&2 ANT IBODY SCREEN eCW1 ([facility]) ID Date Data Source HEPATITIS C ANTIBODY INDEX 12/29/2020 12:00:00 AM EDT eCW1 ( [facility]) Name Value Range Interpretation Code Description Data Eliana rce(s) Supporting Document(s) 0.1 <0.8 HEPATITIS C VIRUS TY INDEX eC W1 ([facility]) ID Date Data Source [id number] 12/22/2020 09:15:00 AM EDT [facility] Name Value Range Interpretation Code Description Data Eliana rce(s) Supporting Document(s) SARS-CoV-2 RNA Resp Ql ELIAZAR+probe NOT DETECTED [facility] This lab was ordered by TAWANNA miranda and reported by TAWANNA Reyes. ID Date Data Source PAP REQUEST FOR SERVICE 10/13/2020 12:00:00 AM EDT eCW1 ([facility]) Name Value Range Interpretation Code Description Data Eliana rce(s) Supporting Document(s) PAP REQUEST FOR SERVICE eCW1 ( [facility]) ID Date Data Source [id number] 08/25/2020 10:47:00 AM EDT [place] ([facility]) Name Value Range Interpretation Code Description Data Eliana rce(s) Supporting Document(s) HIV 1&2 screen centaur negative negative HIV 1&2 Scree n Centaur [place] ([facility]) ID Date Data Source [id number] 08/25/2020 10:47:00 AM EDT [facility]) Name Value Range Interpretation Code Description Data Eliana rce(s) Supporting Document(s) syphilis nonreactive nonreactive Syphilis [place] ([facility]) ID Date Data Source [id number] 08/25/2020 10:47:00 AM EDT [facility]) Name Value Range Interpretation Code Description Data Eliana rce(s) Supporting Document(s) total 25(oh) vitamin D 28.6 NG/mL 30.0-100.0 Below low normal T otal 25(Oh) Vitamin D [facility]) ID Date Data Source [id number] 08/25/2020 10:47:00 AM EDT [facility]) Name Value Range Interpretation Code Description Data Eliana rce(s) Supporting Document(s) thyroid stimulating hormone 1.520 uIU/mL 0.358-3.740 Thyroid Stimulating Hormone [place] ([facility]) ID Date Data Source [id number] 08/25/2020 10:47:00 AM EDT [place] ([facility]) Name Value Range Interpretation Code Description Data Eliana rce(s) Supporting Document(s) triglycerides level 138 mg/dL <150 Triglycerides Le nitesh [place] ([facility]) cholesterol level 141 mg/dL <200 Cholesterol Level [place] ([facility]) HDL cholesterol 31 mg/dL >40 Below low normal HDL Cholestero l [place] ([facility]) Cholesterol in LDL [Mass/volume] in Serum or Plasma 82 mg/dL <1 00 LDL Cholesterol [place] ([facility]) non-HDL-C 110 mg/dL Non-hdl-c [place] ([facility]) cholesterol risk ratio <5 Cholesterol R isk Ratio [place] ([facility]) ID Date Data Source [id number] 08/25/2020 10:47:00 AM EDT [place] ([facility]) Name Value Range Interpretation Code Description Data Eliana rce(s) Supporting Document(s) hepatitis C virus ty index < 0.0 <0.8 Hepatiti s C Virus Ty Index [place] ([facility]) ID Date Data Source [id number] 08/25/2020 10:47:00 AM EDT [place] ([facility]) Name Value Range Interpretation Code Description Data Eliana rce(s) Supporting Document(s) glucose, fasting 90 mg/dL 70-100 Glucose, Fasting AT [facility] ([facility]) blood urea nitrogen 12 mg/dL 7-18 Blood Urea Nitro gen [place] ([facility]) creatinine for GFR 0.71 mg/dL 0.55-1.30 Creatinine for GF R [place] ([facility]) glomerular filtration rate > 60.0 >60 Glomerula r Filtration Rate [place] ([facility]) sodium level 139 mEq/L 136-145 Sodium Level [place] ([facility]) potassium serum 5.1 mEq/L 3.5-5.1 Potassium Serum ATHE NA ([facility]) anion gap 2 mEq/L 8-16 Below low normal Anion Gap [place] ( [facility]) carbon dioxide level 30 mEq/L 21-32 Carbon Dioxide Level [place] ([facility]) chloride level 107 mEq/L 98-107 Chloride Level [place] ([facility]) calcium level 9.2 mg/dL 8.5-10.1 Calcium Level [place] ( [facility]) ALT/SGPT 63 U/L 12-78 ALT/SGPT [place] ([facility]) alkaline phosphatase 101 U/L 45-117 Alkaline Phosph atase [place] ([facility]) AST/SGOT 27 U/L 7-37 AST/SGOT [place] ([facility]) bilirubin,total 0.4 mg/dL 0.2-1.0 Bilirubin,total ATHE NA ([facility]) total protein 7.1 gm/dL 6.4-8.2 Total Protein [place] ( [facility]) albumin 4.0 gm/dL 3.2-5.2 Albumin [place] ([facility]) albumin/globulin ratio 1.2-2.2 Albumin/globu lashae Ratio [place] ([facility]) ID Date Data Source [id number] 08/25/2020 10:47:00 AM EDT [place] ([facility]) Name Value Range Interpretation Code Description Data Eliana rce(s) Supporting Document(s) Hemoglobin A1c/Hemoglobin.total in Blood 5.4 % Hemoglobin a1C [place] ([facility]) estimated average glucose 108 mg/dL 60-110 Estimated Average Glucose [place] ([facility]) ID Date Data Source [id number] 08/25/2020 10:47:00 AM [facility] Name Value Range Interpretation Code Description Data Eliana rce(s) Supporting Document(s) white blood count 5.9 10 4.0-10.0 White Blood Count [place] ([facility]) red blood count 4.99 10 4.00-5.40 Red Blood Count ATHE NA ([facility]) hematocrit 44.6 % 36.0-47.0 Hematocrit [place] ([facility]) hemoglobin 14.4 g/dL 12.0-15.5 Hemoglobin [place] ([facility]) mean corpuscular volume 89.4 fL 80.0-96.0 Mean Corpusc ular Volume [place] ([facility]) mean corpuscular hemoglobin 28.9 pg 27.0-33.0 Mean Cor puscular Hemoglobin [place] ([facility]) mean corpuscular HGB conc 32.3 g/dL 32.0-36.5 Mean Corpu scular HGB Conc [place] ([facility]) red cell distribution width 12.8 % 11.5-14.5 Red Cell Distribution Width [place] ([facility]) platelet count, automated 219 10 150-450 Platelet C ount, Automated [place] ([facility]) lymph % 36.6 % 24.0-44.0 Lymph % [place] ([facility]) neutrophils % 53.7 % 36.0-66.0 Neutrophils % [place] ( [facility]) eos % 1.9 % 0.0-3.0 Eos % [place] ([facility]) mono % 7.1 % 2.0-8.0 [place] % [place] ([facility]) immature granulocyte % 0.2 % 0-3.0 Immature Gran ulocyte % [place] ([facility]) nucleated red blood cell % 0.0 % 0-0 Nucleated Red Blood Cell % [place] ([facility]) baso % 0.5 % 0.0-1.0 Baso % [place] ([facility]) neutrophils # 3.2 10 1.5-8.5 Neutrophils # [place] ( [facility]) lymph # 2.2 10 1.5-5.0 Lymph # [place] ([facility]) mono # 0.4 10 0.0-0.8 [place] # [place]SEA ([facility]) eos # 0.1 10 0.0-0.5 Eos # [place] ([facility]) baso # 0.0 10 0.0-0.2 Baso # [place] ([facility]) ID Date Data Source [id number] 08/25/2020 10:47:00 AM EDT [place] ([facility]) Name Value Range Interpretation Code Description Data Eliana rce(s) Supporting Document(s) HIV 1&2 screen centaur negative negative HIV 1&2 Scree n Centaur [place] ([facility]) ID Date Data Source [id number] 08/25/2020 10:47:00 AM EDT [facility]) Name Value Range Interpretation Code Description Data Eliana rce(s) Supporting Document(s) syphilis nonreactive nonreactive Syphilis [place] ([facility]) ID Date Data Source [id number] 08/25/2020 10:47:00 AM EDT [facility]) Name Value Range Interpretation Code Description Data Eliana rce(s) Supporting Document(s) total 25(oh) vitamin D 28.6 NG/mL 30.0-100.0 Below low normal T otal 25(Oh) Vitamin D [facility]) ID Date Data Source [id number] 08/25/2020 10:47:00 AM EDT [facility]) Name Value Range Interpretation Code Description Data Eliana rce(s) Supporting Document(s) thyroid stimulating hormone 1.520 uIU/mL 0.358-3.740 Thyroid Stimulating Hormone [facility]) ID Date Data Source [id number] 08/25/2020 10:47:00 AM EDT [facility]) Name Value Range Interpretation Code Description Data Eliana rce(s) Supporting Document(s) triglycerides level 138 mg/dL <150 Triglycerides Le nitesh [place] ([facility]) non-HDL-C 110 mg/dL Non-hdl-c [place] ([facility]) Cholesterol in LDL [Mass/volume] in Serum or Plasma 82 mg/dL <1 00 LDL Cholesterol [place] ([facility]) HDL cholesterol 31 mg/dL >40 Below low normal HDL Cholestero l [place] ([facility]) cholesterol level 141 mg/dL <200 Cholesterol Level [place] ([facility]) cholesterol risk ratio <5 Cholesterol R isk Ratio [place] ([facility]) ID Date Data Source [id number] 08/25/2020 10:47:00 AM EDT [facility]) Name Value Range Interpretation Code Description Data Eliana rce(s) Supporting Document(s) hepatitis C virus ty index < 0.0 <0.8 Hepatiti s C Virus Ty Index [place] ([facility]) ID Date Data Source [id number] 08/25/2020 10:47:00 AM EDT [facility]) Name Value Range Interpretation Code Description Data Eliana rce(s) Supporting Document(s) glucose, fasting 90 mg/dL 70-100 Glucose, Fasting AT [facility] ([facility]) creatinine for GFR 0.71 mg/dL 0.55-1.30 Creatinine for GF R [place] ([facility]) glomerular filtration rate > 60.0 >60 Glomerula r Filtration Rate [place] ([facility]) sodium level 139 mEq/L 136-145 Sodium Level [place] ([facility]) blood urea nitrogen 12 mg/dL 7-18 Blood Urea Nitro gen [place] ([facility]) anion gap 2 mEq/L 8-16 Below low normal Anion Gap [place] ( [facility]) carbon dioxide level 30 mEq/L 21-32 Carbon Dioxide Level [place] ([facility]) potassium serum 5.1 mEq/L 3.5-5.1 Potassium Serum ATHE NA ([facility]) chloride level 107 mEq/L 98-107 Chloride Level [place] ([facility]) AST/SGOT 27 U/L 7-37 AST/SGOT [place] ([facility]) calcium level 9.2 mg/dL 8.5-10.1 Calcium Level [place] ( [facility]) alkaline phosphatase 101 U/L 45-117 Alkaline Phosph atase [place] ([facility]) ALT/SGPT 63 U/L 12-78 ALT/SGPT [place] ([facility]) albumin/globulin ratio 1.2-2.2 Albumin/globu lashae Ratio [place] ([facility]) albumin 4.0 gm/dL 3.2-5.2 Albumin [place] ([facility]) bilirubin,total 0.4 mg/dL 0.2-1.0 Bilirubin,total ATHE ([facility]) total protein 7.1 gm/dL 6.4-8.2 Total Protein [place] ( [facility]) ID Date Data Source [id number] 08/25/2020 10:47:00 AM EDT [place] ([facility]) Name Value Range Interpretation Code Description Data Eliana rce(s) Supporting Document(s) Hemoglobin A1c/Hemoglobin.total in Blood 5.4 % Hemoglobin a1C [place] ([facility]) estimated average glucose 108 mg/dL 60-110 Estimated Average Glucose [place] ([facility]) ID Date Data Source [id number] 08/25/2020 10:47:00 AM EDT [place] ([facility]) Name Value Range Interpretation Code Description Data Eliana rce(s) Supporting Document(s) hemoglobin 14.4 g/dL 12.0-15.5 Hemoglobin [place] ([facility]) red blood count 4.99 10 4.00-5.40 Red Blood Count ATHE NA ([facility]) white blood count 5.9 10 4.0-10.0 White Blood Count [place] ([facility]) hematocrit 44.6 % 36.0-47.0 Hematocrit [place] ([facility]) mean corpuscular volume 89.4 fL 80.0-96.0 Mean Corpusc ular Volume [place] ([facility]) mean corpuscular hemoglobin 28.9 pg 27.0-33.0 Mean Cor puscular Hemoglobin [place] ([facility]) platelet count, automated 219 10 150-450 Platelet C ount, Automated [place] ([facility]) red cell distribution width 12.8 % 11.5-14.5 Red Cell Distribution Width [place] ([facility]) mean corpuscular HGB conc 32.3 g/dL 32.0-36.5 Mean Corpu scular HGB Conc [place] ([facility]) mono % 7.1 % 2.0-8.0 [place] % [place] ([facility]) neutrophils % 53.7 % 36.0-66.0 Neutrophils % [place] ( [facility]) lymph % 36.6 % 24.0-44.0 Lymph % [place] ([facility]) baso % 0.5 % 0.0-1.0 Baso % [place] ([facility]) eos % 1.9 % 0.0-3.0 Eos % [place] ([facility]) immature granulocyte % 0.2 % 0-3.0 Immature Gran ulocyte % [place] ([facility]) nucleated red blood cell % 0.0 % 0-0 Nucleated Red Blood Cell % [place] ([facility]) mono # 0.4 10 0.0-0.8 [place] # [place] ([facility]) neutrophils # 3.2 10 1.5-8.5 Neutrophils # [place] ( [facility]) lymph # 2.2 10 1.5-5.0 Lymph # [place] ([facility]) eos # 0.1 10 0.0-0.5 Eos # [place] ([facility]) baso # 0.0 10 0.0-0.2 Baso # [place] ([facility]) ID Date Data Source [id number] 08/25/2020 10:47:00 AM EDT [place] ([facility]) Name Value Range Interpretation Code Description Data Eliana rce(s) Supporting Document(s) HIV 1&2 screen centaur negative negative HIV 1&2 Scree n Centaur [place] ([facility]) ID Date Data Source [id number] 08/25/2020 10:47:00 AM EDT [facility]) Name Value Range Interpretation Code Description Data Eliana rce(s) Supporting Document(s) syphilis nonreactive nonreactive Syphilis [place] ([facility]) ID Date Data Source [id number] 08/25/2020 10:47:00 AM EDT [facility]) Name Value Range Interpretation Code Description Data Eliana rce(s) Supporting Document(s) total 25(oh) vitamin D 28.6 NG/mL 30.0-100.0 Below low normal T otal 25(Oh) Vitamin D [place] ([facility]) ID Date Data Source [id number] 08/25/2020 10:47:00 AM EDT [facility]) Name Value Range Interpretation Code Description Data Eliana rce(s) Supporting Document(s) thyroid stimulating hormone 1.520 uIU/mL 0.358-3.740 Thyroid Stimulating Hormone [place] ([facility]) ID Date Data Source [id number] 08/25/2020 10:47:00 AM EDT [facility]) Name Value Range Interpretation Code Description Data Eliana rce(s) Supporting Document(s) triglycerides level 138 mg/dL <150 Triglycerides Le nitesh [place] ([facility]) cholesterol level 141 mg/dL <200 Cholesterol Level [place] ([facility]) HDL cholesterol 31 mg/dL >40 Below low normal HDL Cholestero l [place] ([facility]) cholesterol risk ratio <5 Cholesterol R isk Ratio [place] ([facility]) Cholesterol in LDL [Mass/volume] in Serum or Plasma 82 mg/dL <1 00 LDL Cholesterol [place] ([facility]) non-HDL-C 110 mg/dL Non-hdl-c [place] ([facility]) ID Date Data Source [id number] 08/25/2020 10:47:00 AM EDT [facility]) Name Value Range Interpretation Code Description Data Eliana rce(s) Supporting Document(s) hepatitis C virus ty index < 0.0 <0.8 Hepatiti s C Virus Ty Index [place] ([facility]) ID Date Data Source [id number] 08/25/2020 10:47:00 AM EDT [facility] Name Value Range Interpretation Code Description Data Eliana rce(s) Supporting Document(s) glucose, fasting 90 mg/dL 70-100 Glucose, Fasting AT [facility]) blood urea nitrogen 12 mg/dL 7-18 Blood Urea Nitro gen [place] ([facility]) potassium serum 5.1 mEq/L 3.5-5.1 Potassium Serum ATH NA ([facility]) sodium level 139 mEq/L 136-145 Sodium Level [place] ([facility]) glomerular filtration rate > 60.0 >60 Glomerula r Filtration Rate [place] ([facility]) creatinine for GFR 0.71 mg/dL 0.55-1.30 Creatinine for GF R [place] ([facility]) chloride level 107 mEq/L 98-107 Chloride Level [place] ([facility]) carbon dioxide level 30 mEq/L 21-32 Carbon Dioxide Level [place] ([facility]) anion gap 2 mEq/L 8-16 Below low normal Anion Gap [place] ( [facility]) ALT/SGPT 63 U/L 12-78 ALT/SGPT [place] ([facility]) AST/SGOT 27 U/L 7-37 AST/SGOT [place] ([facility]) calcium level 9.2 mg/dL 8.5-10.1 Calcium Level [place] ( [facility]) alkaline phosphatase 101 U/L 45-117 Alkaline Phosph atase [place] ([facility]) albumin/globulin ratio 1.2-2.2 Albumin/globu lashae Ratio [place] ([facility]) total protein 7.1 gm/dL 6.4-8.2 Total Protein [place] ( [facility]) albumin 4.0 gm/dL 3.2-5.2 Albumin [place] ([facility]) bilirubin,total 0.4 mg/dL 0.2-1.0 Bilirubin,total ATHE NA ([facility]) ID Date Data Source [id number] 08/25/2020 10:47:00 AM EDT [place] ([facility]) Name Value Range Interpretation Code Description Data Eliana rce(s) Supporting Document(s) estimated average glucose 108 mg/dL 60-110 Estimated Average Glucose [place] ([facility]) Hemoglobin A1c/Hemoglobin.total in Blood 5.4 % Hemoglobin a1C [place] ([facility]) ID Date Data Source [id number] 08/25/2020 10:47:00 AM EDT [place] ([facility]) Name Value Range Interpretation Code Description Data Eliana rce(s) Supporting Document(s) white blood count 5.9 10 4.0-10.0 White Blood Count [place] ([facility]) red blood count 4.99 10 4.00-5.40 Red Blood Count ATHE NA ([facility]) hemoglobin 14.4 g/dL 12.0-15.5 Hemoglobin [place] ([facility]) hematocrit 44.6 % 36.0-47.0 Hematocrit [place] ([facility]) mean corpuscular volume 89.4 fL 80.0-96.0 Mean Corpusc ular Volume [place] ([facility]) mean corpuscular hemoglobin 28.9 pg 27.0-33.0 Mean Cor puscular Hemoglobin [place] ([facility]) mean corpuscular HGB conc 32.3 g/dL 32.0-36.5 Mean Corpu scular HGB Conc [place] ([facility]) platelet count, automated 219 10 150-450 Platelet C ount, Automated [place] ([facility]) neutrophils % 53.7 % 36.0-66.0 Neutrophils % [place] ( [facility]) red cell distribution width 12.8 % 11.5-14.5 Red Cell Distribution Width [place] ([facility]) lymph % 36.6 % 24.0-44.0 Lymph % [place] ([facility]) eos % 1.9 % 0.0-3.0 Eos % [place] ([facility]) mono % 7.1 % 2.0-8.0 [place] % [place] ([facility]) immature granulocyte % 0.2 % 0-3.0 Immature Gran ulocyte % [place] ([facility]) nucleated red blood cell % 0.0 % 0-0 Nucleated Red Blood Cell % [place] ([facility]) baso % 0.5 % 0.0-1.0 Baso % [place] ([facility]) neutrophils # 3.2 10 1.5-8.5 Neutrophils # [place] ( [facility]) mono # 0.4 10 0.0-0.8 [place] # [place] ([facility]) eos # 0.1 10 0.0-0.5 Eos # [place] ([facility]) lymph # 2.2 10 1.5-5.0 Lymph # [place] ([facility]) baso # 0.0 10 0.0-0.2 Baso # [place] ([facility]) ID Date Data Source [id number] 08/25/2020 10:47:00 AM EDT [place] ([facility]) Name Value Range Interpretation Code Description Data Eliana rce(s) Supporting Document(s) HIV 1&2 screen centaur negative negative HIV 1&2 Scree n Centaur [place] ([facility]) ID Date Data Source [id number] 08/25/2020 10:47:00 AM EDT [facility] Name Value Range Interpretation Code Description Data Eliana rce(s) Supporting Document(s) syphilis nonreactive nonreactive Syphilis [place] ([facility]) ID Date Data Source [id number] 08/25/2020 10:47:00 AM EDT [place] ([facility]) Name Value Range Interpretation Code Description Data Eliana rce(s) Supporting Document(s) total 25(oh) vitamin D 28.6 NG/mL 30.0-100.0 Below low normal T otal 25(Oh) Vitamin D [place] ([facility]) ID Date Data Source [id number] 08/25/2020 10:47:00 AM EDT [facility]) Name Value Range Interpretation Code Description Data Eliana rce(s) Supporting Document(s) thyroid stimulating hormone 1.520 uIU/mL 0.358-3.740 Thyroid Stimulating Hormone [place] ([facility]) ID Date Data Source [id number] 08/25/2020 10:47:00 AM EDT [facility]) Name Value Range Interpretation Code Description Data Eliana rce(s) Supporting Document(s) triglycerides level 138 mg/dL <150 Triglycerides Le nitesh [place] ([facility]) non-HDL-C 110 mg/dL Non-hdl-c [place] ([facility]) Cholesterol in LDL [Mass/volume] in Serum or Plasma 82 mg/dL <1 00 LDL Cholesterol [place] ([facility]) HDL cholesterol 31 mg/dL >40 Below low normal HDL Cholestero l [place] ([facility]) cholesterol risk ratio <5 Cholesterol R isk Ratio [place] ([facility]) cholesterol level 141 mg/dL <200 Cholesterol Level [place] ([facility]) ID Date Data Source [id number] 08/25/2020 10:47:00 AM EDT [facility]) Name Value Range Interpretation Code Description Data Eliana rce(s) Supporting Document(s) hepatitis C virus ty index < 0.0 <0.8 Hepatiti s C Virus Ty Index [place] ([facility]) ID Date Data Source [id number] 08/25/2020 10:47:00 AM EDT [place] ([facility]) Name Value Range Interpretation Code Description Data Eliana rce(s) Supporting Document(s) blood urea nitrogen 12 mg/dL 7-18 Blood Urea Nitro gen [place] ([facility]) glucose, fasting 90 mg/dL 70-100 Glucose, Fasting AT [facility] ([facility]) creatinine for GFR 0.71 mg/dL 0.55-1.30 Creatinine for GF R [place] ([facility]) sodium level 139 mEq/L 136-145 Sodium Level [place] ([facility]) potassium serum 5.1 mEq/L 3.5-5.1 Potassium Serum [facility] ([facility]) glomerular filtration rate > 60.0 >60 [place] r Filtration Rate [place] ([facility]) calcium level 9.2 mg/dL 8.5-10.1 Calcium Level [place] ( [facility]) carbon dioxide level 30 mEq/L 21-32 Carbon Dioxide Level [place] ([facility]) anion gap 2 mEq/L 8-16 Below low normal Anion Gap [place] ( [facility]) chloride level 107 mEq/L 98-107 Chloride Level [place] ([facility]) alkaline phosphatase 101 U/L 45-117 Alkaline Phosph atase [place] ([facility]) ALT/SGPT 63 U/L 12-78 ALT/SGPT [place] ([facility]) total protein 7.1 gm/dL 6.4-8.2 Total Protein [place] ( [facility]) AST/SGOT 27 U/L 7-37 AST/SGOT [place] ([facility]) bilirubin,total 0.4 mg/dL 0.2-1.0 Bilirubin,total [facility] NA ([facility]) albumin/globulin ratio 1.2-2.2 Albumin/globu lashae Ratio [place] ([facility]) albumin 4.0 gm/dL 3.2-5.2 Albumin [place] ([facility]) ID Date Data Source [id number] 08/25/2020 10:47:00 AM EDT [place] ([facility]) Name Value Range Interpretation Code Description Data Eliana rce(s) Supporting Document(s) Hemoglobin A1c/Hemoglobin.total in Blood 5.4 % Hemoglobin a1C [place] ([facility]) estimated average glucose 108 mg/dL 60-110 Estimated Average Glucose [place] ([facility]) ID Date Data Source [id number] 08/25/2020 10:47:00 AM EDT [place] ([facility]) Name Value Range Interpretation Code Description Data Eliana rce(s) Supporting Document(s) white blood count 5.9 10 4.0-10.0 White Blood Count [place] ([facility]) red blood count 4.99 10 4.00-5.40 Red Blood Count [facility] ([facility]) hematocrit 44.6 % 36.0-47.0 Hematocrit [place] ([facility]) mean corpuscular volume 89.4 fL 80.0-96.0 Mean Corpusc ular Volume [place] ([facility]) hemoglobin 14.4 g/dL 12.0-15.5 Hemoglobin [place] ([facility]) mean corpuscular hemoglobin 28.9 pg 27.0-33.0 Mean Cor puscular Hemoglobin [place] ([facility]) mean corpuscular HGB conc 32.3 g/dL 32.0-36.5 Mean Corpu scular HGB Conc [place] ([facility]) red cell distribution width 12.8 % 11.5-14.5 Red Cell Distribution Width [place] ([facility]) neutrophils % 53.7 % 36.0-66.0 Neutrophils % [place] ( [facility]) platelet count, automated 219 10 150-450 Platelet C ount, Automated [place] ([facility]) eos % 1.9 % 0.0-3.0 Eos % [place] ([facility]) lymph % 36.6 % 24.0-44.0 Lymph % [place] ([facility]) mono % 7.1 % 2.0-8.0 [place] % [place] ([facility]) baso % 0.5 % 0.0-1.0 Baso % [place] ([facility]) immature granulocyte % 0.2 % 0-3.0 Immature Gran ulocyte % [place] ([facility]) mono # 0.4 10 0.0-0.8 [place] # [place] ([facility]) neutrophils # 3.2 10 1.5-8.5 Neutrophils # [place] ( [facility]) nucleated red blood cell % 0.0 % 0-0 Nucleated Red Blood Cell % [place] ([facility]) lymph # 2.2 10 1.5-5.0 Lymph # [place] ([facility]) baso # 0.0 10 0.0-0.2 Baso # [place] ([facility]) eos # 0.1 10 0.0-0.5 Eos # [place] ([facility]) ID Date Data Source [id number] 08/25/2020 10:47:00 AM EDT [place] ([facility]) Name Value Range Interpretation Code Description Data Eliana rce(s) Supporting Document(s) HIV 1&2 screen [facility] negative negative HIV 1&2 Scree n [facility] [place] ([facility]) ID Date Data Source [id number] 08/25/2020 10:47:00 AM EDT [place] ([facility]) Name Value Range Interpretation Code Description Data Eliana rce(s) Supporting Document(s) syphilis nonreactive nonreactive Syphilis [place] ([facility]) ID Date Data Source [id number] 08/25/2020 10:47:00 AM EDT [place] ([facility]) Name Value Range Interpretation Code Description Data Eliana rce(s) Supporting Document(s) total 25(oh) vitamin D 28.6 NG/mL 30.0-100.0 Below low normal T otal 25(Oh) Vitamin D [place] ([facility]) ID Date Data Source [id number] 08/25/2020 10:47:00 AM EDT [place] ([facility]) Name Value Range Interpretation Code Description Data Eliana rce(s) Supporting Document(s) thyroid stimulating hormone 1.520 uIU/mL 0.358-3.740 Thyroid Stimulating Hormone [place] ([facility]) ID Date Data Source [id number] 08/25/2020 10:47:00 AM EDT [place] ([facility]) Name Value Range Interpretation Code Description Data Eliana rce(s) Supporting Document(s) triglycerides level 138 mg/dL <150 Triglycerides Le nitesh [place] ([facility]) Cholesterol in LDL [Mass/volume] in Serum or Plasma 82 mg/dL <1 00 LDL Cholesterol [place] ([facility]) HDL cholesterol 31 mg/dL >40 Below low normal HDL Cholestero l [place] ([facility]) non-HDL-C 110 mg/dL Non-hdl-c [place] ([facility]) cholesterol level 141 mg/dL <200 Cholesterol Level [place] ([facility]) cholesterol risk ratio <5 Cholesterol R isk Ratio [place] ([facility]) ID Date Data Source [id number] 08/25/2020 10:47:00 AM EDT [place] ([facility]) Name Value Range Interpretation Code Description Data Eliana rce(s) Supporting Document(s) hepatitis C virus ty index < 0.0 <0.8 Hepatiti s C Virus Ty Index [place] ([facility]) ID Date Data Source [id number] 08/25/2020 10:47:00 AM EDT [place] ([facility]) Name Value Range Interpretation Code Description Data Eliana rce(s) Supporting Document(s) glucose, fasting 90 mg/dL 70-100 Glucose, Fasting AT [facility] ([facility]) blood urea nitrogen 12 mg/dL 7-18 Blood Urea Nitro gen [place] ([facility]) creatinine for GFR 0.71 mg/dL 0.55-1.30 Creatinine for GF R [place] ([facility]) glomerular filtration rate > 60.0 >60 [place] r Filtration Rate [place] ([facility]) sodium level 139 mEq/L 136-145 Sodium Level [place] ([facility]) potassium serum 5.1 mEq/L 3.5-5.1 Potassium Serum [facility] ([facility]) carbon dioxide level 30 mEq/L 21-32 Carbon Dioxide Level [place] ([facility]) chloride level 107 mEq/L 98-107 Chloride Level [place] ([facility]) calcium level 9.2 mg/dL 8.5-10.1 Calcium Level [place] ( [facility]) AST/SGOT 27 U/L 7-37 AST/SGOT [place] ([facility]) anion gap 2 mEq/L 8-16 Below low normal Anion Gap [place] ( [facility]) ALT/SGPT 63 U/L 12-78 ALT/SGPT [place] ([facility]) alkaline phosphatase 101 U/L 45-117 Alkaline Phosph atase [place] ([facility]) bilirubin,total 0.4 mg/dL 0.2-1.0 Bilirubin,total [facility] ([facility]) total protein 7.1 gm/dL 6.4-8.2 Total Protein [place] ( [facility]) albumin 4.0 gm/dL 3.2-5.2 Albumin [place] ([facility]) albumin/globulin ratio 1.2-2.2 Albumin/globu lashae Ratio [place] ([facility]) ID Date Data Source [id number] 08/25/2020 10:47:00 AM EDT [place] ([facility]) Name Value Range Interpretation Code Description Data Eliana rce(s) Supporting Document(s) Hemoglobin A1c/Hemoglobin.total in Blood 5.4 % Hemoglobin a1C [place] ([facility]) estimated average glucose 108 mg/dL 60-110 Estimated Average Glucose [place] ([facility]) ID Date Data Source [id number] 08/25/2020 10:47:00 AM EDT [place] ([facility]) Name Value Range Interpretation Code Description Data Eliana rce(s) Supporting Document(s) red blood count 4.99 10 4.00-5.40 Red Blood Count [facility] ([facility]) white blood count 5.9 10 4.0-10.0 White Blood Count [place] ([facility]) mean corpuscular volume 89.4 fL 80.0-96.0 Mean Corpusc ular Volume [place] ([facility]) hematocrit 44.6 % 36.0-47.0 Hematocrit [place] ([facility]) hemoglobin 14.4 g/dL 12.0-15.5 Hemoglobin [place] ([facility]) mean corpuscular hemoglobin 28.9 pg 27.0-33.0 Mean Cor puscular Hemoglobin [place] ([facility]) red cell distribution width 12.8 % 11.5-14.5 Red Cell Distribution Width [place] ([facility]) mean corpuscular HGB conc 32.3 g/dL 32.0-36.5 Mean Corpu scular HGB Conc [place] ([facility]) neutrophils % 53.7 % 36.0-66.0 Neutrophils % [place] ( [facility]) platelet count, automated 219 10 150-450 Platelet C ount, Automated [place] ([facility]) lymph % 36.6 % 24.0-44.0 Lymph % [place] ([facility]) mono % 7.1 % 2.0-8.0 [place] % [place] ([facility]) baso % 0.5 % 0.0-1.0 Baso % [place] ([facility]) immature granulocyte % 0.2 % 0-3.0 Immature Gran ulocyte % [place] ([facility]) eos % 1.9 % 0.0-3.0 Eos % [place] ([facility]) nucleated red blood cell % 0.0 % 0-0 Nucleated Red Blood Cell % [place] ([facility]) neutrophils # 3.2 10 1.5-8.5 Neutrophils # [place] ( [facility]) lymph # 2.2 10 1.5-5.0 Lymph # [place] ([facility]) eos # 0.1 10 0.0-0.5 Eos # [place] ([facility]) baso # 0.0 10 0.0-0.2 Baso # [place] ([facility]) mono # 0.4 10 0.0-0.8 [place] # [place] ([facility]) ID Date Data Source [id number] 08/25/2020 10:47:00 AM EDT [place] ([facility]) Name Value Range Interpretation Code Description Data Eliana rce(s) Supporting Document(s) HIV 1&2 screen [facility] negative negative HIV 1&2 Scree n [facility] [place] ([facility]) ID Date Data Source [id number] 08/25/2020 10:47:00 AM EDT [facility]) Name Value Range Interpretation Code Description Data Eliana rce(s) Supporting Document(s) syphilis nonreactive nonreactive Syphilis [place] ([facility]) ID Date Data Source [id number] 08/25/2020 10:47:00 AM EDT [facility]) Name Value Range Interpretation Code Description Data Eliana rce(s) Supporting Document(s) total 25(oh) vitamin D 28.6 NG/mL 30.0-100.0 Below low normal T otal 25(Oh) Vitamin D [place] ([facility]) ID Date Data Source [id number] 08/25/2020 10:47:00 AM EDT [place] ([facility]) Name Value Range Interpretation Code Description Data Eliana rce(s) Supporting Document(s) thyroid stimulating hormone 1.520 uIU/mL 0.358-3.740 Thyroid Stimulating Hormone [place] ([facility]) ID Date Data Source [id number] 08/25/2020 10:47:00 AM EDT [place] ([facility]) Name Value Range Interpretation Code Description Data Eliana rce(s) Supporting Document(s) triglycerides level 138 mg/dL <150 Triglycerides Le nitesh [place] ([facility]) HDL cholesterol 31 mg/dL >40 Below low normal HDL Cholestero l [place] ([facility]) cholesterol level 141 mg/dL <200 Cholesterol Level [place] ([facility]) non-HDL-C 110 mg/dL Non-hdl-c [place] ([facility]) Cholesterol in LDL [Mass/volume] in Serum or Plasma 82 mg/dL <1 00 LDL Cholesterol [place] ([facility]) cholesterol risk ratio <5 Cholesterol R isk Ratio [place] ([facility]) ID Date Data Source [id number] 08/25/2020 10:47:00 AM EDT [place] ([facility]) Name Value Range Interpretation Code Description Data Eliana rce(s) Supporting Document(s) hepatitis C virus ty index < 0.0 <0.8 Hepatiti s C Virus Ty Index [facility]) ID Date Data Source [id number] 08/25/2020 10:47:00 AM EDT [facility]) Name Value Range Interpretation Code Description Data Eliana rce(s) Supporting Document(s) glucose, fasting 90 mg/dL 70-100 Glucose, Fasting AT [facility] ([facility]) blood urea nitrogen 12 mg/dL 7-18 Blood Urea Nitro gen [place] ([facility]) creatinine for GFR 0.71 mg/dL 0.55-1.30 Creatinine for GF R [place] ([facility]) sodium level 139 mEq/L 136-145 Sodium Level [place] ([facility]) potassium serum 5.1 mEq/L 3.5-5.1 Potassium Serum [facility] NA ([facility]) glomerular filtration rate > 60.0 >60 [place] r Filtration Rate [place] ([facility]) anion gap 2 mEq/L 8-16 Below low normal Anion Gap [place] ( [facility]) carbon dioxide level 30 mEq/L 21-32 Carbon Dioxide Level [place] ([facility]) chloride level 107 mEq/L 98-107 Chloride Level [place] ([facility]) AST/SGOT 27 U/L 7-37 AST/SGOT [place] ([facility]) calcium level 9.2 mg/dL 8.5-10.1 Calcium Level [place] ( [facility]) ALT/SGPT 63 U/L 12-78 ALT/SGPT [place] ([facility]) bilirubin,total 0.4 mg/dL 0.2-1.0 Bilirubin,total [facility] NA ([facility]) total protein 7.1 gm/dL 6.4-8.2 Total Protein [place] ( [facility]) alkaline phosphatase 101 U/L 45-117 Alkaline Phosph atase [place] ([facility]) albumin/globulin ratio 1.2-2.2 Albumin/globu lashae Ratio [place] ([facility]) albumin 4.0 gm/dL 3.2-5.2 Albumin [place] ([facility]) ID Date Data Source [id number] 08/25/2020 10:47:00 AM EDT [place] ([facility]) Name Value Range Interpretation Code Description Data Eliana rce(s) Supporting Document(s) Hemoglobin A1c/Hemoglobin.total in Blood 5.4 % Hemoglobin a1C [place] ([facility]) estimated average glucose 108 mg/dL 60-110 Estimated Average Glucose [place] ([facility]) ID Date Data Source [id number] 08/25/2020 10:47:00 AM EDT [place] ([facility]) Name Value Range Interpretation Code Description Data Eliana rce(s) Supporting Document(s) white blood count 5.9 10 4.0-10.0 White Blood Count [place] ([facility]) red blood count 4.99 10 4.00-5.40 Red Blood Count [facility] NA ([facility]) hemoglobin 14.4 g/dL 12.0-15.5 Hemoglobin [place] ([facility]) mean corpuscular volume 89.4 fL 80.0-96.0 Mean Corpusc ular Volume [place] ([facility]) hematocrit 44.6 % 36.0-47.0 Hematocrit [place] ([facility]) mean corpuscular hemoglobin 28.9 pg 27.0-33.0 Mean Cor puscular Hemoglobin [place] ([facility]) mean corpuscular HGB conc 32.3 g/dL 32.0-36.5 Mean Corpu scular HGB Conc [place] ([facility]) red cell distribution width 12.8 % 11.5-14.5 Red Cell Distribution Width [place] ([facility]) platelet count, automated 219 10 150-450 Platelet C ount, Automated [place] ([facility]) neutrophils % 53.7 % 36.0-66.0 Neutrophils % [place] ( [facility]) lymph % 36.6 % 24.0-44.0 Lymph % [place] ([facility]) mono % 7.1 % 2.0-8.0 [place] % [place] ([facility]) eos % 1.9 % 0.0-3.0 Eos % [place] ([facility]) baso % 0.5 % 0.0-1.0 Baso % [place] ([facility]) immature granulocyte % 0.2 % 0-3.0 Immature Gran ulocyte % [place] ([facility]) neutrophils # 3.2 10 1.5-8.5 Neutrophils # [place] ( [facility]) nucleated red blood cell % 0.0 % 0-0 Nucleated Red Blood Cell % [place] ([facility]) lymph # 2.2 10 1.5-5.0 Lymph # [place] ([facility]) baso # 0.0 10 0.0-0.2 Baso # [place] ([facility]) eos # 0.1 10 0.0-0.5 Eos # [place] ([facility]) mono # 0.4 10 0.0-0.8 [place] # [place] ([facility]) ID Date Data Source [id number] 08/25/2020 10:47:00 AM EDT [place] ([facility]) Name Value Range Interpretation Code Description Data Eliana rce(s) Supporting Document(s) HIV 1&2 screen [facility] negative negative HIV 1&2 Scree n [facility] [place] ([facility]) ID Date Data Source [id number] 08/25/2020 10:47:00 AM EDT [place] ([facility]) Name Value Range Interpretation Code Description Data Eliana rce(s) Supporting Document(s) syphilis nonreactive nonreactive Syphilis [place] ([facility]) ID Date Data Source [id number] 08/25/2020 10:47:00 AM EDT [facility]) Name Value Range Interpretation Code Description Data Eliana rce(s) Supporting Document(s) total 25(oh) vitamin D 28.6 NG/mL 30.0-100.0 Below low normal T otal 25(Oh) Vitamin D [place] ([facility]) ID Date Data Source [id number] 08/25/2020 10:47:00 AM EDT [facility]) Name Value Range Interpretation Code Description Data Eliana rce(s) Supporting Document(s) thyroid stimulating hormone 1.520 uIU/mL 0.358-3.740 Thyroid Stimulating Hormone [place] ([facility]) ID Date Data Source [id number] 08/25/2020 10:47:00 AM EDT [facility]) Name Value Range Interpretation Code Description Data Eliana rce(s) Supporting Document(s) triglycerides level 138 mg/dL <150 Triglycerides Le nitesh [place] ([facility]) Cholesterol in LDL [Mass/volume] in Serum or Plasma 82 mg/dL <1 00 LDL Cholesterol [place] ([facility]) cholesterol level 141 mg/dL <200 Cholesterol Level [place] ([facility]) HDL cholesterol 31 mg/dL >40 Below low normal HDL Cholestero l [place] ([facility]) non-HDL-C 110 mg/dL Non-hdl-c [place] ([facility]) cholesterol risk ratio <5 Cholesterol R isk Ratio [place] ([facility]) ID Date Data Source [id number] 08/25/2020 10:47:00 AM EDT [facility]) Name Value Range Interpretation Code Description Data Eliana rce(s) Supporting Document(s) hepatitis C virus ty index < 0.0 <0.8 Hepatiti s C Virus Ty Index [place] ([facility]) ID Date Data Source [id number] 08/25/2020 10:47:00 AM EDT [facility]) Name Value Range Interpretation Code Description Data Eliana rce(s) Supporting Document(s) glucose, fasting 90 mg/dL 70-100 Glucose, Fasting AT [facility]) blood urea nitrogen 12 mg/dL 7-18 Blood Urea Nitro gen [place] ([facility]) glomerular filtration rate > 60.0 >60 [place] r Filtration Rate [place] ([facility]) creatinine for GFR 0.71 mg/dL 0.55-1.30 Creatinine for GF R [place] ([facility]) sodium level 139 mEq/L 136-145 Sodium Level [place] ([facility]) chloride level 107 mEq/L 98-107 Chloride Level [place] ([facility]) carbon dioxide level 30 mEq/L 21-32 Carbon Dioxide Level [place] ([facility]) potassium serum 5.1 mEq/L 3.5-5.1 Potassium Serum [facility] ([facility]) calcium level 9.2 mg/dL 8.5-10.1 Calcium Level [place] ( [facility]) anion gap 2 mEq/L 8-16 Below low normal Anion Gap [place] ( [facility]) ALT/SGPT 63 U/L 12-78 ALT/SGPT [place] ([facility]) alkaline phosphatase 101 U/L 45-117 Alkaline Phosph atase [place] ([facility]) AST/SGOT 27 U/L 7-37 AST/SGOT [place] ([facility]) albumin 4.0 gm/dL 3.2-5.2 Albumin [place] ([facility]) bilirubin,total 0.4 mg/dL 0.2-1.0 Bilirubin,total [facility] ([facility]) total protein 7.1 gm/dL 6.4-8.2 Total Protein [facility] ( [facility] Clinics) albumin/globulin ratio 1.2-2.2 Albumin/globu lashae Ratio [facility] ([facility]) ID Date Data Source [id number] 08/25/2020 10:47:00 AM EDT [facility] ([facility]) Name Value Range Interpretation Code Description Data Eliana rce(s) Supporting Document(s) Hemoglobin A1c/Hemoglobin.total in Blood 5.4 % Hemoglobin a1C [facility] ([facility]) estimated average glucose 108 mg/dL 60-110 Estimated Average Glucose [facility] ([facility]) ID Date Data Source [id number] 08/25/2020 10:47:00 AM EDT [facility] ([facility]) Name Value Range Interpretation Code Description Data Eliana rce(s) Supporting Document(s) white blood count 5.9 10 4.0-10.0 White Blood Count [facility] ([facility]) red blood count 4.99 10 4.00-5.40 Red Blood Count [facility] ([facility]) hematocrit 44.6 % 36.0-47.0 Hematocrit [facility] ([facility]) hemoglobin 14.4 g/dL 12.0-15.5 Hemoglobin [facility] ([facility]) mean corpuscular hemoglobin 28.9 pg 27.0-33.0 Mean Cor puscular Hemoglobin [facility] ([facility]) mean corpuscular HGB conc 32.3 g/dL 32.0-36.5 Mean Corpu scular HGB Conc [facility] ([facility]) mean corpuscular volume 89.4 fL 80.0-96.0 Mean Corpusc ular Volume [facility] ([facility]) platelet count, automated 219 10 150-450 Platelet C ount, Automated [facility] ([facility]) red cell distribution width 12.8 % 11.5-14.5 Red Cell Distribution Width [facility] ([facility]) lymph % 36.6 % 24.0-44.0 Lymph % [place] ([facility]) neutrophils % 53.7 % 36.0-66.0 Neutrophils % [place] ( [facility]) mono % 7.1 % 2.0-8.0 [place] % [facility] ([facility]) baso % 0.5 % 0.0-1.0 Baso % [facility] ([facility]) eos % 1.9 % 0.0-3.0 Eos % [facility] ([facility]) nucleated red blood cell % 0.0 % 0-0 Nucleated Red Blood Cell % [place] ([facility]) immature granulocyte % 0.2 % 0-3.0 Immature Gran ulocyte % [facility] ([facility]) neutrophils # 3.2 10 1.5-8.5 Neutrophils # [facility] ( [facility]) mono # 0.4 10 0.0-0.8 [place] # [facility] ([facility]) lymph # 2.2 10 1.5-5.0 Lymph # [facility] ([facility]) eos # 0.1 10 0.0-0.5 Eos # [facility] ([facility]) baso # 0.0 10 0.0-0.2 Baso # [facility] ([facility]) ID Date Data Source [id number] 08/25/2020 10:47:00 AM EDT [place] ([facility]) Name Value Range Interpretation Code Description Data Eliana rce(s) Supporting Document(s) HIV 1&2 screen centaur negative negative HIV 1&2 Scree n [facility] ([facility]) ID Date Data Source [id number] 08/25/2020 10:47:00 AM EDT [place] ([facility]) Name Value Range Interpretation Code Description Data Eliana rce(s) Supporting Document(s) syphilis nonreactive nonreactive Syphilis [place] ([facility]) ID Date Data Source [id number] 08/25/2020 10:47:00 AM EDT [facility]) Name Value Range Interpretation Code Description Data Eliana rce(s) Supporting Document(s) total 25(oh) vitamin D 28.6 NG/mL 30.0-100.0 Below low normal T otal 25(Oh) Vitamin D [place] ([facility]) ID Date Data Source [id number] 08/25/2020 10:47:00 AM EDT [facility]) Name Value Range Interpretation Code Description Data Eliana rce(s) Supporting Document(s) thyroid stimulating hormone 1.520 uIU/mL 0.358-3.740 Thyroid Stimulating Hormone [facility] ([facility]) ID Date Data Source [id number] 08/25/2020 10:47:00 AM EDT [place] ([facility]) Name Value Range Interpretation Code Description Data Eliana rce(s) Supporting Document(s) triglycerides level 138 mg/dL <150 Triglycerides Le nitesh [facility] ([facility]) HDL cholesterol 31 mg/dL >40 Below low normal HDL Cholestero l [place] ([facility]) Cholesterol in LDL [Mass/volume] in Serum or Plasma 82 mg/dL <1 00 LDL Cholesterol [facility] ([facility]) cholesterol level 141 mg/dL <200 Cholesterol Level [facility] ([facility]) non-HDL-C 110 mg/dL Non-hdl-c [facility] ([facility]) cholesterol risk ratio <5 Cholesterol R isk Ratio [facility] ([facility]) ID Date Data Source [id number] 08/25/2020 10:47:00 AM EDT [facility]) Name Value Range Interpretation Code Description Data Eliana rce(s) Supporting Document(s) hepatitis C virus ty index < 0.0 <0.8 Hepatiti s C Virus Ty Index [facility] ([facility]) ID Date Data Source [id number] 08/25/2020 10:47:00 AM EDT [place] ([facility]) Name Value Range Interpretation Code Description Data Eliana rce(s) Supporting Document(s) glomerular filtration rate > 60.0 >60 Glomerula r Filtration Rate [facility] ([facility]) blood urea nitrogen 12 mg/dL 7-18 Blood Urea Nitro gen [facility] ([facility]) creatinine for GFR 0.71 mg/dL 0.55-1.30 Creatinine for GF R [facility] ([facility]) glucose, fasting 90 mg/dL 70-100 Glucose, Fasting AT [facility]) sodium level 139 mEq/L 136-145 Sodium Level [facility] ([facility]) potassium serum 5.1 mEq/L 3.5-5.1 Potassium Serum [facility] ([facility]) chloride level 107 mEq/L 98-107 Chloride Level [facility] ([facility]) carbon dioxide level 30 mEq/L 21-32 Carbon Dioxide Level [facility] ([facility]) anion gap 2 mEq/L 8-16 Below low normal Anion Gap [facility] ( [facility]) calcium level 9.2 mg/dL 8.5-10.1 Calcium Level [facility] ( [facility]) ALT/SGPT 63 U/L 12-78 ALT/SGPT [facility] ([facility]) AST/SGOT 27 U/L 7-37 AST/SGOT [facility] ([facility]) alkaline phosphatase 101 U/L 45-117 Alkaline Phosph atase [facility] ([facility]) bilirubin,total 0.4 mg/dL 0.2-1.0 Bilirubin,total [facility] ([facility]) total protein 7.1 gm/dL 6.4-8.2 Total Protein [facility] ( [facility]) albumin/globulin ratio 1.2-2.2 Albumin/globu lashae Ratio [facility] ([facility]) albumin 4.0 gm/dL 3.2-5.2 Albumin [facility] ([facility]) ID Date Data Source [id number] 08/25/2020 10:47:00 AM EDT [facility] ([facility]) Name Value Range Interpretation Code Description Data Eliana rce(s) Supporting Document(s) Hemoglobin A1c/Hemoglobin.total in Blood 5.4 % Hemoglobin a1C [facility] ([facility]) estimated average glucose 108 mg/dL 60-110 Estimated Average Glucose [facility] ([facility]) ID Date Data Source [id number] 08/25/2020 10:47:00 AM EDT [facility] ([facility]) Name Value Range Interpretation Code Description Data Eliana rce(s) Supporting Document(s) white blood count 5.9 10 4.0-10.0 White Blood Count [facility] ([facility]) red blood count 4.99 10 4.00-5.40 Red Blood Count [facility] ([facility]) hematocrit 44.6 % 36.0-47.0 Hematocrit [facility] ([facility]) mean corpuscular volume 89.4 fL 80.0-96.0 Mean Corpusc ular Volume [facility] ([facility]) hemoglobin 14.4 g/dL 12.0-15.5 Hemoglobin [facility] ([facility]) mean corpuscular HGB conc 32.3 g/dL 32.0-36.5 Mean Corpu scular HGB Conc [facility] ([facility]) mean corpuscular hemoglobin 28.9 pg 27.0-33.0 Mean Cor puscular Hemoglobin [facility] ([facility]) platelet count, automated 219 10 150-450 Platelet C ount, Automated [facility] ([facility]) neutrophils % 53.7 % 36.0-66.0 Neutrophils % [place] ( [facility]) red cell distribution width 12.8 % 11.5-14.5 Red Cell Distribution Width [facility] ([facility]) baso % 0.5 % 0.0-1.0 Baso % [place] ([facility]) mono % 7.1 % 2.0-8.0 [place] % [place] ([facility]) lymph % 36.6 % 24.0-44.0 Lymph % [place] ([facility]) eos % 1.9 % 0.0-3.0 Eos % [place] ([facility]) immature granulocyte % 0.2 % 0-3.0 Immature Gran ulocyte % [place] ([facility]) nucleated red blood cell % 0.0 % 0-0 Nucleated Red Blood Cell % [place] ([facility]) neutrophils # 3.2 10 1.5-8.5 Neutrophils # [facility] ( [facility]) mono # 0.4 10 0.0-0.8 [place] # [place] ([facility]) lymph # 2.2 10 1.5-5.0 Lymph # [place] ([facility]) baso # 0.0 10 0.0-0.2 Baso # [place] ([facility]) eos # 0.1 10 0.0-0.5 Eos # [place] ([facility]) ID Date Data Source [id number] 08/25/2020 10:47:00 AM EDT [place] ([facility]) Name Value Range Interpretation Code Description Data Eliana rce(s) Supporting Document(s) HIV 1&2 screen [facility] negative negative HIV 1&2 [facility] ID Date Data Source [id number] 08/25/2020 10:47:00 AM EDT [facility] ([facility]) Name Value Range Interpretation Code Description Data Eliana rce(s) Supporting Document(s) syphilis nonreactive nonreactive Syphilis [facility] ([facility]) ID Date Data Source [id number] 08/25/2020 10:47:00 AM EDT [facility] Name Value Range Interpretation Code Description Data Eliana rce(s) Supporting Document(s) total 25(oh) vitamin D 28.6 NG/mL 30.0-100.0 Below low normal T otal 25(Oh) Vitamin D [facility]) ID Date Data Source [id number] 08/25/2020 10:47:00 AM EDT [facility] Name Value Range Interpretation Code Description Data Eliana rce(s) Supporting Document(s) thyroid stimulating hormone 1.520 uIU/mL 0.358-3.740 Thyroid Stimulating Hormone [facility] ([facility]) ID Date Data Source [id number] 08/25/2020 10:47:00 AM EDT [facility]) Name Value Range Interpretation Code Description Data Eliana rce(s) Supporting Document(s) triglycerides level 138 mg/dL <150 Triglycerides Le nitesh [facility] ([facility]) HDL cholesterol 31 mg/dL >40 Below low normal HDL Cholestero l [facility] ([facility]) non-HDL-C 110 mg/dL Non-hdl-c [facility] ([facility]) Cholesterol in LDL [Mass/volume] in Serum or Plasma 82 mg/dL <1 00 LDL Cholesterol [facility] ([facility]) cholesterol risk ratio <5 Cholesterol R isk Ratio [facility] ([facility]) cholesterol level 141 mg/dL <200 Cholesterol Level [facility] ([facility]) ID Date Data Source [id number] 08/25/2020 10:47:00 AM EDT [place] ([facility]) Name Value Range Interpretation Code Description Data Eliana rce(s) Supporting Document(s) hepatitis C virus ty index < 0.0 <0.8 Hepatiti s C Virus Ty Index [facility] ([facility]) ID Date Data Source [id number] 08/25/2020 10:47:00 AM EDT [facility] ([facility]) Name Value Range Interpretation Code Description Data Eliana rce(s) Supporting Document(s) glucose, fasting 90 mg/dL 70-100 Glucose, Fasting AT [facility] ([facility]) creatinine for GFR 0.71 mg/dL 0.55-1.30 Creatinine for GF R [place] ([facility]) blood urea nitrogen 12 mg/dL 7-18 Blood Urea Nitro gen [facility] ([facility]) chloride level 107 mEq/L 98-107 Chloride Level [place] ([facility]) glomerular filtration rate > 60.0 >60 Glomerula r Filtration Rate [facility] ([facility]) potassium serum 5.1 mEq/L 3.5-5.1 Potassium Serum [facility] ([facility]) sodium level 139 mEq/L 136-145 Sodium Level [facility] ([facility]) anion gap 2 mEq/L 8-16 Below low normal Anion Gap [facility] ( [facility]) carbon dioxide level 30 mEq/L 21-32 Carbon Dioxide Level [facility] ([facility]) ALT/SGPT 63 U/L 12-78 ALT/SGPT [facility] ([facility]) AST/SGOT 27 U/L 7-37 AST/SGOT [facility] ([facility]) calcium level 9.2 mg/dL 8.5-10.1 Calcium Level [facility] ( [facility]) bilirubin,total 0.4 mg/dL 0.2-1.0 Bilirubin,total [facility] ([facility]) total protein 7.1 gm/dL 6.4-8.2 Total Protein [facility] ( [facility]) alkaline phosphatase 101 U/L 45-117 Alkaline Phosph atase [facility] ([facility]) albumin 4.0 gm/dL 3.2-5.2 Albumin [facility] ([facility]) albumin/globulin ratio 1.2-2.2 Albumin/globu lashae Ratio [facility] ([facility]) ID Date Data Source [id number] 08/25/2020 10:47:00 AM EDT [facility] ([facility]) Name Value Range Interpretation Code Description Data Eliana rce(s) Supporting Document(s) Hemoglobin A1c/Hemoglobin.total in Blood 5.4 % Hemoglobin a1C [facility] ([facility]) estimated average glucose 108 mg/dL 60-110 Estimated Average Glucose [facility] ([facility]) ID Date Data Source [id number] 08/25/2020 10:47:00 AM EDT [facility] ([facility]) Name Value Range Interpretation Code Description Data Eliana rce(s) Supporting Document(s) white blood count 5.9 10 4.0-10.0 White Blood Count [facility] ([facility]) red blood count 4.99 10 4.00-5.40 Red Blood Count [facility] ([facility]) hemoglobin 14.4 g/dL 12.0-15.5 Hemoglobin [facility] ([facility]) mean corpuscular volume 89.4 fL 80.0-96.0 Mean Corpusc ular Volume [facility] ([facility]) hematocrit 44.6 % 36.0-47.0 Hematocrit [facility] ([facility]) mean corpuscular hemoglobin 28.9 pg 27.0-33.0 Mean Cor puscular Hemoglobin [facility] ([facility]) mean corpuscular HGB conc 32.3 g/dL 32.0-36.5 Mean Corpu scular HGB Conc [facility] ([facility]) red cell distribution width 12.8 % 11.5-14.5 Red Cell Distribution Width [facility] ([facility]) lymph % 36.6 % 24.0-44.0 Lymph % [facility] ([facility]) neutrophils % 53.7 % 36.0-66.0 Neutrophils % [facility] ( [facility]) platelet count, automated 219 10 150-450 Platelet C ount, Automated [facility] ([facility]) immature granulocyte % 0.2 % 0-3.0 Immature Gran ulocyte % [facility] ([facility]) eos % 1.9 % 0.0-3.0 Eos % [facility] ([facility]) baso % 0.5 % 0.0-1.0 Baso % [place] ([facility]) mono % 7.1 % 2.0-8.0 [place] % [place] ([facility]) lymph # 2.2 10 1.5-5.0 Lymph # [place] ([facility]) nucleated red blood cell % 0.0 % 0-0 Nucleated Red Blood Cell % [place] ([facility]) neutrophils # 3.2 10 1.5-8.5 Neutrophils # [facility] ( [facility]) baso # 0.0 10 0.0-0.2 Baso # [facility] ([facility]) mono # 0.4 10 0.0-0.8 [place] # [facility] ([facility]) eos # 0.1 10 0.0-0.5 Eos # [facility] ([facility]) ID Date Data Source [id number] 08/25/2020 10:47:00 AM EDT [place] ([facility]) Name Value Range Interpretation Code Description Data Eliana rce(s) Supporting Document(s) HIV 1&2 screen [facility] negative negative HIV 1&2 Scree n [facility] [place] ([facility]) ID Date Data Source [id number] 08/25/2020 10:47:00 AM EDT [facility]) Name Value Range Interpretation Code Description Data Eliana rce(s) Supporting Document(s) syphilis nonreactive nonreactive Syphilis [facility] ([facility]) ID Date Data Source [id number] 08/25/2020 10:47:00 AM EDT [facility] ([facility]) Name Value Range Interpretation Code Description Data Eliana rce(s) Supporting Document(s) total 25(oh) vitamin D 28.6 NG/mL 30.0-100.0 Below low normal T otal 25(Oh) Vitamin D [facility] ([facility]) ID Date Data Source [id number] 08/25/2020 10:47:00 AM EDT [facility] ([facility]) Name Value Range Interpretation Code Description Data Eliana rce(s) Supporting Document(s) thyroid stimulating hormone 1.520 uIU/mL 0.358-3.740 Thyroid Stimulating Hormone [facility] ([facility]) ID Date Data Source [id number] 08/25/2020 10:47:00 AM EDT [place] ([facility]) Name Value Range Interpretation Code Description Data Eliana rce(s) Supporting Document(s) triglycerides level 138 mg/dL <150 Triglycerides Le nitesh [facility] ([facility]) HDL cholesterol 31 mg/dL >40 Below low normal HDL Cholestero l [facility] ([facility]) cholesterol level 141 mg/dL <200 Cholesterol Level [facility] ([facility]) non-HDL-C 110 mg/dL Non-hdl-c [facility] ([facility]) Cholesterol in LDL [Mass/volume] in Serum or Plasma 82 mg/dL <1 00 LDL Cholesterol [facility] ([facility]) cholesterol risk ratio <5 Cholesterol R isk Ratio [place] ([facility]) ID Date Data Source [id number] 08/25/2020 10:47:00 AM EDT [facility]) Name Value Range Interpretation Code Description Data Eliana rce(s) Supporting Document(s) hepatitis C virus ty index < 0.0 <0.8 Hepatiti s C Virus Ty Index [facility] ID Date Data Source [id number] 08/25/2020 10:47:00 AM EDT [facility] ([facility]) Name Value Range Interpretation Code Description Data Eliana rce(s) Supporting Document(s) glucose, fasting 90 mg/dL 70-100 Glucose, Fasting AT [facility] ([facility]) creatinine for GFR 0.71 mg/dL 0.55-1.30 Creatinine for GF R [facility] ([facility]) blood urea nitrogen 12 mg/dL 7-18 Blood Urea Nitro gen [facility] ([facility]) glomerular filtration rate > 60.0 >60 Glomerula r Filtration Rate [facility] ([facility]) sodium level 139 mEq/L 136-145 Sodium Level [facility] ([facility]) chloride level 107 mEq/L 98-107 Chloride Level [facility] ([facility]) potassium serum 5.1 mEq/L 3.5-5.1 Potassium Serum [facility] ([facility]) carbon dioxide level 30 mEq/L 21-32 Carbon Dioxide Level [facility] ([facility]) anion gap 2 mEq/L 8-16 Below low normal Anion Gap [facility] ( [facility]) AST/SGOT 27 U/L 7-37 AST/SGOT [facility] ([facility]) calcium level 9.2 mg/dL 8.5-10.1 Calcium Level [facility] ( [facility]) ALT/SGPT 63 U/L 12-78 ALT/SGPT [facility] ([facility]) total protein 7.1 gm/dL 6.4-8.2 Total Protein [facility] ( [facility]) bilirubin,total 0.4 mg/dL 0.2-1.0 Bilirubin,total [facility] ([facility]) alkaline phosphatase 101 U/L 45-117 Alkaline Phosph atase [facility] ([facility]) albumin 4.0 gm/dL 3.2-5.2 Albumin [facility] ([facility]) albumin/globulin ratio 1.2-2.2 Albumin/globu lashae Ratio [facility] ([facility]) ID Date Data Source [id number] 08/25/2020 10:47:00 AM EDT [facility] ([facility]) Name Value Range Interpretation Code Description Data Eliana rce(s) Supporting Document(s) Hemoglobin A1c/Hemoglobin.total in Blood 5.4 % Hemoglobin a1C [facility] ([facility]) estimated average glucose 108 mg/dL 60-110 Estimated Average Glucose [facility] ([facility]) ID Date Data Source [id number] 08/25/2020 10:47:00 AM EDT [facility] ([facility]) Name Value Range Interpretation Code Description Data Eliana rce(s) Supporting Document(s) white blood count 5.9 10 4.0-10.0 White Blood Count [facility] ([facility]) red blood count 4.99 10 4.00-5.40 Red Blood Count [facility] ([facility]) hemoglobin 14.4 g/dL 12.0-15.5 Hemoglobin [facility] ([facility]) hematocrit 44.6 % 36.0-47.0 Hematocrit [facility] ([facility]) mean corpuscular volume 89.4 fL 80.0-96.0 Mean Corpusc ular Volume [facility] ([facility]) mean corpuscular hemoglobin 28.9 pg 27.0-33.0 Mean Cor puscular Hemoglobin [facility] ([facility]) mean corpuscular HGB conc 32.3 g/dL 32.0-36.5 Mean Corpu scular HGB Conc [facility] ([facility]) platelet count, automated 219 10 150-450 Platelet C ount, Automated [facility] ([facility]) red cell distribution width 12.8 % 11.5-14.5 Red Cell Distribution Width [facility] ([facility]) neutrophils % 53.7 % 36.0-66.0 Neutrophils % [facility] ( [facility]) lymph % 36.6 % 24.0-44.0 Lymph % [facility] ([facility]) mono % 7.1 % 2.0-8.0 [place] % [facility] ([facility]) eos % 1.9 % 0.0-3.0 Eos % [facility] ([facility]) nucleated red blood cell % 0.0 % 0-0 Nucleated Red Blood Cell % [place] ([facility]) immature granulocyte % 0.2 % 0-3.0 Immature Gran ulocyte % [facility] ([facility]) baso % 0.5 % 0.0-1.0 Baso % [facility] ([facility]) lymph # 2.2 10 1.5-5.0 Lymph # [place] ([facility]) neutrophils # 3.2 10 1.5-8.5 Neutrophils # [facility] ( [facility]) eos # 0.1 10 0.0-0.5 Eos # [facility] ([facility]) mono # 0.4 10 0.0-0.8 [place] # [place] ([facility]) baso # 0.0 10 0.0-0.2 Baso # [facility] ([facility]) ID Date Data Source [id number] 08/25/2020 10:47:00 AM EDT [place] ([facility]) Name Value Range Interpretation Code Description Data Eliana rce(s) Supporting Document(s) hepatitis C virus ty index < 0.0 <0.8 Hepatiti s C Virus Ty Index [facility] ([facility]) ID Date Data Source [id number] 08/25/2020 10:47:00 AM EDT [facility]) Name Value Range Interpretation Code Description Data Eliana rce(s) Supporting Document(s) blood urea nitrogen 12 mg/dL 7-18 Blood Urea Nitro gen [place] ([facility]) creatinine for GFR 0.71 mg/dL 0.55-1.30 Creatinine for GF R [place] ([facility]) glucose, fasting 90 mg/dL 70-100 Glucose, Fasting AT [facility] ([facility]) sodium level 139 mEq/L 136-145 Sodium Level [place] ([facility]) glomerular filtration rate > 60.0 >60 Glomerula r Filtration Rate [place] ([facility]) potassium serum 5.1 mEq/L 3.5-5.1 Potassium Serum [facility] ([facility]) carbon dioxide level 30 mEq/L 21-32 Carbon Dioxide Level [place] ([facility]) anion gap 2 mEq/L 8-16 Below low normal Anion Gap [place] ( [facility]) chloride level 107 mEq/L 98-107 Chloride Level [place] ([facility]) calcium level 9.2 mg/dL 8.5-10.1 Calcium Level [place] ( [facility]) ALT/SGPT 63 U/L 12-78 ALT/SGPT [place] ([facility]) AST/SGOT 27 U/L 7-37 AST/SGOT [place] ([facility]) bilirubin,total 0.4 mg/dL 0.2-1.0 Bilirubin,total [facility] ([facility]) albumin 4.0 gm/dL 3.2-5.2 Albumin [place] ([facility]) total protein 7.1 gm/dL 6.4-8.2 Total Protein [place] ( [facility]) alkaline phosphatase 101 U/L 45-117 Alkaline Phosph atase [place] ([facility]) albumin/globulin ratio 1.2-2.2 Albumin/globu lashae Ratio [facility] ([facility]) ID Date Data Source [id number] 08/25/2020 10:47:00 AM EDT [place] ([facility]) Name Value Range Interpretation Code Description Data Eliana rce(s) Supporting Document(s) Hemoglobin A1c/Hemoglobin.total in Blood 5.4 % Hemoglobin a1C [place] ([facility]) estimated average glucose 108 mg/dL 60-110 Estimated Average Glucose [place] ([facility]) ID Date Data Source [id number] 08/25/2020 10:47:00 AM EDT [facility] Name Value Range Interpretation Code Description Data Eliana rce(s) Supporting Document(s) white blood count 5.9 10 4.0-10.0 White Blood Count [place] ([facility]) hemoglobin 14.4 g/dL 12.0-15.5 Hemoglobin [place] ([facility]) red blood count 4.99 10 4.00-5.40 Red Blood Count [facility] NA ([facility]) mean corpuscular hemoglobin 28.9 pg 27.0-33.0 Mean Cor puscular Hemoglobin [place] ([facility]) mean corpuscular volume 89.4 fL 80.0-96.0 Mean Corpusc ular Volume [place] ([facility]) hematocrit 44.6 % 36.0-47.0 Hematocrit [place] ([facility]) platelet count, automated 219 10 150-450 Platelet C ount, Automated [place] ([facility]) red cell distribution width 12.8 % 11.5-14.5 Red Cell Distribution Width [place] ([facility]) mean corpuscular HGB conc 32.3 g/dL 32.0-36.5 Mean Corpu scular HGB Conc [place] ([facility]) lymph % 36.6 % 24.0-44.0 Lymph % [place] ([facility]) neutrophils % 53.7 % 36.0-66.0 Neutrophils % [place] ( [facility]) mono % 7.1 % 2.0-8.0 [place] % [place] ([facility]) eos % 1.9 % 0.0-3.0 Eos % [place] ([facility]) immature granulocyte % 0.2 % 0-3.0 Immature Gran ulocyte % [place] ([facility]) nucleated red blood cell % 0.0 % 0-0 Nucleated Red Blood Cell % [place] ([facility]) baso % 0.5 % 0.0-1.0 Baso % [place] ([facility]) neutrophils # 3.2 10 1.5-8.5 Neutrophils # [place] ( [facility]) mono # 0.4 10 0.0-0.8 [place] # [place] ([facility]) lymph # 2.2 10 1.5-5.0 Lymph # [place] ([facility]) eos # 0.1 10 0.0-0.5 Eos # [place] ([facility]) baso # 0.0 10 0.0-0.2 Baso # [place] ([facility]) ID Date Data Source [id number] 08/25/2020 10:47:00 AM EDT [place] ([facility]) Name Value Range Interpretation Code Description Data Eliana rce(s) Supporting Document(s) HIV 1&2 screen centaur negative negative HIV 1&2 Scree n Centaur [place] ([facility]) ID Date Data Source [id number] 08/25/2020 10:47:00 AM EDT [facility]) Name Value Range Interpretation Code Description Data Eliana rce(s) Supporting Document(s) syphilis nonreactive nonreactive Syphilis [place] ([facility]) ID Date Data Source [id number] 08/25/2020 10:47:00 AM EDT [facility]) Name Value Range Interpretation Code Description Data Eliana rce(s) Supporting Document(s) total 25(oh) vitamin D 28.6 NG/mL 30.0-100.0 Below low normal T otal 25(Oh) Vitamin D [place] ([facility]) ID Date Data Source [id number] 08/25/2020 10:47:00 AM EDT [facility]) Name Value Range Interpretation Code Description Data Eliana rce(s) Supporting Document(s) thyroid stimulating hormone 1.520 uIU/mL 0.358-3.740 Thyroid Stimulating Hormone [facility]) ID Date Data Source [id number] 08/25/2020 10:47:00 AM EDT [facility]) Name Value Range Interpretation Code Description Data Eliana rce(s) Supporting Document(s) triglycerides level 138 mg/dL <150 Triglycerides Le nitesh [place] ([facility]) Cholesterol in LDL [Mass/volume] in Serum or Plasma 82 mg/dL <1 00 LDL Cholesterol [place] ([facility]) cholesterol level 141 mg/dL <200 Cholesterol Level [place] ([facility]) HDL cholesterol 31 mg/dL >40 Below low normal HDL Cholestero l [place] ([facility]) cholesterol risk ratio <5 Cholesterol R isk Ratio [place] ([facility]) non-HDL-C 110 mg/dL Non-hdl-c [place] ([facility]) ID Date Data Source [id number] 08/25/2020 10:47:00 AM EDT [facility] Name Value Range Interpretation Code Description Data Eliana rce(s) Supporting Document(s) hepatitis C virus ty index < 0.0 <0.8 Hepatiti s C Virus Ty Index [place] ([facility]) ID Date Data Source [id number] 08/25/2020 10:47:00 AM EDT [place] ([facility]) Name Value Range Interpretation Code Description Data Eliana rce(s) Supporting Document(s) blood urea nitrogen 12 mg/dL 7-18 Blood Urea Nitro gen [place] ([facility]) glucose, fasting 90 mg/dL 70-100 Glucose, Fasting AT [facility]) sodium level 139 mEq/L 136-145 Sodium Level [place] ([facility]) potassium serum 5.1 mEq/L 3.5-5.1 Potassium Serum [facility] NA ([facility]) glomerular filtration rate > 60.0 >60 Glomerula r Filtration Rate [place] ([facility]) creatinine for GFR 0.71 mg/dL 0.55-1.30 Creatinine for GF R [place] ([facility]) carbon dioxide level 30 mEq/L 21-32 Carbon Dioxide Level [place] ([facility]) calcium level 9.2 mg/dL 8.5-10.1 Calcium Level [place] ( [facility]) chloride level 107 mEq/L 98-107 Chloride Level [place] ([facility]) anion gap 2 mEq/L 8-16 Below low normal Anion Gap [place] ( [facility]) AST/SGOT 27 U/L 7-37 AST/SGOT [place] ([facility]) alkaline phosphatase 101 U/L 45-117 Alkaline Phosph atase [place] ([facility]) bilirubin,total 0.4 mg/dL 0.2-1.0 Bilirubin,total [facility] [place] ([facility]) ALT/SGPT 63 U/L 12-78 ALT/SGPT [place] ([facility]) albumin 4.0 gm/dL 3.2-5.2 Albumin [place] ([facility]) total protein 7.1 gm/dL 6.4-8.2 Total Protein [place] ( [facility]) albumin/globulin ratio 1.2-2.2 Albumin/globu lashae Ratio [place] ([facility]) ID Date Data Source [id number] 08/25/2020 10:47:00 AM EDT [place] ([facility]) Name Value Range Interpretation Code Description Data Eliana rce(s) Supporting Document(s) estimated average glucose 108 mg/dL 60-110 Estimated Average Glucose [place] ([facility]) Hemoglobin A1c/Hemoglobin.total in Blood 5.4 % Hemoglobin a1C [place] ([facility]) ID Date Data Source [id number] 08/25/2020 10:47:00 AM EDT [place] ([facility]) Name Value Range Interpretation Code Description Data Eliana rce(s) Supporting Document(s) red blood count 4.99 10 4.00-5.40 Red Blood Count [facility] ([facility]) white blood count 5.9 10 4.0-10.0 White Blood Count [place] ([facility]) hemoglobin 14.4 g/dL 12.0-15.5 Hemoglobin [place] ([facility]) hematocrit 44.6 % 36.0-47.0 Hematocrit [place] ([facility]) mean corpuscular volume 89.4 fL 80.0-96.0 Mean Corpusc ular Volume [place] ([facility]) red cell distribution width 12.8 % 11.5-14.5 Red Cell Distribution Width [place] ([facility]) platelet count, automated 219 10 150-450 Platelet C ount, Automated [place] ([facility]) mean corpuscular hemoglobin 28.9 pg 27.0-33.0 Mean Cor puscular Hemoglobin [place] ([facility]) mean corpuscular HGB conc 32.3 g/dL 32.0-36.5 Mean Corpu scular HGB Conc [place] ([facility]) mono % 7.1 % 2.0-8.0 [place] % [place] ([facility]) neutrophils % 53.7 % 36.0-66.0 Neutrophils % [place] ( [facility]) lymph % 36.6 % 24.0-44.0 Lymph % [place] ([facility]) nucleated red blood cell % 0.0 % 0-0 Nucleated Red Blood Cell % [place] ([facility]) eos % 1.9 % 0.0-3.0 Eos % [place] ([facility]) baso % 0.5 % 0.0-1.0 Baso % [place] ([facility]) immature granulocyte % 0.2 % 0-3.0 Immature Gran ulocyte % [place] ([facility]) mono # 0.4 10 0.0-0.8 [place] # [place] ([facility]) neutrophils # 3.2 10 1.5-8.5 Neutrophils # [place] ( [facility]) lymph # 2.2 10 1.5-5.0 Lymph # [place] ([facility]) baso # 0.0 10 0.0-0.2 Baso # [place] ([facility]) eos # 0.1 10 0.0-0.5 Eos # [place] ([facility]) ID Date Data Source [id number] 08/25/2020 10:47:00 AM EDT [place] ([facility]) Name Value Range Interpretation Code Description Data Eliana rce(s) Supporting Document(s) HIV 1&2 screen centaur negative negative HIV 1&2 Scree n Cent[facility] [place] ([facility]) ID Date Data Source [id number] 08/25/2020 10:47:00 AM EDT [place] ([facility]) Name Value Range Interpretation Code Description Data Eliana rce(s) Supporting Document(s) syphilis nonreactive nonreactive Syphilis [place] ([facility]) ID Date Data Source [id number] 08/25/2020 10:47:00 AM EDT [place] ([facility]) Name Value Range Interpretation Code Description Data Eliana rce(s) Supporting Document(s) total 25(oh) vitamin D 28.6 NG/mL 30.0-100.0 Below low normal T otal 25(Oh) Vitamin D [place] ([facility]) ID Date Data Source [id number] 08/25/2020 10:47:00 AM EDT [place] ([facility]) Name Value Range Interpretation Code Description Data Eliana rce(s) Supporting Document(s) thyroid stimulating hormone 1.520 uIU/mL 0.358-3.740 Thyroid Stimulating Hormone [place] ([facility]) ID Date Data Source [id number] 08/25/2020 10:47:00 AM EDT [place] ([facility]) Name Value Range Interpretation Code Description Data Eliana rce(s) Supporting Document(s) triglycerides level 138 mg/dL <150 Triglycerides Le nitesh [place] ([facility]) HDL cholesterol 31 mg/dL >40 Below low normal HDL Cholestero l [place] ([facility]) cholesterol level 141 mg/dL <200 Cholesterol Level [place] ([facility]) Cholesterol in LDL [Mass/volume] in Serum or Plasma 82 mg/dL <1 00 LDL Cholesterol [place] ([facility]) cholesterol risk ratio <5 Cholesterol R isk Ratio [place] ([facility]) non-HDL-C 110 mg/dL Non-hdl-c [place] ([facility]) ID Date Data Source [id number] 08/25/2020 10:47:00 AM EDT [facility] Name Value Range Interpretation Code Description Data Eliana rce(s) Supporting Document(s) hepatitis C virus ty index < 0.0 <0.8 Hepatiti s C Virus Ty Index [place] ([facility]) ID Date Data Source [id number] 08/25/2020 10:47:00 AM EDT [place] ([facility]) Name Value Range Interpretation Code Description Data Eliana rce(s) Supporting Document(s) creatinine for GFR 0.71 mg/dL 0.55-1.30 Creatinine for GF R [facility]) glucose, fasting 90 mg/dL 70-100 Glucose, Fasting AT [facility]) blood urea nitrogen 12 mg/dL 7-18 Blood Urea Nitro gen [place] ([facility]) sodium level 139 mEq/L 136-145 Sodium Level [place] (No [facility]) potassium serum 5.1 mEq/L 3.5-5.1 Potassium Serum [facility] ([facility]) glomerular filtration rate > 60.0 >60 Glomerula r Filtration Rate [place] ([facility]) calcium level 9.2 mg/dL 8.5-10.1 Calcium Level [place] ( [facility]) anion gap 2 mEq/L 8-16 Below low normal Anion Gap [place] ( [facility]) carbon dioxide level 30 mEq/L 21-32 Carbon Dioxide Level [place] ([facility]) chloride level 107 mEq/L 98-107 Chloride Level [place] ([facility]) alkaline phosphatase 101 U/L 45-117 Alkaline Phosph atase [facility]) AST/SGOT 27 U/L 7-37 AST/SGOT [place] ([facility]) ALT/SGPT 63 U/L 12-78 ALT/SGPT [place] ([facility]) bilirubin,total 0.4 mg/dL 0.2-1.0 Bilirubin,total [facility] NA ([facility]) total protein 7.1 gm/dL 6.4-8.2 Total Protein [place] ( [facility]) albumin 4.0 gm/dL 3.2-5.2 Albumin [place] ([facility]) albumin/globulin ratio 1.2-2.2 Albumin/globu lashae Ratio [place] ([facility]) ID Date Data Source [id number] 08/25/2020 10:47:00 AM EDT [place] ([facility]) Name Value Range Interpretation Code Description Data Eliana rce(s) Supporting Document(s) estimated average glucose 108 mg/dL 60-110 Estimated Average Glucose [place] ([facility]) Hemoglobin A1c/Hemoglobin.total in Blood 5.4 % Hemoglobin a1C [place] ([facility]) ID Date Data Source [id number] 08/25/2020 10:47:00 AM EDT [place] ([facility]) Name Value Range Interpretation Code Description Data Eliana rce(s) Supporting Document(s) white blood count 5.9 10 4.0-10.0 White Blood Count [place] ([facility]) red blood count 4.99 10 4.00-5.40 Red Blood Count [facility] ([facility]) hemoglobin 14.4 g/dL 12.0-15.5 Hemoglobin [place] ([facility]) mean corpuscular volume 89.4 fL 80.0-96.0 Mean Corpusc ular Volume [place] ([facility]) hematocrit 44.6 % 36.0-47.0 Hematocrit [place] ([facility]) mean corpuscular hemoglobin 28.9 pg 27.0-33.0 Mean Cor puscular Hemoglobin [place] ([facility]) mean corpuscular HGB conc 32.3 g/dL 32.0-36.5 Mean Corpu scular HGB Conc [place] ([facility]) red cell distribution width 12.8 % 11.5-14.5 Red Cell Distribution Width [place] ([facility]) neutrophils % 53.7 % 36.0-66.0 Neutrophils % [place] ( [facility]) platelet count, automated 219 10 150-450 Platelet C ount, Automated [place] ([facility]) lymph % 36.6 % 24.0-44.0 Lymph % [place] ([facility]) mono % 7.1 % 2.0-8.0 [place] % [place] ([facility]) baso % 0.5 % 0.0-1.0 Baso % [place] ([facility]) eos % 1.9 % 0.0-3.0 Eos % [place] ([facility]) immature granulocyte % 0.2 % 0-3.0 Immature Gran ulocyte % [place] ([facility]) nucleated red blood cell % 0.0 % 0-0 Nucleated Red Blood Cell % [place] ([facility]) neutrophils # 3.2 10 1.5-8.5 Neutrophils # [place] ( [facility]) lymph # 2.2 10 1.5-5.0 Lymph # [place] ([facility]) eos # 0.1 10 0.0-0.5 Eos # [place] ([facility]) mono # 0.4 10 0.0-0.8 [place] # [place] ([facility]) baso # 0.0 10 0.0-0.2 Baso # [place] ([facility]) ID Date Data Source [id number] 08/25/2020 10:47:00 AM EDT [place] ([facility]) Name Value Range Interpretation Code Description Data Eliana rce(s) Supporting Document(s) HIV 1&2 screen centaur negative negative HIV 1&2 Scree n [facility] [place] ([facility]) ID Date Data Source [id number] 08/25/2020 10:47:00 AM EDT [place] ([facility]) Name Value Range Interpretation Code Description Data Eliana rce(s) Supporting Document(s) syphilis nonreactive nonreactive Syphilis [place] ([facility]) ID Date Data Source [id number] 08/25/2020 10:47:00 AM EDT [place] ([facility]) Name Value Range Interpretation Code Description Data Eliana rce(s) Supporting Document(s) total 25(oh) vitamin D 28.6 NG/mL 30.0-100.0 Below low normal T otal 25(Oh) Vitamin D [place] ([facility]) ID Date Data Source [id number] 08/25/2020 10:47:00 AM EDT [facility]) Name Value Range Interpretation Code Description Data Eliana rce(s) Supporting Document(s) thyroid stimulating hormone 1.520 uIU/mL 0.358-3.740 Thyroid Stimulating Hormone [place] ([facility]) ID Date Data Source [id number] 08/25/2020 10:47:00 AM EDT [facility]) Name Value Range Interpretation Code Description Data Eliana rce(s) Supporting Document(s) HDL cholesterol 31 mg/dL >40 Below low normal HDL Cholestero l [place] ([facility]) triglycerides level 138 mg/dL <150 Triglycerides Le nitesh [place] ([facility]) cholesterol level 141 mg/dL <200 Cholesterol Level [place] ([facility]) Cholesterol in LDL [Mass/volume] in Serum or Plasma 82 mg/dL <1 00 LDL Cholesterol [place] ([facility]) non-HDL-C 110 mg/dL Non-hdl-c [place] ([facility]) cholesterol risk ratio <5 Cholesterol R isk Ratio [place] ([facility]) ID Date Data Source [id number] 08/25/2020 10:47:00 AM EDT [facility]) Name Value Range Interpretation Code Description Data Eliana rce(s) Supporting Document(s) HIV 1&2 screen centaur negative negative HIV 1&2 Scree n Cent[facility] [place] ([facility]) ID Date Data Source [id number] 08/25/2020 10:47:00 AM EDT [place] ([facility]) Name Value Range Interpretation Code Description Data Eliana rce(s) Supporting Document(s) syphilis nonreactive nonreactive Syphilis [place] ([facility]) ID Date Data Source [id number] 08/25/2020 10:47:00 AM EDT [place] ([facility]) Name Value Range Interpretation Code Description Data Eliana rce(s) Supporting Document(s) total 25(oh) vitamin D 28.6 NG/mL 30.0-100.0 Below low normal T otal 25(Oh) Vitamin D [place] ([facility]) ID Date Data Source [id number] 08/25/2020 10:47:00 AM EDT [facility]) Name Value Range Interpretation Code Description Data Eliana rce(s) Supporting Document(s) thyroid stimulating hormone 1.520 uIU/mL 0.358-3.740 Thyroid Stimulating Hormone [place] ([facility]) ID Date Data Source [id number] 08/25/2020 10:47:00 AM EDT [facility] Name Value Range Interpretation Code Description Data Eliana rce(s) Supporting Document(s) HDL cholesterol 31 mg/dL >40 Below low normal HDL Cholestero l [place] ([facility]) triglycerides level 138 mg/dL <150 Triglycerides Le nitesh [place] ([facility]) cholesterol level 141 mg/dL <200 Cholesterol Level [place] ([facility]) non-HDL-C 110 mg/dL Non-hdl-c [place] ([facility]) Cholesterol in LDL [Mass/volume] in Serum or Plasma 82 mg/dL <1 00 LDL Cholesterol [place] ([facility]) cholesterol risk ratio <5 Cholesterol R isk Ratio [place] ([facility]) ID Date Data Source [id number] 08/25/2020 10:47:00 AM EDT [place] ([facility]) Name Value Range Interpretation Code Description Data Eliana rce(s) Supporting Document(s) hepatitis C virus ty index < 0.0 <0.8 Hepatiti s C Virus Ty Index [place] ([facility]) ID Date Data Source [id number] 08/25/2020 10:47:00 AM EDT [place] ([facility]) Name Value Range Interpretation Code Description Data Eliana rce(s) Supporting Document(s) glucose, fasting 90 mg/dL 70-100 Glucose, Fasting AT [facility]) blood urea nitrogen 12 mg/dL 7-18 Blood Urea Nitro gen [place] ([facility]) glomerular filtration rate > 60.0 >60 Glomerula r Filtration Rate [place] ([facility]) creatinine for GFR 0.71 mg/dL 0.55-1.30 Creatinine for GF R [place] ([facility]) sodium level 139 mEq/L 136-145 Sodium Level [place] ([facility]) carbon dioxide level 30 mEq/L 21-32 Carbon Dioxide Level [place] ([facility]) chloride level 107 mEq/L 98-107 Chloride Level [place] ([facility]) potassium serum 5.1 mEq/L 3.5-5.1 Potassium Serum [facility] NA ([facility]) anion gap 2 mEq/L 8-16 Below low normal Anion Gap [place] ( [facility]) ALT/SGPT 63 U/L 12-78 ALT/SGPT [place] ([facility]) calcium level 9.2 mg/dL 8.5-10.1 Calcium Level [place] ( [facility]) alkaline phosphatase 101 U/L 45-117 Alkaline Phosph atase [place] ([facility]) AST/SGOT 27 U/L 7-37 AST/SGOT [place] [facility] [facility] bilirubin,total 0.4 mg/dL 0.2-1.0 Bilirubin,total ATHE NA ([facility]) albumin 4.0 gm/dL 3.2-5.2 Albumin CHELSEA ([facility]) total protein 7.1 gm/dL 6.4-8.2 Total Protein [place] ( [facility]) albumin/globulin ratio 1.2-2.2 Albumin/globu lashae Ratio CHELSEA ([facility]) ID Date Data Source [id number] 08/25/2020 10:47:00 AM EDT [place] ([facility]) Name Value Range Interpretation Code Description Data Eliana rce(s) Supporting Document(s) Hemoglobin A1c/Hemoglobin.total in Blood 5.4 % Hemoglobin a1C [place] ([facility]) estimated average glucose 108 mg/dL 60-110 Estimated Average Glucose [facility] ([facility]) ID Date Data Source [id number] 08/25/2020 10:47:00 AM EDT [place] ([facility]) Name Value Range Interpretation Code Description Data Eliana rce(s) Supporting Document(s) white blood count 5.9 10 4.0-10.0 White Blood Count [place] ([facility]) red blood count 4.99 10 4.00-5.40 Red Blood Count ATHE ([facility]) hematocrit 44.6 % 36.0-47.0 Hematocrit [place] ([facility]) hemoglobin 14.4 g/dL 12.0-15.5 Hemoglobin [place] ([facility]) mean corpuscular volume 89.4 fL 80.0-96.0 Mean Corpusc ular Volume [place] ([facility]) mean corpuscular HGB conc 32.3 g/dL 32.0-36.5 Mean Corpu scular HGB Conc [place] ([facility]) platelet count, automated 219 10 150-450 Platelet C ount, Automated [place] ([facility]) mean corpuscular hemoglobin 28.9 pg 27.0-33.0 Mean Cor puscular Hemoglobin [place] ([facility]) red cell distribution width 12.8 % 11.5-14.5 Red Cell Distribution Width [place] ([facility]) neutrophils % 53.7 % 36.0-66.0 Neutrophils % [place] ( [facility]) lymph % 36.6 % 24.0-44.0 Lymph % [place] ([facility]) mono % 7.1 % 2.0-8.0 [place] % CHELSEA ([facility]) baso % 0.5 % 0.0-1.0 Baso % [place] ([facility]) nucleated red blood cell % 0.0 % 0-0 Nucleated Red Blood Cell % [place] ([facility]) immature granulocyte % 0.2 % 0-3.0 Immature Gran ulocyte % [place] ([facility]) eos % 1.9 % 0.0-3.0 Eos % [place] ([facility]) mono # 0.4 10 0.0-0.8 [place] # [place] ([facility]) neutrophils # 3.2 10 1.5-8.5 Neutrophils # [place] ( [facility]) lymph # 2.2 10 1.5-5.0 Lymph # [place] ([facility]) eos # 0.1 10 0.0-0.5 Eos # [place] ([facility]) baso # 0.0 10 0.0-0.2 Baso # [place] ([facility]) ID Date Data Source [id number] 08/25/2020 10:30:00 AM EDT [facility]) Name Value Range Interpretation Code Description Data Eliana rce(s) Supporting Document(s) chlamydia DNA amplification negative negative Chlamydi a DNA Amplification [place] ([facility]) GC DNA amplification negative negative GC DNA Amplific ation [place] ([facility]) ID Date Data Source [id number] 08/25/2020 10:30:00 AM EDT [facility]) Name Value Range Interpretation Code Description Data Eliana rce(s) Supporting Document(s) chlamydia DNA amplification negative negative Chlamydi a DNA Amplification [place] ([facility]) GC DNA amplification negative negative GC DNA Amplific ation [facility]) ID Date Data Source [id number] 08/25/2020 10:30:00 AM EDT [facility]) Name Value Range Interpretation Code Description Data Eliana rce(s) Supporting Document(s) GC DNA amplification negative negative GC DNA Amplific ation [facility]) chlamydia DNA amplification negative negative Chlamydi a DNA Amplification [facility]) ID Date Data Source [id number] 08/25/2020 10:30:00 AM EDT [facility]) Name Value Range Interpretation Code Description Data Eliana rce(s) Supporting Document(s) chlamydia DNA amplification negative negative Chlamydi a DNA Amplification [place] ([facility]) GC DNA amplification negative negative GC DNA Amplific ation [facility]) ID Date Data Source [id number] 08/25/2020 10:30:00 AM EDT [facility]) Name Value Range Interpretation Code Description Data Eliana rce(s) Supporting Document(s) chlamydia DNA amplification negative negative Chlamydi a DNA Amplification [place] ([facility]) GC DNA amplification negative negative GC DNA Amplific ation [facility]) ID Date Data Source [id number] 08/25/2020 10:30:00 AM EDT [facility]) Name Value Range Interpretation Code Description Data Eliana rce(s) Supporting Document(s) chlamydia DNA amplification negative negative [facility]di [facility] GC DNA amplification negative negative GC DNA Amplific ation [facility]) ID Date Data Source [id number] 08/25/2020 10:30:00 AM EDT [facility]) Name Value Range Interpretation Code Description Data Eliana rce(s) Supporting Document(s) GC DNA amplification negative negative GC DNA Amplific ation [place] ([facility]) chlamydia DNA amplification negative negative Chlamydi a DNA Amplification [place] ([facility]) ID Date Data Source [id number] 08/25/2020 10:30:00 AM EDT [facility]) Name Value Range Interpretation Code Description Data Eliana rce(s) Supporting Document(s) chlamydia DNA amplification negative negative Chlamydi a DNA Amplification [place] ([facility]) GC DNA amplification negative negative GC DNA Amplific ation [facility]) ID Date Data Source [id number] 08/25/2020 10:30:00 AM EDT [facility]) Name Value Range Interpretation Code Description Data Eliana rce(s) Supporting Document(s) chlamydia DNA amplification negative negative Chlamydi a DNA Amplification [place] ([facility]) GC DNA amplification negative negative GC DNA Amplific ation [facility]) ID Date Data Source [id number] 08/25/2020 10:30:00 AM EDT [facility]) Name Value Range Interpretation Code Description Data Eliana rce(s) Supporting Document(s) chlamydia DNA amplification negative negative Chlamydi a DNA Amplification [place] ([facility]) GC DNA amplification negative negative GC DNA Amplific ation [place] ([facility]) ID Date Data Source [id number] 08/25/2020 10:30:00 AM EDT [facility]) Name Value Range Interpretation Code Description Data Eliana rce(s) Supporting Document(s) chlamydia DNA amplification negative negative Chlamydi a DNA Amplification [place] ([facility]) GC DNA amplification negative negative GC DNA Amplific ation [place] ([facility]) ID Date Data Source [id number] 08/25/2020 10:30:00 AM EDT [facility]) Name Value Range Interpretation Code Description Data Eliana rce(s) Supporting Document(s) chlamydia DNA amplification negative negative Chlamydi a DNA Amplification [place] ([facility]) GC DNA amplification negative negative GC DNA Amplific ation [facility]) ID Date Data Source [id number] 08/25/2020 10:30:00 AM EDT [facility]) Name Value Range Interpretation Code Description Data Eliana rce(s) Supporting Document(s) chlamydia DNA amplification negative negative Chlamydi a DNA Amplification [place] ([facility]) GC DNA amplification negative negative GC DNA Amplific ation [facility]) ID Date Data Source [id number] 08/25/2020 10:30:00 AM EDT [facility]) Name Value Range Interpretation Code Description Data Eliana rce(s) Supporting Document(s) chlamydia DNA amplification negative negative Chlamydi a DNA Amplification [facility]) GC DNA amplification negative negative GC DNA Amplific ation [place] ([facility]) ID Date Data Source [id number] 07/30/2020 04:00:00 PM EDT [facility]) Name Value Range Interpretation Code Description Data Eliana rce(s) Supporting Document(s) ID Date Data Source [id number] 07/30/2020 04:00:00 PM EDT [facility]) Name Value Range Interpretation Code Description Data Eliana rce(s) Supporting Document(s) ID Date Data Source [id number] 07/30/2020 04:00:00 PM EDT [facility]) Name Value Range Interpretation Code Description Data Eliana rce(s) Supporting Document(s) ID Date Data Source [id number] 07/30/2020 04:00:00 PM EDT [facility]) Name Value Range Interpretation Code Description Data Eliana rce(s) Supporting Document(s) ID Date Data Source [id number] 07/30/2020 04:00:00 PM EDT [facility]) Name Value Range Interpretation Code Description Data Eliana rce(s) Supporting Document(s) ID Date Data Source [id number] 07/30/2020 04:00:00 PM EDT [facility]) Name Value Range Interpretation Code Description Data Eliana rce(s) Supporting Document(s) ID Date Data Source [id number] 07/30/2020 04:00:00 PM EDT [facility]) Name Value Range Interpretation Code Description Data Eliana rce(s) Supporting Document(s) ID Date Data Source [id number] 07/30/2020 04:00:00 PM EDT [facility]) Name Value Range Interpretation Code Description Data Eliana rce(s) Supporting Document(s) ID Date Data Source [id number] 07/30/2020 04:00:00 PM EDT [facility]) Name Value Range Interpretation Code Description Data Eliana rce(s) Supporting Document(s) ID Date Data Source [id number] 07/30/2020 04:00:00 PM EDT [facility]) Name Value Range Interpretation Code Description Data Eliana rce(s) Supporting Document(s) ID Date Data Source [id number] 07/30/2020 04:00:00 PM EDT [facility]) Name Value Range Interpretation Code Description Data Eliana rce(s) Supporting Document(s) ID Date Data Source [id number] 07/30/2020 04:00:00 PM EDT [facility]) Name Value Range Interpretation Code Description Data Eliana rce(s) Supporting Document(s) ID Date Data Source [id number] 07/30/2020 04:00:00 PM EDT [facility]) Name Value Range Interpretation Code Description Data Eliana rce(s) Supporting Document(s) ID Date Data Source [id number] 07/30/2020 04:00:00 PM EDT [facility]) Name Value Range Interpretation Code Description Data Eliana rce(s) Supporting Document(s) ID Date Data Source [id number] 07/30/2020 04:00:00 PM EDT [facility]) Name Value Range Interpretation Code Description Data Eliana rce(s) Supporting Document(s) ID Date Data Source GROUP B STREP CULTURE 06/26/2020 12:00:00 AM EST eCW1 ([facility]) Name Value Range Interpretation Code Description Data Eliana rce(s) Supporting Document(s) GROUP B STREP CULTURE eCW1 ([facility]) Procedure Social History Code Duration Value Status Description Data Source(s ) Smoking 02/13/2021 12:00:00 AM EDT Current Smoker completed Curre nt Smoker eCW1 ([facility]) Smoking 02/13/2021 12:00:00 AM EDT Current Smoker completed Curre nt Smoker eCW1 ([facility]) Smoking 12/29/2020 12:00:00 AM EDT Current Smoker completed Curre nt Smoker eCW1 ([facility]) Smoking 12/29/2020 12:00:00 AM EDT Current Smoker completed Curre nt Smoker eCW1 ([facility]) Smoking 10/13/2020 12:00:00 AM EDT Current Smoker completed Curre nt Smoker eCW1 ([facility]) Smoking 08/29/2020 12:00:00 AM EDT Never Smoker completed Never S moker eCW1 ([facility]) Smoking 07/10/2020 12:00:00 AM EST Never Smoker completed Never S moker eCW1 ([facility]) Smoking 07/03/2020 12:00:00 AM EST Never Smoker completed Never S moker eCW1 ([facility]) Smoking 07/03/2020 12:00:00 AM EST Never Smoker completed Never S moker eCW1 ([facility]) Smoking 06/26/2020 12:00:00 AM EST Never Smoker completed Never S moker eCW1 ([facility]) Smoking 06/21/2020 12:00:00 AM EST Never Smoker completed Never S moker eCW1 ([facility]) Smoking 06/19/2020 12:00:00 AM EST Never Smoker completed Never S moker eCW1 ([facility]) Smoking 06/05/2020 12:00:00 AM EST Never Smoker completed Never S moker eCW1 ([facility]) Smoking 06/05/2020 12:00:00 AM EST Never Smoker completed Never S moker eCW1 ([facility]) Smoking 06/05/2020 12:00:00 AM EST Never Smoker completed Never S moker eCW1 ([facility]) Smoking 05/17/2020 12:00:00 AM EST Never Smoker completed Never S moker eCW1 ([facility]) Smoking 05/17/2020 12:00:00 AM EST Never Smoker completed Never S moker eCW1 ([facility]) Smoking 05/02/2020 12:00:00 AM EST Never Smoker completed Never S moker eCW1 ([facility]) Smoking 05/02/2020 12:00:00 AM EST Never Smoker completed Never S moker eCW1 ([facility]) Smoking 05/02/2020 12:00:00 AM EST Never Smoker completed Never S moker eCW1 ([facility]) Vital Signs ID Date Data Source UNK Name Value Range Interpretation Code Description Data Source(s) Body height 63 [in_i] 63 [in_i] [place] ([facility]) Body height 63 [in_i] 63 [in_i] [place] ([facility]) Diastolic blood pressure 82 mm[Hg] 82 mm[Hg] [place] ([facility]) Body weight 2804 [oz_av] 2804 [oz_av] [place] ([facility]) Body height 63 [in_i] 63 [in_i] [place] ([facility]) Body mass index (BMI) [Ratio] 31 kg/m2 31 kg/ m2 [place] ([facility]) Systolic blood pressure 123 mm[Hg] 123 mm[Hg] [facility] ([facility]) Diastolic blood pressure 82 mm[Hg] 82 mm[Hg] [place] ([facility]) Body height 63 [in_i] 63 [in_i] [place] ([facility]) Body mass index (BMI) [Ratio] 31 kg/m2 31 kg/ m2 [place] ([facility]) Systolic blood pressure 123 mm[Hg] 123 mm[Hg] [facility] Body weight 2804 [oz_av] 2804 [oz_av] [place] ([facility]) Diastolic blood pressure 82 mm[Hg] 82 mm[Hg] [place] ([facility]) Body height 63 [in_i] 63 [in_i] [place] ([facility]) Body mass index (BMI) [Ratio] 31 kg/m2 31 kg/ m2 [place] ([facility]) Systolic blood pressure 123 mm[Hg] 123 mm[Hg] A THE[place] ([facility]) Body weight 2804 [oz_av] 2804 [oz_av] [place] ([facility]) Body weight 172 [lb_av] 172 [lb_av] eCW1 ([facility]) Body weight 78.02 kg 78.02 kg eCW1 ([facility]) Body height 63 [in_i] 63 [in_i] eCW1 ([facility]) Body mass index (BMI) [Ratio] 30.47 kg/m2 30.47 kg/m2 eCW1 ([facility]) Systolic blood pressure 108 mm[Hg] 108 mm[Hg] e CW1 ([facility]) Diastolic blood pressure 70 mm[Hg] 70 mm[Hg] eCW1 ([facility]) Diastolic blood pressure 80 mm[Hg] 80 mm[Hg] MEDENT ([facility], ) Systolic blood pressure 120 mm[Hg] 120 mm[Hg] M EDENT ([facility], ) Heart rate 72 /min 72 /min MEDENT ([facility], ) Body height 63 [in_i] 63 [in_i] MEDENT ([facility], ) 5'3" Body weight 160.00 [lb_av] 160.00 [lb_av] MEDEN T ([facility], ) Body mass index (BMI) [Ratio] 28.3 kg/m2 28.3 k g/m2 MEDENT ([facility], ) [place] body weight 115 [lb_av] 115 [lb_av] MEDEN T ([facility], ) Body height 63 [in_i] 63 [in_i] [place] ([facility]) Diastolic blood pressure 78 mm[Hg] 78 mm[Hg] [place] ([facility]) Body mass index (BMI) [Ratio] 28.3 kg/m2 28.3 k g/m2 [place] ([facility]) Systolic blood pressure 126 mm[Hg] 126 mm[Hg] A THENA ([facility]) Body weight 2560 [oz_av] 2560 [oz_av] [place] ([facility]) Diastolic blood pressure 78 mm[Hg] 78 mm[Hg] [place] ([facility]) Body height 63 [in_i] 63 [in_i] [place] ([facility]) Body mass index (BMI) [Ratio] 28.3 kg/m2 28.3 k g/m2 [place] ([facility]) Systolic blood pressure 126 mm[Hg] 126 mm[Hg] A THENA ([facility]) Body weight 2560 [oz_av] 2560 [oz_av] [place] ([facility]) Diastolic blood pressure 78 mm[Hg] 78 mm[Hg] [place] ([facility]) Body height 63 [in_i] 63 [in_i] [place] ([facility]) Body mass index (BMI) [Ratio] 28.3 kg/m2 28.3 k g/m2 [place] ([facility]) Systolic blood pressure 126 mm[Hg] 126 mm[Hg] A THENA ([facility]) Body weight 2560 [oz_av] 2560 [oz_av] [place] ([facility]) Diastolic blood pressure 78 mm[Hg] 78 mm[Hg] [place] ([facility]) Body height 63 [in_i] 63 [in_i] [place] ([facility]) Body mass index (BMI) [Ratio] 28.3 kg/m2 28.3 k g/m2 [place] ([facility]) Systolic blood pressure 126 mm[Hg] 126 mm[Hg] A THENA ([facility]) Body weight 2560 [oz_av] 2560 [oz_av] [place] ([facility]) Diastolic blood pressure 78 mm[Hg] 78 mm[Hg] [place] ([facility]) Body height 63 [in_i] 63 [in_i] [place] ([facility]) Body mass index (BMI) [Ratio] 28.3 kg/m2 28.3 k g/m2 [place] ([facility]) Systolic blood pressure 126 mm[Hg] 126 mm[Hg] A THENA ([facility]) Body weight 2560 [oz_av] 2560 [oz_av] [place] ([facility]) Diastolic blood pressure 78 mm[Hg] 78 mm[Hg] [place] ([facility]) Body height 63 [in_i] 63 [in_i] [place] ([facility]) Body mass index (BMI) [Ratio] 28.3 kg/m2 28.3 k g/m2 [place] ([facility]) Systolic blood pressure 126 mm[Hg] 126 mm[Hg] [facility] Body weight 2560 [oz_av] 2560 [oz_av] [place] ([facility]) Diastolic blood pressure 92 mm[Hg] 92 mm[Hg] [place] ([facility]) Body height 63 [in_i] 63 [in_i] [place] ([facility]) Body mass index (BMI) [Ratio] 28.4 kg/m2 28.4 k g/m2 [place] ([facility]) Systolic blood pressure 132 mm[Hg] 132 mm[Hg] [facility] Body weight 2569.6 [oz_av] 2569.6 [oz_av] ATHEN A ([facility]) Diastolic blood pressure 92 mm[Hg] 92 mm[Hg] [place] ([facility]) Body height 63 [in_i] 63 [in_i] [place] ([facility]) Body mass index (BMI) [Ratio] 28.4 kg/m2 28.4 k g/m2 [place] ([facility]) Systolic blood pressure 132 mm[Hg] 132 mm[Hg] A [place] ([facility]) Body weight 2569.6 [oz_av] 2569.6 [oz_av] ATHEN A ([facility]) Body mass index (BMI) [Ratio] 28.4 kg/m2 28.4 k g/m2 [place] ([facility]) Systolic blood pressure 132 mm[Hg] 132 mm[Hg] A THENA ([facility]) Body weight 2569.6 [oz_av] 2569.6 [oz_av] ATHEN A ([facility]) Diastolic blood pressure 92 mm[Hg] 92 mm[Hg] C[place] ([facility]) Body height 63 [in_i] 63 [in_i] [place] ([facility]) Diastolic blood pressure 92 mm[Hg] 92 mm[Hg] [place] ([facility]) Body height 63 [in_i] 63 [in_i] [place] ([facility]) Body mass index (BMI) [Ratio] 28.4 kg/m2 28.4 k g/m2 [place] ([facility]) Systolic blood pressure 132 mm[Hg] 132 mm[Hg] [facility] Body weight 2569.6 [oz_av] 2569.6 [oz_av] ATHEN A ([facility]) Body height 63 [in_i] 63 [in_i] [place] ([facility]) Body mass index (BMI) [Ratio] 28.4 kg/m2 28.4 k g/m2 [place] ([facility]) Systolic blood pressure 132 mm[Hg] 132 mm[Hg] [facility] Body weight 2569.6 [oz_av] 2569.6 [oz_av] ATHEN A ([facility]) Diastolic blood pressure 92 mm[Hg] 92 mm[Hg] [place] ([facility]) Body weight 2569.6 [oz_av] 2569.6 [oz_av] ATHEN A ([facility]) Diastolic blood pressure 92 mm[Hg] 92 mm[Hg] [place] ([facility]) Body height 63 [in_i] 63 [in_i] [place] ([facility]) Body mass index (BMI) [Ratio] 28.4 kg/m2 28.4 k g/m2 [place] ([facility]) Systolic blood pressure 132 mm[Hg] 132 mm[Hg] [facility] Systolic blood pressure 132 mm[Hg] 132 mm[Hg] A THENA ([facility]) Body weight 2569.6 [oz_av] 2569.6 [oz_av] ATHEN A ([facility]) Diastolic blood pressure 92 mm[Hg] 92 mm[Hg] [place] ([facility]) Body height 63 [in_i] 63 [in_i] [place] ([facility]) Body mass index (BMI) [Ratio] 28.4 kg/m2 28.4 k g/m2 [place] ([facility]) Systolic blood pressure 132 mm[Hg] 132 mm[Hg] [facility] Diastolic blood pressure 92 mm[Hg] 92 mm[Hg] [place] ([facility]) Body height 63 [in_i] 63 [in_i] [place] ([facility]) Body mass index (BMI) [Ratio] 28.4 kg/m2 28.4 k g/m2 [place] ([facility]) Body weight 2569.6 [oz_av] 2569.6 [oz_av] ATHEN A ([facility]) Body weight 162.4 [lb_av] 162.4 [lb_av] eCW1 ([facility]) Body height 63 [in_i] 63 [in_i] eCW1 ([facility]) Body mass index (BMI) [Ratio] 28.76 kg/m2 28.76 kg/m2 eCW1 ([facility]) Systolic blood pressure 110 mm[Hg] 110 mm[Hg] e CW1 ([facility]) Diastolic blood pressure 70 mm[Hg] 70 mm[Hg] eCW1 ([facility]) Body weight 158.8 [lb_av] 158.8 [lb_av] eCW1 ([facility]) Body height 63 [in_i] 63 [in_i] eCW1 ([facility]) Body mass index (BMI) [Ratio] 28.13 kg/m2 28.13 kg/m2 [facility] ([facility]) Systolic blood pressure 112 mm[Hg] 112 mm[Hg] e CW1 ([facility]) Diastolic blood pressure 70 mm[Hg] 70 mm[Hg] eCW1 ([facility]) Diastolic blood pressure 88 mm[Hg] 88 mm[Hg] CHELSEA ([facility]) Body height 63 [in_i] 63 [in_i] CHELSEA ([facility]) Body mass index (BMI) [Ratio] 28.2 kg/m2 28.2 k g/m2 CHELSEA ([facility]) Systolic blood pressure 120 mm[Hg] 120 mm[Hg] A THENA ([facility]) Body weight 2547.2 [oz_av] 2547.2 [oz_av] ATHEN A ([facility]) Body height 63 [in_i] 63 [in_i] CHELSEA ([facility]) Systolic blood pressure 120 mm[Hg] 120 mm[Hg] [facility] Body mass index (BMI) [Ratio] 28.2 kg/m2 28.2 k g/m2 CHELSEA ([facility]) Body weight 2547.2 [oz_av] 2547.2 [oz_av] ATHEN A ([facility]) Diastolic blood pressure 88 mm[Hg] 88 mm[Hg] CHELSEA ([facility]) Diastolic blood pressure 88 mm[Hg] 88 mm[Hg] CHELSEA ([facility]) Body height 63 [in_i] 63 [in_i] CHELSEA ([facility]) Body mass index (BMI) [Ratio] 28.2 kg/m2 28.2 k g/m2 CHELSEA ([facility]) Systolic blood pressure 120 mm[Hg] 120 mm[Hg] [facility] ([facility]) Body weight 2547.2 [oz_av] 2547.2 [oz_av] ATHEN A ([facility]) Body mass index (BMI) [Ratio] 28.2 kg/m2 28.2 k g/m2 CHELSEA ([facility]) Diastolic blood pressure 88 mm[Hg] 88 mm[Hg] CHELSEA ([facility]) Body height 63 [in_i] 63 [in_i] CHELSEA ([facility]) Systolic blood pressure 120 mm[Hg] 120 mm[Hg] A FATMATAA ([facility]) Body weight 2547.2 [oz_av] 2547.2 [oz_av] ATHEN A ([facility]) Diastolic blood pressure 88 mm[Hg] 88 mm[Hg] CHELSEA ([facility]) Body height 63 [in_i] 63 [in_i] CHELSEA ([facility]) Body mass index (BMI) [Ratio] 28.2 kg/m2 28.2 k g/m2 CHELSEA ([facility]) Systolic blood pressure 120 mm[Hg] 120 mm[Hg] [facility] Body weight 2547.2 [oz_av] 2547.2 [oz_av] ATHEN A ([facility]) Body weight 2547.2 [oz_av] 2547.2 [oz_av] ATHEN A ([facility]) Systolic blood pressure 120 mm[Hg] 120 mm[Hg] [facility] Diastolic blood pressure 88 mm[Hg] 88 mm[Hg] CHELSEA ([facility]) Body height 63 [in_i] 63 [in_i] CHELSEA ([facility]) Body mass index (BMI) [Ratio] 28.2 kg/m2 28.2 k g/m2 CHELSEA ([facility]) Diastolic blood pressure 88 mm[Hg] 88 mm[Hg] CHELSEA ([facility]) Body height 63 [in_i] 63 [in_i] CHELSEA ([facility]) Body mass index (BMI) [Ratio] 28.2 kg/m2 28.2 k g/m2 CHELSEA ([facility]) Systolic blood pressure 120 mm[Hg] 120 mm[Hg] A THENA ([facility]) Body weight 2547.2 [oz_av] 2547.2 [oz_av] ATHEN A ([facility]) Diastolic blood pressure 88 mm[Hg] 88 mm[Hg] CHELSEA ([facility]) Body height 63 [in_i] 63 [in_i] CHELSEA ([facility]) Body mass index (BMI) [Ratio] 28.2 kg/m2 28.2 k g/m2 CHELSEA ([facility]) Systolic blood pressure 120 mm[Hg] 120 mm[Hg] A THENA ([facility]) Body weight 2547.2 [oz_av] 2547.2 [oz_av] ATHEN A ([facility]) Diastolic blood pressure 88 mm[Hg] 88 mm[Hg] CHELSEA ([facility]) Body height 63 [in_i] 63 [in_i] CHELSEA ([facility]) Body mass index (BMI) [Ratio] 28.2 kg/m2 28.2 k g/m2 CHELSEA ([facility]) Systolic blood pressure 120 mm[Hg] 120 mm[Hg] A THENA ([facility]) Body weight 2547.2 [oz_av] 2547.2 [oz_av] ATHEN A ([facility]) Diastolic blood pressure 88 mm[Hg] 88 mm[Hg] CHELSEA ([facility]) Body height 63 [in_i] 63 [in_i] CHELSEA ([facility]) Body mass index (BMI) [Ratio] 28.2 kg/m2 28.2 k g/m2 CHELSEA ([facility]) Systolic blood pressure 120 mm[Hg] 120 mm[Hg] [facility] ([facility]) Body weight 2547.2 [oz_av] 2547.2 [oz_av] ATHEN A ([facility]) Diastolic blood pressure 88 mm[Hg] 88 mm[Hg] CHELSEA ([facility]) Body height 63 [in_i] 63 [in_i] CHELSEA ([facility]) Body mass index (BMI) [Ratio] 28.2 kg/m2 28.2 k g/m2 CHELSEA ([facility]) Systolic blood pressure 120 mm[Hg] 120 mm[Hg] [facility] ([facility]) Body weight 2547.2 [oz_av] 2547.2 [oz_av] ATHEN A ([facility]) Diastolic blood pressure 88 mm[Hg] 88 mm[Hg] CHELSEA ([facility]) Body height 63 [in_i] 63 [in_i] CHELSEA ([facility]) Body mass index (BMI) [Ratio] 28.2 kg/m2 28.2 k g/m2 CHELSEA ([facility]) Systolic blood pressure 120 mm[Hg] 120 mm[Hg] [facility] Body weight 2547.2 [oz_av] 2547.2 [oz_av] ATHEN A ([facility]) Diastolic blood pressure 88 mm[Hg] 88 mm[Hg] CHELSEA ([facility]) Body height 63 [in_i] 63 [in_i] CHELSEA ([facility]) Body mass index (BMI) [Ratio] 28.2 kg/m2 28.2 k g/m2 CHELSEA ([facility]) Systolic blood pressure 120 mm[Hg] 120 mm[Hg] A CHAMP ([facility]) Body weight 2547.2 [oz_av] 2547.2 [oz_av] ATHEN A ([facility]) Diastolic blood pressure 88 mm[Hg] 88 mm[Hg] CHELSEA ([facility]) Body height 63 [in_i] 63 [in_i] CHELSEA ([facility]) Body mass index (BMI) [Ratio] 28.2 kg/m2 28.2 k g/m2 CHELSEA ([facility]) Systolic blood pressure 120 mm[Hg] 120 mm[Hg] A CHAMP ([facility]) Body weight 2547.2 [oz_av] 2547.2 [oz_av] ATHEN A ([facility]) Diastolic blood pressure 88 mm[Hg] 88 mm[Hg] CHELSEA ([facility]) Body height 63 [in_i] 63 [in_i] CHELSEA ([facility]) Body mass index (BMI) [Ratio] 28.2 kg/m2 28.2 k g/m2 CHELSEA ([facility]) Systolic blood pressure 120 mm[Hg] 120 mm[Hg] A [facility] ([facility]) Body weight 2547.2 [oz_av] 2547.2 [oz_av] ATHEN A ([facility]) Systolic blood pressure 126 mm[Hg] 126 mm[Hg] M EDENT ([facility], [facility]) Diastolic blood pressure 89 mm[Hg] 89 mm[Hg] MEDENT ([facility], [facility]) Heart rate 103 /min 103 /min MEDENT ([facility], [facility]) Respiratory rate 18 /min 18 /min MEDENT ( [facility], [facility]) Oxygen saturation in Arterial blood by Pulse oximetry 98 % 98 % MEDENT ([facility], [facility]) Body temperature 98.2 [degF] 98.2 [degF] MEDENT ([facility], [facility]) Diastolic blood pressure 88 mm[Hg] 88 mm[Hg] eCW1 ([facility]) Body weight 178.2 [lb_av] 178.2 [lb_av] eCW1 ([facility]) Body weight 80.83 kg 80.83 kg eCW1 ([facility]) Body height 63 [in_i] 63 [in_i] eCW1 ([facility]) Body mass index (BMI) [Ratio] 31.567 kg/m2 31.5 67 kg/m2 eCW1 ([facility]) Systolic blood pressure 128 mm[Hg] 128 mm[Hg] e CW1 ([facility]) Body weight 175 [lb_av] 175 [lb_av] eCW1 ([facility]) Body height 63 [in_i] 63 [in_i] eCW1 ([facility]) Body mass index (BMI) [Ratio] 31 kg/m2 31 kg/ m2 eCW1 ([facility]) Systolic blood pressure 138 mm[Hg] 138 mm[Hg] e CW1 ([facility]) Diastolic blood pressure 88 mm[Hg] 88 mm[Hg] eCW1 ([facility]) Diastolic blood pressure 84 mm[Hg] 84 mm[Hg] CHELSEA ([facility]) Body height 63 [in_i] 63 [in_i] CHELSEA ([facility]) Body mass index (BMI) [Ratio] 30.9 kg/m2 30.9 k g/m2 CHELSEA ([facility]) Systolic blood pressure 123 mm[Hg] 123 mm[Hg] A THENA ([facility]) Body weight 2793.6 [oz_av] 2793.6 [oz_av] ATHEN A ([facility]) Body weight 2793.6 [oz_av] 2793.6 [oz_av] ATHEN A ([facility]) Systolic blood pressure 123 mm[Hg] 123 mm[Hg] [facility] Diastolic blood pressure 84 mm[Hg] 84 mm[Hg] CHELSEA ([facility]) Body height 63 [in_i] 63 [in_i] CHELSEA ([facility]) Body mass index (BMI) [Ratio] 30.9 kg/m2 30.9 k g/m2 CHELSEA ([facility]) Diastolic blood pressure 84 mm[Hg] 84 mm[Hg] CHELSEA ([facility]) Diastolic blood pressure 84 mm[Hg] 84 mm[Hg] CHELSEA ([facility]) Body height 63 [in_i] 63 [in_i] CHELSEA ([facility]) Body mass index (BMI) [Ratio] 30.9 kg/m2 30.9 k g/m2 CHELSEA ([facility]) Systolic blood pressure 123 mm[Hg] 123 mm[Hg] A THENA ([facility]) Body weight 2793.6 [oz_av] 2793.6 [oz_av] ATHEN A ([facility]) Body height 63 [in_i] 63 [in_i] CHELSEA ([facility]) Body mass index (BMI) [Ratio] 30.9 kg/m2 30.9 k g/m2 CHELSEA ([facility]) Systolic blood pressure 123 mm[Hg] 123 mm[Hg] [facility] Body weight 2793.6 [oz_av] 2793.6 [oz_av] ATHEN A ([facility]) Body mass index (BMI) [Ratio] 30.9 kg/m2 30.9 k g/m2 CHELSEA ([facility]) Systolic blood pressure 123 mm[Hg] 123 mm[Hg] A THENA ([facility]) Body weight 2793.6 [oz_av] 2793.6 [oz_av] ATHEN A ([facility]) Diastolic blood pressure 84 mm[Hg] 84 mm[Hg] CHELSEA ([facility]) Body height 63 [in_i] 63 [in_i] CHELSEA ([facility]) Diastolic blood pressure 84 mm[Hg] 84 mm[Hg] CHELSEA ([facility]) Body height 63 [in_i] 63 [in_i] CHELSEA ([facility]) Body weight 2793.6 [oz_av] 2793.6 [oz_av] ATHEN A ([facility]) Body mass index (BMI) [Ratio] 30.9 kg/m2 30.9 k g/m2 CHELSEA ([facility]) Systolic blood pressure 123 mm[Hg] 123 mm[Hg] [facility] Diastolic blood pressure 84 mm[Hg] 84 mm[Hg] CHELSEA ([facility]) Body height 63 [in_i] 63 [in_i] CHELSEA ([facility]) Body mass index (BMI) [Ratio] 30.9 kg/m2 30.9 k g/m2 CHELSEA ([facility]) Systolic blood pressure 123 mm[Hg] 123 mm[Hg] A THENA ([facility]) Body weight 2793.6 [oz_av] 2793.6 [oz_av] ATHEN A ([facility]) Diastolic blood pressure 84 mm[Hg] 84 mm[Hg] CHELSEA ([facility]) Body height 63 [in_i] 63 [in_i] CHELSEA ([facility]) Body mass index (BMI) [Ratio] 30.9 kg/m2 30.9 k g/m2 CHELSEA ([facility]) Systolic blood pressure 123 mm[Hg] 123 mm[Hg] [facility] Body weight 2793.6 [oz_av] 2793.6 [oz_av] ATHEN A ([facility]) Diastolic blood pressure 84 mm[Hg] 84 mm[Hg] CHELSEA ([facility]) Body height 63 [in_i] 63 [in_i] CHELSEA ([facility]) Body mass index (BMI) [Ratio] 30.9 kg/m2 30.9 k g/m2 CHELSEA ([facility]) Diastolic blood pressure 84 mm[Hg] 84 mm[Hg] CHELSEA ([facility]) Body height 63 [in_i] 63 [in_i] CHELSEA ([facility]) Body mass index (BMI) [Ratio] 30.9 kg/m2 30.9 k g/m2 CHELSEA ([facility]) Systolic blood pressure 123 mm[Hg] 123 mm[Hg] [facility] Body weight 2793.6 [oz_av] 2793.6 [oz_av] ATHEN A ([facility]) Systolic blood pressure 123 mm[Hg] 123 mm[Hg] [facility] Body weight 2793.6 [oz_av] 2793.6 [oz_av] ATHEN A ([facility]) Diastolic blood pressure 84 mm[Hg] 84 mm[Hg] CHELSEA ([facility]) Body height 63 [in_i] 63 [in_i] CHELSEA ([facility]) Body mass index (BMI) [Ratio] 30.9 kg/m2 30.9 k g/m2 CHELSEA ([facility]) Systolic blood pressure 123 mm[Hg] 123 mm[Hg] [facility] Body weight 2793.6 [oz_av] 2793.6 [oz_av] ATHEN A ([facility]) Diastolic blood pressure 84 mm[Hg] 84 mm[Hg] CHELSEA ([facility]) Body height 63 [in_i] 63 [in_i] CHELSEA ([facility]) Body mass index (BMI) [Ratio] 30.9 kg/m2 30.9 k g/m2 CHELSEA ([facility]) Systolic blood pressure 123 mm[Hg] 123 mm[Hg] A THENA ([facility]) Body weight 2793.6 [oz_av] 2793.6 [oz_av] ATHEN A ([facility]) Diastolic blood pressure 84 mm[Hg] 84 mm[Hg] CHELSEA ([facility]) Body height 63 [in_i] 63 [in_i] CHELSEA ([facility]) Body mass index (BMI) [Ratio] 30.9 kg/m2 30.9 k g/m2 CHELSEA ([facility]) Systolic blood pressure 123 mm[Hg] 123 mm[Hg] A THENA ([facility]) Body weight 2793.6 [oz_av] 2793.6 [oz_av] ATHEN A ([facility]) Diastolic blood pressure 84 mm[Hg] 84 mm[Hg] CHELSEA ([facility]) Body height 63 [in_i] 63 [in_i] CHELSEA ([facility]) Body mass index (BMI) [Ratio] 30.9 kg/m2 30.9 k g/m2 CHELSEA ([facility]) Systolic blood pressure 123 mm[Hg] 123 mm[Hg] A THENA ([facility]) Body weight 2793.6 [oz_av] 2793.6 [oz_av] ATHEN A ([facility]) Diastolic blood pressure 84 mm[Hg] 84 mm[Hg] CHELSEA ([facility]) Body height 63 [in_i] 63 [in_i] CHELSEA ([facility]) Body mass index (BMI) [Ratio] 30.9 kg/m2 30.9 k g/m2 CHELSEA ([facility]) Systolic blood pressure 123 mm[Hg] 123 mm[Hg] A THENA ([facility]) Body weight 2793.6 [oz_av] 2793.6 [oz_av] ATHEN A ([facility]) Diastolic blood pressure 84 mm[Hg] 84 mm[Hg] CHELSEA ([facility]) Body height 63 [in_i] 63 [in_i] CHELSEA ([facility]) Body mass index (BMI) [Ratio] 30.9 kg/m2 30.9 k g/m2 CHELSEA ([facility]) Systolic blood pressure 123 mm[Hg] 123 mm[Hg] A THENA ([facility]) Body weight 2793.6 [oz_av] 2793.6 [oz_av] ATHEN A ([facility]) Diastolic blood pressure 84 mm[Hg] 84 mm[Hg] CHELSEA ([facility]) Body height 63 [in_i] 63 [in_i] CHELSEA ([facility]) Body mass index (BMI) [Ratio] 30.9 kg/m2 30.9 k g/m2 CHELSEA ([facility]) Systolic blood pressure 123 mm[Hg] 123 mm[Hg] A THENA ([facility]) Body weight 2793.6 [oz_av] 2793.6 [oz_av] ATHEN A ([facility]) Body weight 174.2 [lb_av] 174.2 [lb_av] eCW1 ([facility]) Body weight 79.02 kg 79.02 kg eCW1 ([facility]) Body height 63 [in_i] 63 [in_i] eCW1 ([facility]) Body mass index (BMI) [Ratio] 30.858 kg/m2 30.8 58 kg/m2 eCW1 ([facility]) Systolic blood pressure 120 mm[Hg] 120 mm[Hg] e CW1 ([facility]) Diastolic blood pressure 76 mm[Hg] 76 mm[Hg] eCW1 ([facility]) Body weight 168.2 [lb_av] 168.2 [lb_av] eCW1 ([facility]) Body weight 76.29 kg 76.29 kg eCW1 ([facility]) Body height 63 [in_i] 63 [in_i] eCW1 ([facility]) Body mass index (BMI) [Ratio] 29.79 kg/m2 29.79 kg/m2 eCW1 ([facility]) Systolic blood pressure 118 mm[Hg] 118 mm[Hg] e CW1 ([facility]) Diastolic blood pressure 74 mm[Hg] 74 mm[Hg] eCW1 ([facility]) Body height 63 [in_i] 63 [in_i] eCW1 ([facility]) Body weight 169 [lb_av] 169 [lb_av] eCW1 ([facility]) Body weight 76.66 kg 76.66 kg eCW1 ([facility]) Body mass index (BMI) [Ratio] 29.937 kg/m2 29.9 37 kg/m2 eCW1 ([facility]) Systolic blood pressure 112 mm[Hg] 112 mm[Hg] e CW1 ([facility]) Diastolic blood pressure 78 mm[Hg] 78 mm[Hg] eCW1 ([facility]) Body weight 166 [lb_av] 166 [lb_av] eCW1 ([facility]) Body height 63 [in_i] 63 [in_i] eCW1 ([facility]) Body mass index (BMI) [Ratio] 29.406 kg/m2 29.4 06 kg/m2 eCW1 ([facility]) Systolic blood pressure 110 mm[Hg] 110 mm[Hg] e CW1 ([facility]) Diastolic blood pressure 78 mm[Hg] 78 mm[Hg] eCW1 ([facility]) Systolic blood pressure 118 mm[Hg] 118 mm[Hg] e CW1 ([facility]) Body weight 165.6 [lb_av] 165.6 [lb_av] eCW1 ([facility]) Diastolic blood pressure 80 mm[Hg] 80 mm[Hg] eCW1 ([facility]) Body weight 75.11 kg 75.11 kg eCW1 ([facility]) Body height 63 [in_i] 63 [in_i] eCW1 ([facility]) Body mass index (BMI) [Ratio] 29.335 kg/m2 29.3 35 kg/m2 eCW1 ([facility]) Body weight 165 [lb_av] 165 [lb_av] eCW1 ([facility]) Body height 63 [in_i] 63 [in_i] eCW1 ([facility]) Body mass index (BMI) [Ratio] 29.228 kg/m2 29.2 28 kg/m2 eCW1 ([facility]) Systolic blood pressure 124 mm[Hg] 124 mm[Hg] e CW1 ([facility]) Diastolic blood pressure 86 mm[Hg] 86 mm[Hg] eCW1 ([facility]) Diastolic blood pressure 62 mm[Hg] 62 mm[Hg] eCW1 ([facility]) Body weight 164 [lb_av] 164 [lb_av] eCW1 ([facility]) Body weight 74.39 kg 74.39 kg eCW1 ([facility]) Body height 63 [in_i] 63 [in_i] eCW1 ([facility]) Body mass index (BMI) [Ratio] 29.051 kg/m2 29.0 51 kg/m2 eCW1 ([facility]) Systolic blood pressure 112 mm[Hg] 112 mm[Hg] e CW1 ([facility]) Body weight 73.3 kg 73.3 kg eCW1 ([facility]) Diastolic blood pressure 60 mm[Hg] 60 mm[Hg] eCW1 ([facility]) Systolic blood pressure 110 mm[Hg] 110 mm[Hg] e CW1 ([facility]) Body mass index (BMI) [Ratio] 28.626 kg/m2 28.6 26 kg/m2 eCW1 ([facility]) Body height 63 [in_i] 63 [in_i] eCW1 ([facility]) Body weight 161.6 [lb_av] 161.6 [lb_av] eCW1 ([facility]) Patient Treatment Plan of Care Planned Activity Planned Date Details Description Data Source (s) valacyclovir 500 MG Oral Tablet [Valtrex] 07/11/2020 12:00:00 AM ES T eCW1 ([facility]) Omeprazole 20 MG Delayed Release Oral Capsule 06/05/2020 12:00:00 A M EST eCW1 ([facility]) Omeprazole 20 MG Delayed Release Oral Capsule 06/05/2020 12:00:00 A M EST eCW1 ([facility]) Omeprazole 20 MG Delayed Release Oral Capsule 06/05/2020 12:00:00 A M EST eCW1 ([facility]) Lancets - 05/22/2020 12:00:00 AM EST e CW1 ([facility]) Lancets - 05/17/2020 12:00:00 AM EST e CW1 ([facility]) Alcohol Wipes 70 % 05/17/2020 12:00:00 AM EST eCW1 ([facility]) Test Strips - 05/17/2020 12:00:00 AM EST eCW1 ([facility]) Glucose Monitor - 05/17/2020 12:00:00 AM EST eCW1 ([facility]) valacyclovir 500 MG Oral Tablet CHELSEA ([facility]) Sertraline 50 MG Oral Tablet CHELSEA ([facility]) Sertraline 25 MG Oral Tablet CHELSEA ([facility]) CHELSEA ([facility]) potassium CHELSEA ([facility]) OneTouch Verio test strips A THENA ([facility]) OneTouch Delica Plus Lancet 33 gauge CHELSEA ([facility]) Methylergonovine Maleate 0.2 MG Oral Tablet CHELSEA ([facility]) Metformin hydrochloride 500 MG Oral Tablet CHELSEA ([facility]) immunization admin fee USE DIRECTED CHELSEA ([facility]) FreeStyle Lite Meter kit USE DIRECTED 4 TIMES DAILY CHESLEA ([facility]) FreeStyle Lancets 28 gauge USE DIRECTED 4 TIMES DAILY CHELSEA ([facility]) Fluzone Quad (PF) 60 mcg (15 m cg x 4)/0.5 mL IM syringe INJECT DIRECTED CHELSEA ([facility]) d3 50 mcg (1999 ut) caps AT DIOMEDES ([facility]) Cholecalciferol 2000 UNT Oral Capsule CHELSEA ([facility]) Isopropyl Alcohol 0.7 ML/ML Medicated Pad CHELSEA ([facility]) Amoxicillin 875 MG / Clavulanate 125 MG Oral Tablet CHELSEA ([facility]) valacyclovir 500 MG Oral Tablet CHELSEA ([facility]) Sertraline 50 MG Oral Tablet CHELSEA ([facility]) Sertraline 25 MG Oral Tablet CHELSEA ([facility]) CHELSEA ([facility]) potassium CHELSEA ([facility]) OneTouch Verio test strips A THENA ([facility]) OneTouch Delica Plus Lancet 33 gauge CHELSEA ([facility]) Methylergonovine Maleate 0.2 MG Oral Tablet CHELSEA ([facility]) Metformin hydrochloride 500 MG Oral Tablet CHELSEA ([facility]) immunization admin fee USE DIRECTED CHELSEA ([facility]) FreeStyle Lite Meter kit USE DIRECTED 4 TIMES DAILY CHELSEA ([facility]) FreeStyle Lancets 28 gauge USE DIRECTED 4 TIMES DAILY CHELSEA ([facility]) Fluzone Quad (PF) 60 mcg (15 m cg x 4)/0.5 mL IM syringe INJECT DIRECTED CHELSEA ([facility]) d3 50 mcg (2000 ut) caps AT [facility] ([facility]) Cholecalciferol 2000 UNT Oral Capsule CHELSEA ([facility]) Isopropyl Alcohol 0.7 ML/ML Medicated Pad CHELSEA ([facility]) Amoxicillin 875 MG / Clavulanate 125 MG Oral Tablet CHELSEA ([facility]) valacyclovir 500 MG Oral Tablet CHELSEA ([facility]) Sertraline 50 MG Oral Tablet CHELSEA ([facility]) Sertraline 25 MG Oral Tablet CHELSEA ([facility]) CHELSEA ([facility]) potassium CHELSEA ([facility]) OneTouch Verio test strips A THENA ([facility]) OneTouch Delica Plus Lancet 33 gauge CHELSEA ([facility]) Methylergonovine Maleate 0.2 MG Oral Tablet CHELSEA ([facility]) Metformin hydrochloride 500 MG Oral Tablet C[place] ([facility]) immunization admin fee USE DIRECTED [place] ([facility]) FreeStyle Lite Meter kit USE DIRECTED 4 TIMES DAILY [place] ([facility]) FreeStyle Lancets 28 gauge USE DIRECTED 4 TIMES DAILY [place] ([facility]) Fluzone Quad [id number] (PF) 60 mcg (15 m cg x 4)/0.5 mL IM syringe INJECT DIRECTED [place] ([facility]) d3 50 mcg (1999 ut) caps AT [facility] ([facility]) Cholecalciferol 2000 UNT Oral Capsule CHELSEA ([facility]) Isopropyl Alcohol 0.7 ML/ML Medicated Pad [facility] ([facility]) Amoxicillin 875 MG / Clavulanate 125 MG Oral Tablet C[place] ([facility]) valacyclovir 500 MG Oral Tablet [place] ([facility]) Sertraline 25 MG Oral Tablet [place] ([facility]) potassium [facility] ([facility]) OneTouch Verio test strips A THENA ([facility]) OneTouch Delica Plus Lancet 33 gauge [place] ([facility]) Methylergonovine Maleate 0.2 MG Oral Tablet [place] ([facility]) Metformin hydrochloride 500 MG Oral Tablet [place] ([facility]) FreeStyle Lite Meter kit USE DIRECTED 4 TIMES DAILY [place] ([facility]) FreeStyle Lancets 28 gauge USE DIRECTED 4 TIMES DAILY [place] ([facility]) Fluzone Quad (PF) 60 mcg (15 m cg x 4)/0.5 mL IM syringe INJECT DIRECTED CHELSEA ([facility]) Isopropyl Alcohol 0.7 ML/ML Medicated Pad [place] ([facility]) Amoxicillin 875 MG / Clavulanate 125 MG Oral Tablet [place] ([facility]) valacyclovir 500 MG Oral Tablet [place] ([facility]) Sertraline 25 MG Oral Tablet [place] ([facility]) potassium [place] ([facility]) OneTouch Verio test strips A THENA ([facility]) OneTouch Delica Plus Lancet 33 gauge [place] ([facility]) Methylergonovine Maleate 0.2 MG Oral Tablet [place] ([facility]) Metformin hydrochloride 500 MG Oral Tablet [place] ([facility]) FreeStyle Lite Meter kit USE DIRECTED 4 TIMES DAILY [place] ([facility]) FreeStyle Lancets 28 gauge USE DIRECTED 4 TIMES DAILY [place] ([facility]) Fluzone Quad (PF) 60 mcg (15 m cg x 4)/0.5 mL IM syringe INJECT DIRECTED [place]SEA ([facility]) Isopropyl Alcohol 0.7 ML/ML Medicated Pad [place] ([facility]) Amoxicillin 875 MG / Clavulanate 125 MG Oral Tablet [place] ([facility]) valacyclovir 500 MG Oral Tablet [place] ([facility]) Sertraline 25 MG Oral Tablet [place] ([facility]) potassium [place] ([facility]) OneTouch Verio test strips A THENA ([facility]) OneTouch Delica Plus Lancet 33 gauge [place] ([facility]) Methylergonovine Maleate 0.2 MG Oral Tablet [place] ([facility]) Metformin hydrochloride 500 MG Oral Tablet [place] ([facility]) FreeStyle Lite Meter kit USE DIRECTED 4 TIMES DAILY [place] ([facility]) FreeStyle Lancets 28 gauge USE DIRECTED 4 TIMES DAILY [place] ([facility]) Fluzone Quad [id number] (PF) 60 mcg (15 m cg x 4)/0.5 mL IM syringe INJECT DIRECTED [place]SEA ([facility]) Isopropyl Alcohol 0.7 ML/ML Medicated Pad [place] ([facility]) Amoxicillin 875 MG / Clavulanate 125 MG Oral Tablet [place] ([facility]) valacyclovir 500 MG Oral Tablet [place] ([facility]) Sertraline 25 MG Oral Tablet [place] ([facility]) potassium [facility] ([facility]) OneTouch Verio test strips A THENA ([facility]) OneTouch Delica Plus Lancet 33 gauge [place] ([facility]) Methylergonovine Maleate 0.2 MG Oral Tablet [place] ([facility]) Metformin hydrochloride 500 MG Oral Tablet [place] ([facility]) FreeStyle Lite Meter kit USE DIRECTED 4 TIMES DAILY [place] ([facility]) FreeStyle Lancets 28 gauge USE DIRECTED 4 TIMES DAILY [place] ([facility]) Isopropyl Alcohol 0.7 ML/ML Medicated Pad [place] ([facility]) valacyclovir 500 MG Oral Tablet [place] ([facility]) Sertraline 25 MG Oral Tablet [place] ([facility]) potassium [facility] ([facility]) OneTouch Verio test strips A THENA ([facility]) OneTouch Delica Plus Lancet 33 gauge [place] ([facility]) Methylergonovine Maleate 0.2 MG Oral Tablet [place] ([facility]) Metformin hydrochloride 500 MG Oral Tablet [place] ([facility]) FreeStyle Lite Meter kit USE DIRECTED 4 TIMES DAILY [place] ([facility]) FreeStyle Lancets 28 gauge USE DIRECTED 4 TIMES DAILY [place] ([facility]) Isopropyl Alcohol 0.7 ML/ML Medicated Pad [place] ([facility]) valacyclovir 500 MG Oral Tablet [place] ([facility]) Sertraline 25 MG Oral Tablet [place] ([facility]) OneTouch Verio test strips A THENA ([facility]) OneTouch Delica Plus Lancet 33 gauge [place] ([facility]) Methylergonovine Maleate 0.2 MG Oral Tablet [place] ([facility]) Metformin hydrochloride 500 MG Oral Tablet [place] ([facility]) FreeStyle Lite Meter kit USE DIRECTED 4 TIMES DAILY [place] ([facility]) FreeStyle Lancets 28 gauge USE DIRECTED 4 TIMES DAILY [place] ([facility]) Isopropyl Alcohol 0.7 ML/ML Medicated Pad [facility] ([facility]) valacyclovir 500 MG Oral Tablet [place] ([facility]) Sertraline 25 MG Oral Tablet [place] ([facility]) OneTouch Verio test strips A THENA ([facility]) OneTouch Delica Plus Lancet 33 gauge [place] ([facility]) Methylergonovine Maleate 0.2 MG Oral Tablet [place] ([facility]) Metformin hydrochloride 500 MG Oral Tablet [place] ([facility]) FreeStyle Lite Meter kit USE DIRECTED 4 TIMES DAILY [place] ([facility]) FreeStyle Lancets 28 gauge USE DIRECTED 4 TIMES DAILY [place] ([facility]) Isopropyl Alcohol 0.7 ML/ML Medicated Pad [place] ([facility]) valacyclovir 500 MG Oral Tablet [place] ([facility]) Sertraline 25 MG Oral Tablet [place] ([facility]) OneTouch Verio test strips A THENA ([facility]) OneTouch Delica Plus Lancet 33 gauge [place] ([facility]) Methylergonovine Maleate 0.2 MG Oral Tablet [place] ([facility]) Metformin hydrochloride 500 MG Oral Tablet [place] ([facility]) FreeStyle Lite Meter kit USE DIRECTED 4 TIMES DAILY [place] ([facility]) FreeStyle Lancets 28 gauge USE DIRECTED 4 TIMES DAILY [place] ([facility]) Isopropyl Alcohol 0.7 ML/ML Medicated Pad [place] ([facility]) valacyclovir 500 MG Oral Tablet [place] ([facility]) OneTouch Verio test strips A THENA ([facility]) OneTouch Delica Plus Lancet 33 gauge [place] ([facility]) Methylergonovine Maleate 0.2 MG Oral Tablet [place] ([facility]) Metformin hydrochloride 500 MG Oral Tablet [place] ([facility]) FreeStyle Lite Meter kit USE DIRECTED 4 TIMES DAILY [place] ([facility]) FreeStyle Lancets 28 gauge USE DIRECTED 4 TIMES DAILY [place] ([facility]) Isopropyl Alcohol 0.7 ML/ML Medicated Pad [place] ([facility]) valacyclovir 500 MG Oral Tablet [place] ([facility]) OneTouch Verio test strips A THENA ([facility]) OneTouch Delica Plus Lancet 33 gauge [place] ([facility]) Methylergonovine Maleate 0.2 MG Oral Tablet [place] ([facility]) Metformin hydrochloride 500 MG Oral Tablet [place] ([facility]) FreeStyle Lite Meter kit USE DIRECTED 4 TIMES DAILY [place] ([facility]) FreeStyle Lancets 28 gauge USE DIRECTED 4 TIMES DAILY [place] ([facility]) Isopropyl Alcohol 0.7 ML/ML Medicated Pad [place] ([facility]) valacyclovir 500 MG Oral Tablet [place] ([facility]) OneTouch Verio test strips A THENA ([facility]) OneTouch Delica Plus Lancet 33 gauge [place] ([facility]) Methylergonovine Maleate 0.2 MG Oral Tablet [place] ([facility]) Metformin hydrochloride 500 MG Oral Tablet [place] ([facility]) FreeStyle Lite Meter kit USE DIRECTED 4 TIMES DAILY [place] ([facility]) FreeStyle Lancets 28 gauge USE DIRECTED 4 TIMES DAILY [place] ([facility]) Isopropyl Alcohol 0.7 ML/ML Medicated Pad [place] ([facility]) valacyclovir 500 MG Oral Tablet [place] ([facility]) OneTouch Verio test strips A THENA ([facility]) OneTouch Delica Plus Lancet 33 gauge [place] ([facility]) Methylergonovine Maleate 0.2 MG Oral Tablet [place] ([facility]) Metformin hydrochloride 500 MG Oral Tablet [place] ([facility]) FreeStyle Lite Meter kit USE DIRECTED 4 TIMES DAILY [place] ([facility]) FreeStyle Lancets 28 gauge USE DIRECTED 4 TIMES DAILY [place] ([facility]) Isopropyl Alcohol 0.7 ML/ML Medicated Pad [facility] ([facility])
[2021-03-13 09:03] LABS: HEMATOCRIT 43.9 % (36.0-47.0); HEMOGLOBIN 15.2 g/dl (12.0-15.5); MEAN CORPUSCULAR HEMOGLOBIN 29.9 pg (27.0-33.0); MEAN CORPUSCULAR HGB CONC 34.6 g/dl (32.0-36.5); MEAN CORPUSCULAR VOLUME 86.2 fl (80.0-96.0); PLATELET COUNT, AUTOMATED 269 10^3/uL (150-450); RED BLOOD COUNT 5.09 10^6/uL (4.00-5.40); WHITE BLOOD COUNT 7.1 10^3/uL (4.0-10.0)
[2021-03-13 09:25] LABS: HCG, SERUM QUALITATIVE NEGATIVE (NEGATIVE)
[2021-03-13] MEDS ORDERED: BUPIVACAINE HCL 0.25% 10ML VIAL As Ordered ONE (09:54)
[2021-03-13] MEDS ORDERED: ACETAMINOPHEN 1000MG 100ML IV BTL (OFIRMEV) (J0131 PER 10MG) As Ordered ONE (10:43)
--- NOTE | 2021-03-13 11:49 | ROOPDOC ---
[facility] Report Of Operation Report of Operation Date of procedure: 03/13/21 Preoperative diagnosis: Satisfied parity. Postoperative diagnosis: Same Procedure: Laparoscopic bilateral salpingectomy Anesthesia: Gen. endotracheal Estimated blood loss 5 mL IV fluids replaced 1300 mL lactated Ringer's Drains: In and out catheter 200 mL of urine Complications: None Preoperative antibiotics: None indicated Specimens: Bilateral fallopian tubes Intraoperative findings: Normal size, shape, contour of the uterus. Normal adnexa/ovaries bilaterally. Procedure: The patient was counseled and consented on the risks, benefits, indications, and alternatives of the procedure. Informed consent was obtained. She was taken to the operating room with an IV running. She was placed on the operating table in the dorsal supine position. Gen. anesthesia was administered and the airway was secured without any difficulty. A timeout was performed per protocol. She was prepared and draped in the normal sterile fashion. Attention was turned to the pelvis. The bladder was drained with in and out sterile catheter. A speculum was placed into the vagina with good visualization of the cervix. A single- tooth tenaculum was placed on the anterior lip of the cervix and downward traction was applied. The cervix was sequentially dilated with Jace dilators up to a #16. A ZUMI uterine manipulator was placed without any difficulty. The single-tooth tenaculum was removed. The tenaculum sites were noted to be hemostatic. A sterile glove switch was performed. Attention was turned to the abdomen. A 5mm umbilical incision was made with the 11 blade. Through this incision, a Veress needle was placed into the intraperitoneal cavity. Intraperitoneal placement was confirmed with ease of flow of normal saline, a positive drop test and no return on aspiration. The opening pressure was 2 mmHg. The abdomen was insufflated with 2 L of CO2. The Veress needle was removed. A 5 mm laparoscopic trocar was placed under direct visualization without any difficulty, and intraperitoneal placement was confirmed. No incidental bleeding or injury was evident. The patient was placed in steep Trendelenburg. 2 additional laparoscopic port sites were placed through 5 mm incisions in the lower left quadrant. Each trocar/cannula was placed under direct visualization without any difficulty, incidental bleeding or injury. Attention was turned to the right fallopian tube. The right fallopian tube was followed out to the fimbriated end, grasped and elevated. The underlying mesosalpinx was sequentially clamped, coagulated and transected, until the level of the cornu was reached. At this level, the fallopian tube was clamped, coagulated and transected, thus amputating the fallopian tube. The fallopian tube was brought through the cannula without any difficulty and sent to pathology for permanent section. Attention was turned to the left fallopian tube. The left fallopian tube was followed out to the fimbriated end, grasped and elevated. The underlying mesosalpinx was sequentially clamped, coagulated and transected, until the level of the cornu was reached. At this level the fallopian tube was clamped, coagulated and transected, thus amputating the fallopian tube. The fallopian t ube was brought to the cannula without any difficulty and sent to pathology for permanent section. Both right and left surgical sites were noted to be completely hemostatic. The gas was released from the abdomen. The patient was taken out of Trendelenburg position. The cannulas were removed. The skin incisions were closed with 4-0 Monocryl in subcuticular fashion and reinforced with Dermabond. The uterine manipulator was removed, the vagina was noted to be clear of any sponge or instrument. Sponge, needle and instrument counts were correct per protocol. The patient tolerated the entire procedure very well. She was transferred to the PACU in good and stable condition. DO RADHAMES Vrema JONATHAN R. DO Mar 13, 2021 11:49
[2021-03-13] MEDS ORDERED: OXYC1TAB23 PO (11:50)
[2021-03-13] MEDS ORDERED: ONDANSETRON 4MG/2ML VIAL As Ordered ONE (12:12)
[2021-03-13] MEDS ORDERED: ONDANSETRON 4MG/2ML VIAL IV PRN (12:30)
[2021-03-13] MEDS ORDERED: METOCLOPRAMIDE INJ 10MG/2ML VIAL (J2765 PER 1) IV PRN (12:30)
[2021-03-13] MEDS ORDERED: fentaNYL 100 MCG/2 ML INJECTION (J3010) IV PRN (12:30)
[2021-03-13] MEDS ORDERED: PERCOCET 5MG/325MG TAB PO PRN (12:30)
[2021-03-13] MEDS ORDERED: LR 1,000 ML IV SCH ×2 (12:30)
[2021-03-13 13:45] VITALS: BP 115/63
== END 2021-03-13 13:53 | disposition home or self-care (01) ==
LOC: M SDC 08:19
PROVIDERS: ATTEND Obstetrics & Gynecology
DX: Z30.2 Encounter for sterilization (principal); J45.909 Unspecified asthma, uncomplicated; Z87.891 Personal history of nicotine dependence; F41.9 Anxiety disorder, unspecified; F32.9 Major depressive disorder, single episode, unspecified; Z79.899 Other long term (current) drug therapy
CPT/HCPCS: 36415; 58661; 84703; 85027; 86850; 86900; 86901; 88302; J0131; J1100; J2250; J2405; J3010

== ENCOUNTER → 2021-05-17 | Outpatient (CLI) | payer OTHER ==
[~2021-05-17] MED LIST changes: -LIDOCAINE 1% MDV 20ML VIAL SQ PRN; -LIDOCAINE 2% 100MG/5ML SDV (FOR ANES.) As Ordered ONE; -LR 1,000 ML IV ONE; -MIDAZOLAM INJ 2MG/2ML VIAL (J2250 PER 1MG) As Ordered ONE; -ONDANSETRON 4MG/2ML VIAL As Ordered ONE; +OXYC1TAB23 PO; -ROCURONIUM BROMIDE 50 MG/5 ML VIAL As Ordered ONE; -SUGAMMADEX SODIUM 500 MG/5 ML VIAL (BRIDION) As Ordered ONE; -dexameTHASONE 4 MG/ML 1ML VIAL (J1100 PER 1MG) As Ordered ONE; -fentaNYL 100 MCG/2 ML INJECTION (J3010) As Ordered ONE; -propofoL 200 MG/20 ML VIAL As Ordered ONE
[2021-05-17 10:15] LABS: BASO % 0.5 % (0.0-1.0); EOS # 0.3 10^3/uL (0.0-0.5); EOS % 4.4 % (0.0-3.0); HEMATOCRIT 42.4 % (36.0-47.0); HEMOGLOBIN 14.2 g/dl (12.0-15.5); LYMPH # 2.7 10^3/uL (1.5-5.0); LYMPH % 42.7 % (24.0-44.0); MEAN CORPUSCULAR HEMOGLOBIN 29.1 pg (27.0-33.0); MEAN CORPUSCULAR HGB CONC 33.5 g/dl (32.0-36.5); MEAN CORPUSCULAR VOLUME 86.9 fl (80.0-96.0); MONO # 0.5 10^3/uL (0.0-0.8); MONO % 7.5 % (2.0-8.0); NEUTROPHILS # 2.9 10^3/uL (1.5-8.5); NEUTROPHILS % 44.6 % (36.0-66.0); PLATELET COUNT, AUTOMATED 210 10^3/uL (150-450); RED BLOOD COUNT 4.88 10^6/uL (4.00-5.40); WHITE BLOOD COUNT 6.4 10^3/uL (4.0-10.0)
[2021-05-17 10:47] LABS: ALBUMIN 3.7 GM/DL (3.2-5.2); ALT/SGPT 44 U/L (12-78); AMYLASE 73 U/L (25-115); BILIRUBIN,TOTAL 0.3 MG/DL (0.2-1.0); BLOOD UREA NITROGEN 16 MG/DL (7-18); CALCIUM LEVEL 8.8 MG/DL (8.5-10.1); CARBON DIOXIDE LEVEL 23 MEQ/L (21-32); CHLORIDE LEVEL 111 MEQ/L (98-107); CREATININE FOR GFR 0.67 MG/DL (0.55-1.30); GLOMERULAR FILTRATION RATE > 60.0 (>60); GLUCOSE, FASTING 104 MG/DL (70-100); LIPASE 82 U/L (73-393); POTASSIUM SERUM 4.2 MEQ/L (3.5-5.1); SODIUM LEVEL 141 MEQ/L (136-145); TOTAL PROTEIN 7.1 GM/DL (6.4-8.2)
== END ==
LOC: M LAB 09:33
PROVIDERS: ATTEND Physician Assistant
DX: R19.7 Diarrhea, unspecified (principal)

== ENCOUNTER 2021-08-14 21:42 | Emergency (ER) | payer MEDICAID, OTHER, SELFPAY ==
[~2021-08-14] VITALS: Ht 160 cm; Wt 82.3 kg
[~2021-08-14 21:42] MED LIST changes: +OMEP-173 PO; -OMEP-218 PO
[2021-08-14 21:44] VITALS: BP 140/74
[2021-08-14] MEDS ORDERED: BUSP10TA (21:58)
[2021-08-14] MEDS ORDERED: CITA20TA6 (21:58)
[2021-08-14] MEDS ORDERED: QUET50TA4 (21:58)
== END 2021-08-14 23:52 | disposition left against medical advice (07) ==
LOC: M ED 21:42
DX: Z53.21 Procedure and treatment not carried out due to patient leaving prior to being seen by health care provider (principal)

== ENCOUNTER → 2021-11-29 | Outpatient (CLI) | payer OTHER ==
[~2021-11-29] MED LIST changes: +BUSP10TA; +CITA20TA6; +QUET50TA4
[2021-11-29 11:13] LABS: FREE T4 0.72 NG/DL (0.76-1.46); THYROID STIMULATING HORMONE 2.46 uIU/ML (0.358-3.740)
[2021-11-29 12:43] LABS: PROLACTIN 11.6 NG/ML
== END ==
LOC: M PLALAB 07:52
PROVIDERS: ATTEND Obstetrics & Gynecology
DX: O92.70 Unspecified disorders of lactation (principal)

== ENCOUNTER → 2022-01-28 | Outpatient (CLI) | payer OTHER ==
[~2022-01-28] MED LIST changes: +ALBU8.5H INH; +BUPR150T12 PO; +BUPR75TA5 PO; +VALA500T5 PO
== END ==
LOC: M LABSMTC 10:26
PROVIDERS: ATTEND Anesthesiology
DX: Z01.818 Encounter for other preprocedural examination (principal); Z11.52 Encounter for screening for COVID-19

== ENCOUNTER → 2022-01-29 | Outpatient (CLI) | payer OTHER ==
[2022-01-29 15:41] LABS: BASO % 0.4 % (0.0-1.0); EOS # 0.2 10^3/uL (0.0-0.5); EOS % 1.8 % (0.0-3.0); HEMATOCRIT 45.4 % (36.0-47.0); HEMOGLOBIN 14.7 g/dl (12.0-15.5); LYMPH # 2.5 10^3/uL (1.5-5.0); MEAN CORPUSCULAR HEMOGLOBIN 29.2 pg (27.0-33.0); MEAN CORPUSCULAR HGB CONC 32.4 g/dl (32.0-36.5); MEAN CORPUSCULAR VOLUME 90.1 fl (80.0-96.0); MONO # 0.6 10^3/uL (0.0-0.8); MONO % 7.1 % (2.0-8.0); NEUTROPHILS % 60.3 % (36.0-66.0); PLATELET COUNT, AUTOMATED 318 10^3/uL (150-450); RED BLOOD COUNT 5.04 10^6/uL (4.00-5.40); WHITE BLOOD COUNT 8.2 10^3/uL (4.0-10.0)
[2022-01-29 16:18] LABS: FREE T4 0.77 NG/DL (0.76-1.46); THYROID STIMULATING HORMONE 2.4 uIU/ML (0.358-3.740)
[2022-02-01 06:08] LABS: IGASUB2 196.3 mg/dL (73.2-301.2); IGASUB3 30.9 mg/dL (13.4-97.9); IgA SERUM (part of Subclasses) 268 mg/dL (87-352); TISSUE TRANSGLUTAMINASE IgA <2 U/mL (0-3); UNITSIGA FOR GLIADIN IGA 5 units (0-19); UNITSIGG FOR GLIADIN IGG 3 units (0-19)
== END ==
LOC: M PLALAB 13:51
PROVIDERS: ATTEND Internal Medicine Gastroenterology
DX: R10.31 Right lower quadrant pain (principal)

== ENCOUNTER 2022-02-01 06:42 | Day surgery (SDC) | payer OTHER ==
[~2022-02-01] VITALS: Ht 160 cm; Wt 72.0 kg
[~2022-02-01 06:42] MED LIST changes: +NS 1,000 ML IV ONE
[2022-02-01] MEDS ORDERED: propofoL 500 MG/50 ML VIAL As Ordered ONE (08:02)
[2022-02-01 08:34] VITALS: BP 116/72
== END 2022-02-01 08:58 | disposition home or self-care (01) ==
LOC: M OPP 06:42
PROVIDERS: ATTEND Internal Medicine Gastroenterology
DX: K63.5 Polyp of colon (principal); K64.4 Residual hemorrhoidal skin tags; K64.8 Other hemorrhoids; Z79.51 Long term (current) use of inhaled steroids; Z79.52 Long term (current) use of systemic steroids; Z79.899 Other long term (current) drug therapy; G47.30 Sleep apnea, unspecified; Z99.89 Dependence on other enabling machines and devices; F32.9 Major depressive disorder, single episode, unspecified; F41.9 Anxiety disorder, unspecified; G43.909 Migraine, unspecified, not intractable, without status migrainosus; J45.909 Unspecified asthma, uncomplicated

== ENCOUNTER → 2022-05-29 | Outpatient (CLI) | payer OTHER ==
[~2022-05-29] MED LIST changes: -NS 1,000 ML IV ONE
== END ==
LOC: M RAD 17:49
PROVIDERS: ATTEND Physician Assistant
DX: R07.89 Other chest pain (principal)

== ENCOUNTER 2022-11-11 23:40 | Inpatient (IN) | payer MEDICAID, OTHER ==
[~2022-11-11] VITALS: Ht 167.6 cm; Wt 59.0 kg
[~2022-11-11 23:40] MED LIST changes: -BUSP10TA; +BUSP10TA PO; -CITA20TA6; +CITA20TA6 PO; +FLUT50SP17 NARES; -FLUTISP NARES
[2022-11-11] MEDS ORDERED: MIDAZOLAM INJ 2MG/2ML VIAL IM ONE (23:45)
[2022-11-11] MEDS ORDERED: diphenhydrAMINE 50MG/ML VIAL IM ONE (23:45)
[2022-11-11] MEDS ORDERED: HALOPERIDOL 5MG/ML 1ML VIAL IM ONE (23:45)
[2022-11-12 00:42] LABS: ETHYL ALCOHOL (ETHANOL) < 0.003 % (0.000-0.010)
[2022-11-12 00:43] LABS: SALICYLATE LEVEL < 3.0 MG/DL (<30)
[2022-11-12 00:44] LABS: ACETAMINOPHEN LEVEL < 2.0 UG/ML (10.0-20.0); ALBUMIN 3.8 G/DL (3.2-5.2); ALKALINE PHOSPHATASE 139 U/L (46-116); ALT/SGPT 327 U/L (7.0-40); AST/SGOT 254 U/L (<34); BILIRUBIN,DIRECT 0.5 MG/DL (<0.4); BILIRUBIN,TOTAL 1.2 MG/DL (0.3-1.2); BLOOD UREA NITROGEN 14 MG/DL (9-23); CALCIUM LEVEL 8.6 MG/DL (8.5-10.1); CARBON DIOXIDE LEVEL 25 MMOL/L (20-31); CHLORIDE LEVEL 104 MMOL/L (98-107); GLOMERULAR FILTRATION RATE > 60.0 (>60); GLUCOSE, FASTING 108 MG/DL (60-100); POTASSIUM SERUM 3.2 MMOL/L (3.5-5.1); SODIUM LEVEL 140 MMOL/L (136-145); TOTAL PROTEIN 6.6 G/DL (5.7-8.2)
[2022-11-12 00:46] LABS: HCG, SERUM QUALITATIVE NEGATIVE (NEGATIVE); THYROID STIMULATING HORMONE 1.255 uIU/ML (0.55-4.78)
[2022-11-12 01:02] LABS: HEMATOCRIT 41.6 % (36.0-47.0); HEMOGLOBIN 13.7 g/dl (12.0-15.5); MEAN CORPUSCULAR HEMOGLOBIN 28.5 pg (27.0-33.0); MEAN CORPUSCULAR HGB CONC 32.9 g/dl (32.0-36.5); MEAN CORPUSCULAR VOLUME 86.5 fl (80.0-96.0); PLATELET COUNT, AUTOMATED 325 10^3/uL (150-450); RED BLOOD COUNT 4.81 10^6/uL (4.00-5.40); WHITE BLOOD COUNT 12.6 10^3/uL (4.0-10.0)
[2022-11-12] MEDS ORDERED: POTASSIUM CHLORIDE 10MEQ SR TABLET PO ONE (09:15)
[2022-11-13 07:57] LABS: BARBITURATES URINE NEGATIVE (NEGATIVE); COCAINE METABOLITE URINE NEGATIVE (NEGATIVE); METHADONE URINE NEGATIVE (NEGATIVE); OPIATES URINE NEGATIVE (NEGATIVE); PHENCYCLIDINE URINE NEGATIVE (NEGATIVE)
[2022-11-13 08:00] LABS: AMPHETAMINES LEVEL URINE POSITIVE (NEGATIVE); BENZODIAZEPINES URINE POSITIVE (NEGATIVE); CANNABINOIDS URINE POSITIVE (NEGATIVE)
[2022-11-13] MEDS: OMEPRAZOLE 20MG CAP PO SCH (09:00)
[2022-11-13] MEDS ORDERED: MED REC IN PROGRESS XX SCH (09:50)
[2022-11-13] MEDS ORDERED: NICO21DI38 TD (11:11)
[2022-11-13] MEDS ORDERED: THIA100T7 PO (11:11)
[2022-11-13] MEDS ORDERED: IBUP1TAB6 PO (11:11)
[2022-11-13] MEDS ORDERED: MULT400T10 PO (11:11)
[2022-11-13] MEDS ORDERED: ZONI50CA11 PO (11:11)
[2022-11-13] MEDS ORDERED: HOME MED LIST COMPLETE! XX SCH (11:15)
[2022-11-13 13:30] LABS: POTASSIUM SERUM 4.4 MMOL/L (3.5-5.1)
[2022-11-13 13:47] LABS: HEPATITIS B SURFACE ANTIGEN NEGATIVE (NEGATIVE)
[2022-11-13] MEDS ORDERED: ACETAMINOPHEN TAB 650MG DOSE (2X325MG) PO PRN (13:55)
[2022-11-13] MEDS ORDERED: LORazepam 2 MG TAB PO PRN (13:55)
[2022-11-13] MEDS ORDERED: FLUTICASONE PROP 0.05% NASAL SPRAY 16 GM (FLONASE) NARES PRN (13:55)
[2022-11-13] MEDS ORDERED: ALBUTEROL 90 MCG/ACT 8GM HFA INHALER INH PRN (13:55)
[2022-11-13] MEDS ORDERED: IBUPROFEN 400MG TAB PO PRN (13:55)
[2022-11-13] MEDS ORDERED: MAALOX 30 ML SUSP *UDC PO PRN (13:55)
[2022-11-13] MEDS ORDERED: diphenhydrAMINE 25MG CAP PO PRN (13:55)
[2022-11-13] MEDS ORDERED: MOM 30ML SUSPENSION UDC PO PRN (13:55)
[2022-11-13] MEDS ORDERED: NICOTINE 21MG/24HR 1 EA TRANSDERMAL TD PRN (13:55)
[2022-11-13] MEDS ORDERED: traZODone 50 MG TAB PO PRN (13:55)
[2022-11-13 14:09] LABS: HEPATITIS B CORE ANTIBODY IGM NEGATIVE (NEGATIVE)
[2022-11-13 15:48] VITALS: BP 116/73; TEMP 97.3; O2SAT 100
[2022-11-13] MEDS: FOLIC ACID 1MG TAB PO SCH (18:26)
[2022-11-13] MEDS: CETIRIZINE (ZyrTEC) 10 MG TAB PO SCH (18:26)
[2022-11-13] MEDS: MULTIVITAMINS/MINERALS THERAP 1 TAB PO SCH (18:26)
[2022-11-13] MEDS: THIAMINE 100 MG TAB PO SCH (18:26)
[2022-11-13] MEDS: buPROPion **XL** TABLET 150MG (WELLBUTRIN XL) PO SCH (18:27)
[2022-11-13 19:12] LABS: HEPATITIS C VIRUS ABY INDEX > 11.00 INDEX (<0.8)
[2022-11-13] MEDS: busPIRone 10 MG TAB PO SCH (21:00)
[2022-11-13] MEDS: ZONISAMIDE 50 MG CAP (ZONEGRAN) PO SCH (21:00)
[2022-11-14 06:46] VITALS: BP 126/68; TEMP 98.1; O2SAT 97
[2022-11-14 08:00] VITALS: BP 124/87
[2022-11-14] MEDS: CETIRIZINE (ZyrTEC) 10 MG TAB PO SCH (09:00)
[2022-11-14] MEDS: THIAMINE 100 MG TAB PO SCH ×2 (11:06→21:17)
[2022-11-14] MEDS: ZONISAMIDE 50 MG CAP (ZONEGRAN) PO SCH ×2 (11:06→21:17)
[2022-11-14] MEDS: busPIRone 10 MG TAB PO SCH ×2 (11:06→21:18)
[2022-11-14] MEDS: FOLIC ACID 1MG TAB PO SCH (11:06)
[2022-11-14] MEDS: buPROPion **XL** TABLET 150MG (WELLBUTRIN XL) PO SCH (11:06)
[2022-11-14] MEDS: MULTIVITAMINS/MINERALS THERAP 1 TAB PO SCH (11:06)
[2022-11-14] MEDS: OMEPRAZOLE 20MG CAP PO SCH (11:06)
[2022-11-14 16:00] VITALS: BP 133/85
[2022-11-14 18:53] VITALS: BP 122/84; TEMP 97.2
[2022-11-15 06:21] VITALS: BP 139/91; TEMP 97.5; O2SAT 98
[2022-11-15] MEDS: THIAMINE 100 MG TAB PO SCH (08:15)
[2022-11-15] MEDS: OMEPRAZOLE 20MG CAP PO SCH (08:15)
[2022-11-15] MEDS: busPIRone 10 MG TAB PO SCH (08:15)
[2022-11-15] MEDS: FOLIC ACID 1MG TAB PO SCH (08:15)
[2022-11-15] MEDS: MULTIVITAMINS/MINERALS THERAP 1 TAB PO SCH (08:15)
[2022-11-15] MEDS: buPROPion **XL** TABLET 150MG (WELLBUTRIN XL) PO SCH (08:15)
[2022-11-15] MEDS: CETIRIZINE (ZyrTEC) 10 MG TAB PO SCH (08:15)
[2022-11-15] MEDS: ZONISAMIDE 50 MG CAP (ZONEGRAN) PO SCH (08:15)
[2022-11-15 14:00] VITALS: BP 129/86
[2022-11-15] MEDS ORDERED: OMEP-173 PO (15:11)
[2022-11-15] MEDS ORDERED: FOLI1TAB11 PO (15:11)
[2022-11-15] MEDS ORDERED: VENTAER INH (15:11)
[2022-11-15] MEDS ORDERED: ZONI50CA PO (15:11)
[2022-11-15] MEDS ORDERED: BUSP10TA PO (15:11)
[2022-11-15] MEDS ORDERED: THIA100TA PO ×2 (15:11)
[2022-11-15] MEDS ORDERED: CETI10TA PO (15:11)
[2022-11-15] MEDS ORDERED: VITMTA PO (15:11)
[2022-11-15] MEDS ORDERED: TRAZ-252 PO (15:11)
[2022-11-15] MEDS ORDERED: BUPR150T12 PO (15:11)
[2022-11-17] MEDS ORDERED: THIAMINE 100 MG TAB PO SCH (09:00)
== END 2022-11-15 17:11 | disposition home or self-care (01) | DRG 751 ==
LOC: M ED 23:40 → M ED INP 11-13 13:54 → M PSY 11-13 15:36
PROVIDERS: ADMIT Student in an Organized Health Care Education/Training Program; ATTEND Student in an Organized Health Care Education/Training Program
DX: F29 Unspecified psychosis not due to a substance or known physiological condition (principal); F15.10 Other stimulant abuse, uncomplicated; F12.10 Cannabis abuse, uncomplicated; J45.909 Unspecified asthma, uncomplicated; K21.9 Gastro-esophageal reflux disease without esophagitis; K64.9 Unspecified hemorrhoids; F32.A Depression, unspecified; Z20.822 Contact with and (suspected) exposure to COVID-19; Z79.899 Other long term (current) drug therapy

== ENCOUNTER 2022-12-17 13:07 | Emergency (ER) | payer MEDICAID, OTHER ==
[~2022-12-17] VITALS: Ht 160 cm; Wt 56.8 kg
[~2022-12-17 13:07] MED LIST changes: +CETI10TA PO; +FOLI1TAB11 PO; +IBUP1TAB6 PO; +MULT400T10 PO; +NICO21DI38 TD; +THIA100T7 PO; +THIA100TA PO; +TRAZ-252 PO; +VENTAER INH; +VITMTA PO; +ZONI50CA PO; +ZONI50CA11 PO
[2022-12-17 15:05] LABS: HCG, SERUM QUALITATIVE NEGATIVE (NEGATIVE)
[2022-12-17 15:44] VITALS: BP 122/62; TEMP 97.3; O2SAT 99
== END 2022-12-17 17:00 | disposition home or self-care (01) ==
LOC: EDBD 13:07 → M ED 13:07
DX: F19.10 Other psychoactive substance abuse, uncomplicated (principal); J45.909 Unspecified asthma, uncomplicated; F41.9 Anxiety disorder, unspecified; F32.A Depression, unspecified; F17.200 Nicotine dependence, unspecified, uncomplicated; Z79.899 Other long term (current) drug therapy; Z88.8 Allergy status to other drugs, medicaments and biological substances

== ENCOUNTER → 2023-02-25 | Outpatient (CLI) | payer OTHER | LOC: M PLALAB 10:52 | PROVIDERS: ATTEND Obstetrics & Gynecology | DX: N91.1 Secondary amenorrhea (principal) ==

== ENCOUNTER → 2023-03-14 | Outpatient (CLI) | payer OTHER ==
[2023-03-14 11:51] LABS: IONIZED CALCIUM 4.8 MG/DL (4.5-5.3)
[2023-03-14 11:55] LABS: APPEARANCE, URINE CLEAR (CLEAR); BACTERIA, URINE AUTO NEGATIVE (NEGATIVE); BASO % 0.5 % (0.0-1.0); BILIRUBIN, URINE AUTO NEGATIVE (NEGATIVE); BLOOD, URINE BLOOD NEGATIVE (NEGATIVE); COLOR, URINE YELLOW (YELLOW); EOS # 0.1 10^3/uL (0.0-0.5); EOS % 1.4 % (0.0-3.0); GLUCOSE, URINE (UA) AUTO NEGATIVE (NEGATIVE); HEMATOCRIT 44.5 % (36.0-47.0); HEMOGLOBIN 14.7 g/dl (12.0-15.5); KETONE, URINE AUTO NEGATIVE (NEGATIVE); LEUKOCYTE ESTERASE, URINE AUTO NEGATIVE (NEGATIVE); LYMPH # 2.8 10^3/uL (1.5-5.0); LYMPH % 44.2 % (24.0-44.0); MEAN CORPUSCULAR HEMOGLOBIN 29.2 pg (27.0-33.0); MEAN CORPUSCULAR VOLUME 88.3 fl (80.0-96.0); MONO # 0.4 10^3/uL (0.0-0.8); MONO % 6.7 % (2.0-8.0); NEUTROPHILS % 46.9 % (36.0-66.0); NITRITE, URINE AUTO NEGATIVE (NEGATIVE); PLATELET COUNT, AUTOMATED 251 10^3/uL (150-450); PROTEIN, URINE AUTO NEGATIVE (NEGATIVE); RBC, URINE AUTO 0 /HPF (0-3); RED BLOOD COUNT 5.04 10^6/uL (4.00-5.40); SPECIFIC GRAVITY URINE AUTO 1.011 (1.002-1.035); SQUAMOUS EPITHELIAL CELL UR AU 4 /HPF (0-6); UROBILINOGEN, URINE AUTO 0.2 mg/dL (0.0-2.0); WBC, URINE AUTO 0 /HPF (0-3); WHITE BLOOD COUNT 6.3 10^3/uL (4.0-10.0)
[2023-03-14 12:17] LABS: HEMOGLOBIN A1c 4.6 % (4.0-6.0)
[2023-03-14 12:19] LABS: C REACTIVE PROTEIN QUANTITATIV < 0.40 MG/DL (<1.0)
[2023-03-14 12:20] LABS: AMYLASE 153 U/L (30-118)
[2023-03-14 12:21] LABS: ALBUMIN 3.9 G/DL (3.2-5.2); ALT/SGPT 21 U/L (7.0-40); AST/SGOT 14 U/L (<34); BILIRUBIN,DIRECT < 0.1 MG/DL (<0.4); BILIRUBIN,TOTAL 0.3 MG/DL (0.3-1.2); BLOOD UREA NITROGEN 14 MG/DL (9-23); CALCIUM LEVEL 9.3 MG/DL (8.5-10.1); CHOLESTEROL LEVEL 204 MG/DL (<200); CREATININE FOR GFR 0.54 MG/DL (0.55-1.30); GLOMERULAR FILTRATION RATE > 60.0 (>60); MAGNESIUM LEVEL 2.1 MG/DL (1.8-2.4); PHOSPHORUS LEVEL 3.6 MG/DL (2.5-4.9); POTASSIUM SERUM 4.4 MMOL/L (3.5-5.1)
[2023-03-14 12:23] LABS: THYROID STIMULATING HORMONE 2.721 uIU/ML (0.55-4.78)
[2023-03-14 12:24] LABS: CPK CREATINE PHOSPHOKINASE 46 U/L (34-145)
[2023-03-14 13:08] LABS: HEPATITIS C VIRUS ABY INDEX > 11.00 INDEX (<0.8)
== END ==
LOC: M LAB 11:12
PROVIDERS: ATTEND Registered Nurse Psychiatric/Mental Health
DX: F41.9 Anxiety disorder, unspecified (principal); F32.A Depression, unspecified; R79.89 Other specified abnormal findings of blood chemistry

== ENCOUNTER → 2023-03-19 | Outpatient (REF) | payer OTHER | LOC: M SFHCWAGY 13:00 | PROVIDERS: ATTEND Nurse Practitioner Family | DX: Z12.4 Encounter for screening for malignant neoplasm of cervix (principal); R87.611 Atypical squamous cells cannot exclude high grade squamous intraepithelial lesion on cytologic smear of cervix (ASC-H) ==

== ENCOUNTER 2023-09-02 23:44 | Emergency (ER) | payer OTHER, MEDICAID ==
[~2023-09-02] VITALS: Ht 160 cm; Wt 72.7 kg
[~2023-09-02 23:44] MED LIST changes: -FLUT50SP17 NARES; +FLUTISP NARES
[2023-09-03] MEDS ORDERED: RALTEGRAVIR 400 MG TAB (ISENTRESS) PO SCH
[2023-09-03] MEDS ORDERED: EXPOSURE KIT-ADULT 7 DAY SUPPLY PO ONE (00:50)
[2023-09-03] MEDS: LIDOCAINE 1% SDV 5ML VIAL DILUENT ONE (03:58)
[2023-09-03] MEDS: cefTRIAXone 500MG VIAL IM ONE (03:58)
[2023-09-03] MEDS: AZITHROMYCIN 250MG TABLET PO ONE (03:59)
[2023-09-03 04:04] LABS: BASO # 0.1 10^3/uL (0.0-0.2); BASO % 0.5 % (0.0-1.0); EOS # 0.2 10^3/uL (0.0-0.5); EOS % 2.1 % (0.0-3.0); HEMATOCRIT 39.5 % (36.0-47.0); HEMOGLOBIN 13.3 g/dl (12.0-15.5); LYMPH % 33.2 % (24.0-44.0); MEAN CORPUSCULAR HEMOGLOBIN 29.2 pg (27.0-33.0); MEAN CORPUSCULAR HGB CONC 33.7 g/dl (32.0-36.5); MEAN CORPUSCULAR VOLUME 86.6 fl (80.0-96.0); NEUTROPHILS # 4.8 10^3/uL (1.5-8.5); NEUTROPHILS % 52.9 % (36.0-66.0); PLATELET COUNT, AUTOMATED 232 10^3/uL (150-450); RED BLOOD COUNT 4.56 10^6/uL (4.00-5.40); WHITE BLOOD COUNT 9.1 10^3/uL (4.0-10.0)
[2023-09-03] MEDS: RALTEGRAVIR 400 MG TAB (ISENTRESS) PO ONE (04:18)
[2023-09-03] MEDS: EMTRICITABINE/TENOFOVIR 200MG/300MG TABLET PO ONE (04:18)
[2023-09-03 04:23] LABS: ALBUMIN 3.9 G/DL (3.2-5.2); ALKALINE PHOSPHATASE 98 U/L (46-116); ALT/SGPT 22 U/L (7.0-40); AST/SGOT 27 U/L (<34); BILIRUBIN,TOTAL 1.3 MG/DL (0.3-1.2); BLOOD UREA NITROGEN 15 MG/DL (9-23); CALCIUM LEVEL 9.1 MG/DL (8.5-10.1); CARBON DIOXIDE LEVEL 24 MMOL/L (20-31); CHLORIDE LEVEL 104 MMOL/L (98-107); CREATININE FOR GFR 0.59 MG/DL (0.55-1.30); GLOMERULAR FILTRATION RATE > 60.0 (>60); GLUCOSE, FASTING 82 MG/DL (60-100); POTASSIUM SERUM 3.6 MMOL/L (3.5-5.1); SODIUM LEVEL 139 MMOL/L (136-145); TOTAL PROTEIN 7.3 G/DL (5.7-8.2)
[2023-09-03 04:26] LABS: HCG, SERUM QUALITATIVE NEGATIVE (NEGATIVE)
[2023-09-03 04:27] LABS: HEPATITIS B SURFACE ANTIBODY NEGATIVE (POSITIVE)
[2023-09-03 04:52] LABS: HIV 1&2 SCREEN NEGATIVE (NEGATIVE)
[2023-09-03 05:40] LABS: HEPATITIS C VIRUS ABY INDEX 2.11 INDEX (<0.8)
[2023-09-03] MEDS ORDERED: EMTR1TAB16 PO (06:06)
[2023-09-03] MEDS ORDERED: RALT40TA PO (06:06)
[2023-09-03 06:30] VITALS: BP 115/70; TEMP 98; O2SAT 99
[2023-09-03 06:45] LABS: GC DNA AMPLIFICATION NEGATIVE (NEGATIVE)
[2023-09-03 07:33] LABS: Trichomonas vaginalis (AMP) NOT DETECTED (NEGATIVE)
[2023-09-04] MEDS ORDERED: EMTRICITABINE/TENOFOVIR 200MG/300MG TABLET PO SCH
== END 2023-09-03 06:34 | disposition home or self-care (01) ==
LOC: M ED 23:44
DX: T76.21XA Adult sexual abuse, suspected, initial encounter (principal); M54.50 Low back pain, unspecified; M54.2 Cervicalgia; Y04.8XXA Assault by other bodily force, initial encounter; Y92.149 Unspecified place in prison as the place of occurrence of the external cause; Y07.9 Unspecified perpetrator of maltreatment and neglect; F17.200 Nicotine dependence, unspecified, uncomplicated
CPT/HCPCS: 36415; 70490; 80053; 84703; 85025; 86706; 86780; 86803; 87340; 87389; 87522; 87661; 87810; 87850; 96372; 99283; J0696

== ENCOUNTER → 2024-07-26 | Outpatient (CLI) | payer OTHER ==
[~2024-07-26] MED LIST changes: +EMTR1TAB16 PO; +RALT40TA PO
== END ==
LOC: M WUC 15:14
PROVIDERS: ATTEND Nurse Practitioner Family
DX: M79.642 Pain in left hand (principal)

== ENCOUNTER → 2024-12-27 | Outpatient (CLI) | payer OTHER | LOC: M PLAIMG 13:59 | PROVIDERS: ATTEND Pediatrics | DX: Z86.79 Personal history of other diseases of the circulatory system (principal) ==

== ENCOUNTER → 2025-01-27 | Outpatient (REF) | payer OTHER ==
[~2025-01-27] MED LIST changes: -IBUP1TAB6 PO; -L-LY500T6 PO; +RA L500T PO; +SFHIBU600 PO
[2025-01-27 17:13] LABS: FREE T4 1.06 NG/DL (0.89-1.76)
[2025-01-27 17:21] LABS: THYROGLOBULIN ANTIBODY < 15.0 U/ML (<60.0)
[2025-01-27 17:22] LABS: THYROID PEROXIDASE ANTIBODY < 28.0 U/ML (<60.0)
== END ==
LOC: M LAB REF 16:25
PROVIDERS: ATTEND Pediatrics
DX: R79.89 Other specified abnormal findings of blood chemistry (principal)

== ENCOUNTER → 2025-05-10 | Outpatient (REF) | payer OTHER ==
[~2025-05-10] MED LIST changes: +BUPR-363 PO; -BUPR75TA5 PO
[2025-05-10 12:28] LABS: FREE T4 1.15 NG/DL (0.89-1.76)
[2025-05-10 12:48] LABS: ESTIMATED AVERAGE GLUCOSE 103.0 MG/DL (60-110)
== END ==
LOC: M LAB REF 11:57
PROVIDERS: ATTEND Pediatrics
DX: E66.9 Obesity, unspecified (principal); R79.89 Other specified abnormal findings of blood chemistry